=== PATIENT | male | born 1940 | race Caucasian/White ===

== ENCOUNTER 2018-10-10 13:00 | Emergency (ER) | payer MEDICARE, OTHER ==
[2018-10-10] MEDS ORDERED: HYDROmorphone 2 MG Tab PO SCH (13:45)
--- NOTE | 2018-10-10 15:17 | CT ---
INDICATION: New left facial droop. History of 3 CVAs. Fall left frontal contusion. On Coumadin. CT HEAD WITHOUT CONTRAST: Spiral 3.75 mm axial sections were obtained through the brain with sagittal and coronal reconstructions 10/10/18--no comparisons. Total exam DLP = 714.30 mGy-cm. There is what appears to be a retention cyst in the left frontal air cell and also in an ethmoidal air cell on the left posteriorly with an air-fluid level in the left maxillary antrum raising question of acute sinusitis in that sinus. Paranasal sinuses were otherwise unremarkable. Mastoid air cells were well aerated on the right and with relatively few air cells on the left those being normally aerated in appearance. Marked soft tissue swelling is noted overlying the left frontal bone with a scalp hematoma present in that area. No cranial fracture site was identified. However, there was an impaction fracture of the outer table of the skull at the level of the left frontal bone best seen on axial image #41. This may be the reason for the appearance of a retention cyst in that area, which actually may represent a small hematoma. No shift of midline structures was identified--no hemorrhage or hematoma was seen. The orbits appear to be intact. Calcifications are noted in the vertebral and especially the internal carotid arteries. Ventricles and sulci are slightly prominent compatible with a mild degree of cerebral atrophy partly on the basis of the patients age. There is some minimal patchy decreased density in the white matter compatible with a mild degree of microvascular disease, although other cause of leukoencephalopathy, cannot be excluded. IMPRESSION: 1. Acute fracture noted at the left frontal air cell involving the outer table of the skull. No other cranial fracture site identified--no acute intracranial abnormality seen. 2. Scalp hematoma left frontal area overlying the fracture site mentioned in # 1. 3. Mild generalized atrophy. 4. Cerebrovascular disease. 5. Possible sinusitis, possibly acute in the left maxillary antrum. Report was called to Dr. Acosta at 1450 hours. [facility]
--- NOTE | 2018-10-10 15:28 | CT ---
INDICATION: New left facial droop. History of 3 CVAs. Fall left frontal contusion. On Coumadin. CERVICAL SPINE CT WITHOUT CONTRAST: Spiral 2.5 mm axial sections were obtained through the cervical spine with sagittal and coronal reconstructions 10/10/18-- no comparisons. Total exam DLP = 453.55 mGy-cm. Prevertebral space appeared normal. Bone density appeared to be somewhat diminished raising question of osteomalacia or osteoporosis--correlate clinically. Moderately severe degenerative changes are noted with sclerosis, hypertrophic change, narrowing of the joint space and subchondral cystic changes at the atlantoodontoid joint. Degenerative changes and disc disease are noted at C4-5, C5-6 and C6-7 with vacuum joint phenomenon at C4 through 7 levels. Reversal of normal cervical lordosis is centered at the C5 level and is moderate. The prevertebral space appeared to be normal. Vertebral elements were otherwise fairly well aligned. There is some narrowing of neural foramina at the above mentioned levels and also at C3-4. Hypertrophic changes at the uncinate joints are noted throughout the cervical spine relatively mild at the C2-3, C3-4 level with more prominent degenerative hypertrophic change at the right sided C3-4 uncinate joints and more severe at their remaining levels caudally. Hypertrophic changes were also noted at the lateral masses with masses of C2-3 on the left. The lateral masses at C2-3 are not fused on the right. A dextroconcave scoliosis of mild to moderate degree is noted additionally. Prevertebral space appeared normal. A definite acute fracture or dislocation was not identified with the odontoid and the atlas appearing intact. IMPRESSION: 1. No acute fracture or dislocation. 2. Degenerative changes and disc disease as noted above. 3. Mild to moderate scoliosis. 4. Possible demineralization. 5. Fusion of left sided lateral masses at C2-3. 6. Reversal of normal cervical lordosis centered on C5. Report was called to Dr. Acosta at 1450 hours. [facility]
--- NOTE | 2018-10-10 15:33 | CR ---
INDICATION: New left facial droop. History of 3 CVAs. Fall left frontal contusion. On Coumadin. CHEST ONE VIEW: Single frontal view of the chest was obtained 10/10/18--no comparisons. The aorta is tortuous. There may be some minimal calcification in the arch of the aorta. The heart is normal in size and shape. Overlying EKG leads are noted. Cathleen structures appear to be grossly intact. IMPRESSION: No acute process. Report was called to Dr. Acosta at 1450 hours. [facility]
--- NOTE | 2018-10-10 15:35 | CR ---
INDICATION: New left facial droop. History of 3 CVAs. Fall left frontal contusion. On Coumadin. RIGHT HUMERUS: Four images of the right humerus were obtained and revealed no evidence of an acute fracture or dislocation or other acute bone or joint abnormality. Report was called to Dr. Acosta at 1450 hours. [facility]
--- NOTE | 2018-10-10 15:37 | CR ---
INDICATION: New left facial droop. History of 3 CVAs. Fall left frontal contusion. On Coumadin. RIGHT SHOULDER: Three view of the right shoulder revealed minimal degenerative change at the glenohumeral joint with joint space fairly well preserved. Minimal degenerative changes are also noted at the AC joint. An acute fracture, dislocation or other significant bone or joint abnormality, was not identified. Report was called to Dr. Acosta at [address] [facility]
[2018-10-10] MEDS ORDERED: Diphtheria/Tetanus Toxoids,Adult (Td) 0.5 ML SDV IM ONE (16:15)
[2018-10-10 16:47] VITALS: BP 136/72
--- NOTE | 2018-10-11 07:20 | EDM.PDOC ---
ED HPI GENERAL MEDICAL PROBLEM - General Chief Complaint: Head Injury Stated Complaint: FALL Time Seen by Provider: 10/10/18 13:55 Source of Information: Reports: Patient History Limitations: Reports: No Limitations - History of Present Illness INITIAL COMMENTS - FREE TEXT/NARRATIVE: His pleasant 78-year-old man was putting his snowblower away when he tripped and fell on a rubber foam mattress traumatized his right shoulder and left arm. He has an abrasion to the dorsum is nose is where his glasses scraped his face. Last tetanus was 10 years ago and he has had a tender right shoulder discomfort right humeral discomfort and mild trace of left facial droop. He is taking warfarin 5 mg and 7 mg alternating days, recently metoprolol 100 mg. Has previous noted chronic low back pain bilateral SVETLANA hypertension myocardial infarction 2 lymphs with his is edentulous previous carpal tunnel surgery for back surgery and has a large left inguinal hernia Left Forehead Pain Score (Numeric/FACES): 5 - Related Data Allergies Allergy/AdvReac Type Severity Reaction Status Date / Time rofecoxib [From Vioxx] Allergy Headache Verified 03/04/15 20:25 Home Meds: Home Meds Aspirin 325 mg PO DAILY 02/21/15 [History] Celecoxib [CeleBREX] 200 mg PO DAILY PRN 02/21/15 [History] Ciprofloxacin HCl [Cipro] 500 mg PO BID 02/21/15 [History] Enalapril Maleate [Vasotec] 10 mg PO DAILY 02/21/15 [History] Lovastatin [Mevacor] 40 mg PO ASDIRECTED 02/21/15 [History] Metoprolol Tartrate [Lopressor] 100 mg PO DAILY 02/21/15 [History] Tamsulosin [Tamsulosin 24 Hr] 0.4 mg PO DAILY 02/21/15 [History] Warfarin [Coumadin] 5 mg PO ASDIRECTED 02/21/15 [History] Warfarin [Coumadin] 7.5 mg PO ASDIRECTED 02/21/15 [History] Past Medical History Cardiovascular History: Reports: [place], Stents Other Genitourinary History: BPH/OBSTRUCTION Other Musculoskeletal History: BROKEN LEG Neurological History: Reports: Other (See Below) Other Neuro History: 3 strokes without deficits - Past Surgical History Other Cardiovascular Surgeries/Procedures: BACK SURGERY Other Musculoskeletal Surgeries/Procedures:: HIP SURGERY/BACK SURGERY Social & Family History - Family History Family Medical History: Noncontributory - Tobacco Use Smoking Status *Q: Never Smoker - Caffeine Use Caffeine Use: Reports: None - Recreational Drug Use Recreational Drug Use: No ED ROS GENERAL - Review of Systems Review Of Systems: ROS reveals no pertinent complaints other than HPI. ED EXAM, HEAD INJURY - Physical Exam Exam: See Below Text/Narrative:: This pleasant man has moderate distress and is alert and has moderate decreased hearing or have to talk loudly but he can understand the questions and answers appropriately. Has notable trace of a left nasolabial droop. This is new to his . he attended by his and his son. Exam Limited By: No Limitations General Appearance: Alert, WD/WN, Moderate Distress Head: Other (Facial nasal abrasion with left frontal swelling contusion. Left frontal swelling central middle third frontal area.) Eyes: Bilateral Eye: Normal Inspection Ears: Normal External Exam, Normal Canal, Hearing Grossly Normal, Normal TMs, Other (No rosenbaum sign) Nose: Normal Inspection, Normal Mucousa, Active Bleeding (Right and left mucosa granular in character with left less than right fresh nasal bleed that was easily cauterized with silver nitrate sticks after repetitive applications and no further bleeding.) Throat/Mouth: Normal Inspection, Normal Lips, Normal Gums, Normal Oropharynx, Normal Voice, No Airway Compromise, Other (Edentulous) Neck: Non-Tender, Other (Range of motion of the neck is decreased but was not tested until C-spine was cleared. His very significant degenerative disc disease C-spine.) Respiratory: No Respiratory Distress, Lungs Clear, Normal Breath Sounds, No Accessory Muscle Use, Chest Non-Tender Cardiovascular: Normal Peripheral Pulses, Regular Rate, Rhythm, No Edema, No Gallop, No JVD, No Murmur, No Rub, JVD GI/Abdominal Exam: Normal Bowel Sounds, Soft, Non-Tender, No Organomegaly, No Distention, No Abnormal Bruit (Male) Exam: Normal Inspection, Other (Large left inguinal hernia) Rectal (Males) Exam: Deferred Back Exam: Normal Inspection, Vertebral Tenderness, Other (Mild cervical vertebral and paraspinal muscles discomfort on palpation ) DTR: 1+: Patella (R), Patella (L), Achilles (R), Achilles (L) Skin: Normal Color, Warm/Dry - [place] Coma Score Best Eye Response (Katy): (4) Open Spontaneously Best Verbal Response (Katy): (5) Oriented Best Motor Response ([place]): (6) Obeys Commands Course - Vital Signs Last Recorded V/S: Last Vital Signs Temp 36.7 C 10/10/18 13:00 Pulse 72 10/10/18 13:00 Resp 18 10/10/18 16:30 BP 136/72 10/10/18 16:30 Pulse Ox 97 10/10/18 16:30 - Orders/Labs/Meds Orders: Active Orders 24 hr Category Date Time Status Vaccines to be Administered [RC] PER UNIT ROUTINE Care 10/10/18 16:15 Active EKG 12 Lead [EK] Routine Ther 10/10/18 13:40 Ordered Labs: Laboratory Tests 10/10/18 10/10/18 10/10/18 Range/Units 14:33 14:33 14:33 WBC 12.6 H (4.5-12.0) X10-3/uL RBC 4.38 (4.30-5.75) x10(6)uL Hgb 14.2 (11.5-15.5) g/dL Hct 42.0 (30.0-51.3) % MCV 96.0 (80-96) fL MCH 32.5 (27.7-33.6) pg MCHC 33.9 (32.2-35.4) g/dL RDW 12.7 (11.5-15.5) % Plt Count 192 (125-369) X10(3)uL MPV 9.4 (7.4-10.4) fL Neut % (Auto) 79.4 (46-82) % Lymph % (Auto) 12.9 L (13-37) % Gilchrist % (Auto) 4.3 (4-12) % Eos % (Auto) 2 (1.0-5.0) % Baso % (Auto) 2 (0-2) % Neut # (Auto) 10.1 H (1.6-8.3) # Lymph # (Auto) 1.6 (0.6-5.0) # Gilchrist # (Auto) 0.5 (0.0-1.3) # Eos # (Auto) 0.2 (0.0-0.8) # Baso # (Auto) 0.2 (0.0-0.2) # PT 20.8 H (8.7-11.1) INR 2.16 H (0.89-1.13) Sodium 139 (135-145) mmol/L Potassium 3.7 (3.5-5.3) mmol/L Chloride 105 (100-110) mmol/L Carbon Dioxide 23 (21-32) mmol/L BUN 15 (7-18) mg/dL Creatinine 1.1 (0.70-1.30) mg/dL Est Cr Clr Drug Dosing TNP Estimated GFR (MDRD) > 60 (>60) BUN/Creatinine Ratio 13.6 (9-20) Glucose 101 (80-116) mg/dL Calcium 9.4 (8.6-10.2) mg/dL Total Bilirubin 0.9 (0.1-1.3) mg/dL AST 30 H (5-25) IU/L ALT 25 (12-36) U/L Alkaline Phosphatase 79 (56-112) IU/L Troponin I (<0.017-0.056) ng/mL Total Protein 6.8 (6.0-8.0) g/dL Albumin 3.3 (3.2-4.6) g/dL Globulin 3.5 g/dL Albumin/Globulin Ratio 0.9 10/10/18 Range/Units 14:33 WBC (4.5-12.0) X10-3/uL RBC (4.30-5.75) x10(6)uL Hgb (11.5-15.5) g/dL Hct (30.0-51.3) % MCV (80-96) fL MCH (27.7-33.6) pg MCHC (32.2-35.4) g/dL RDW (11.5-15.5) % Plt Count (125-369) X10(3)uL MPV (7.4-10.4) fL Neut % (Auto) (46-82) % Lymph % (Auto) (13-37) % Gilchrist % (Auto) (4-12) % Eos % (Auto) (1.0-5.0) % Baso % (Auto) (0-2) % Neut # (Auto) (1.6-8.3) # Lymph # (Auto) (0.6-5.0) # Gilchrist # (Auto) (0.0-1.3) # Eos # (Auto) (0.0-0.8) # Baso # (Auto) (0.0-0.2) # PT (8.7-11.1) INR (0.89-1.13) Sodium (135-145) mmol/L Potassium (3.5-5.3) mmol/L Chloride (100-110) mmol/L Carbon Dioxide (21-32) mmol/L BUN (7-18) mg/dL Creatinine (0.70-1.30) mg/dL Est Cr Clr Drug Dosing Estimated GFR (MDRD) (>60) BUN/Creatinine Ratio (9-20) Glucose (80-116) mg/dL Calcium (8.6-10.2) mg/dL Total Bilirubin (0.1-1.3) mg/dL AST (5-25) IU/L ALT (12-36) U/L Alkaline Phosphatase (56-112) IU/L Troponin I 0.035 (<0.017-0.056) ng/mL Total Protein (6.0-8.0) g/dL Albumin (3.2-4.6) g/dL Globulin g/dL Albumin/Globulin Ratio Meds: Medications Discontinued Medications Generic Name Dose Route Start Last Admin Trade Name Freq PRN Reason Stop Dose Admin Hydromorphone HCl 2 mg 10/10/18 13:45 10/10/18 14:51 Dilaudid PO 2 mg Q6H BURT Administration Tetanus/Diphtheria Toxoids 0.5 ml 10/10/18 16:15 10/10/18 16:20 Tenivac IM 10/10/18 16:16 0.5 ml .ONCE ONE Administration - Radiology Interpretation CT Results Date: 10/10/18 (Significant children degenerative joint disease cervical spine,Left outer cortex frontal fracture, no penetration in her cortex of the frontal sinuses, concussion, chest x-ray no cardiomegaly, right shoulder x-ray no fracture or dislocation, right humerus is normal without fracture. No CVA on CT of the head. Moderate atlantoaxial joint abnormalities old odontoid joint changes.) Departure - Departure Time of Disposition: 14:50 (CT left motor cortex frontal sinus fracture site invagination. No disruption of the cortex of the table of the skull/intertable of the frontal sinus. Significant degenerative joint disease cervical spine without fracture. Old changes odontoid and the atlantoaxial joint no evidence for CVA on brain examination) Disposition: Home, Self-Care 01 Condition: Good Clinical Impression: Anticoagulation goal of INR 2.0 to 2.5, Mild epistaxis Skull fracture with concussion Qualifiers: Encounter type: initial encounter Fracture type: closed Qualified Code(s): S02.91XA - Unspecified fracture of skull, initial encounter for closed fracture ; S06.0X9A - Concussion with loss of consciousness of unspecified duration, initial encounter Concussion Qualifiers: Encounter type: initial encounter Loss of consciousness presence/duration: without LOC Qualified Code(s): S06.0X0A - Concussion without loss of consciousness, initial encounter Hypertension Qualifiers: Hypertension type: essential hypertension Qualified Code(s): I10 - Essential ( primary) hypertension Chronic low back pain Qualifiers: Back pain laterality: bilateral Sciatica presence: without sciatica Qualified Code(s): M54.5 - Low back pain; G89.29 - Other chronic pain CVA (cerebrovascular accident) Qualifiers: CVA mechanism: embolism Precerebral and cerebral artery: middle cerebral artery Laterality of affected vessel: right Qualified Code(s): I63.411 - Cerebral infarction due to embolism of right middle cerebral artery Facial nerve injury Qualifiers: Encounter type: initial encounter Laterality: left Qualified Code(s): S04.52XA - Injury of facial nerve, left side, initial encounter Nasal trauma Qualifiers: Encounter type: initial encounter Qualified Code(s): S09.92XA - Unspecified injury of nose, initial encounter - Discharge Information *PRESCRIPTION DRUG MONITORING PROGRAM REVIEWED*: Not Applicable *COPY OF PRESCRIPTION DRUG MONITORING REPORT IN PATIENT BYRON: Not Applicable Instructions: Fall Prevention in the Home, [id number], Head Injury, Adult Referrals: Sid Diamond MD [Primary Care Provider] - Forms: ED Department Discharge Additional Instructions: FOR PAIN USE TYLENOL 100 MG EVERY 4-6 HOURS FOLLOW UP WITH YOUR MD IN THE NEXT 5-7 DAYS EARLIER IF WORSE. USE BACITRACITIN OR TRIPLE ANTIBIOTIC OINTMENT TWICE A DAY TO THE ABRASION TO YOUR NOSE AND FOREHEAD - My Orders Last 24 Hours: My Active Orders 10/10/18 13:40 EKG 12 Lead [EK] Routine 10/10/18 16:15 Vaccines to be Administered [RC] PER UNIT ROUTINE - Assessment/Plan Last 24 Hours: My Active Orders 10/10/18 13:40 EKG 12 Lead [EK] Routine 10/10/18 16:15 Vaccines to be Administered [RC] PER UNIT ROUTINE
== END 2018-10-10 16:47 | disposition home or self-care (01) ==
LOC: FB.ED 13:00
DX: I63.411 Cerebral infarction due to embolism of right middle cerebral artery (principal); S02.91XA Unspecified fracture of skull, initial encounter for closed fracture; S06.0X0A Concussion without loss of consciousness, initial encounter; S04.52XA Injury of facial nerve, left side, initial encounter; S09.92XA Unspecified injury of nose, initial encounter; R04.0 Epistaxis; M54.5 Low back pain; G89.29 Other chronic pain; I25.2 Old myocardial infarction; Z88.8 Allergy status to other drugs, medicaments and biological substances; Z79.82 Long term (current) use of aspirin
CPT/HCPCS: 36415; 70450; 71045; 72125; 73030-RT; 73060-RT; 80053; 84484; 85025; 85610; 90714; 93005; 96372; 99285; A9270-GY

== ENCOUNTER 2020-05-09 09:28 | Inpatient (IN) | payer MEDICARE, OTHER ==
--- NOTE | 2020-05-13 18:05 | PCM.HP.2 ---
H&P History of Present Illness - General Date of Service: 05/13/20 Admit Problem/Dx: Admission Diagnosis/Problem Admission Diagnosis/Problem Obstructive uropathy Source of Information: Patient, Old Records History Limitations: Reports: No Limitations - History of Present Illness Initial Comments - Free Text/Narative: This is an 80-year-old male patient on May 05 was seen in the urology clinic had hematuria and urinary retention. They placed a Lincoln catheter sent to the hospital with acute kidney injury from obstruction. He was kept in the hospital had had a renal stone but nonobstructing. They tried to take the the catheter and were not able to eat as he obstructed again. And because of the time he was in there he became very deconditioned. He says he feels good now although he is a little bit weak. He states is getting better. He denies chest pain, shortness breath, dysuria, pyuria, hematuria, fevers, chills, back pain. - Related Data Allergies/Adverse Reactions: Allergies Allergy/AdvReac Type Severity Reaction Status Date / Time rofecoxib [From Vioxx] Allergy Headache Verified 05/13/20 16:35 Home Medications: Home Meds Aspirin 325 mg PO DAILY 02/21/15 [History] Celecoxib [CeleBREX] 200 mg PO DAILY PRN 02/21/15 [History] Ciprofloxacin HCl [Cipro] 500 mg PO BID 02/21/15 [History] Enalapril Maleate [Vasotec] 10 mg PO DAILY 02/21/15 [History] Lovastatin [Mevacor] 40 mg PO ASDIRECTED 02/21/15 [History] Metoprolol Tartrate [Lopressor] 50 mg PO BID 02/21/15 [History] Tamsulosin [Tamsulosin 24 Hr] 0.4 mg PO BEDTIME 02/21/15 [History] Warfarin [Coumadin] 5 mg PO ASDIRECTED 02/21/15 [History] Warfarin [Coumadin] 7.5 mg PO ASDIRECTED 02/21/15 [History] Lactobacillus Rhamnosus GG [Culturelle] 2 cap PO DAILY 05/13/20 [History] Magnesium Oxide 500 mg PO DAILY 05/13/20 [History] NaPh,Mb-Db/K Ph,MB-DB [Phos-NaK Powder] 1 pkt PO DAILY 05/13/20 [History] Vancomycin HCl [Vancocin HCl] 125 mg PO QID 05/13/20 [History] Past Medical History Cardiovascular History: Reports: [place], Stents Other Genitourinary History: BPH/OBSTRUCTION Other Musculoskeletal History: BROKEN LEG Neurological History: Reports: Other (See Below) Other Neuro History: 3 strokes without deficits - Past Surgical History Other Cardiovascular Surgeries/Procedures: BACK SURGERY Other Musculoskeletal Surgeries/Procedures:: HIP SURGERY/BACK SURGERY Social & Family History - Family History Family Medical History: Noncontributory - Tobacco Use Smoking Status *Q: Former Smoker Used Tobacco, but Quit: Yes Month/Year Tobacco Last Used: 1969 Second Hand Smoke Exposure: No - Caffeine Use Caffeine Use: Reports: Soda - Recreational Drug Use Recreational Drug Use: No H&P Review of Systems - Review of Systems: Review Of Systems: See Below General: Reports: Weakness HEENT: Reports: No Symptoms Pulmonary: Reports: No Symptoms Cardiovascular: Reports: No Symptoms Gastrointestinal: Reports: No Symptoms Genitourinary: Reports: No Symptoms Musculoskeletal: Reports: No Symptoms Skin: Reports: No Symptoms Psychiatric: Reports: No Symptoms Neurological: Reports: No Symptoms Hematologic/Lymphatic: Reports: No Symptoms Immunologic: Reports: No Symptoms Exam - Exam Exam: See Below - Vital Signs Vital Signs: Last Vital Signs Temp 97.5 F 05/13/20 16:20 Pulse 88 05/13/20 16:20 Resp 16 05/13/20 16:20 BP 114/68 05/13/20 16:20 Pulse Ox 99 05/13/20 16:20 Weight: 171 lb 14.4 oz - Exam General: Alert, Oriented, Cooperative HEENT: Hearing Intact, Posterior Pharynx Clear, TMs Clear Neck: Supple, Trachea Midline Lungs: Clear to Auscultation, Normal Respiratory Effort. No: Crackles, Rales, Rhonchi Cardiovascular: Regular Rate, Regular Rhythm. No: Systolic Murmur GI/Abdominal Exam: Normal Bowel Sounds, Non-Tender, No Organomegaly, No Distention, No Abnormal Bruit (Male) Exam: Other (Lincoln catheter) Rectal (Males) Exam: Normal Exam Back Exam: Normal Inspection, Full Range of Motion Extremities: Normal Inspection, Normal Range of Motion, No Pedal Edema Skin: Warm, Dry, Intact Neuro Extensive - Mental Status: Alert, Oriented x3, Normal Mood/Affect, Normal Cognition, Memory Intact Psychiatric: Alert, Normal Affect, Normal Mood Sepsis Event Note - Evaluation Sepsis Screening Result: No Definite Risk - Focused Exam Vital Signs: Vital Signs Temp Pulse Resp BP Pulse Ox Pulse Ox 05/13/20 16:20 97.5 F 88 16 114/68 99 99 - Problem List (1) Obstructive uropathy SNOMED Code(s): 0645059 ICD Code: N13.9 - OBSTRUCTIVE AND REFLUX UROPATHY, UNSPECIFIED Status: Acute Current Visit: Yes (2) Acute kidney injury SNOMED Code(s): 06958035, [id number] ICD Code: N17.9 - ACUTE KIDNEY FAILURE, UNSPECIFIED Status: Acute Current Visit: Yes (3) Hyponatremia SNOMED Code(s): 61404081 ICD Code: E87.1 - HYPO-OSMOLALITY AND HYPONATREMIA Status: Acute Current Visit: Yes (4) BPH (benign prostatic hyperplasia) SNOMED Code(s): 319729365 ICD Code: N40.0 - BENIGN PROSTATIC HYPERPLASIA WITHOUT LOWER URINRY TRACT SYMP Status: Acute Current Visit: Yes (5) Atonic bladder SNOMED Code(s): 939915967 ICD Code: N31.2 - FLACCID NEUROPATHIC BLADDER, NOT ELSEWHERE CLASSIFIED Status: Acute Current Visit: Yes (6) Lincoln catheter in place SNOMED Code(s): 626057693 ICD Code: Z97.8 - PRESENCE OF OTHER SPECIFIED DEVICES Status: Acute Current Visit: Yes (7) Anticoagulation goal of INR 2.0 to 2.5 SNOMED Code(s): 78426463 ICD Code: Z51.81 - ENCOUNTER FOR THERAPEUTIC DRUG LEVEL MONITORING; Z79.01 - NEWSPAPER PHOTOJOURNALIST (CURRENT) USE OF ANTICOAGULANTS Status: Acute Current Visit: No Problem List Initiated/Reviewed/Updated: Yes Orders Last 24hrs: Active Orders 24 hr Category Date Time Status Patient Status [ADT] Routine ADT 05/13/20 17:34 Active Height and Weight [RC] WEEKLY Care 05/13/20 17:34 Active Insert Urinary Catheter [OM.PC] Q24H Care 05/13/20 17:45 Ordered Oxygen Therapy [RC] PRN Care 05/13/20 17:34 Active Up With Assistance [RC] ASDIRECTED Care 05/13/20 17:31 Active Urinary Catheter Assessment [RC] QSHIFT Care 05/13/20 17:36 Active VTE/DVT Education [RC] Per Unit Routine Care 05/13/20 17:34 Active Vital Signs [RC] DAILY Care 05/13/20 17:34 Active OT Evaluation and Treatment [CONS] Routine Cons 05/13/20 17:31 Active PT Evaluation and Treatment [CONS] Routine Cons 05/13/20 17:31 Active Regular Diet [DIET] Diet 05/13/20 Dinner Active BASIC METABOLIC PANEL,BMP [CHEM] AM Lab 05/16/20 06:00 Ordered INR,PT,PROTHROMBIN TIME [COAG] Routine Lab 05/15/20 06:00 Ordered Resuscitation Status Routine Resus Stat 05/13/20 17:31 Ordered Assessment/Plan Comment:: 1. Admit to swing bed. 2. Continue Lincoln catheter in place 3. PT/OT 4. Regular diet 5. Continue current medications and pharmacy to manage INR and Coumadin 6. Up with assist - Mortality Measure Prognosis:: Good
[2020-05-13] MEDS ORDERED: Melatonin 3 MG Tab PO PRN (19:55)
[2020-05-13] MEDS ORDERED: Vancomycin 125 MG Cap PO SCH (20:00)
[2020-05-13] MEDS: Tamsulosin 0.4 MG Cap.ER PO SCH (20:31)
[2020-05-13] MEDS: Vancomycin 125 MG Cap PO SCH (20:31)
[2020-05-13] MEDS: Metoprolol Tartrate 50 MG Tab PO SCH (20:31)
[2020-05-13] MEDS: Potassium Phosphate,Mb-Db/Sodium Phosphate,Mb-Db Packet PO SCH (20:32)
[2020-05-14] MEDS: Vancomycin 125 MG Cap PO SCH ×5 (00:27→20:06)
[2020-05-14] MEDS ORDERED: Warfarin Sliding Scale PO SCH (07:30)
[2020-05-14] MEDS: Metoprolol Tartrate 50 MG Tab PO SCH ×2 (09:58→20:06)
[2020-05-14] MEDS: Magnesium Oxide 400 MG Tab PO SCH (10:50)
[2020-05-14] MEDS: Lactobacillus Rhamnosus GG (Probiotic) Cap PO SCH (10:50)
[2020-05-14] MEDS ORDERED: Warfarin 5 MG Tab PO ONE (16:00)
[2020-05-14] MEDS: Tamsulosin 0.4 MG Cap.ER PO SCH (20:06)
[2020-05-14] MEDS: Potassium Phosphate,Mb-Db/Sodium Phosphate,Mb-Db Packet PO SCH (20:06)
[2020-05-15] MEDS: Magnesium Oxide 400 MG Tab PO SCH (08:37)
[2020-05-15] MEDS: Lactobacillus Rhamnosus GG (Probiotic) Cap PO SCH (08:37)
[2020-05-15] MEDS: Vancomycin 125 MG Cap PO SCH ×4 (08:38→20:44)
[2020-05-15] MEDS: Metoprolol Tartrate 50 MG Tab PO SCH ×2 (08:40→20:44)
[2020-05-15] MEDS ORDERED: Warfarin 5 MG, Warfarin 2.5 MG PO ONE ×2 (16:00)
[2020-05-15] MEDS: Potassium Phosphate,Mb-Db/Sodium Phosphate,Mb-Db Packet PO SCH (20:44)
[2020-05-15] MEDS: Tamsulosin 0.4 MG Cap.ER PO SCH (20:44)
[2020-05-16] MEDS: Metoprolol Tartrate 50 MG Tab PO SCH (08:48)
[2020-05-16] MEDS: Lactobacillus Rhamnosus GG (Probiotic) Cap PO SCH (08:48)
[2020-05-16 08:49] VITALS: BP 114/64
[2020-05-16] MEDS: Magnesium Oxide 400 MG Tab PO SCH (08:49)
[2020-05-16] MEDS: Vancomycin 125 MG Cap PO SCH (08:49)
[2020-05-16 12:02] VITALS: PULSE 84
--- OUTSIDE RECORDS SUMMARY | 2020-05-21 07:52 | XMSREPORT ---
:[address] [facility] s Address [facility] [place] [address] Care Team Providers Name Role Phone Mariah Diamond MD Primary Care Provider Mariah Diamond MD Attributed Provider Reason for Referral (Routine) Status Reason Specialty Diagnoses / Procedures Referred By Tabitha vargas Referred To Contact [facility] [address] [place] [address] Phone: [phone] Comprehensive Primary [facility] Plus (Routine) Status Reason Specialty Diagnoses / Referred By Referred To Procedures Contact Contact New Request Urology Diagnoses Acute urinary retention Isabel Keane, [facility] [address] [place] [address] [place] [address] Phone: Scheduling Instructions This is an electronic referral. Reason for Visit Reason Comments Urinary Retention Pt arrives by EMS from urolo gy clinic due to urinary retention. Rosa placed draining 2500 m L. Pt states he has been unable to urinate "for weeks". Pt c/o blood in urine. Rosa bag urine apears bloody with sedmentation, Auth/Cert Status Reason Specialty Diagnoses / Procedures Referred By Tabitha vargas Referred To Contact Encounter Details Date Type Department Care Team Description 05/05/2020 - Hospital Encounter [facility] Department [address] [place] [address] Acute urinary 05/13/2020 CENTER 8CD MED Anil Fishman MD [address] [place] [address] [phone] retention SURG [facility] Giuliano Dillon MD [address] [place] [address] [phone] [address] [facility] Lawson Wilson MD [address] [place] [address] [phone] [place] [address] Sarmad Obando MD [address] [place] [address] [phone] Tejal Lee MD [address] [place] [address] [phone] Allergies Active Allergy Reactions Severity Noted Date Comments Vioxx Headache 07/27/2012 documented as of this encounter (statuses as of 05/13/2020) Medications Medication Sig Dispensed Refills Start Date End Date Status fluticasone (FLONASE) [place] 2 sprays 1 Bottle 12 01/25/2019 Active 50 mcg/spray nasal into each nostril sprayIndications: every night at Chronic allergic bedtime rhinitis Additional information Patient taking differently: 2 spray Each nostril Bedtime prn, Informant: Spouse, Reported on 05/05/2020 8:31 PM lovastatin (MEVACOR) 40 mg TAKE 1 TABLET EVERY 90 tablet 3 Active tabletIndications: OTHER DAY Hypercholesteremia Additional information Patient taking differently: 40 mg Oral Every other day, (No instructions reported), Informant: Spouse, Reported on 05/05/2020 8:31 PM warfarin (COUMADIN) 5 mg TAKE 180 tablet 3 01/31/2020 Active tabletIndications: DIRECTED Osteoarthritis, (7.5-10MG DAILY generalized DOSE RANGE) tamsulosin (FLOMAX) 0.4 Take 1 capsule 30 capsule 0 05/13/202006/12 Active mg capsuleIndications: (0.4 mg) Acute urinary retention mouth every night at bedtime vancomycin (VANCOCIN) Take 1 capsule 48 capsule 0 05/13/2020 Active 125 mg capsule C. (125 mg) by difficile mouth 4 times a onlyIndications: day Clostridium difficile colitis potassium & sodium Take 1 packet 7 packet 0 05/13/202005/20 Active phosphates (PHOS-NAK) by mouth 1 time / 020 280-160-250 MG per day for 7 PACKIndications: Acute days kidney injury (HCC) magnesium oxide 500 mg Take 1 tablet 7 tablet 0 05/13/2020 Active TABS tabletIndications: (500 mg) by 0 Acute kidney injury mouth 1 time (HCC) per day for 7 days metoprolol tartrate Take 0.5 60 tablet 0 05/13/2020 Active (LOPRESSOR) 100 mg tablets (50 mg) tabletIndications: by mouth 2 Essential hypertension times a day lactobacillus Take 2 capsules 60 capsule 0 05/14/202006/13 Active (CULTURELLE) by mouth 1 time capsuleIndications: per day Clostridium difficile colitis acetaminophen (TYLENOL) Take 2 tablets 0 05/13/2020 Active 325 mg (650 mg) by tabletIndications: Acute mouth Every 4 urinary retention hours as needed for mild pain, moderate pain or severe pain aspirin 325 mg tablet Take 1 tablet 90 tablet 0 03/27/2015 Discontinued by mouth 1 time (Sto p Taking at per day. Resume Disc harge) in one week. celecoxib (CELEBREX) 200 TAKE ONE 60 capsule 1 01/25/2019 Discontinued mg capsuleIndications: CAPSULE EVERY 20 (Stop Taking at [facility] current use of DAY NEEDED Discharge) anticoagulant therapy FOR PAIN metoprolol tartrate TAKE ONE TABLET 90 tablet 3 01/31/2020 Discontinued (LOPRESSOR) 100 mg EVERY DAY ( Reorder) tabletIndications: Essential hypertension enalapril (VASOTEC) 10 TAKE ONE TABLET 90 tablet 3 01/31/202005/09 Discontinued mg tabletIndications: EVERY DAY (Stop Taking at Essential hypertension Discharge) furosemide (LASIX) 20 mg Take 1 tablet 90 tablet 3 04/28/202005/09 Discontinued tabletIndications: (20 mg) by (Stop Taking at Edema, unspecified type mouth 1 time Discharge) per day acetaminophen-codeine #3 Take 1-2 60 tablet 1 04/30/202004/20 5 Discontinued (TYLENOL #3) 300-30 mg tablets (Stop Taking at tabletIndications: mouth 4 times a Discharge) Hydronephrosis with day as needed ureteral stricture, not for severe pain elsewhere classified senna-docusate sodium Take 1 tablet 0 04/20 Discontinued (SENNA S) 8.6-50 MG by mouth (Stop Taking at tablet other day Discharge) acetaminophen (TYLENOL) Take 2 tablets 0 05/09/202005/13 Discontinued 325 mg (650 mg) tabletIndications: Acute mouth Every 4 urinary retention hours as needed for mild pain magnesium oxide 500 mg Take 1 tablet 8 tablet 0 05/09/2020 Discontinued TABS tabletIndications: (500 mg) 0 Acute kidney injury mouth 2 times a (HCC) day for 4 days potassium & sodium Take 1 packet 9 packet 0 05/09/202005/13 Discontinued phosphates (PHOS-NAK) by mouth 280-160-250 MG times a day for PACKIndications: Acute 3 days kidney injury (HCC) documented as of this encounter (statuses as of 05/13/2020) Active Problems Problem Noted Date Renal failure syndrome 05/05/2020 Acute urinary retention 05/05/2020 Pseudophakia - Both 02/14/2020 Glaucoma suspect of both eyes 08/29/2019 Hyperopia of both eyes 08/29/2019 Regular astigmatism of both eyes 08/29/2019 Presbyopia 08/29/2019 Coronary artery disease without angina pectoris 2014 Enlarged prostate with urinary obstruction 03/04/2015 BPH (benign prostatic hyperplasia) 02/21/2015 Guaiac positive stools 02/21/2015 Overview: The patient does not want a colonoscopy. 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 006 Essential hypertension 06/28/2003 Cerebral artery occlusion with cerebral infarction documented as of this encounter (statuses as of 05/13/2020) Resolved Problems Problem Noted Date Resolved Date Age-related nuclear cataract of both eyes 08/29/2019 02/14/2020 Urinary retention 03/04/2015 09/04/2015 Carpal tunnel syndrome 05/21/2009 02/12/2015 Acute myocardial infarction 08/21/2015 documented as of this encounter (statuses as of 05/13/2020) Immunizations Name Administration Dates Next Due TD(adult)adsorbed 10/10/2018 documented as of this encounter Social History Tobacco Use Types Packs/Day Years Used Date Former Smoker Cigarettes 1 20 09/19/1956 - 0 09/19/1979 Smokeless Tobacco: Never Used Alcohol Use Drinks/Week oz/Week Comments No Social Isolation Answer Date Recorded In a typical week, how many times do you More than three rachel es a week 01/31/2020 talk on the phone with family, friends, or neighbors? How often do you get together with friends More than three t imes a week 01/31/2020 or relatives? How often do you attend yazidi or More than 4 times per year 01/31/2020 quaker services? Do you belong to any clubs or Not asked organizations such as yazidi groups, unions, fraternal or athletic groups, or school groups? How often do you attend meetings of the More than 4 times pe r year 01/31/2020 clubs or organizations you belong to? Are you now , , , 01/31/2020 , never or living with a partner? Financial Resource Strain Answer Date Recorded How hard is it for you to pay for the very basics like Not h katey at all 01/31/2020 food, housing, medical care, and heating? Intimate Partner Violence Answer Date Recorded Within the last year, have you been afraid of your partner o r No 01/31/2020 ex-partner? Within the last year, have you been humiliated or emotionall y No 01/31/2020 abused in other ways by your partner or ex-partner? Within the last year, have you been kicked, hit, slapped, or No 01/31/2020 otherwise physically hurt by your partner or ex-partner? Within the last year, have you been raped or forced to have any No 01/31/2020 kind of sexual activity by your partner or ex-partner? Food Insecurity Answer Date Recorded Within the past 12 months, you worried that your food would Never true 01/31/2020 run out before you got money to buy more. Within the past 12 months, the food you bought just didn't N ever true 01/31/2020 last and you didn't have money to get more. Transportation Needs Answer Date Recorded In the past 12 months, has lack of transportation kept you f rom No 01/31/2020 medical appointments or from getting medications? In the past 12 months, has lack of transportation kept you f rom No 01/31/2020 meetings, work, or getting things needed for daily living? Sexually Active Control Partners Comments Yes Female Sex Assigned at Date Recorded Not on file Job Start Date Occupation Industry Not on file Not on file Not on file Travel History Travel Start Travel End No recent travel history available. documented as of this encounter Last Filed Vital Signs Vital Sign Reading Time Taken Comments Blood Pressure 96/62 05/13/2020 10:53 AM CDT Pulse 82 05/13/2020 10:53 AM CDT Temperature 36.9 C (98.4 F) 05/13/2020 10:53 AM CDT Respiratory Rate 18 05/13/2020 10:53 AM CDT Oxygen Saturation 99% 05/13/2020 10:53 AM CDT Inhaled Oxygen Concentration - - Weight 84 kg (185 lb 3 oz) 05/05/2020 9:08 PM CDT Height 157.5 cm (5' 2") 05/05/2020 9:08 PM CDT Body Mass Index 33.87 05/05/2020 9:08 PM CDT documented in this encounter Functional Status Functional Status Response Date of Assessment Is the person deaf or does he/she have serious difficulty No 05/09/2020 hearing? Is this person blind or does he/she have difficulty No 05/09/2020 seeing even when wearing glasses? Do you have difficulty with walking, balance, climbing No 05/06/2020 stairs, or had a fall in the last 3 months? Does the patient have difficulty dressing or bathing? Yes 05/09/2020 Because of a physical, mental, or emotional condition; Yes 05/09/2020 does this person have difficulty doing errands alone such as visiting a doctor's office or shopping? Cognitive Status Response Date of Assessment Because of a physical, mental, or emotional condition; No 05/09/2020 does this person have serious difficulty concentrating, remembering, or making decisions? documented as of this encounter Discharge Summaries Not on filedocumented in this encounter Discharge Instructions Sondra Arvizu RN - 05/09/2020 Warfarin dose of 2.5mg to be given 05/13/20 in the hospital prior to discharge Check INR tomorrow on 05/14/20 documented in this encounter Medications at Time of Discharge Medication Sig Dispensed Refills Start Date End Date tamsulosin (FLOMAX) 0.4 mg Take 1 capsule 30 capsule 0 05/1306/12/2020 capsuleIndications: Acute (0.4 mg) by mouth urinary retention every night at bedtime potassium & sodium Take 1 packet by 7 packet 0 05/13/2020 05/20/2020 phosphates (PHOS-NAK) mouth 1 time per 280-160-250 MG day for 7 days PACKIndications: Acute kidney injury (HCC) magnesium oxide 500 mg TABS Take 1 tablet 7 tablet 0 05/1305/20/2020 tabletIndications: Acute (500 mg) by mouth kidney injury (HCC) 1 time per day for 7 days metoprolol tartrate Take 0.5 tablets 60 tablet 0 05/13/2020 (LOPRESSOR) 100 mg (50 mg) by mouth tabletIndications: 2 times a day Essential hypertension lactobacillus (CULTURELLE) Take 2 capsules 60 capsule 0 04/2006/13/2020 capsuleIndications: by mouth 1 time Clostridium difficile per day colitis acetaminophen (TYLENOL) 325 Take 2 tablets 0 04/20 mg tabletIndications: Acute (650 mg) by mouth urinary retention Every 4 hours as needed for mild pain, moderate pain or severe pain lovastatin (MEVACOR) 40 mg TAKE 1 TABLET 90 tablet 3 2019 tabletIndications: EVERY OTHER DAY Hypercholesteremia warfarin (COUMADIN) 5 mg TAKE DIRECTED 180 tablet 3 01/30 tabletIndications: (7.5-10MG DAILY Osteoarthritis, generalized DOSE RANGE) fluticasone (FLONASE) 50 [place] 2 sprays 1 Bottle 12 019 mcg/spray nasal into each nostril sprayIndications: Chronic every night at allergic rhinitis bedtime vancomycin (VANCOCIN) 125 Take 1 capsule 48 capsule 0 2019 mg capsule C. difficile (125 mg) by mouth onlyIndications: 4 times a day Clostridium difficile colitis documented as of this encounter Progress Notes Tejal Lee MD - 05/12/2020 4:19 PM CDT Hospital Progress Note Jose Rafael Wasserman is a 80yr old male admitted on 05/05/2020. Assessment / Plan Jose Rafael is a 80-year-old male with multiple medical comorbidities who was admitted on 05/05 for concerns of lower abdominal pain, difficulty micturition hematuria. He was seen in Dr. Knox's clinic, wasfound to have significant urinary retention for which a cystoscopy was done and a indwelling Rsoa was left in. Labs showed anemia hyponatremia acute kidney injury. Urology was consulted and urine retention was secondary to underlying BPH, atonic bladder and possible UTI. He was started on antibiotics and Flomax was added. His gross hematuria was secondary to anticoagulation with Coumadin and increased INR. CTA did not show any concern for malignancy. Renal functions improved with Rosa catheter placement and resolution of urine retention. Multiple electrolytes like potassium and magnesium and phosphorus were replaced. Patient developed C. difficile colitis and was started on vancomycin oral for a course for 14 days total. Physical and Occupational Therapy evaluated the patient and during this hospitalization and advised no intensity setting upon medical stability and discharge Rosa catheter removed for trial on 05/12 will do straight caths and bladder scans today. If PVRs consistently above 300 patient will need Rosa catheter placed or straight caths 5 times a day scheduled. Will discuss with He had 8 bowel movements yesterday we will give 1 more day for the diarrhea to resolve or become better He was throwing few PVCs which was likely secondary to dehydration and electrolyte imbalance will give some fluids and will replace potassium and magnesium Plan of care discussed with at bedside HPI / History / ROS HPI Few PAC overnight 8 BM last 24 hrs Ambulated in hallway with therapy No fever No abd pain Review of Systems Constitutional: Positive for fatigue. Respiratory: Positive for shortness of breath. Cardiovascular: Negative for chest pain. Gastrointestinal: Positive for abdominal pain and diarrhea. Musculoskeletal: Positive for arthralgias and myalgias. Neurological: Positive for weakness. Physical / Results Current Vital Signs Temp: 97.7 F (36.5 C) BP: 129/69 Weight: 84 kg (185 lb 3 oz) SpO2: 98 % Resp: 16 Pulse: 106 Current BMI (>50 = increased risk): (!) 33.86 O2 Device: Room Air Pain Ratin Physical Exam Constitutional: No distress. Cardiovascular: Regular rhythm. Pulmonary/Chest: Effort normal. Abdominal: Soft. There is no tenderness. Musculoskeletal: He exhibits no edema. Neurological: He is alert. Sarmad Obando MD - 05/11/2020 6:09 PM CDT Internal Medicine Progress Note Patient Name: Jose Rafael Wasserman Admit Date: 05/05/2020 CSN: [id number] Summary: Jose Rafael Wasserman is a 80yr male that was admitted with renal failure due to urinary retention. He underwent rosa placement with improvement. He was followed by urology. He did have gross hematuria managed with CBI since resolved. He was started on flomax and is able to urinate on his own.He did develop significant, profuse diarrhea and was diagnosed with clostridium difficile colitis and started on vancomycin. Day: 6 Interval Hx/ROS: No overnight events. VSS. Still having a lot of stools, will need to check with SNF regarding requirements for admission about this. Otherwise, monitor electrolytes/renal function. Impression/Plan: 1. Acute urinary retention with renal failure status post Rosa. Acute kidney injury has now resolved. Flomax. 2. Acute kidney injury, resolved. 3. Urinary retention. Management per urology. Flomax 4. Hematuria, now resolved. 5. Mild hypomagnesemia, replaced. 6. Hypophosphatemia. Replace. 7. Dyslipidemia, on Mevacor. 8. Hypertension. Lopressor to 25 b.i.d. Home vasotec held. C difficile colitis -vancomycin 125mg four times daily x 14 days DVT Prophylaxis: Warfarin Code status: DNR Current Vital Signs Temp: 98.5 F (36.9 C) BP: 121/63 Pulse: 97 O2 Device: Room Air Resp: 16 Pain Ratin (out of 10) Weight: 84 kg (185 lb 3 oz) SpO2: 95 % 24 hour Intake/Output 05/10 0700 - 05/11 0659 In: 750 [Oral:750] Out: 1750 [Urine:1750] Physical Exam: General: Awake, alert and not in distress RS: CTA, no crackles, no wheezes CVS: Normal Rate, RR, Normal S1S2 GI: Normal BS, soft, nondistended, non tender MSK: No pedal edema Lines and Drains Patient Lines/Drains/Airways Status Active Lines Name: Placement date: Placement time: Site: Days: Peripheral IV 05/09/20 Radial Distal;Left 05/09/20 1239 Radial 2 Indwelling Urinary Catheter 05/05/20 05/05/20 6 CBI 05/06/20 05/06/20 22 FR 5 Diagnostics and Labs All Reports, Vitals, Nursing Notes, pertinent Imaging and Labs Reviewed. Allergies Allergen Reactions Vioxx Headache Sarmad Obando M.D. Department of Internal Medicine Hospitalist Group Sarmad Obando MD - 05/10/2020 9:40 PM CDT Internal Medicine Progress Note Patient Name: Jose Rafael Wasserman Admit Date: 05/05/2020 CSN: [id number] Summary: Jose Rafael Wasserman is a 80yr male that was admitted with renal failure due to urinary retention. He underwent rosa placement with improvement. He was followed by urology. He did have gross hematuria managed with CBI since resolved. He was started on flomax and is able to urinate on his own.He did develop significant, profuse diarrhea and was diagnosed with clostridium difficile colitis and started on vancomycin. Day: 5 Interval Hx/ROS: C diff came back positive, started on oral vancomycin. Discussed with and patient at the bedside. Urinating on his own after starting flomax. Renal function stable. No signs of bleeding at this time. Impression/Plan: 1. Acute urinary retention with renal failure status post Rosa. Acute kidney injury has now resolved. Flomax. 2. Acute kidney injury, resolved. 3. Urinary retention. Management per urology. Flomax 4. Hematuria, now resolved. 5. Mild hypomagnesemia, replaced. 6. Hypophosphatemia. Replace. 7. Dyslipidemia, on Mevacor. 8. Hypertension. Lopressor to 25 b.i.d. Home vasotec held. C difficile colitis -vancomycin 125mg four times daily x 14 days DVT Prophylaxis: Warfarin Code status: DNR Current Vital Signs Temp: 99 F (37.2 C) BP: 137/83 Pulse: 95 O2 Device: Room Air Resp: 16 Pain Ratin (out of 10) Weight: 84 kg (185 lb 3 oz) SpO2: 97 % 24 hour Intake/Output 05/09 0700 - 05/10 0659 In: 1207 [Oral:1060] Out: 1300 [Urine:1300] Physical Exam: General: Awake, alert and not in distress RS: CTA, no crackles, no wheezes CVS: Normal Rate, RR, Normal S1S2 GI: Normal BS, soft, nondistended, non tender MSK: No pedal edema Lines and Drains Patient Lines/Drains/Airways Status Active Lines Name: Placement date: Placement time: Site: Days: Peripheral IV 05/09/20 Radial Distal;Left 05/09/20 1239 Radial 1 Indwelling Urinary Catheter 05/05/20 05/05/20 5 CBI 05/06/20 05/06/20 22 FR 4 Diagnostics and Labs All Reports, Vitals, Nursing Notes, pertinent Imaging and Labs Reviewed. Allergies Allergen Reactions Vioxx Headache Sarmad Obando M.D. Department of Internal Medicine Hospitalist Group Lawson Blair MD - 05/09/2020 7:27 PM CDT Current Vital Signs Temp: 98.6 F (37 C) BP: 133/70 Pulse: 90 O2 Device: Room Air Resp: 20 Pain Ratin (out of 10) Weight: 84 kg (185 lb 3 oz) SpO2: 99 % Patient Lines/Drains/Airways Status Active Lines Name: Placement date: Placement time: Site: Days: Peripheral IV 05/09/20 Radial Distal;Left 05/09/20 1239 Radial less than 1 CBI 05/06/20 05/06/20 22 FR 3 Total time spent in care of this patient 35 minutes with greater than 50 percent of the time spent in counseling and coordination of care. Spoke to /urology . Urology Recommended resuming ABt till uti repeat ruled out given increased wbc . Family also wants ABT . Risks of Abt including c diff and other risks discussed with and son in presence of nurse Jen. Will give 1 dose till catheter related uti ruled out by repeat ua . See progress note too Isabel Boone CNP - 05/09/2020 9:45 AM CDT Urology Daily Progress Note Jose Rafael Wasserman is a 80yr old male admitted on 05/05/2020 Urology is following for: urinary retention, gross hematuria S: No acute events overnight. Denies having any fevers, chills, rigors or sweats. No CP or SOB. No pains or issues overnight. Making good urine output. CBI remains off. Urine draining clear anamaria. Eating and drinking fair without nausea, vomiting, or upset stomach. Discussed urology management and f/u. Questions answered. Patient verbalizes understanding of all that is discussed and expresses no other urological questions or concerns at this time. O: Vital signs and nurses notes reviewed. Vital Signs: Temp: 98.5 F (36.9 C) | BP: 118/67 | Pulse: 70 | Resp: 18 | Pain Ratin (out of 10) | Weight: 84 kg (185 lb 3 oz) | O2 Device: Room Air | SpO2: 98 % Maximum Temperatures (last 24 hours) Temperature Maximum Max Temp 99.1 F (37.3 C) Intake and Output: 05/08 0700 - 05/09 0659 In: 720 [Oral:700] Out: 1600 [Urine:1600] Bladder Scan 05/06/2020 Bladder Scan Volume (mL) 680 Some recent data might be hidden VSS. Afebrile, no tachycardia. General: quiet, thin frail male in NAD. Neuro: quiet, but oriented. Limited exam. Lungs: No cough or wheezing. Abdomen: soft, nondistended. Non tender. : no CVA tenderness. Bladder is non-distended, non-tender and without palpable mass. Rosa catheter draining clear anamaria Extremities: no clubbing, cyanosis, or peripheral edema. Labs: Lab Results Component Value Date WBC 11.3 (H) 05/09/2020 NUCRBC 0 05/09/2020 RBC 3.40 (L) 05/09/2020 HEMOGLOBIN 10.8 (L) 05/09/2020 HEMATOCRIT 32.2 (L) 05/09/2020 MCV 94.7 05/09/2020 MCH 31.8 05/09/2020 MCHC 33.5 05/09/2020 PLTCOUNT 251 05/09/2020 NEUTROPCT 73.9 05/09/2020 LYMPHSPCT 12.4 05/09/2020 MONOSPCT 8.8 05/09/2020 EOSPCT 2.7 05/09/2020 BASOPHILPCT 0.4 05/09/2020 Lab Results Component Value Date GLUCOSE 93 05/09/2020 BUN 15 05/09/2020 CREATSERUM 0.78 (L) 05/09/2020 BCRATIO 19.2 05/09/2020 NA 142 05/09/2020 POTASSIUM 4.1 05/09/2020 CL 111 (H) 05/09/2020 CO2 25 05/09/2020 CA 8.4 (L) 05/09/2020 PROTEINTOTAL 5.3 (L) 05/08/2020 ALBUMIN 2.4 (L) 05/09/2020 ALKPHOS 103 05/08/2020 AST 46 (H) 05/08/2020 ALT 26 05/08/2020 BILITOTAL 0.5 05/08/2020 Lab Results Component Value Date PSA 2.62 08/08/2015 PSA 7.97 (H) 08/02/2014 PSA 6.25 04/18/2012 Lab Results Component Value Date COLORUR Red (A) 05/05/2020 CLARITYUR Cloudy (A) 05/05/2020 GLUCOSEUR Negative 05/05/2020 BILIUR Negative 05/05/2020 SPECGRAV <=1.005 05/05/2020 BLDUR Large (3+) (A) 05/05/2020 PHURINE 5.0 05/05/2020 PROTEINUA 100 mg/dL (A) 05/05/2020 UROBILINOGEN < 2 mg/dL 05/05/2020 NITRITE Negative 05/05/2020 LEUKESTERUR Small (1+) (A) 05/05/2020 WBCUR 11-20 /hpf (A) 05/05/2020 RBCUR >30 /hpf (A) 05/05/2020 SQUAMEPI Few (11-20) /lpf 05/05/2020 BACTERIAUA Occ (0-10) /hpf (A) 05/05/2020 Lab Results Component Value Date CULTGROWTH No Growth - Will continue to monitor for 5 days. 05/06/2020 Radiology: Relevant diagnostic, laboratory and radiological studies have been reviewed in the Electronic Medical Record. A/P: 1. Urinary retention 2/2 to underlying BPH, atonic bladder. WES to follow up on hydronephrosis. Recommend flomax 0.4 mg po daily if BP can tolerate, ensure bowel regularity, avoid narcotics, increase activity, avoid urinary retention medications (anticholinergics, antihistamines, antimuscarinics, decongestants, narcotics etc).Maintain rosa for a week to allow tamsulosin to reach maximum therapeutic effect. Follow up with Urology [facility] in 1 week for TOV and possible CIC instruction. 2. Gross hematuria. Resolved. Okay to restart coumadin. F/u with LYND[facility] in 1 week for TOV. There are no additional needs identified at this time. Urology will sign off. Please reconsult prn. MIKE Ramirez, JO[facility] #[id number] Lawson Drummond MD - 05/09/2020 1:00 AM [facility] PATIENT NAME: JOSE RAFAEL WASSERMAN. DATE OF SERVICE: 05/09/2020 JEZ: [id number] Jose Rafael Wasserman is seen in Room 853 in the presence of nurse. Nurse Li was at the bedside when Iinterviewed the patient, and son. Son and are at the bedside. was a little upset that the patient is going today. She wanted the patient held when Coumadin is restarted. She understands the risk of stroke when Coumadin is held, but she feels like she is not willing to take the risk of that. I did tell her that there is always a risk when there is bleeding that we have to hold the Coumadin and there is a risk for stroke. Also risk of stroke and coronary artery disease when aspirin held also discussed. The patient's also feels that the white count is going up and there might be an early infection. Discussed with urology. They also thought that restarting antibiotics might be a good idea given the white count going up, after starting antibiotics for at least 2 to 3-day course to see and repeating a UA. The patient himself denies any new headache, blurred vision, ringing in ears, chest pain, abdominal pain, nausea, vomiting, constipation. Rosa is doing good, occasional clots, but most of the urine is now clear, not needing continuous bladder irrigation. Rest of the review of systems negative. Patient later had diarrhea and c diff was sent which could also explain the wbc count increasing . PHYSICAL EXAMINATION: VITAL SIGNS: Reviewed. GENERAL: Not in acute distress. SKIN: No new rashes. HEENT: Atraumatic, normocephalic. HEART: S1 and S2. LUNGS: Bilateral diminished air entry. ABDOMEN: Soft. Bowel sounds present. NEUROLOGIC: No new changes. ASSESSMENT AND PLAN: 1. Acute urinary retention with renal failure status post Rosa. Acute kidney injury has now resolved. 2. Acute kidney injury, resolved. 3. Urinary retention. Management per urology. 4. Hematuria, now resolved. Coumadin can be resumed, per urology will be resumed. Risk of stroke and embolic event discussed with the . I had multiple discussions that we had to hold the Coumadin when the patient was bleeding and that required the risks of embolic events and strokes, but thewife does understand it but seems to feel like he should not be exposed to the risk, but I told her that when there is bleeding there is no other choice but to hold the medications. I did tell her that the aspirin is held and she agrees, but wants it to be restarted within the next week or so as permitted clinically. 5. Mild hypomagnesemia, replaced. 6. Hypophosphatemia. Replace. 7. Dyslipidemia, on Mevacor. 8. Hypertension. Increase Lopressor to 25 b.i.d. We will slowly go up to 37.5 b.i.d. at discharge. Would recommend changing to 50 b.i.d. instead. Hold CHICA inhibitor given recent recovery from acute kidney injury. 9. DVT prophylaxis, on therapeutic anticoagulation. SCDs. 10. Increasing wbc count --concern for early infection vs c diff --urology recommended starting short course of ABT due to catheter ...will resend a ua ..gave 1 dose of rocephin till ua is back . Latersent c diff . Risks of antibiotics including C. difficile and other risks discussed with and son in the presence of nurse Cindy . They understand. Urology team spoken to. Total time spent in care of this patient 35 minutes with greater than 50 percent of the time spent in counseling and coordination of care as described above alongside reviewing chart, discussing with nursing, phone calls, reviewing labs, and imaging. Lawson Wilson MD Receipt: [id number] Trans ID: [id number] COMMANDING OFFICER GARAGE COMMANDING OFFICER GARAGE ETTLIsabel adhikari, SENIOR RESEARCH PROJECT MANAGER - 05/08/2020 9:45 AM CDT Urology Daily Progress Note Jose Rafael Wasserman is a 80yr old male admitted on 05/05/2020 Urology is following for: gross hematuria S: No acute events overnight. Denies having any fevers, chills, rigors or sweats. No CP or SOB. [place] spritely today. No pains or issues overnight. Making good urine output. Urine clear light yellow. CBI running at slow rate.Manually irrigated catheter with no clot return. Stopped CBI. Discussed with nursing to monitor for clot burden and continue manual irrigation as needed. May need to restart CBI if bleeding with clot burden returns. Eating and drinking well without nausea, vomiting, or upset stomach. Discussed urology management and f/u. Questions answered. Patient verbalizes understanding of all that is discussed and expresses no other urological questions or concerns at this time. O: Vital signs and nurses notes reviewed. Vital Signs: Temp: 97.8 F (36.6 C) | BP: 146/73 | Pulse: 75 | Resp: 20 | Pain Ratin (out of 10) | Weight: 84 kg (185 lb 3 oz) | O2 Device: Room Air | SpO2: 97 % Maximum Temperatures (last 24 hours) Temperature Maximum Max Temp 98.2 F (36.8 C) Intake and Output: 05/07 0700 - 05/08 0659 In: 110 [Oral:100] Out: 400 [Urine:400] Bladder Scan 05/06/2020 Bladder Scan Volume (mL) 680 Some recent data might be hidden VSS. Afebrile, no tachycardia. General: Flat affect, frail, thin male in NAD. Neuro: oriented. Limited exam. Lungs: No cough or wheezing. Abdomen: soft, nondistended. Non tender. : no CVA tenderness. Bladder is non-distended, non-tender and without palpable mass. Catheter draining clear anamaria urine. CBI turned off. Left inguinal hernia. Extremities: no clubbing, cyanosis, or peripheral edema. Labs: Lab Results Component Value Date WBC 9.6 05/08/2020 NUCRBC 0 05/08/2020 RBC 3.36 (L) 05/08/2020 HEMOGLOBIN 10.8 (L) 05/08/2020 HEMATOCRIT 32.4 (L) 05/08/2020 MCV 96.4 05/08/2020 MCH 32.1 05/08/2020 MCHC 33.3 05/08/2020 PLTCOUNT 303 05/08/2020 NEUTROPCT 71.6 05/08/2020 LYMPHSPCT 13.1 05/08/2020 MONOSPCT 10.6 05/08/2020 EOSPCT 2.1 05/08/2020 BASOPHILPCT 0.4 05/08/2020 Lab Results Component Value Date GLUCOSE 110 (H) 05/08/2020 BUN 22 05/08/2020 CREATSERUM 0.81 05/08/2020 BCRATIO 27.2 (H) 05/08/2020 NA 141 05/08/2020 POTASSIUM 4.1 05/08/2020 CL 111 (H) 05/08/2020 CO2 21 05/08/2020 CA 8.7 05/08/2020 PROTEINTOTAL 5.3 (L) 05/08/2020 ALBUMIN 2.4 (L) 05/08/2020 ALKPHOS 103 05/08/2020 AST 46 (H) 05/08/2020 ALT 26 05/08/2020 BILITOTAL 0.5 05/08/2020 Lab Results Component Value Date PSA 2.62 08/08/2015 PSA 7.97 (H) 08/02/2014 PSA 6.25 04/18/2012 Lab Results Component Value Date COLORUR Red (A) 05/05/2020 CLARITYUR Cloudy (A) 05/05/2020 GLUCOSEUR Negative 05/05/2020 BILIUR Negative 05/05/2020 SPECGRAV <=1.005 05/05/2020 BLDUR Large (3+) (A) 05/05/2020 PHURINE 5.0 05/05/2020 PROTEINUA 100 mg/dL (A) 05/05/2020 UROBILINOGEN < 2 mg/dL 05/05/2020 NITRITE Negative 05/05/2020 LEUKESTERUR Small (1+) (A) 05/05/2020 WBCUR 11-20 /hpf (A) 05/05/2020 RBCUR >30 /hpf (A) 05/05/2020 SQUAMEPI Few (11-20) /lpf 05/05/2020 BACTERIAUA Occ (0-10) /hpf (A) 05/05/2020 Lab Results Component Value Date CULTGROWTH No Growth - Will continue to monitor for 5 days. 05/06/2020 Radiology: Relevant diagnostic, laboratory and radiological studies have been reviewed in the Electronic Medical Record. A/P: 1. Gross hematuria. Urine is clear anamaria on CBI at slow rate. Manual irrigation resulted in no clots. Stop CBI. Continue manual irrigation as needed. Restart CBI on return of gross hematuria with clot burden. MIKE Rmairez, DRAW FRAME TENDER [facility] #[id number] Lawson Drummond MD - 05/08/2020 1:00 AM [facility] PATIENT NAME: JOSE RAFAEL WASSERMAN DATE OF SERVICE: 05/08/2020 JEZ: [id number] Jose Rafael Wasserman is seen in room 853. Denies any new headache, blurred vision, ringing in the ears, chest pain, abdominal pain, nausea, vomiting, diarrhea, or constipation. spoken to at bedside. Rest of the review of systems is negative. PHYSICAL EXAMINATION: VITAL SIGNS: Reviewed. GENERAL: Not in acute distress. SKIN: No new rashes. HEENT: Atraumatic, normocephalic. HEART: S1 and S2. LUNGS: Bilateral diminished air entry. ABDOMEN: Soft. Bowel sounds present. NEUROLOGIC: No new changes. Rosa noted. I spoke to the urology team. They are agreeing with resuming Coumadin if no bleeding in the urine.The Rosa bag looked clear. ASSESSMENT AND PLAN: 1. Supratherapeutic INR. Monitor. Not giving Coumadin now, but if his Rosa is clear, we will resume Coumadin. 2. Dyslipidemia, on Lipitor. 3. Hypertension, on metoprolol. 4. Constipation prevention, on Senokot and bisacodyl. 5. Acute kidney injury, resolved. 6. Urinary retention, on Rosa. Will go to the [facility] with Rosa with trial. Lawson Wilson MD Receipt: [id number] Trans ID: [id number] COMMANDING OFFICER GARAGE COMMANDING OFFICER GARAGE orsung, Isabel Workman, SENIOR RESEARCH PROJECT MANAGER - 05/07/2020 11:33 AM CDT Urology Daily Progress Note Jose Rafael Wasserman is a 80yr old male admitted on 05/05/2020 Urology is following for: gross hematuria S: No acute events overnight. Denies having any fevers, chills, rigors or sweats. No CP or SOB. No pains or issues overnight. Making good urine output. Rosa catheter in place with CBI running at slowrate. Effluent is a clear, light red without clot. Manual irrigation per self resulted in rare clot.Plan to wean off CBI over the day. Eating and drinking okay without nausea, vomiting, or upset stomach. Discussed urology management and f/u. Questions answered. Patient verbalizes understanding of all that is discussed and expresses no other urological questions or concerns at this time. O: Vital signs and nurses notes reviewed. Vital Signs: Temp: 97.7 F (36.5 C) | BP: 152/69 | Pulse: 75 | Resp: 16 | Pain Ratin (out of 10) | Weight: 84 kg (185 lb 3 oz) | O2 Device: Room Air | SpO2: 98 % Maximum Temperatures (last 24 hours) Temperature Maximum Max Temp 98.6 F (37 C) Intake and Output: 05/06 0700 - 05/07 0659 In: 5408 Out: 3640 [Urine:3640] Bladder Scan 05/06/2020 Bladder Scan Volume (mL) 680 Some recent data might be hidden VSS. Afebrile, no tachycardia. General: Pleasant WDWN male in NAD. Neuro: Sleepy.oriented. Limited exam. Lungs:No cough or wheezing. Abdomen: soft, nondistended. Non tender. : no CVA tenderness. Bladder is non-distended, non-tender and without palpable mass. Left inguinalhernia. Rosa catheter in place draining clear light red. CBI running at slow rate. Extremities: no clubbing, cyanosis, or peripheral edema. Labs: Lab Results Component Value Date WBC 14.2 (H) 05/06/2020 NUCRBC 0 05/06/2020 RBC 2.79 (L) 05/06/2020 HEMOGLOBIN 11.1 (L) 05/07/2020 HEMATOCRIT 25.6 (L) 05/06/2020 MCV 91.8 05/06/2020 MCH 31.9 05/06/2020 MCHC 34.8 05/06/2020 PLTCOUNT 376 05/06/2020 NEUTROPCT 83.6 05/06/2020 LYMPHSPCT 5.4 05/06/2020 MONOSPCT 9.3 05/06/2020 EOSPCT 0.6 05/06/2020 BASOPHILPCT 0.1 05/06/2020 Lab Results Component Value Date GLUCOSE 102 (H) 05/07/2020 BUN 35 (H) 05/07/2020 CREATSERUM 0.97 05/07/2020 BCRATIO 36.1 (H) 05/07/2020 NA 143 05/07/2020 POTASSIUM 4.2 05/07/2020 CL 112 (H) 05/07/2020 CO2 20 05/07/2020 CA 8.6 05/07/2020 PROTEINTOTAL 5.3 (L) 05/06/2020 ALBUMIN 2.4 (L) 05/06/2020 ALKPHOS 132 05/06/2020 AST 19 05/06/2020 ALT 12 05/06/2020 BILITOTAL 0.4 05/06/2020 Lab Results Component Value Date PSA 2.62 08/08/2015 PSA 7.97 (H) 08/02/2014 PSA 6.25 04/18/2012 Lab Results Component Value Date COLORUR Red (A) 05/05/2020 CLARITYUR Cloudy (A) 05/05/2020 GLUCOSEUR Negative 05/05/2020 BILIUR Negative 05/05/2020 SPECGRAV <=1.005 05/05/2020 BLDUR Large (3+) (A) 05/05/2020 PHURINE 5.0 05/05/2020 PROTEINUA 100 mg/dL (A) 05/05/2020 UROBILINOGEN < 2 mg/dL 05/05/2020 NITRITE Negative 05/05/2020 LEUKESTERUR Small (1+) (A) 05/05/2020 WBCUR 11-20 /hpf (A) 05/05/2020 RBCUR >30 /hpf (A) 05/05/2020 SQUAMEPI Few (11-20) /lpf 05/05/2020 BACTERIAUA Occ (0-10) /hpf (A) 05/05/2020 Lab Results Component Value Date CULTGROWTH No Growth - Will continue to monitor for 5 days. 05/06/2020 Radiology: Relevant diagnostic, laboratory and radiological studies have been reviewed in the Electronic Medical Record. A/P: 1. Gross hematuria. Patient developed increased gross hematuria with clots yesterday. Catheter easily exchanged to 22 Fr 3-way catheter and started on CBI. Urine this morning is clear light red withoutclots. Manual irrigation per self resulted in rare clot return. CBI restarted at slow rate. Please titrate CBI to off keeping urine clear of clot. Urology following. MIKE Ramirez, DRAW FRAME TENDER [facility] #[id number] Lawson Drummond MD - 05/07/2020 1:00 AM [facility] PATIENT NAME: JOSE RAFAEL WASSERMAN DATE OF SERVICE: 05/07/2020 JEZ: [id number] Mr. Wsaserman is seen in room at 853. Nurse spoken to. He is a poor historian who presented with acute kidney injury and urinary retention. He is doing better. He denies any new headache, blurred vision, ringing in the ears, chest pain, abdominal pain, nausea, vomiting, diarrhea or constipation which is new. Rest of the review of systems is negative. PHYSICAL EXAMINATION: VITAL SIGNS: Reviewed. GENERAL: No acute distress. SKIN: No new rashes. HEENT: Atraumatic, normocephalic. HEART: S1, S2. LUNGS: Bilateral diminished air entry. ABDOMEN: Soft. Bowel sounds present. NEUROLOGIC: No new changes. ASSESSMENT AND PLAN: 1. Acute severe kidney injury secondary to obstructive uropathy. Now creatinine is back to baseline. He has a Rosa. 2. Gross hematuria in the setting of anticoagulation. Anticoagulation held off. We will discuss with urology when to resume anticoagulation. 3. Mild blood loss anemia. No need for transfusion at this point of time. 4. Mild hyponatremia, resolved. 5. Hypertension. Lasix and enalapril held because of renal failure. We will resume beta edmundo. 6. Dyslipidemia. Resume lovastatin at a low dose. 7. Discussed with ID and urology. No need for antibiotic given UTI is negative. 8. Risk of embolic event and stroke discussed with the patient. We will continue to reassess when it is appropriate to start anticoagulation as determined by urology. He still had some blood in the urine and is on TBI. Lawson Wilson MD Receipt: [id number] Trans ID: [id number] COMMANDING OFFICER GARAGE COMMANDING OFFICER GARAGE Giuliano Armstrong MD - 05/06/2020 1:00 AM [facility] PATIENT NAME: JOSE RAFAEL WASSERMAN DATE OF SERVICE: 05/06/2020 JEZ: [id number] Overnight, the patient has had hypotension requiring multiple fluid boluses. The patient has a dropin hemoglobin, but hematuria is getting better. No high fevers. Denied any chest pain, shortness of breath, abdominal pain, bowel changes or urinary changes. PHYSICAL EXAMINATION: VITAL SIGNS: Reviewed. GENERAL: The patient is alert, in no respiratory distress. ABDOMEN: Soft, nontender. GENITOURINARY: Rosa catheter in place draining blood-tinged urine. LABS: Reviewed. ASSESSMENT AND PLAN: 1. Acute severe kidney injury secondary to obstructive uropathy with right- sided severe hydronephrosis and mild left-sided hydronephrosis, status post Rosa catheter. Patient is doing well. Urology is following. Creatinine is improving significantly and fast. The patient has been making significant amounts of urine. Patient is on IV fluids to match the urine output at this point. Monitor for fluid overload. 2. Gross hematuria with clots leading to urinary retention in the setting of underlying BPH with a history of transurethral resection of prostate. Urology follows. Hold off on anticoagulation at this point, the patient takes it for a history of atrial fibrillation and has a history of a stroke. The patient's VASc risk is high, need to resume anticoagulation once the hematuria has resolved. 3. Acute mild blood loss anemia secondary to gross hematuria. Monitor hemoglobin and transfuse as needed. 4. Acute moderate to severe hyponatremia, multifactorial from obstructive uropathy/SIADH to volume depletion, responded well. The patient's sodium has been normalized. Continue to support with IV fluids as discussed above. 5. History of coronary artery disease, stable at this point. 6. Hypertension, off of the Lasix and enalapril. Continue the beta blockers as permitted. The patient does seem to be getting hypotensive. 7. DVT prophylaxis, on SCDs at this point. 8. Deconditioning. PT and OT will be consulted. 9. Acute encephalopathy secondary to severe uremia, resolved. 10. The patient is full code at this point. We will discuss with the family again. Yesterday I tried to reach out to and could not talk to her. 11. Stress-induced leukocytosis in the setting of a possible complicated UTI. Continue with IV antibiotics and follow up on the urine cultures. 12. Elevated anion gap acidosis secondary to uremia and volume depletion, resolved. More than 35 minutes was spent with review of the patient with greater than 50% in counseling and coordination of care. The patient will be transferred out of intermediate care to med/surg with telemetry. Giuliano Dillon MD Receipt: [id number] Trans ID: [id number] COMMANDING OFFICER GARAGE CST Akil Barrett, [facility] - 05/05/2020 8:31 PM CDT 05/05/2020 20:31 Patient was seen by pharmacy for medication reconciliation. Home medications have been reconciled and updated on the home medications list to match the patient's home usage. Medications Deleted: Medications Added: Other information: Prior to Admission Medications Prescriptions Last Dose Informant Patient Reported? Taking? acetaminophen-codeine #3 (TYLENOL #3) 300-30 mg tablet Past Month at Unknown time Spouse No Yes Sig: Take 1-2 tablets by mouth 4 times a day as needed for severe pain aspirin 325 mg tablet 05/04/2020 at am Spouse Yes Yes Sig: Take 1 tablet by mouth 1 time per day. Resume in one week. celecoxib (CELEBREX) 200 mg capsule Past Week at am Spouse No Yes Sig: TAKE ONE CAPSULE EVERY DAY NEEDED FOR PAIN Patient taking differently: Take 200 mg by mouth 1 time a day as needed (pain) TAKE ONE CAPSULE EVERY DAY NEEDED FOR PAIN enalapril (VASOTEC) 10 mg tablet 05/04/2020 at am Spouse No Yes Sig: TAKE ONE TABLET EVERY DAY Patient taking differently: Take 10 mg by mouth 1 time per day fluticasone (FLONASE) 50 mcg/spray nasal spray Greater than 1 Month at Unknown time Spouse No Yes Sig: [place] 2 sprays into each nostril every night at bedtime Patient taking differently: [place] 2 sprays into each nostril at bedtime as needed furosemide (LASIX) 20 mg tablet 05/04/2020 at am Spouse No Yes Sig: Take 1 tablet (20 mg) by mouth 1 time per day lovastatin (MEVACOR) 40 mg tablet 05/04/2020 at am Spouse No Yes Sig: TAKE 1 TABLET EVERY OTHER DAY Patient taking differently: Take 40 mg by mouth Every other day metoprolol tartrate (LOPRESSOR) 100 mg tablet 05/04/2020 at am Spouse No Yes Sig: TAKE ONE TABLET EVERY DAY Patient taking differently: Take 100 mg by mouth 1 time per day warfarin (COUMADIN) 5 mg tablet 05/04/2020 at am Spouse No Yes Sig: TAKE DIRECTED (7.5-10MG DAILY DOSE RANGE) Facility-Administered Medications: None Akil Galo RPh documented in this encounter Plan of Treatment Date Type Specialty Care Team Description 05/15/2020 Office Visit Urology Isabel Keane , SENIOR RESEARCH PROJECT MANAGER [address] [place] [address] [phone] Name Type Priority Associated Diagnoses Date/Ti me ECHO ADULT COMPLETE CVS Routine 05/12/20 20 3:48 PM CDT Name Type Priority Associated Diagnoses Order S chedule PROTIME/INR Lab Routine Early AM draw f or labs until discontin ued starting 2019, 4 completed COMPLETE BLOOD COUNT Lab Routine Early A M draw for labs WITHOUT DIFFERENTIAL until d iscontinued starting 2019, 3 completed RENAL FUNCTION PANEL Lab Routine Early A M draw for labs until discontin ued starting 2019, 3 completed ECHO ADULT COMPLETE CVS Routine Once for 1 Occurrences starting 2019 until 05/12/2020 Name Type Priority Associated Diagnoses Order S chedule CLINIC REFERRAL Referral Routine Acute urinary Ordered: UROLOGY ONE CHART retention HOSPITAL DISCHARGE Referral Routine Once for 1 Occurrences WARFARIN ANTICOAG starting 0 05/13/2020 ORDER until 0 documented as of this encounter Implants Implanted Type Area Clinical Specialist Vascular Device Shelf Model / Identifier Expiration Serial / Lot Date Iol Pre-Load Tecnis 21.5d N [id number] Ea1 - [id number] Ophthalmo logy Left: MAGDALENA 10/22/2022 [id number] / Implanted: 02/06/2020 by Cesar Seals MD at [facility] (Quantity not on file) EYE 22 [id number] 2022-10-22 Iol Pre-Load Tecnis 21.0d N [id number] Ea1 - [id number] Ophthalmo logy Right: MAGDALENA 09/28/2022 [id number] / Implanted: 02/13/2020 by Cesar Seals MD at [facility] (Quantity not on file) EYE 26 [id number] 2022-092022-09-28 documented as of this encounter Procedures Procedure Name Priority Date/Time Associated Comments Diagnosis PROTIME/INR Routine 05/13/2020 7:47 Results for this AM CDT procedure are i n the results section. COMPLETE BLOOD COUNT Routine 05/13/2020 7:47 Res ults for this WITHOUT DIFFERENTIAL AM CDT procedu re are in the results section. MAGNESIUM Routine 05/13/2020 7:47 Results for this AM CDT procedure are i n the results section. RENAL FUNCTION PANEL Routine 05/13/2020 7:47 Res ults for this AM CDT procedure are i n the results section. EKG KEVIN 05/12/2020 7:47 Results for this AM CDT procedure are i n the results section. PROTIME/INR Routine 05/12/2020 5:30 Results for this AM CDT procedure are i n the results section. COMPLETE BLOOD COUNT Routine 05/12/2020 5:30 Res ults for this WITHOUT DIFFERENTIAL AM CDT procedu re are in the results section. MAGNESIUM Routine 05/12/2020 5:30 Results for this AM CDT procedure are i n the results section. RENAL FUNCTION PANEL Routine 05/12/2020 5:30 Res ults for this AM CDT procedure are i n the results section. PROTIME/INR Routine 05/11/2020 7:46 Results for this AM CDT procedure are i n the results section. COMPLETE BLOOD COUNT Routine 05/11/2020 7:46 Res ults for this WITHOUT DIFFERENTIAL AM CDT procedu re are in the results section. RENAL FUNCTION PANEL Routine 05/11/2020 7:46 Res ults for this AM CDT procedure are i n the results section. LAB ONLY-COMPLETE Routine 05/10/2020 6:15 Result s for this BLOOD COUNT WITH AM CDT procedure a re in DIFFERENTIAL the results section. PROTIME/INR Routine 05/10/2020 6:15 Results for this AM CDT procedure are i n the results section. LAB ONLY-COMPLETE Routine 05/10/2020 6:15 Result s for this BLOOD COUNT WITH AM CDT procedure a re in DIFFERENTIAL the results section. MAGNESIUM Routine 05/10/2020 6:14 Results for this AM CDT procedure are i n the results section. RENAL FUNCTION PANEL Routine 05/10/2020 6:14 Res ults for this AM CDT procedure are i n the results section. CLOSTRIDIUM DIFFICILE Routine 05/10/2020 2:05 Re sults for this BY NAAT (PCR/LAMP) AM CDT procedure are in the results section. LAB ONLY-URINE Routine 05/09/2020 11:49 Results f or this MICROSCOPIC REFLEX PM CDT procedure are in the results section. URINE DIP, REFLEX TO Routine 05/09/2020 11:49 Res ults for this MICROSCOPIC, REFLEX PM CDT procedur e are in TO CULTURE the results section. CULTURE BACTERIAL, Routine 05/09/2020 11:49 Resul ts for this URINE PM CDT procedure are i n the results section. US RENAL EMPERATRIZ Routine 05/09/2020 5:55 Results for this PM CDT procedure are i n the results section. LAB ONLY-COMPLETE Routine 05/09/2020 7:55 Result s for this BLOOD COUNT WITH AM CDT procedure a re in DIFFERENTIAL the results section. PROTIME/INR KEVIN 05/09/2020 7:55 Results for this AM CDT procedure are i n the results section. MAGNESIUM Routine 05/09/2020 7:55 Results for this AM CDT procedure are i n the results section. RENAL FUNCTION PANEL Routine 05/09/2020 7:55 Res ults for this AM CDT procedure are i n the results section. LAB ONLY-COMPLETE Routine 05/09/2020 7:55 Result s for this BLOOD COUNT WITH AM CDT procedure a re in DIFFERENTIAL the results section. SARS-COV-2 RNA, STAT 05/08/2020 6:46 Results for this QUALITATIVE REAL-TIME PM CDT proced ure are in RT-PCR the results section. LAB ONLY-COMPLETE Routine 05/08/2020 6:58 Result s for this BLOOD COUNT WITH AM CDT procedure a re in DIFFERENTIAL the results section. PROTIME/INR Routine 05/08/2020 6:58 Results for this AM CDT procedure are i n the results section. PHOSPHORUS Routine 05/08/2020 6:58 Results for this AM CDT procedure are i n the results section. MAGNESIUM Routine 05/08/2020 6:58 Results for this AM CDT procedure are i n the results section. COMPREHENSIVE Routine 05/08/2020 6:58 Results fo r this METABOLIC PANEL AM CDT procedure ar e in the results section. LAB ONLY-COMPLETE Routine 05/08/2020 6:58 Result s for this BLOOD COUNT WITH AM CDT procedure a re in DIFFERENTIAL the results section. HEMOGLOBIN Timed Routine 05/07/2020 4:35 Results fo r this PM CDT procedure are i n the results section. BASIC METABOLIC PANEL Timed Routine 05/07/2020 1:54 R esults for this PM CDT procedure are i n the results section. HEMOGLOBIN Timed Routine 05/07/2020 9:01 Results fo r this AM CDT procedure are i n the results section. BASIC METABOLIC PANEL Timed Routine 05/07/2020 9:01 R esults for this AM CDT procedure are i n the results section. COLLECT AND HOLD Routine 05/07/2020 5:59 Results for this LAVENDER (EDTA) TOP AM CDT procedur e are in TUBE the results section. BASIC METABOLIC PANEL Timed Routine 05/07/2020 5:59 R esults for this AM CDT procedure are i n the results section. HEMOGLOBIN Timed Routine 05/07/2020 12:40 Results fo r this AM CDT procedure are i n the results section. BASIC METABOLIC PANEL Timed Routine 05/07/2020 12:40 R esults for this AM CDT procedure are i n the results section. BASIC METABOLIC PANEL Timed Routine 05/06/2020 10:29 R esults for this PM CDT procedure are i n the results section. BASIC METABOLIC PANEL Timed Routine 05/06/2020 6:22 R esults for this PM CDT procedure are i n the results section. HEMOGLOBIN Timed Routine 05/06/2020 4:42 Results fo r this PM CDT procedure are i n the results section. BASIC METABOLIC PANEL Timed Routine 05/06/2020 2:01 R esults for this PM CDT procedure are i n the results section. HEMOGLOBIN Timed Routine 05/06/2020 9:25 Results fo r this AM CDT procedure are i n the results section. C-REACTIVE PROTEIN Routine 05/06/2020 9:25 Resul ts for this (INFLAMMATION) AM CDT procedure are in the results section. LACTIC ACID Routine 05/06/2020 9:25 Results for this AM CDT procedure are i n the results section. BASIC METABOLIC PANEL Timed Routine 05/06/2020 9:25 R esults for this AM CDT procedure are i n the results section. CULTURE, BLOOD KEVIN 05/06/2020 9:24 Results f or this AM CDT procedure are i n the results section. CULTURE, BLOOD KEVIN 05/06/2020 9:20 Results f or this AM CDT procedure are i n the results section. LAB ONLY-COMPLETE Routine 05/06/2020 6:44 Result s for this BLOOD COUNT WITH AM CDT procedure a re in DIFFERENTIAL the results section. HEPATIC FUNCTION Routine 05/06/2020 6:44 Results for this PANEL AM CDT procedure are i n the results section. BASIC METABOLIC PANEL Timed Routine 05/06/2020 6:44 R esults for this AM CDT procedure are i n the results section. LAB ONLY-COMPLETE Routine 05/06/2020 6:44 Result s for this BLOOD COUNT WITH AM CDT procedure a re in DIFFERENTIAL the results section. LAB ONLY-COMPLETE STAT 05/06/2020 1:55 Result s for this BLOOD COUNT WITH AM CDT procedure a re in DIFFERENTIAL the results section. BASIC METABOLIC PANEL Timed Routine 05/06/2020 1:55 R esults for this AM CDT procedure are i n the results section. LAB ONLY-COMPLETE STAT 05/06/2020 1:55 Result s for this BLOOD COUNT WITH AM CDT procedure a re in DIFFERENTIAL the results section. LAB ONLY-URINE STAT 05/05/2020 11:30 Results f or this MICROSCOPIC REFLEX PM CDT procedure are in the results section. URINE DIP, REFLEX TO STAT 05/05/2020 11:30 Res ults for this MICROSCOPIC, REFLEX PM CDT procedur e are in TO CULTURE the results section. CULTURE BACTERIAL, STAT 05/05/2020 11:30 Resul ts for this URINE PM CDT procedure are i n the results section. BASIC METABOLIC PANEL Timed Routine 05/05/2020 11:27 R esults for this PM CDT procedure are i n the results section. TSH REFLEX STAT 05/05/2020 6:35 Results for this PM CDT procedure are i n the results section. OSMOLALITY STAT 05/05/2020 6:35 Results for this PM CDT procedure are i n the results section. SODIUM STAT 05/05/2020 6:35 Results for this PM CDT procedure are i n the results section. CREATININE STAT 05/05/2020 6:35 Results for this PM CDT procedure are i n the results section. BASIC METABOLIC PANEL Timed Routine 05/05/2020 6:35 R esults for this PM CDT procedure are i n the results section. LAB ONLY-URINE STAT 05/05/2020 6:07 Results f or this MICROSCOPIC REFLEX PM CDT procedure are in the results section. URINE DIP, REFLEX TO STAT 05/05/2020 6:07 Res ults for this MICROSCOPIC, REFLEX PM CDT procedur e are in TO CULTURE the results section. LAB ONLY - SODIUM, STAT 05/05/2020 6:07 Resul ts for this FRACTIONAL EXCRETION PM CDT procedu re are in the results section. SODIUM STAT 05/05/2020 6:07 Results for this PM CDT procedure are i n the results section. CULTURE BACTERIAL, STAT 05/05/2020 6:07 Resul ts for this URINE PM CDT procedure are i n the results section. OSMOLALITY, URINE STAT 05/05/2020 6:07 Result s for this PM CDT procedure are i n the results section. SODIUM, URINE STAT 05/05/2020 6:07 Results fo r this PM CDT procedure are i n the results section. CT KIDNEY STONE STAT 05/05/2020 4:32 Results for this PROTOCOL PM CDT procedure are i n the results section. CT HEAD WITHOUT STAT 05/05/2020 4:32 Results for this CONTRAST PM CDT procedure are i n the results section. LAB ONLY-COMPLETE STAT 05/05/2020 3:02 Result s for this BLOOD COUNT WITH PM CDT procedure a re in DIFFERENTIAL the results section. TYPE AND SCREEN STAT 05/05/2020 3:02 Results for this PM CDT procedure are i n the results section. PROTIME/INR STAT 05/05/2020 3:02 Results for this PM CDT procedure are i n the results section. LACTIC ACID STAT 05/05/2020 3:02 Results for this PM CDT procedure are i n the results section. COMPREHENSIVE STAT 05/05/2020 3:02 Results fo r this METABOLIC PANEL PM CDT procedure ar e in the results section. LAB ONLY-COMPLETE STAT 05/05/2020 3:02 Result s for this BLOOD COUNT WITH PM CDT procedure a re in DIFFERENTIAL the results section. BRAIN NATRIURETIC STAT 05/05/2020 3:02 Result s for this PEPTIDE PM CDT procedure are i n the results section. documented in this encounter Results MAGNESIUM (05/13/2020 7:47 AM CDT) Pathologist [facility] Magnesium 1.9 1.8 - 2.4 mg/dL [address] Specimen Blood Performing Organization Address City/State/Zipcode Phone Number [address] [place] [address] RENAL FUNCTION PANEL (05/13/2020 7:47 AM CDT) Pathologist [facility] Glucose 89 70 - 100 mg/dL [address] BUN 8 6 - 22 mg/dL [address] Creatinine 0.70 (L) 0.80 - 1.[address] mg/dL BUN/Creatinine Ratio 11.4 10.0 - 25.[address] Sodium 137 135 - 145 meq/L [address] Potassium 4.2 3.5 - 5.3 meq/L [address] Chloride 109 99 - 110 meq/L [address] CO2 24 20 - 29 meq/L [address] Anion Gap with K 8 6 - 20 meq/L [address] Calcium 8.3 (L) 8.5 - 10.[address] mg/dL Phosphorus 1.8 (L) 2.5 - 4.5 mg/dL [address] Albumin 2.6 (L) 3.5 - 5.0 g/dL [address] Corrected Calcium 9.4 8.5 - 10.[address] mg/dL Age [address] eGFR Non- >90 >=[address] [place] mL/min/1.73m2 eGFR >90 >=[address] mL/min/1.73m2 Specimen Blood Performing Organization Address [facility] Phone Number [address] [place] [address] COMPLETE BLOOD COUNT WITHOUT DIFFERENTIAL (05/13/2020 7:47 AM CDT) Pathologist Sig nature WBC 9.5 4.0 - 11.0 K/uL [address] RBC 3.25 (L) 4.40 - 5.80 M/uL [address] Hemoglobin 10.4 (L) 13.5 - 17.5 g/dL [address] Hematocrit 31.6 (L) 40.0 - 50.0 % [address] MCV 97.2 80.0 - 98.[address] MCH 32.0 25.5 - 34.[address] MCHC 32.9 31.5 - 36.5 g/dL [address] RDW-CV 13.4 11.5 - 15.5 % [address] RDW-SD 47.8 35.5 - 50.[address] Platelet Count 287 140 - 400 K/uL [address] MPV 9.3 8.5 - 12.[address] Specimen Blood Performing Organization Address [facility] Phone Number [address] [place] [address], [place] [address] PROTIME/INR (05/13/2020 7:47 AM CDT) Pathologist Sig nature Protime 25.5 (H) 12.0 - 14.[address] INR 2.4 2.0 - 3.[address] Specimen Blood Narrative Performed At Normal INR reference range (patients not on oral antic oagulants) [address] 0.9-1.1. INR Standard Intensity = (2.0 - 3.0) INR Higher Intensity = (2.5 - 3.5) Performing Organization Address [facility] Phone Number [address] [place] [address] EKG (05/12/2020 7:47 AM CDT) Pathologist Sig nature EKG WAVEFORM TRACESCOTTLORRI STARKEY Sinus rhythm with Premature atrial complexes Septal infarct , age undetermined Lateral infarct (cited on or before 12-MAY-2020) Abnormal ECG When compared with ECG of 24-MAR-2015 09:58, Premature atrial complexes are now Present The axis Shifted left Ventricular Rate: 79 BPM Atrial Rate: 79 BPM P-R Interval: 156 ms QRS Duration: 94 ms Q-T Interval: 344 ms QTc Calculation(Bazett): 394 ms Calculated P [place]: 47 degrees Calculated R [place]: -27 degrees Calculated T [place]: 79 degrees Specimen Narrative Performed At This result has an attachment that is no t available. Performing Organization Address [facility] Phone Number GIOVANNY STARKEY MAGNESIUM (05/12/2020 5:30 AM CDT) Pathologist Sig nature Magnesium 1.7 (L) 1.8 - 2.4 mg/dL [address] Specimen Blood Performing Organization Address [facility] Phone Number [address] [place] [address] RENAL FUNCTION PANEL (05/12/2020 5:30 AM CDT) Pathologist Sig nature Glucose 94 70 - 100 mg/dL [place] [id number] CLINIC BUN 8 6 - 22 mg/dL [address] Creatinine 0.68 (L) 0.80 - 1.[address] mg/dL BUN/Creatinine Ratio 11.8 10.0 - 25.[address] Sodium 137 135 - 145 meq/L [address] Potassium 3.4 (L) 3.5 - 5.3 meq/L [address] Chloride 109 99 - 110 meq/L [address] CO2 19 (L) 20 - 29 meq/L [address] Anion Gap with K 12 6 - 20 meq/L [address] Calcium 7.6 (L) 8.5 - 10.[address] mg/dL Phosphorus 2.4 (L) 2.5 - 4.5 mg/dL [address] Albumin 2.1 (L) 3.5 - 5.0 g/dL [address] Corrected Calcium 9.1 8.5 - 10.[address] mg/dL Age [address] eGFR Non- >90 >=[address] [place] mL/min/1.73m2 eGFR >90 >=[address] mL/min/1.73m2 Specimen Blood Performing Organization Address [facility] Phone Number [address] [place] [address], [place] [address] COMPLETE BLOOD COUNT WITHOUT DIFFERENTIAL (05/12/2020 5:30 AM CDT) Pathologist Sig nature WBC 13.6 (H) 4.0 - 11.0 K/uL [address] RBC 3.07 (L) 4.40 - 5.80 M/uL [address] Hemoglobin 9.9 (L) 13.5 - 17.5 g/dL [address] Hematocrit 29.5 (L) 40.0 - 50.0 % [address] MCV 96.1 80.0 - 98.[address] MCH 32.2 25.5 - 34.[address] MCHC 33.6 31.5 - 36.5 g/dL [address] RDW-CV 13.3 11.5 - 15.5 % [address] RDW-SD 46.3 35.5 - 50.[address] Platelet Count 214 140 - 400 K/uL [address] MPV 8.9 8.5 - 12.[address] Specimen Blood Performing Organization Address [facility]/Zipcode Phone Number [address] [address] PROTIME/INR (05/12/2020 5:30 AM CDT) Pathologist Sig nature Protime 27.2 (H) 12.0 - 14.[address] INR 2.6 2.0 - 3.[address] Specimen Blood Narrative Performed At Normal INR reference range (patients not on oral antic oagulants) [address] 0.9-1.1. INR Standard Intensity = (2.0 - 3.0) INR Higher Intensity = (2.5 - 3.5) Performing Organization Address [facility] Phone Number [address] [place] [address] RENAL FUNCTION PANEL (05/11/2020 7:46 AM CDT) Pathologist [facility] nature Glucose 91 70 - 100 mg/dL [address] BUN 8 6 - 22 mg/dL [address] Creatinine 0.70 (L) 0.80 - 1.[address] mg/dL BUN/Creatinine Ratio 11.4 10.0 - 25.[address] Sodium 139 135 - 145 meq/L [address] Potassium 3.5 3.5 - 5.3 meq/L [address] Chloride 110 99 - 110 meq/L [address] CO2 22 20 - 29 meq/L [address] Anion Gap with K 11 6 - 20 meq/L [address] Calcium 7.7 (L) 8.5 - 10.5 [place] [id number] CLIN[facility] mg/dL Phosphorus 2.3 (L) 2.5 - 4.5 mg/dL [address] Albumin 2.1 (L) 3.5 - 5.0 g/dL [address] Corrected Calcium 9.2 8.5 - 10.[address] mg/dL Age [address] eGFR Non- >90 >=[address] [place] mL/min/1.73m2 eGFR >90 >=[address] mL/min/1.73m2 Specimen Blood Performing Organization Address [facility] Phone Number [address] [place] [address] COMPLETE BLOOD COUNT WITHOUT DIFFERENTIAL (05/11/2020 7:46 AM CDT) Pathologist [facility] WBC 16.8 (H) 4.0 - 11.0 K/uL [address] RBC 3.03 (L) 4.40 - 5.80 M/uL [address] Hemoglobin 9.8 (L) 13.5 - 17.5 g/dL [address] Hematocrit 28.9 (L) 40.0 - 50.0 % [address] MCV 95.4 80.0 - 98.[address] MCH 32.3 25.5 - 34.[address] MCHC 33.9 31.5 - 36.5 g/dL [address] RDW-CV 13.3 11.5 - 15.5 % [address] RDW-SD 46.0 35.5 - 50.[address] Platelet Count 199 140 - 400 K/uL [address] MPV 8.6 8.5 - 12.[address] Specimen Blood Performing Organization Address [facility] Phone Number [address] [address] PROTIME/INR (05/11/2020 7:46 AM CDT) Pathologist [facility] Protime 26.7 (H) 12.0 - 14.[address] INR 2.6 2.0 - 3.[address] Specimen Blood Narrative Performed At Normal INR reference range (patients not on oral antic oagulants) [address] 0.9-1.1. INR Standard Intensity = (2.0 - 3.0) INR Higher Intensity = (2.5 - 3.5) Performing Organization Address [facility] Phone Number [address] [place] [address] LAB ONLY-COMPLETE BLOOD COUNT WITH DIFFERENTIAL (05/10/2020 6:15 AM CDT) Pathologist Sig nature WBC 17.7 (H) 4.0 - 11.0 K/uL [address] RBC 3.04 (L) 4.40 - 5.[address] M/uL Hemoglobin 10.0 (L) 13.5 - 17.[address] g/dL Hematocrit 28.5 (L) 40.0 - 50.0 % [address] MCV 93.8 80.0 - 98.[address] MCH 32.9 25.5 - 34.[address] MCHC 35.1 31.5 - 36.[address] g/dL RDW-CV 13.3 11.5 - 15.5 % [address] RDW-SD 46.3 35.5 - 50.[address] Platelet Count 223 140 - 400 K/uL [address] MPV 8.6 8.5 - 12.[address] Seg Neut Absolute 14.7 (H) 1.8 - 8.0 K/uL [address] Lymphocytes Absolute 1.5 0.8 - 4.1 K/uL [place] [id number] [facility] Monocytes Absolute 1.1 (H) 0.0 - 1.0 K/uL [address] Eosinophils Absolute 0.3 0.0 - 0.7 K/uL [place] [address] CLINI C Basophil Absolute 0.1 0.0 - 0.2 K/uL [address] Immature Granulocyte 0.14 (H) 0.00 - 0.[address] Absolute K/uL Neutrophils Abs. 14,700 /uL [address] (Segs and Bands) Neutrophils Percent 82.9 % [address] Lymphocytes Percent 8.2 % [address] Monocytes Percent 6.2 % [address] Immature Granulocyte 0.8 % [address] Percent Eosinophils Percent 1.6 % [address] Basophil Percent 0.3 % [address] Nucleated RBC 0 /[address] Specimen Blood Performing Organization Address City/State/Zipcode Phone Number [address] [place] [address] PROTIME/INR (05/10/2020 6:15 AM CDT) Pathologist Sig nature Protime 25.3 (H) 12.0 - 14.[address] INR 2.4 2.0 - 3.[address] Specimen Blood Narrative Performed At Normal INR reference range (patients not on oral antic oagulants) [address] 0.9-1.1. INR Standard Intensity = (2.0 - 3.0) INR Higher Intensity = (2.5 - 3.5) Performing Organization Address [facility] Phone Number [place] [address] [place] [address] MAGNESIUM (05/10/2020 6:14 AM CDT) Pathologist Sig [facility] Magnesium 1.8 1.8 - 2.4 mg/dL [address] Specimen Blood Performing Organization Address [facility] Phone Number [address] [place] [address] RENAL FUNCTION PANEL (05/10/2020 6:14 AM CDT) Pathologist Sig [facility] Glucose 89 70 - 100 mg/dL [address] BUN 10 6 - 22 mg/dL [address] Creatinine 0.73 (L) 0.80 - 1.[address] mg/dL BUN/Creatinine Ratio 13.7 10.0 - 25.[address] Sodium 142 135 - 145 meq/L [address] Potassium 3.6 3.5 - 5.3 meq/L [address] Chloride 112 (H) 99 - 110 meq/L [address] CO2 25 20 - 29 meq/L [address] Anion Gap with K 9 6 - 20 meq/L [address] Calcium 7.8 (L) 8.5 - 10.5 [place] [address] CLIN[facility] mg/dL Phosphorus 2.4 (L) 2.5 - 4.5 mg/dL [address] Albumin 2.2 (L) 3.5 - 5.0 g/dL [address] Corrected Calcium 9.2 8.5 - 10.[address] mg/dL Age [address] eGFR Non- >90 >=[address] [place] mL/min/1.73m2 eGFR >90 >=[address] mL/min/1.73m2 Specimen Blood Performing Organization Address [facility]/Zipcode Phone Number [address] [place] [address] CLOSTRIDIUM DIFFICILE BY NAAT (PCR/LAMP) (05/10/2020 2:05 AM CDT) C difficile Toxin B Detected (A) Not Detected [facility] Specimen Feces Narrative Performed At This test was performed by polymerase chain reaction ( PCR) [facility] on the [employer] [place] instrument. Performing Organization Address [facility] Phone Number [facility] [address] [place] [phone] CULTURE BACTERIAL, URINE (05/09/2020 11:49 PM CDT)Only the most recent of3 resultswithin the time period is included. Pathologist Sig nature Culture Result No growth [facility] Specimen Urine Performing Organization Address [facility] Phone Number [facility] [address] [facility] [place] [address] [phone] LAB ONLY-URINE MICROSCOPIC REFLEX (05/09/2020 11:49 PM CDT) WBC Urine 21-50 /hpf (A) Negative, 0-5 [place] [address] /hpf CLINIC RBC Urine >30 /hpf (A) Negative, 0-2 [place] [address] /hpf CLINIC Squamous Moderate (21-50) Negative, Occ [place] [address] Epithelial Cells /lpf (A) (0-10) /lpf, Few CLINIC (11-20) /lpf Bacteria Negative Negative [address] Hyaline Cast 3-5 /lpf (A) 0-2 /lpf [address] Specimen Urine Narrative Performed At Urine Culture Reflexed [address] The presence of moderate or many squamous epithelial c ells is suggestive of possible contamination during collection . Performing Organization Address [facility] Phone Number [address] [place] [address] URINE DIP, REFLEX TO MICROSCOPIC, REFLEX TO CULTURE (05/09/2020 11:49 PM CDT) Color Urine Straw [place], Dark [place] [address] Yellow, Straw, CLINIC Yellow, Colorless Clarity Urine Clear Clear [address] Glucose Urine 50 mg/dL (A) Negative [address] Bilirubin Urine Negative Negative [address] Ketones Urine Negative Negative, 5 [place] [address] mg/dL, 10 mg/dL CLINIC Specific [place] 1.014 1.002 - 1.[address] Blood Urine Moderate (2+) Negative [place] [address] (A) [facility] Urine 7.0 5.0, 5.5, 6.0, [place] [address] 6.5, 7.0, 7.5, CLINIC 8.0 Protein Urine 30 mg/dL (A) Negative [address] Urobilinogen < 2 mg/dL < 2 mg/dL [address] Nitrite Negative Negative [address] Leukocyte Esterase Small (1+) (A) Negative [place] [address] Urine CLINIC Specimen Urine Narrative Performed At Microscopic Exam Reflexed [address] Performing Organization Address City/State/Zipcode Phone Number [address] [place] [address] US RENAL EMPERATRIZ (05/09/2020 5:55 PM CDT) Specimen Narrative Performed At [id number] Patient Name: JOSE RAFAEL WASSERMAN Date of : 1940 Procedure: US RENAL EMPERATRIZ Date of Service: 05/09/2020 EXAM: US RENAL EMPERATRIZ INDICATION:Hydronephrosis. TECHNIQUE: Multiple still ultrasonographic images of t he kidneys and urinary bladder are acquired and provide d for review. COMPARISON: CT abdomen dated 05/05/2020. FINDINGS: Right kidney: Measures 11.3 x 5.1 x 6.5 cm. Corticom edullary differentiation is well-maintained. Severe hydronephro sis without perinephric fluid collection or appreciable lesion. Re presentative resistive indices in the upper and lower poles measure 0.60 and 0.64 respectively. Left kidney: Measures 11.7 x 4.9 x 6.2 cm. Corticome dullary differentiation is well-maintained. Mild hydronephrosi s without perinephric fluid collection. An anechoic, nonvascular cyst measuring 4.9 x 4.4 x 5.9 cm is present within the superior pole . Team Facilitator resistive indices in the upper and lower poles measure 0.66 and 0.63 respectively. Urinary bladder: Decompressed with Rosa catheter in place. IMPRESSION: Severe right and mild left hydronephrosis, relatively unchanged compared with CT abdomen dated 05/05/2020. Simple cyst in the superior pole of the left kidney. Finalized by: Uday Macias MD on 04/20 5:45 AM CDT Patient/Procedure Information: [facility] MRN/JEZ: [id number] Order Number: [id number] Accession Number: [id number] Ordering Provider: ISABEL KEANE Authorizing Provider: ISABEL KEANE Procedure Note Interface, Jessicaantres - 05/10/2020 5:47 AM CDT Patient Name: JOSE RAFAEL WASSERMAN Date of : 1940 Procedure: US RENAL EMPERATRIZ Date of Service: 05/09/2020 EXAM: US RENAL EMPERATRIZ INDICATION:Hydronephrosis. TECHNIQUE: Multiple still ultrasonograph ic images of the kidneys and urinary bladder are acquired and provided for review. COMPARISON: CT abdomen dated 05/05/2020. FINDINGS: Right kidney: Measures 11.3 x 5.1 x 6.5 cm. Corticomedullary differentiation is well-maintained. Severe hydronephrosis without perinephric fluid collection or appreciable lesion. Team Facilitator resistive indices in the upper and lower poles measure 0.60 and 0.64 respectively. Left kidney: Measures 11.7 x 4.9 x 6.2 c m. Corticomedullary differentiation is well-maintained. Mild hydronephrosis without perinephric fluid collection. An anechoic, nonvascular cyst measuring 4.9 x 4.4 x 5.9 cm is present within the sup erior pole. Team Facilitator resistive indices in the upper and lower poles measure 0.66 and 0.63 respectively. Urinary bladder: Decompressed with Rosa catheter in place. IMPRESSION: Severe right and mild left hydronephrosi s, relatively unchanged compared with CT abdomen dated 05/05/2020. Simple cyst in the superior pole of the left kidney. Finalized by: Uday Macias MD on 04/20 5:45 AM CDT Patient/Procedure Information: [facility] MRN/JEZ: [id number] Order Number: [id number] Accession Number: [id number] Ordering Provider: ISABEL KEANE Authorizing Provider: ISABEL KEANE Performing Organization Address City/State/Zipcode Phone Number [id number] LAB ONLY-COMPLETE BLOOD COUNT WITH DIFFERENTIAL (05/09/2020 7:55 AM CDT) [facility] nature WBC 11.3 (H) 4.0 - 11.0 K/uL [address] RBC 3.40 (L) 4.40 - 5.[address] M/uL Hemoglobin 10.8 (L) 13.5 - 17.[address] g/dL Hematocrit 32.2 (L) 40.0 - 50.0 % [address] MCV 94.7 80.0 - 98.[address] MCH 31.8 25.5 - 34.[address] MCHC 33.5 31.5 - 36.[address] g/dL RDW-CV 13.5 11.5 - 15.5 % [address] RDW-SD 47.1 35.5 - 50.[address] Platelet Count 251 140 - 400 K/uL [address] MPV 8.3 (L) 8.5 - 12.[address] Seg Neut Absolute 8.3 (H) 1.8 - 8.0 K/uL [address] Lymphocytes Absolute 1.4 0.8 - 4.1 K/uL [place] [id number] [facility] Monocytes Absolute 1.0 0.0 - 1.0 K/uL [address] Eosinophils Absolute 0.3 0.0 - 0.7 K/uL [place] [address] [facility] Basophil Absolute 0.1 0.0 - 0.2 K/uL [address] Immature Granulocyte 0.20 (H) 0.00 - 0.06 [place] [address] [facility] Absolute K/uL Neutrophils Abs. 8,300 /uL [address] (Segs and Bands) Neutrophils Percent 73.9 % [address] Lymphocytes Percent 12.4 % [address] Monocytes Percent 8.8 % [address] Immature Granulocyte 1.8 % [address] Percent Eosinophils Percent 2.7 % [address] Basophil Percent 0.4 % [address] Nucleated RBC 0 /[address] Specimen Blood Performing Organization Address [facility] Phone Number [address] [address] PROTIME/INR (05/09/2020 7:55 AM CDT) Pathologist Sig nature Protime 24.6 (H) 12.0 - 14.[address] INR 2.3 2.0 - 3.[address] Specimen Blood Narrative Performed At Normal INR reference range (patients not on oral antic oagulants) [address] 0.9-1.1. INR Standard Intensity = (2.0 - 3.0) INR Higher Intensity = (2.5 - 3.5) Performing Organization Address [facility] Phone Number [address] [address] MAGNESIUM (05/09/2020 7:55 AM CDT) Pathologist Sig nature Magnesium 1.7 (L) 1.8 - 2.4 mg/dL [address] Specimen Blood Performing Organization Address [facility] Phone Number [address] [address] RENAL FUNCTION PANEL (05/09/2020 7:55 AM CDT) Pathologist Sig nature Glucose 93 70 - 100 mg/dL [address] BUN 15 6 - 22 mg/dL [address] Creatinine 0.78 (L) 0.80 - 1.[address] mg/dL BUN/Creatinine Ratio 19.2 10.0 - 25.[address] Sodium 142 135 - 145 meq/L [address] Potassium 4.1 3.5 - 5.3 meq/L [address] Chloride 111 (H) 99 - 110 meq/L [address] CO2 25 20 - 29 meq/L [address] Anion Gap with K 10 6 - 20 meq/L [address] Calcium 8.4 (L) 8.5 - 10.[address] mg/dL Phosphorus 1.9 (L) 2.5 - 4.5 mg/dL [address] Albumin 2.4 (L) 3.5 - 5.0 g/dL [address] Corrected Calcium 9.7 8.5 - 10.[address] mg/dL Age [address] eGFR Non- >90 >=[address] [place] mL/min/1.73m2 eGFR >90 >=[address] mL/min/1.73m2 Specimen Blood Performing Organization Address [facility] Phone Number [address] [place] [address] SARS-COV-2 RNA, QUALITATIVE REAL-TIME RT-PCR (05/08/2020 6:46 PM CDT) SARS CoV RNA, RT Not Detected Not Detected [facility] Specimen Respiratory Narrative Performed At This test was performed by polymerase chain reaction ( PCR) [facility] on the waygum instrument. This assay is for in vitro diagnostic use under FDA Emergency Use Authorization only. Optimal performance of this test requires appropriate specimen collection, storage, and transport to the [facility]. Detection of SARS-CoV-2 RNA may be affected by sample collection methods, patient factors (eg, presence of symptoms), and/or stage of infection. False-negative results may arise from degradation of v iral RNA during shipping/storage. Results should be interpreted by a trained professiona l in conjunction with the patient s history and clinical signs and symptoms, and epidemiological risk factors. Negative (Not Detected) results do not preclude infect ion with the SARS-CoV-2 virus and should not be the sole b asis of patient treatment/management or public health decis ion. Follow up testing should be performed according to the current CDC recommendations. Performing Organization Address [facility] Phone Number [facility] [address] [place], [place] [address] [phone] LAB ONLY-COMPLETE BLOOD COUNT WITH DIFFERENTIAL (05/08/2020 6:58 AM CDT) Pathologist [facility] nature WBC 9.6 4.0 - 11.0 K/uL [address] RBC 3.36 (L) 4.40 - 5.[address] M/uL Hemoglobin 10.8 (L) 13.5 - 17.[address] g/dL Hematocrit 32.4 (L) 40.0 - 50.0 % [address] MCV 96.4 80.0 - 98.[address] MCH 32.1 25.5 - 34.[address] MCHC 33.3 31.5 - 36.[address] g/dL RDW-CV 13.9 11.5 - 15.5 % [address] RDW-SD 49.5 35.5 - 50.[address] Platelet Count 303 140 - 400 K/uL [address] MPV 8.6 8.5 - 12.[address] Seg Neut Absolute 6.9 1.8 - 8.0 K/uL [address] Lymphocytes Absolute 1.3 0.8 - 4.1 K/uL [place] [id number] [facility] Monocytes Absolute 1.0 0.0 - 1.0 K/uL [address] Eosinophils Absolute 0.2 0.0 - 0.7 K/uL [address] Basophil Absolute 0.0 0.0 - 0.2 K/uL [address] Immature Granulocyte 0.21 (H) 0.00 - 0.[address] Absolute K/uL Neutrophils Abs. 6,900 /uL [address] (Segs and Bands) Neutrophils Percent 71.6 % [address] Lymphocytes Percent 13.1 % [address] Monocytes Percent 10.6 % [address] Immature Granulocyte 2.2 % [address] Percent Eosinophils Percent 2.1 % [address] Basophil Percent 0.4 % [address] Nucleated RBC 0 /[address] Specimen Blood Performing Organization Address City/State/Zipcode Phone Number [address] [place] [address] PROTIME/INR (05/08/2020 6:58 AM CDT) Pathologist Sig nature Protime 27.7 (H) 12.0 - 14.[address] INR 2.7 2.0 - 3.[address] Specimen Blood Narrative Performed At Normal INR reference range (patients not on oral antic oagulants) [address] 0.9-1.1. INR Standard Intensity = (2.0 - 3.0) INR Higher Intensity = (2.5 - 3.5) Performing Organization Address [facility] [place] [facility] Phone Number [address] [place] [address] MAGNESIUM (05/08/2020 6:58 AM CDT) Pathologist Sig [facility] Magnesium 1.8 1.8 - 2.4 mg/dL [address] Specimen Blood Performing Organization Address [facility] [place] [facility] Phone Number [address] [place] [address] COMPREHENSIVE METABOLIC PANEL (05/08/2020 6:58 AM CDT) Pathologist Sig [facility] Glucose 110 (H) 70 - 100 mg/dL [address] BUN 22 6 - 22 mg/dL [address] Creatinine 0.81 0.80 - 1.[address] mg/dL BUN/Creatinine Ratio 27.2 (H) 10.0 - 25.[address] Sodium 141 135 - 145 meq/L [address] Potassium 4.1 3.5 - 5.3 meq/L [address] Chloride 111 (H) 99 - 110 meq/L [address] CO2 21 20 - 29 meq/L [address] Anion Gap with K 13 6 - 20 meq/L [address] Calcium 8.7 8.5 - 10.[address] mg/dL Protein Total 5.3 (L) 6.0 - 8.2 g/dL [address] Albumin 2.4 (L) 3.5 - 5.0 g/dL [address] Alkaline Phosphatase 103 30 - 150 U/L [address] AST - SGOT 46 (H) 0 - 35 U/L [address] ALT - SGPT 26 0 - 55 U/L [address] Bilirubin Total 0.5 0.2 - 1.2 mg/dL [address] Corrected Calcium 10.0 8.5 - 10.[address] mg/dL Age [address] eGFR Non- >90 >=[address] [place] mL/min/1.73m2 eGFR >90 >=[address] mL/min/1.73m2 Specimen Blood Performing Organization Address [facility] [place] [facility] Phone Number [address] [address] PHOSPHORUS (05/08/2020 6:58 AM CDT) Pathologist Sig nature Phosphorus 1.6 (L) 2.5 - 4.5 mg/dL [address] Specimen Blood Performing Organization Address [facility] [place] [facility] Phone Number [address] [address] HEMOGLOBIN (05/07/2020 4:35 PM CDT) Pathologist Sig nature Hemoglobin 11.5 (L) 13.5 - 17.5 g/dL [address] Specimen Blood Performing Organization Address [facility] [place] [facility] Phone Number [address] [address] BASIC METABOLIC PANEL (05/07/2020 1:54 PM CDT) Pathologist Sig nature Glucose 149 (H) 70 - 100 mg/dL [address] BUN 33 (H) 6 - 22 mg/dL [address] Creatinine 1.02 0.80 - 1.[address] mg/dL BUN/Creatinine Ratio 32.4 (H) 10.0 - 25.[address] Sodium 142 135 - 145 meq/L [address] Potassium 4.2 3.5 - 5.3 meq/L [address] Chloride 110 99 - 110 meq/L [address] CO2 23 20 - 29 meq/L [address] Anion Gap with K 13 6 - 20 meq/L [address] Calcium 8.7 8.5 - 10.5 [place] [address] [facility] mg/dL Age [address] eGFR Non- 70 >=[address] [place] mL/min/1.73m2 eGFR 85 >=[address] mL/min/1.73m2 Specimen Blood Performing Organization Address [facility] [place] Phone Number [address] [place] [address] BASIC METABOLIC PANEL (05/07/2020 9:01 AM CDT) Pathologist [facility] Glucose 102 (H) 70 - 100 mg/dL [place] [address] [facility] BUN 35 (H) 6 - 22 mg/dL [address] Creatinine 0.97 0.80 - 1.[address] mg/dL BUN/Creatinine Ratio 36.1 (H) 10.0 - 25.[address] Sodium 143 135 - 145 meq/L [address] Potassium 4.2 3.5 - 5.3 meq/L [address] Chloride 112 (H) 99 - 110 meq/L [address] CO2 20 20 - 29 meq/L [address] Anion Gap with K 15 6 - 20 meq/L [address] Calcium 8.6 8.5 - 10.[address] mg/dL Age [address] eGFR Non- 74 >=[address] [place] mL/min/1.73m2 eGFR 90 >=[address] mL/min/1.73m2 Specimen Blood Performing Organization Address [facility] [place] Phone Number [place] [address] [facility] [address] [place] [address] [place] [address] HEMOGLOBIN (05/07/2020 9:01 AM CDT) Pathologist Sig [facility] Hemoglobin 11.1 (L) 13.5 - 17.5 g/dL [address] Specimen Blood Performing Organization Address [facility] [place] Phone Number [place] [address] [facility] [address] [place] [address] COLLECT AND HOLD LAVENDER (EDTA) TOP TUBE (05/07/2020 5:59 AM CDT) Collect and Hold Comment: RECEIVED [place] [id number] Specimen Status CLINIC Specimen Blood Performing Organization Address [facility] Phone Number [address] [place] [address] BASIC METABOLIC PANEL (05/07/2020 5:59 AM CDT) Pathologist Sig [facility] Glucose 104 (H) 70 - 100 mg/dL [place] [address] [facility] BUN 39 (H) 6 - 22 mg/dL [address] Creatinine 1.07 0.80 - 1.[address] mg/dL BUN/Creatinine Ratio 36.4 (H) 10.0 - 25.[address] Sodium 144 135 - 145 meq/L [address] Potassium 4.3 3.5 - 5.3 meq/L [place] [address] [facility] Chloride 113 (H) 99 - 110 meq/L [place] [address] [facility] CO2 22 20 - 29 meq/L [address] Anion Gap with K 13 6 - 20 meq/L [address] Calcium 8.5 8.5 - 10.5 [place] [address] [facility] mg/dL Age [address] eGFR Non- 66 >=[address] [place] mL/min/1.73m2 eGFR 80 >=[address] mL/min/1.73m2 Specimen Blood Performing Organization Address [facility] Phone Number [address] [place] [address] BASIC METABOLIC PANEL (05/07/2020 12:40 AM CDT) Pathologist Sig nature Glucose 101 (H) 70 - 100 mg/dL [place] [address] [facility] BUN 45 (H) 6 - 22 mg/dL [place] [address] [facility] Creatinine 1.25 0.80 - 1.[address] mg/dL BUN/Creatinine Ratio 36.0 (H) 10.0 - 25.0 [place] [address] [facility] Sodium 142 135 - 145 meq/L [place] [address] [facility] Potassium 4.2 3.5 - 5.3 meq/L [place] [address] [facility] Chloride 111 (H) 99 - 110 meq/L [address] CO2 20 20 - 29 meq/L [address] Anion Gap with K 15 6 - 20 meq/L [address] Calcium 8.4 (L) 8.5 - 10.[address] mg/dL Age [address] eGFR Non- 55 (L) >=[address] [place] mL/min/1.73m2 eGFR 67 >=[address] mL/min/1.73m2 Specimen Blood Performing Organization Address [facility] [place] Phone Number [address] [place] [address] HEMOGLOBIN (05/07/2020 12:40 AM CDT) Pathologist Sig [facility] Hemoglobin 11.0 (L) 13.5 - 17.5 g/dL [address] Specimen Blood Performing Organization Address [facility] [place] Phone Number [address] [place] [address] BASIC METABOLIC PANEL (05/06/2020 10:29 PM CDT) Pathologist [facility] Glucose 99 70 - 100 mg/dL [address] BUN 50 (H) 6 - 22 mg/dL [address] Creatinine 1.44 (H) 0.80 - 1.[address] mg/dL BUN/Creatinine Ratio 34.7 (H) 10.0 - 25.[address] Sodium 142 135 - 145 meq/L [address] Potassium 4.5 3.5 - 5.3 meq/L [address] Chloride 112 (H) 99 - 110 meq/L [address] CO2 19 (L) 20 - 29 meq/L [address] Anion Gap with K 16 6 - 20 meq/L [address] Calcium 8.4 (L) 8.5 - 10.[address] mg/dL Age [address] eGFR Non- 47 (L) >=[address] [place] mL/min/1.73m2 eGFR 57 (L) >=[address] mL/min/1.73m2 Specimen Blood Performing Organization Address [facility] [place] Phone Number [address] [place] [address] BASIC METABOLIC PANEL (05/06/2020 6:22 PM CDT) Pathologist Sig [facility] Glucose 103 (H) 70 - 100 mg/dL [address] BUN 57 (H) 6 - 22 mg/dL [address] Creatinine 1.79 (H) 0.80 - 1.[address] mg/dL BUN/Creatinine Ratio 31.8 (H) 10.0 - 25.[address] Sodium 140 135 - 145 meq/L [address] Potassium 4.2 3.5 - 5.3 meq/L [address] Chloride 108 99 - 110 meq/L [address] CO2 24 20 - 29 meq/L [address] Anion Gap with K 12 6 - 20 meq/L [address] Calcium 8.5 8.5 - 10.[address] mg/dL Age [address] eGFR Non- 37 (L) >=[address] [place] mL/min/1.73m2 eGFR 44 (L) >=[address] mL/min/1.73m2 Specimen Blood Performing Organization Address [facility] Phone Number [address] [place] [address] HEMOGLOBIN (05/06/2020 4:42 PM CDT) Pathologist Sig [facility] Hemoglobin 11.9 (L) 13.5 - 17.5 g/dL [address] Specimen Blood Performing Organization Address [facility] [place] Phone Number [address] [place] [address] BASIC METABOLIC PANEL (05/06/2020 2:01 PM CDT) Pathologist Sig [facility] Glucose 140 (H) 70 - 100 mg/dL [address] BUN 68 (H) 6 - 22 mg/dL [place] [address] [facility] Creatinine 2.28 (H) 0.80 - 1.[address] mg/dL BUN/Creatinine Ratio 29.8 (H) 10.0 - 25.[address] Sodium 138 135 - 145 meq/L [address] Potassium 4.2 3.5 - 5.3 meq/L [address] Chloride 107 99 - 110 meq/L [address] CO2 23 20 - 29 meq/L [address] Anion Gap with K 12 6 - 20 meq/L [address] Calcium 8.2 (L) 8.5 - 10.[address] mg/dL Age [address] eGFR Non- 28 (L) >=[address] [place] mL/min/1.73m2 eGFR 34 (L) >=[address] mL/min/1.73m2 Specimen Blood Performing Organization Address [facility] [place] Phone Number [address] [address] HEMOGLOBIN (05/06/2020 9:25 AM CDT) Pathologist Sig nature Hemoglobin 12.0 (L) 13.5 - 17.5 g/dL [address] Specimen Blood Performing Organization Address [facility] [place] Phone Number [address] [place] [address] [place] [address] C-REACTIVE PROTEIN (INFLAMMATION) (05/06/2020 9:25 AM CDT) Pathologist Sig nature CRP 184.8 (H) 0.0 - 8.0 mg/L [address] Specimen Blood Performing Organization Address [facility] [place] Phone Number [address] [place] [address] LACTIC ACID (05/06/2020 9:25 AM CDT) Pathologist Sig nature Lactic Acid 0.8 0.5 - 2.2 mmol/L [address] Specimen Blood Performing Organization Address [facility] Phone Number [address] [place] [address] BASIC METABOLIC PANEL (05/06/2020 9:25 AM CDT) Pathologist Sig nature Glucose 86 70 - 100 mg/dL [place] [address] [facility] BUN 81 (H) 6 - 22 mg/dL [address] Creatinine 2.94 (H) 0.80 - 1.[address] mg/dL BUN/Creatinine Ratio 27.6 (H) 10.0 - 25.[address] Sodium 136 135 - 145 meq/L [address] Potassium 4.4 3.5 - 5.3 meq/L [address] Chloride 105 99 - 110 meq/L [address] CO2 20 20 - 29 meq/L [address] Anion Gap with K 15 6 - 20 meq/L [address] Calcium 8.2 (L) 8.5 - 10.[address] mg/dL Age [address] eGFR Non- 21 (L) >=[address] [place] mL/min/1.73m2 eGFR 25 (L) >=[address] mL/min/1.73m2 Specimen Blood Performing Organization Address [facility] Phone Number [address] [place] [address] CULTURE, BLOOD (05/06/2020 9:24 AM CDT)Only the most recent of2 resultswithin the time period is included. [facility] Culture Result No growth at 5 [facility] Specimen Blood Narrative Performed At [facility] Peripheral draw Performing Organization Address [facility] Phone Number [facility] [address] [place], [place] [phone] LAB ONLY-COMPLETE BLOOD COUNT WITH DIFFERENTIAL (05/06/2020 6:44 AM CDT) Pathologist [facility] [employer] WBC 14.2 (H) 4.0 - 11.0 K/uL [address] RBC 2.79 (L) 4.40 - 5.[address] M/uL Hemoglobin 8.9 (L) 13.5 - 17.[address] g/dL Hematocrit 25.6 (L) 40.0 - 50.0 % [address] MCV 91.8 80.0 - 98.[address] MCH 31.9 25.5 - 34.[address] MCHC 34.8 31.5 - 36.[address] g/dL RDW-CV 13.2 11.5 - 15.5 % [address] RDW-SD 44.7 35.5 - 50.[address] Platelet Count 376 140 - 400 K/uL [address] MPV 9.5 8.5 - 12.[address] Seg Neut Absolute 11.8 (H) 1.8 - 8.0 K/uL [address] Lymphocytes Absolute 0.8 0.8 - 4.1 K/uL [place] [address] [facility] Monocytes Absolute 1.3 (H) 0.0 - 1.0 K/uL [address] Eosinophils Absolute 0.1 0.0 - 0.7 K/uL [place] [address] [facility] Basophil Absolute 0.0 0.0 - 0.2 K/uL [address] Immature Granulocyte 0.14 (H) 0.00 - 0.06 [place] [address] [facility] Absolute K/uL Neutrophils Abs. 11,800 /uL [address] (Segs and Bands) Neutrophils Percent 83.6 % [address] Lymphocytes Percent 5.4 % [address] Monocytes Percent 9.3 % [address] Immature Granulocyte 1.0 % [address] Percent Eosinophils Percent 0.6 % [address] Basophil Percent 0.1 % [address] Nucleated RBC 0 /[address] Specimen Blood Performing Organization Address City/State/Zipcode Phone Number [address] [place] [address] BASIC METABOLIC PANEL (05/06/2020 6:44 AM CDT) [facility] Glucose 75 70 - 100 mg/dL [address] BUN 97 (H) 6 - 22 mg/dL [address] Creatinine 4.06 (H) 0.80 - 1.[address] mg/dL BUN/Creatinine Ratio 23.9 10.0 - 25.[address] Sodium 134 (L) 135 - 145 meq/L [address] Potassium 4.2 3.5 - 5.3 meq/L [address] Chloride 101 99 - 110 meq/L [address] CO2 19 (L) 20 - 29 meq/L [address] Anion Gap with K 18 6 - 20 meq/L [address] Calcium 8.3 (L) 8.5 - 10.[address] mg/dL Age [address] eGFR Non- 14 (L) >=[address] [place] mL/min/1.73m2 eGFR 17 (L) >=[address] mL/min/1.73m2 Specimen Blood Performing Organization Address [facility] [place] [facility] Phone Number [address] [address] HEPATIC FUNCTION PANEL (05/06/2020 6:44 AM CDT) Pathologist Sig nature Alkaline Phosphatase 132 30 - 150 U/L [address] AST - SGOT 19 0 - 35 U/L [address] ALT - SGPT 12 0 - 55 U/L [address] Bilirubin Total 0.4 0.2 - 1.2 mg/dL [address] Bilirubin Indirect 0.1 0.0 - 0.8 mg/dL [address] Bilirubin Direct 0.3 0.0 - 0.4 mg/dL [address] Albumin 2.4 (L) 3.5 - 5.0 g/dL [address] Protein Total 5.3 (L) 6.0 - 8.2 g/dL [address] Specimen Blood Performing Organization Address [facility] [place] Phone Number [address] [place] [address] LAB ONLY-COMPLETE BLOOD COUNT WITH DIFFERENTIAL (05/06/2020 1:55 AM CDT) Pathologist Sig nature WBC 13.6 (H) 4.0 - 11.0 K/uL [address] RBC 3.64 (L) 4.40 - 5.[address] M/uL Hemoglobin 11.9 (L) 13.5 - 17.[address] g/dL Hematocrit 32.7 (L) 40.0 - 50.0 % [address] MCV 89.8 80.0 - 98.[address] MCH 32.7 25.5 - 34.[address] MCHC 36.4 31.5 - 36.[address] g/dL RDW-CV 12.9 11.5 - 15.5 % [address] RDW-SD 42.8 35.5 - 50.[address] Platelet Count 336 140 - 400 K/uL [address] MPV 9.1 8.5 - 12.[address] Seg Neut Absolute 11.5 (H) 1.8 - 8.0 K/uL [address] Lymphocytes Absolute 0.9 0.8 - 4.1 K/uL [place] [id number] [facility] Monocytes Absolute 1.0 0.0 - 1.0 K/uL [address] [address]RE[address] Eosinophils Absolute 0.1 0.0 - 0.7 K/uL [place] [address] [facility]I C Basophil Absolute 0.0 0.0 - 0.2 K/uL [address] Immature Granulocyte 0.13 (H) 0.00 - 0.[address] Absolute K/uL Neutrophils Abs. 11,500 /uL [address] (Segs and Bands) Neutrophils Percent 84.4 % [address] Lymphocytes Percent 6.5 % [address] Monocytes Percent 7.3 % [address] Immature Granulocyte 1.0 % [address] Percent Eosinophils Percent 0.7 % [address] Basophil Percent 0.1 % [address] Nucleated RBC 0 /[address] Specimen Blood Performing Organization Address City/State/Zipcode Phone Number [address] [place] [address] BASIC METABOLIC PANEL (05/06/2020 1:55 AM CDT) Pathologist Sig nature Glucose 82 70 - 100 mg/dL [address] BUN 112 (H) 6 - 22 mg/dL [address] Creatinine 5.61 (H) 0.80 - 1.30 [facility] mg/dL BUN/Creatinine Ratio 20.0 10.0 - 25.[address] Sodium 129 (L) 135 - 145 meq/L [place] [address] [facility] Potassium 4.2 3.5 - 5.3 meq/L [place] [address] [facility] Chloride 93 (L) 99 - 110 meq/L [place] [address] [facility] CO2 18 (L) 20 - 29 meq/L [address] Anion Gap with K 22 (H) 6 - 20 meq/L [place] [address] [facility] Calcium 9.0 8.5 - 10.5 [place] [address] [facility] mg/dL Age [address] eGFR Non- 10 (L) >=[address] [place] mL/min/1.73m2 eGFR 12 (L) >=[address] mL/min/1.73m2 Specimen Blood Performing Organization Address [facility] [place] Phone Number [address] [place] [address], [place] [address] LAB ONLY-URINE MICROSCOPIC REFLEX (05/05/2020 11:30 PM CDT) WBC Urine 11-20 /hpf (A) Negative, 0-5 [place] [address] /hpf CLINIC RBC Urine >30 /hpf (A) Negative, 0-2 [place] [address] /hpf CLINIC Squamous Epithelial Few (11-20) Negative, Occ [place] [address] Cells /lpf (0-10) /lpf, Few CLINIC (11-20) /lpf Bacteria Occ (0-10) Negative [place] [address] /hpf (A) CLINIC Hyaline Cast 3-5 /lpf (A) 0-2 /lpf [address] Specimen Urine Narrative Performed At Urine Culture Reflexed [address] Performing Organization Address [facility] [place] Phone Number [address] [place] [address] URINE DIP, REFLEX TO MICROSCOPIC, REFLEX TO CULTURE (05/05/2020 11:30 PM CDT) Color Urine Red (A) [place], Dark [place] [address] Yellow, Straw, CLINIC Yellow, Colorless Clarity Urine Cloudy (A) Clear [place] [address] [facility] Glucose Urine Negative Negative [address] Bilirubin Urine Negative Negative [address] Ketones Urine 5 mg/dL Negative, 5 [place] [address] mg/dL, 10 mg/dL CLINIC Specific [place] <=1.005 1.002 - 1.[address] Blood Urine Large (3+) (A) Negative [address] PH Urine 5.0 5.0, 5.5, 6.0, [place] [address] 6.5, 7.0, 7.5, CLINIC 8.0 Protein Urine 100 mg/dL (A) Negative [address] Urobilinogen < 2 mg/dL < 2 mg/dL [address] Nitrite Negative Negative [address] Leukocyte Esterase Small (1+) (A) Negative [place] [address] Urine CLINIC Specimen Urine Narrative Performed At Microscopic Exam Reflexed [place] [address] [facility] Performing Organization Address [facility] [place] Phone Number [address] [place] [address], [place] [address] BASIC METABOLIC PANEL (05/05/2020 11:27 PM CDT) Pathologist Sig nature Glucose 75 70 - 100 mg/dL [address] BUN 99 (H) 6 - 22 mg/dL [address] Creatinine 4.97 (H) 0.80 - 1.[address] mg/dL BUN/Creatinine Ratio 19.9 10.0 - 25.[address] Sodium 132 (L) 135 - 145 meq/L [address] Potassium 3.5 3.5 - 5.3 meq/L [address] Chloride 98 (L) 99 - 110 meq/L [address] CO2 15 (L) 20 - 29 meq/L [address] Anion Gap with K 23 (H) 6 - 20 meq/L [address] Calcium 7.5 (L) 8.5 - 10.[address] mg/dL Age 80 [address] eGFR Non- 11 (L) >=[address] [place] mL/min/1.73m2 eGFR 14 (L) >=[address] mL/min/1.73m2 Specimen Blood Performing Organization Address [facility] Phone Number [place] [address] [place] [address] CREATININE (05/05/2020 6:35 PM CDT) Pathologist Sig nature Creatinine 6.62 (H) 0.80 - 1.[address] mg/dL Age [address] eGFR Non- 8 (L) >=[address] [place] mL/min/1.73m2 eGFR 10 (L) >=[address] mL/min/1.73m2 Specimen Blood Performing Organization Address [facility] Phone Number [address] [address] SODIUM (05/05/2020 6:35 PM CDT) Pathologist Sig nature Sodium 124 (L) 135 - 145 meq/L [address] Specimen Blood Performing Organization Address [facility] Phone Number [address] [address] TSH REFLEX (05/05/2020 6:35 PM CDT) Pathologist Sig nature TSH 1.10 0.40 - 5.00 uIU/mL [address] Specimen Blood Performing Organization [facility] Number [place] [address] [place] [address] OSMOLALITY (05/05/2020 6:35 PM CDT) Pathologist Sig nature Osmolality 297 280 - 305 mOsm/kg [address] Specimen Blood Performing Organization [facility] Phone Number [place] [address] [address] [place] [address] BASIC METABOLIC PANEL (05/05/2020 6:35 PM CDT) Pathologist Sig nature Glucose 95 70 - 100 mg/dL [address] BUN 120 (H) 6 - 22 mg/dL [address] Creatinine 6.62 (H) 0.80 - 1.[address] mg/dL BUN/Creatinine Ratio 18.1 10.0 - 25.0 [place] [address] [facility] Sodium 124 (L) 135 - 145 meq/L [place] [address] [facility] Potassium 4.6 3.5 - 5.3 meq/L [address] Chloride 89 (L) 99 - 110 meq/L [place] [address] [facility] CO2 17 (L) 20 - 29 meq/L [address] Anion Gap with K 23 (H) 6 - 20 meq/L [address] Calcium 8.9 8.5 - 10.5 [place] [address] [facility] mg/dL Age [address] eGFR Non- 8 (L) >=[address] [place] mL/min/1.73m2 eGFR 10 (L) >=[address] mL/min/1.73m2 Specimen Blood Performing Organization Address [facility] [place] Phone Number [address] [place] [address], [place] [address] LAB ONLY-URINE MICROSCOPIC REFLEX (05/05/2020 6:07 PM CDT) WBC Urine 21-50 /hpf (A) Negative, 0-5 [place] [address] /hpf CLINIC RBC Urine >30 /hpf (A) Negative, 0-2 [place] [address] /hpf CLINIC Squamous Occ (0-10) /lpf Negative, Occ [place] [address] Epithelial Cells (0-10) /lpf, Few CLINIC (11-20) /lpf Bacteria Occ (0-10) /hpf Negative [place] [address] (A) CLINIC Hyaline Cast 6-10 /lpf (A) 0-2 /lpf [address] WBC Clumps Present (A) Not Present [address] Specimen Urine Narrative Performed At Urine Culture Reflexed [place] [address] [facility] Performing Organization Address [facility] [place] Phone Number [address] [place] [address], [place] [address] URINE DIP, REFLEX TO MICROSCOPIC, REFLEX TO CULTURE (05/05/2020 6:07 PM CDT) Color Urine Red (A) [place], Dark [place] [address] Yellow, Straw, CLINIC Yellow, Colorless Clarity Urine Clear Clear [address] Glucose Urine Negative Negative [address] Bilirubin Urine Negative Negative [address] Ketones Urine 15 mg/dL (A) Negative, 5 [place] [address] mg/dL, 10 mg/dL CLINIC Specific [place] <=1.005 1.002 - 1.[address] Blood Urine Large (3+) (A) Negative [address] PH Urine 5.0 5.0, 5.5, 6.0, [place] [address] 6.5, 7.0, 7.5, CLINIC 8.0 Protein Urine >= 300 mg/dL Negative [place] [address] (A) CLINIC Urobilinogen < 2 mg/dL < 2 mg/dL [place] [address] [facility] Nitrite Positive (A) Negative [place] [address] [facility] Leukocyte Esterase Large (3+) (A) Negative [place] [address] Urine CLINIC Specimen Urine Narrative Performed At Urine Culture Reflexed [address] Microscopic Exam Reflexed Performing Organization Address [facility] Phone Number [address] [place] [address] LAB ONLY - SODIUM, FRACTIONAL EXCRETION (05/05/2020 6:07 PM CDT) Creatinine Urine 31.2 20.0 - 250.0 mg/dL [address] Sodium Urine 34 meq/L [address] Fractional Excretion 6.9 No Reference Range [place] [address] of Sodium Established % CLINIC Specimen Urine Narrative Performed At Fractional excretion of sodium < 1% is suggestive of a prerenal [address] cause. Fractional excretion of sodium > 1% is suggestive of a cute tubular necrosis. Performing Organization Address [facility] Phone Number [address] [place] [address] OSMOLALITY, URINE (05/05/2020 6:07 PM CDT) Pathologist Sig nature Osmolality Urine 199 (L) 390-1,000 mOsm/kg [place] [address] [facility] Specimen Urine Performing Organization Address [facility] Phone Number [address] [place] [address] SODIUM, URINE (05/05/2020 6:07 PM CDT) Pathologist Sig nature Sodium Urine 33 meq/L [place] [address] [facility] Specimen Urine Performing Organization Address [facility] Phone [place] [address] [place] [address] CT KIDNEY STONE PROTOCOL (05/05/2020 4:32 PM CDT) Specimen Narrative Performed At [facility] Patient Name: JOSE RAFAEL WASSERMAN Date of : 1940 Procedure: CT KIDNEY STONE PROTOCOL Date of Service: 05/05/2020 EXAM: CT KIDNEY STONE PROTOCOL INDICATION:outlet obstruction, hydroneph rosis COMPARISON(S): Renal ultrasound dated 07/2020 TECHNIQUE: Non contrast axial ct imaging was performed through the abdomen and pelvis with sagittal and cor onal reformats. FINDINGS: There is moderately severe right-sided hydronephrosis/ hydroureter. No definite stone is seen within the renal collecting sys tem or along the course of the right ureter. Rosa catheter appears to decompress the bladder. There is mild left-sided hydronephrosis. Ther e is a 2 mm stone seen within the upper pole calyx on the left. There is a 6.2 cm exophytic cyst of the left midpole kidney. Numerous ga llstones. There is mild gaseous distention of the colon. No evidence for small bowel obstruction. Within the confines of a nonintravenous c ontrast exam, visualized liver, pancreas, spleen, and adrenal glands are within normal limits. 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 There is significant streak artifact from the prosthet ic components which precludes optimal evaluation of the lower pelvis . There is a large left inguinal hernia which contains portions of the si gmoid colon. There are diverticular changes of the colon without evidence for diverticulitis. There are degenerative c hanges of the lumbar spine.. IMPRESSION: 1. Moderately severe right-sided hydronephrosis/hydr oureter. No CT findings to account for hydronephrosis. 2. Left-sided nephrolithiasis. 3. Mild left-sided hydronephrosis. No CT findings to suggest left-sided ureteral stone. 4. Large left inguinal hernia which contains sigmoid colon. No evidence for obstruction. Finalized by: Toby Lewis MD on 2019 4:56 PM CDT Patient/Procedure Information: [facility] MRN/JEZ: [id number] Order Number: [id number] Accession Number: [id number] Ordering Provider: ANIL FISHMAN Authorizing Provider: ANIL FISHMAN Procedure Note Interface, Radiantres - 05/05/2020 4:58 PM CDT Patient Name: JOSE RAFAEL WASSERMAN Date of : 1940 Procedure: CT KIDNEY STONE PROTOCOL Date of Service: 05/05/2020 EXAM: CT KIDNEY STONE PROTOCOL INDICATION:outlet obstruction, hydroneph rosis COMPARISON(S): Renal ultrasound dated 07/2020 TECHNIQUE: Non contrast axial ct imaging was performed through the abdomen and pelvis with sagittal and coronal reformats. FINDINGS: There is moderately severe right-sided h ydronephrosis/hydroureter. No definite stone is seen within the renal collecting system or along the course of the right ureter. Rosa catheter appears to decompress the bladder. There is mild left-sided hydron ephrosis. There is a 2 mm stone seen within the upper pole calyx on the left. There is a 6.2 cm exophytic cyst of the left midpole kidney. Numerous gallstones. There is mild gaseous distention of the colon. No evid ence for small bowel obstruction. Within the confines of a nonintravenous contrast exam, visualized liver, pancreas, spleen, and adrenal glands are within normal limits. There are postsurgical changes of bilateral hip ar throplasties. There is significant streak artifact from the prosthetic components which precludes optimal evaluation of the lower pelvis. There is a large left inguinal hernia which contains portions of the sigmoid c olon. There are diverticular changes of the colon without evidence for diverticulitis. There are degenerative changes of the lumbar spine.. IMPRESSION: 1. Moderately severe right-sided hydron ephrosis/hydroureter. No CT findings to account for hydronephrosis. 2. Left-sided nephrolithiasis. 3. Mild left-sided hydronephrosis. No C T findings to suggest left-sided ureteral stone. 4. Large left inguinal hernia which con tains sigmoid colon. No evidence for obstruction. Finalized by: Toby Lewis MD on 2019 4:56 PM CDT Patient/Procedure Information: [facility] MRN/JEZ: [id number] Order Number: [id number] Accession Number: [id number] Ordering Provider: ANIL FISHMAN Authorizing Provider: ANIL FISHMAN Performing Organization Address City/State/Zipcode Phone Number [id number] CT HEAD WITHOUT CONTRAST (05/05/2020 4:32 PM CDT) Specimen Narrative Performed At [facility] Patient Name: JOSE RAFAEL WASSERMAN Date of : 1940 Procedure: CT HEAD WITHOUT CONTRAST Date of Service: 05/05/2020 EXAM: CT HEAD WITHOUT CONTRAST INDICATION: TIA, initial exam TECHNIQUE: CT of the brain performed wit hout IV contrast. COMPARISON(S): None Available FINDINGS: There is no acute intra or extra axial fluid collectio n. The ventricles are symmetric in size, shape, and position. There are areas of hypoattenuation within the cerebral white matter, most consistent with chronic small vessel disease. Small focal area of ence phalomalacia seen within the posterior left parasagittal frontal lobe an d parietal lobe regions, likely financial representative of either remote infarc t or traumatic injury. No mass effect or midline shift is present. Th e zeng-white matter differentiation is maintained. The visualized p ortions of the orbits, paranasal sinuses, and mastoids are normal. No fractures are identified. IMPRESSION: 1. No acute intracranial process. 2. 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 Given lack of comparisons, MRI evaluation could be performed to better evaluate for acui ty. Finalized by: Toby Lewis MD on 2019 4:41 PM CDT Patient/Procedure Information: [facility] MRN/JEZ: [id number] Order Number: [id number] Accession Number: [id number] Ordering Provider: ANIL FISHMAN Authorizing Provider: ANIL FISHMAN Procedure Note Interface, Radiantres - 05/05/2020 4:43 PM CDT Patient Name: JOSE RAFAEL WASSERMAN Date of : 1940 Procedure: CT HEAD WITHOUT CONTRAST Date of Service: 05/05/2020 EXAM: CT HEAD WITHOUT CONTRAST INDICATION: TIA, initial exam TECHNIQUE: CT of the brain performed wit hout IV contrast. COMPARISON(S): None Available FINDINGS: There is no acute intra or extra axial f luid collection. The ventricles are symmetric in size, shape, and position. There are areas of hypoattenuation within the cerebral white matter, most consistent with chronic small vessel disease. Small foca l area of encephalomalacia seen within the posterior left parasagittal frontal lobe and parietal lobe regions, likely financial representative of either remote infarct or traumatic injury. No mass effect or midline shift is present. The zeng-white matter differentiation is maintained. The visualized portions of the orbits, paranasal sinuses, and mastoids are normal. No fractures are identified. IMPRESSION: 1. No acute intracranial process. 2. 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 Given lack of comparisons, MRI evaluation could be performed to better evaluate for acuity. Finalized by: Toby Lewis MD on 2019 4:41 PM CDT Patient/Procedure Information: [facility] MRN/JEZ: [id number] Order Number: [id number] Accession Number: [id number] Ordering Provider: ANIL FISHMAN Authorizing Provider: ANIL FISHMAN Performing Organization Address [facility] Phone Number [id number] TYPE AND SCREEN (05/05/2020 3:02 PM CDT) [facility] ABO Type A [address] BLOOD BANK Rh Type Positive [address] BLOOD BANK Antibody Screen Negative [address] Comment: BLOOD BANK 05/05/2020 Allogenic Red Cells Available Expiration Date 05/08/2020 23:[address] BLOOD BANK Specimen Blood Performing Organization Address [facility] Phone Number [address] BLOOD BANK [address] [place] [address], [place] [address] LAB ONLY-COMPLETE BLOOD COUNT WITH DIFFERENTIAL (05/05/2020 3:02 PM CDT) Pathologist Sig nature WBC 17.3 (H) 4.0 - 11.0 K/uL [address] RBC 3.92 (L) 4.40 - 5.[address] M/uL Hemoglobin 12.6 (L) 13.5 - 17.[address] g/dL Hematocrit 35.0 (L) 40.0 - 50.0 % [address] MCV 89.3 80.0 - 98.[address] MCH 32.1 25.5 - 34.[address] MCHC 36.0 31.5 - 36.[address] g/dL RDW-CV 12.8 11.5 - 15.5 % [address] RDW-SD 42.4 35.5 - 50.[address] Platelet Count 305 140 - 400 K/uL [address] MPV 9.1 8.5 - 12.[address] Seg Neut Absolute 16.2 (H) 1.8 - 8.0 K/uL [address] Lymphocytes Absolute 0.4 (L) 0.8 - 4.1 K/uL [place] [address] [facility] Monocytes Absolute 0.5 0.0 - 1.0 K/uL [address] Eosinophils Absolute 0.0 0.0 - 0.7 K/uL [place] [address] [facility] C Basophil Absolute 0.0 0.0 - 0.2 K/uL [address] Immature Granulocyte 0.14 (H) 0.00 - 0.06 [place] [address] [facility] Absolute K/uL Neutrophils Abs. 16,200 /uL [address] (Segs and Bands) Neutrophils Percent 93.7 % [address] Lymphocytes Percent 2.2 % [address] Monocytes Percent 3.1 % [address] Immature Granulocyte 0.8 % [address] Percent Eosinophils Percent 0.0 % [address] Basophil Percent 0.2 % [address] Nucleated RBC 0 /[address] Specimen Blood Performing Organization Address [facility] [place] Phone Number [address] [place] [address] BRAIN NATRIURETIC PEPTIDE (05/05/2020 3:02 PM CDT) Pathologist Sig nature BNP 88 0 - 100 pg/mL [address] Specimen Blood Performing Organization Address [facility] [place] Phone Number [address] [place] [address], [place] [address] LACTIC ACID (05/05/2020 3:02 PM CDT) Pathologist Sig nature Lactic Acid 1.0 0.5 - 2.2 mmol/L [place] [address] [facility] Specimen Blood Performing Organization Address [facility] [place] Phone Number [place] [address] [facility] [address] [place] [address], [place] [address] PROTIME/INR (05/05/2020 3:02 PM CDT) Pathologist Sig nature Protime 37.8 (H) 12.0 - 14.[address] INR 4.0 (H) 2.0 - 3.[address] Specimen Blood Narrative Performed At Normal INR reference range (patients not on oral antic oagulants) [address] 0.9-1.1. INR Standard Intensity = (2.0 - 3.0) INR Higher Intensity = (2.5 - 3.5) Performing Organization Address City[facility] Phone Number [address] [place] [address], [place] [address] COMPREHENSIVE METABOLIC PANEL (05/05/2020 3:02 PM CDT) Pathologist [facility] Glucose 98 70 - 100 mg/dL [address] BUN 122 (H) 6 - 22 mg/dL [address] Creatinine 7.55 (H) 0.80 - 1.[address] mg/dL BUN/Creatinine Ratio 16.2 10.0 - 25.[address] Sodium 120 (L) 135 - 145 meq/L [address] Potassium 4.8 3.5 - 5.3 meq/L [address] Chloride 85 (L) 99 - 110 meq/L [address] CO2 16 (L) 20 - 29 meq/L [address] Anion Gap with K 24 (H) 6 - 20 meq/L [address] Calcium 8.7 8.5 - 10.5 [place] [address] CLINIC mg/dL Protein Total 5.9 (L) 6.0 - 8.2 g/dL [address] Albumin 2.7 (L) 3.5 - 5.0 g/dL [address] Alkaline Phosphatase 147 30 - 150 U/L [address] AST - SGOT 19 0 - 35 U/L [address] ALT - SGPT 13 0 - 55 U/L [address] Bilirubin Total 0.6 0.2 - 1.2 mg/dL [address] Corrected Calcium 9.7 8.5 - 10.[address] mg/dL Age [address] eGFR Non- 7 (L) >=[address] [place] mL/min/1.73m2 eGFR 8 (L) >=[address] mL/min/1.73m2 Specimen Blood Performing Organization Address City/State/Zipcode Phone Number [address] [address] documented in this encounter Visit Diagnoses Diagnosis Bladder outlet obstruction - Primary Urinary obstruction, unspecified Acute kidney injury (HCC) Acute kidney failure, unspecified Hyponatremia Hyposmolality and/or hyponatremia Benign prostatic hyperplasia with urinar y obstruction Gross hematuria Acute urinary retention Other specified retention of urine Edema, unspecified type Essential hypertension Unspecified essential hypertension Clostridium difficile colitis Intestinal infection due to clostridium difficile documented in this encounter Discharge Diagnoses Not on filedocumented in this encounter Administered Medications Medication Order MAR Action Action Date Dose Rate Site .Anticoagulation (WARFARIN) therapy nurs ing reminder Anti-coag reminder, First dose on Tue05/09/20 at 1025, Until Discontinued bisacodyl (DULCOLAX) suppository 10 mg 10 mg, Rectal, One time a day prn, Starting Tue 0 at 1752, Until Discontinued, constipation, Use SECOND for constipatio n. If patient cannot take oral medications, use first for constipation., docusate sodium (THEREVAC-SB MINI;ENEMEE Z MINI) 283 MG enema 1 enema 1 enema, Rectal, One time a day prn, Starting 05/05 at 1752, Until Discontinued, constipation, Use THIRD for constipation - if no BM 8 hours after ducolax suppository. If patient cannot take oral medic ations, use second for constipation., lactobacillus (CULTURELLE) capsule 2 Given 05/13/2020 8:48 AM C DT 2 capsules capsule 2 capsule, Oral, Daily, First dose on Tue05/12/20 at 2100, Until Discontinued, LIVE MICROORGANISM: Do not open capsules or packets and do not crush tablets or wafers in the vicinity of patients with central lines. Health care workers should follow standard good practices: Wash hands and wear gloves when administering this product. Always wash hands well and change gloves after handling as to avoid any accidental transfer into the central line of any patient. , Given 05/12/2020 8:35 PM CDT 2 capsules lovastatin (MEVACOR) tablet 40 mg Given 05/11/2020 8:20 PM CDT 40 mg 40 mg, Oral, Every other day, First dose on Tue05/07/20 at 2100, Until Discontinued Given 05/09/2020 8:10 PM CDT 40 mg Given 05/07/2020 8:00 PM CDT 40 mg metoprolol tartrate (LOPRESSOR) tablet 5 0 mg Given 05/13/2020 8:42 AM CDT 50 mg 50 mg, Oral, Two times a day, First dose on Tue05/12/20 at 1700, Until Discontinued, Hold if SBP <100, Hold if HR <50, Given 05/12/2020 8:32 PM CDT 50 mg Given 05/12/2020 4:45 PM CDT 50 mg polyethylene glycol (MIRALAX) packet 1 p acket 1 packet, Oral, One time a day prn, Starting Tue at 1000, Until Discontinued, constipation, Dissolve in [address], juice, soda, coffee, tea., potassium & sodium phosphates (PHOS-NaK) Given 05/12/2020 8 :35 PM CDT 1 packet 280-160-250 MG packet 1 packet 1 packet, Oral, Bedtime, First dose on Tue05/12/20 at 2100, Until Discontinued, Contents of packet should be dissolved in 75 ml water. Stir well and take promptly., senna-docusate sodium (SENOKOT-S;PERICOL CHICA) tablet 2 tablet 2 tablet, Oral, Two times a day prn, Starting 05/05 at 1752, Until Discontinued, constipation, Use FIRST fo r constipation unless patient cannot take oral medications., sodium chloride 0.9% flush (adult) 10 mL Given 05/13/2020 8:43 AM CDT 10 mL 10 mL, IV, Two times a day and prn, First dose on Tue05/05/20 at 2100, Until Discontinued, 10 mL, Flush IV line as scheduled and as often as necessary before and after meds., Given 05/12/2020 8:37 PM CDT 10 mL Given 05/12/2020 9:26 AM CDT 10 mL tamsulosin (FLOMAX) capsule 0.4 mg Given 05/12/2020 8:34 PM CDT 0.4 mg 0.4 mg, Oral, Bedtime, First dose on Tue05/09/20 at 2100, Until Discontinued, Swallow cap whole. Do not crush, chew or open., Given 05/11/2020 8:20 PM CDT 0.4 mg Given 05/10/2020 9:20 PM CDT 0.4 mg vancomycin oral solution (50 mg/mL) C. Given 05/13/2020 1:22 PM CDT 125 mg difficile only 125 mg 125 mg, Oral, Four times a day, 56 doses, First dose on Tue05/10/20 at 1100, Last dose on Tue05/23/20 at 2100, 2.5 mL, Adults: Nurse, please dilute dose in 30 mL water prior to administration., Given 05/13/2020 8:42 AM CDT 125 mg Given 05/12/2020 8:35 PM CDT 125 mg Medication Order MAR Action Action Date Dose Rate Site cefTRIAXone (ROCEPHIN) 1000 Given 05/06/2020 9:00 PM CDT 1,000 mg mg/10 mL IV syringe in sterile water 1,000 mg, IV, Every twenty four hours, First dose on Tue05/05/20 at 1940, Until Discontinued, 10 mL, Administer over 5 minutes. Flush IV line with normal saline prior and post administration. Do not administer with calcium containing solutions (example: Lactated Ringer's, TPN with calcium, etc) as these are not compatible with ceftriaxone. Administer over 5 minutes., Given 05/05/2020 10:47 PM CDT 1,000 mg cefTRIAXone (ROCEPHIN) 1000 mg/10 mL IV Given 05/09/2020 12:04 P M CDT 1,000 mg syringe in sterile water 1,000 mg, IV, Every twenty four hours, 3 doses, First dose on Tue05/09/20 at 1200, Last dose on Tue05/11/20 at 1200, 10 mL, Flush IV line with normal saline prior and post administration. Do not administer with calcium containing solutions (example: Lactated Ringer's, TPN with calcium, etc) as these are not compatible with ceftriaxone. Administer over 5 minutes., magnesium oxide tablet 500 mg Given 05/09/2020 10:00 AM CDT 500 mg 500 mg, Oral, Two times a day, 20 doses, First dose on Tue05/09/20 at 0900, Last dose on Tue05/18/20 at 2100 magnesium oxide tablet 500 mg Given 05/13/2020 8:42 AM CDT 500 mg 500 mg, Oral, Two times a day, 3 doses, First dose on Tue05/12/20 at 1700, Last dose on Tue05/13/20 at 0900 Given 05/12/2020 8:34 PM CDT 500 mg Given 05/12/2020 4:45 PM CDT 500 mg magnesium sulfate 2 g/50 mL premixed IV Given 05/09/2020 1:26 P M CDT 2 g solution 2 g, IV, One time, 1 dose, Tue05/09/20 at 1400, 50 mL metoprolol tartrate (LOPRESSOR) half-tablet Given 04/20 9:37 PM CDT 12.5 mg 12.5 mg 12.5 mg, Oral, Two times a day, First dose on Tue05/07/20 at 2100, Until Discontinued, Hold if sbp <100 Hold if HR <50 \\, Given 05/08/2020 9:22 AM CDT 12.5 mg Given 05/07/2020 8:00 PM CDT 12.5 mg metoprolol tartrate (LOPRESSOR) tablet 2 5 mg Given 05/09/2020 8:31 AM CDT 25 mg 25 mg, Oral, Two times a day, First dose on Tue05/09/20 at 0900, Until Discontinued, Hold if sbp <100 Hold if HR <50 \\, metoprolol tartrate (LOPRESSOR) tablet 2 5 mg Given 05/12/2020 7:00 AM CDT 25 mg 25 mg, Oral, Two times a day, First dose on Tue05/09/20 at 2100, Until Discontinued, Hold if sbp <100 Hold if HR <50 \\, Given 05/11/2020 8:20 PM CDT 25 mg Given 05/11/2020 8:38 AM CDT 25 mg potassium & sodium phosphates (PHOS-NaK) Given 05/11/2020 8 :20 PM CDT 1 packet 280-160-250 MG packet 1 packet 1 packet, Oral, Three times a day, 9 doses, First dose on Tue05/09/20 at 0845, Last dose on Tue05/11/20 at 2100, Contents of packet should be dissolved in 75 ml water. Stir well and take promptly., Given 05/11/2020 1:30 PM CDT 1 packet Given 05/11/2020 9:46 AM CDT 1 packet potassium chloride (KLOR-CON M20) CR tablet Given 04/20 9:26 AM CDT 40 mEq 40 mEq 40 mEq, Oral, One time, 1 dose, Tue05/12/20 at 0910, Tablet may be broken in half, but should not be crushed or chewed. Tablet may be dissolved in 4 oz of water., potassium chloride (KLOR-CON M20) CR tablet Given 04/20 4:45 PM CDT 40 mEq 40 mEq 40 mEq, Oral, One time, 1 dose, Tue05/12/20 at 1650, Tablet may be broken in half, but should not be crushed or chewed. Tablet may be dissolved in 4 oz of water., senna-docusate sodium Given 05/09/2020 8:32 AM CDT 1 tablet (SENOKOT-S;PERICOLACE) tablet 1 tablet 1 tablet, Oral, Two times a day, First dose on Tue05/08/20 at 1000, Until Discontinued sodium chloride 0.9% (bolus) IV solution 500 Given 1:40 AM CDT 500 mL mL 500 mL, IV, Bolus, 1 dose, Tue05/06/20 at 0140, 500 mL sodium chloride 0.9% (bolus) IV solution 500 Given 3:23 AM CDT 500 mL mL 500 mL, IV, Bolus, 1 dose, Tue05/06/20 at 0310, 500 mL sodium chloride 0.9% (bolus) IV solution 500 Given 6:17 AM CDT 500 mL mL 500 mL, IV, Bolus, 1 dose, Tue05/06/20 at 0615, 500 mL sodium chloride 0.9% (bolus) IV solution 500 Given 5:14 AM CDT 500 mL mL 500 mL, IV, Bolus, 1 dose, e 05/06/20 at 0515, 500 mL sodium chloride 0.9% (bolus) IV solution 500 Given 4:45 PM CDT 500 mL mL 500 mL, IV, Bolus, 1 dose, 05/12/20 at 1650, 500 mL sodium chloride 0.9% IV solution Rate Change 05/06/2020 1:14 PM CDT 150 mL/hr IV, at 150 mL/hr, Continuous, Starting Tue05/05/20 at 1755, Until Tue05/06/20 at 1754, 1,000 mL Rate Change 05/06/2020 6:15 AM CDT 250 mL/hr Rate Change 05/06/2020 4:06 AM CDT 200 mL/hr warfarin (COUMADIN) tablet 2.5 mg Given 05/11/2020 4:11 PM CDT 2.5 mg 2.5 mg, Oral, Warfarin one time dose, 1 dose, Tue05/11/20 at 1600, If patient is receiving tube feeding, hold tube feeding 1 hour before and 1 hour after warfarin administration., warfarin (COUMADIN) tablet 2.5 mg Given 05/12/2020 4:45 PM CDT 2.5 mg 2.5 mg, Oral, Warfarin one time dose, 1 dose, 05/12/20 at 1600, If patient is receiving tube feeding, hold tube feeding 1 hour before and 1 hour after warfarin administration., warfarin (COUMADIN) tablet 2.5 mg Given 05/13/2020 1:24 PM CDT 2.5 mg 2.5 mg, Oral, Warfarin one time dose, 1 dose, Tu05/13/20 at 1330, If patient is receiving tube feeding, hold tube feeding 1 hour before and 1 hour after warfarin administration., warfarin (COUMADIN) tablet 5 mg Given 05/09/2020 4:07 PM CDT 5 mg 5 mg, Oral, Warfarin one time dose, 1 dose, 05/09/20 at 1600, If patient is receiving tube feeding, hold tube feeding 1 hour before and 1 hour after warfarin administration., warfarin (COUMADIN) tablet 5 mg Given 05/10/2020 4:11 PM CDT 5 mg 5 mg, Oral, Warfarin one time dose, 1 dose, 05/10/20 at 1600, If patient is receiving tube feeding, hold tube feeding 1 hour before and 1 hour after warfarin administration., documented in this encounter Additional Health Concerns Infection Onset Date Last Indicated Resolved Time C. Diff 05/10/2020 05/10/2020 05/13/2020 2:05 PM CDT documented as of this encounter
--- NOTE | 2020-05-22 08:19 | DISCH ---
DISCHARGE DATE: 05/16/2020 PRIMARY FINAL DIAGNOSES: 1. Obstructive uropathy with acute kidney injury. 2. Hyponatremia. 3. Benign prostatic hypertrophy. 4. Chronic catheterization. 5. Atrial fibrillation. OPERATIONS: None. COMPLICATIONS: None. SUMMARY: Mr. Rojas is an 80-year-old man who had a Lincoln catheter placed on May 05 in the urology clinic. He had a renal stone and prior to acute hospital discharge, his catheter was removed but had to be replaced. He was admitted to [facility] hospital bed for recuperation. Medications included: 1. Celebrex. 2. Cipro. 3. Enalapril. 4. Lovastatin. 5. Metoprolol. 6. Tamsulosin. 7. Warfarin. 8. Mag-Ox. 9. Vancomycin. The patient steadily got stronger. He was eating, up walking, and mental status intact. By 05/16, he was ready for discharge. He was sent home with a catheter in place, to have follow up in 2 to 4 weeks for potential removal. MEDICATIONS AT DISCHARGE: 1. Warfarin 7.5 mg Mondays, , 5 mg 5 days a week. 2. Tamsulosin 0.4 mg daily. 3. Metoprolol 50 mg b.i.d. 4. Vancomycin 125 mg q.i.d., to complete therapy for C. diff. 5. MiraLAX daily. 6. Lactobacillus daily. 7. Lovastatin 40 mg every 48 hours. 8. Flonase p.r.n. 9. Tylenol p.r.n. He is to have follow up in his regular clinic within 2 weeks and call should there be questions or problems prior to that. /[id number] TAMMY/LESLIE
== END 2020-05-16 10:30 | disposition home health service (06) | DRG 948 ==
LOC: FB.MS 05-13 16:20
PROVIDERS: ADMIT Family Medicine; ATTEND Family Medicine
DX: R53.1 Weakness (principal); N17.9 Acute kidney failure, unspecified; E87.1 Hypo-osmolality and hyponatremia; N13.8 Other obstructive and reflux uropathy; N40.1 Benign prostatic hyperplasia with lower urinary tract symptoms; N31.2 Flaccid neuropathic bladder, not elsewhere classified; B96.89 Other specified bacterial agents as the cause of diseases classified elsewhere; N20.0 Calculus of kidney; Z97.8 Presence of other specified devices; Z51.81 Encounter for therapeutic drug level monitoring; Z79.01 Long term (current) use of anticoagulants; Z87.891 Personal history of nicotine dependence; Z79.899 Other long term (current) drug therapy; Z88.8 Allergy status to other drugs, medicaments and biological substances; Z79.82 Long term (current) use of aspirin; Z95.5 Presence of coronary angioplasty implant and graft; I25.2 Old myocardial infarction; Z86.73 Personal history of transient ischemic attack (TIA), and cerebral infarction without residual deficits
CPT/HCPCS: 36415; 80048; 83735; 84100; 85610; 94760; 97110-GO; 97161-GP; 97165-GO; 97530-GP; 99305; 99315; A9270-GY

== ENCOUNTER 2020-08-05 15:16 | Observation (INO) | payer MEDICARE, OTHER ==
[2020-08-05] MEDS ORDERED: Sodium Chloride 0.9% 10 ML Syringe FLUSH PRN (15:35)
[2020-08-05] MEDS ORDERED: Phytonadione 5 MG in Sodium Chloride 0.9% 50 ML IV ONE (15:39)
[2020-08-05] MEDS ORDERED: Sodium Chloride 0.9% 1,000 ML IV SCH (15:45)
[2020-08-05] MEDS ORDERED: Furosemide 20 MG/2 ML VIAL IVPUSH ONE (16:36)
[2020-08-05] MEDS ORDERED: Diatrizoate Meglumine/Diatrizoate Sodium 37% 30 ML Bottle PO ONE (16:48)
[2020-08-05] MEDS ORDERED: Iopamidol 755 Mg/ML 100 ML Bottle IV ONE (16:48)
[2020-08-05] MEDS ORDERED: Ondansetron 4 MG/2 ML SDV IV PRN (18:19)
[2020-08-05] MEDS ORDERED: Fluticasone Propionate Nasal Spray 16 GM Bottle NASBOTH PRN (18:24)
[2020-08-05] MEDS ORDERED: Oxybutynin 5 MG Tab PO PRN (18:24)
[2020-08-05] MEDS ORDERED: Atropine/Diphenoxylate 0.025-2.5 MG Tab PO PRN (18:24)
[2020-08-05] MEDS ORDERED: Acetaminophen/Codeine 300-30 MG Tab PO PRN (18:24)
[2020-08-05] MEDS ORDERED: Acetaminophen 325 MG Tab PO PRN (18:24)
[2020-08-05] MEDS ORDERED: Pantoprazole 40 MG Vial IVPUSH ONE (18:30)
--- NOTE | 2020-08-05 18:56 | EDM.PDOC ---
ED HPI GENERAL MEDICAL PROBLEM - General Chief Complaint: General Stated Complaint: Rectal BLEEDING Time Seen by Provider: 08/05/20 15:20 Source of Information: Reports: Patient, Family History Limitations: Reports: No Limitations - History of Present Illness INITIAL COMMENTS - FREE TEXT/NARRATIVE: Patient presented to the ED because of maroon colored stools for 2 weeks with as sociated abdominal cramps. There is no nausea, vomiting, diarrhea or constipation. There is no dysuria, urgency, or frequency. no fever,chills, cough/cold symptoms.He is taking warfarin daily due to a previous stroke. - Related Data Allergies Allergy/AdvReac Type Severity Reaction Status Date / Time rofecoxib [From Vioxx] Allergy Headache Verified 08/05/20 15:36 Home Meds: Home Meds Acetaminophen 650 mg PO Q4H PRN 05/14/20 [History] Fluticasone Propionate [Flonase] 2 spray NASBOTH BEDTIME PRN 05/14/20 [History] Acetaminophen/Codeine [Tylenol with Codeine No.3 300MG/30MG] 1 tab PO Q6H PRN 08/05/20 [History] Diphenoxylate HCl/Atropine [Lomotil] 2 tab PO QID PRN 08/05/20 [History] Furosemide 40 mg PO DAILY 08/05/20 [History] Lovastatin [Mevacor] 40 mg PO Q48H 08/05/20 [History] Metoprolol Tartrate 50 mg PO BID 08/05/20 [History] Oxybutynin 5 mg PO TID PRN 08/05/20 [History] Warfarin [Coumadin] 2.5 mg PO MOWEFR 08/05/20 [History] Warfarin [Coumadin] 5 mg PO SUTUTHSA 08/05/20 [History] Past Medical History HEENT History: Reports: Cataract, Other (See Below) Other HEENT History: recurrent ear infection. PERFORATION OF TYMPANIC MEMBRANE. PRESBYOPIA. PSEUDOPHAKIA-BOTH. REGULAR ASTIGMATIS OF BOTH EYES. GLAUCOMA SUSPECT OF BOTH EYES. HYPEROPIA OF BOTH EYES Cardiovascular History: Reports: High Cholesterol, Hypertension, MS, Stents, Other (See Below) Other Cardiovascular History: SENIOR CARE USE OF ANTICOAGULANT THERAPY. CORONARY ARTERY OCCLUSION WITH CEREBRAL INFARCTION Gastrointestinal History: Reports: Other (See Below) Other Gastrointestinal History: C diff infection Genitourinary History: Reports: Prostate Disorder Other Genitourinary History: BPH/OBSTRUCTION. RENAL FAILURE SYNDROME. ACUTE URINARY RETENTION. 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 - Infectious Disease History Infectious Disease History: Reports: Chicken Pox, Measles, Shingles - Past Surgical History HEENT Surgical History: Reports: Cataract Surgery Other Cardiovascular Surgeries/Procedures: BACK SURGERY Male Surgical History: Reports: TURP-Transurethral Resection of Prostate, Other (See Below) Other Male Surgeries/Procedures: Cystotomy Musculoskeletal Surgical History: Reports: Hip Replacement Other Musculoskeletal Surgeries/Procedures:: HIP SURGERY/BACK SURGERY Social & Family History - Family History Family Medical History: No Pertinent Family History Cardiac: Reports: MS Endocrine/Metabolic: Reports: Diabetes, type II - Tobacco Use Tobacco Use Status *Q: Former Tobacco User Used Tobacco, but Quit: Yes Month/Year Tobacco Last Used: 1959 - Caffeine Use Caffeine Use: Reports: Soda ED ROS GENERAL - Review of Systems Review Of Systems: See Below Constitutional: Reports: No Symptoms HEENT: Reports: No Symptoms Respiratory: Reports: No Symptoms Cardiovascular: Reports: No Symptoms Endocrine: Reports: No Symptoms GI/Abdominal: Reports: Other (maroon colored stools) : Reports: No Symptoms Musculoskeletal: Reports: No Symptoms Skin: Reports: No Symptoms Neurological: Reports: No Symptoms ED EXAM, GENERAL - Physical Exam Exam: See Below Exam Limited By: No Limitations General Appearance: Alert, No Apparent Distress Eye Exam: Bilateral Eye: PERRL Ears: Normal External Exam, Normal Canal Cardiovascular: Normal Peripheral Pulses, Regular Rate, Rhythm, No Edema, No Gallop, No JVD, No Murmur GI/Abdominal: Normal Bowel Sounds, Soft, Non-Tender, No Distention, No Abnormal Bruit, Hernia (Male) Exam: No Hernia, Normal Inspection, Normal Prostate Rectal (Males) Exam: Normal Rectal Tone Back Exam: Normal Inspection Extremities: Normal Inspection, Normal Range of Motion, Non-Tender Course - Vital Signs Text/Narrative:: Labs/Abd-pelvis Ct result was discussed with patient and his There's a drop in his Hb from 10 on 07/25/20 to 7.4 NS Start on IV PPI Transfuse 2 U PRBC Last Recorded V/S: Last Vital Signs Temp 36.4 C 08/05/20 15:16 Pulse 85 08/05/20 15:16 Resp 22 H 08/05/20 15:16 BP 106/71 08/05/20 15:16 Pulse Ox 100 08/05/20 15:16 - Orders/Labs/Meds Orders: Active Orders 24 hr Category Date Time Status Patient Status [ADT] Routine ADT 08/05/20 18:20 Active EKG Documentation Completion [RC] ASDIRECTED Care 08/05/20 16:09 Active Height and Weight [RC] DAILY Care 08/05/20 18:19 Active Intake and Output [RC] QSHIFT Care 08/05/20 18:22 Active Oxygen Therapy [RC] PRN Care 08/05/20 18:20 Active Up With Assistance [RC] ASDIRECTED Care 08/05/20 18:19 Active VTE/DVT Education [RC] Per Unit Routine Care 08/05/20 18:20 Active Vital Signs [RC] Q4H Care 08/05/20 18:20 Active Heart Healthy Diet [DIET] Diet 08/05/20 Dinner Ordered Abdomen Pelvis w Cont [CT] Stat Exams 08/05/20 15:37 Taken BASIC METABOLIC PANEL,BMP [CHEM] AM Lab 08/07/20 05:11 Ordered CBC WITH AUTO DIFF [HEME] AM Lab 08/07/20 05:11 Ordered OCCULT BLOOD SCREEN [OP] Stat Lab 08/05/20 17:20 Ordered PACKED CELLS [RED BLOOD CELLS LP] [BBK] Stat Lab 08/05/20 15:50 Results PATIENT RETYPE [BBK] Stat Lab 08/05/20 15:50 Results TYPE AND SCREEN [BBK] Stat Lab 08/05/20 15:50 Results Acetaminophen [TylenoL] Med 08/05/20 18:24 Active 650 mg PO Q4H PRN Acetaminophen/Codeine [Tylenol with Codeine No.3 300MG/ Med 08/05/20 18:24 Active 30MG] 1 tab PO Q6H PRN Atropine/Diphenoxylate [Lomotil 0.025-2.5 MG] Med 08/05/20 18:24 Active 2 tab PO QID PRN Docusate Sodium/Sennosides [Senna Plus] Med 08/05/20 18:19 Active 1 tab PO BID PRN Fluticasone Propionate [Flonase] Med 08/05/20 18:24 Active 0 gm NASBOTH BEDTIME PRN Furosemide [Lasix] Med 08/06/20 09:00 Active 40 mg PO DAILY Lovastatin [Mevacor] Med 08/05/20 18:30 Active 40 mg PO Q48H Metoprolol Tartrate [Lopressor] Med 08/05/20 21:00 Active 50 mg PO BID Ondansetron [Zofran] Med 08/05/20 18:19 Active 4 mg IV Q4H PRN Oxybutynin Med 08/05/20 18:24 Active 5 mg PO TID PRN Pantoprazole [ProTONIX IV] Med 08/06/20 09:00 Active 40 mg IVPUSH DAILY Sodium Chloride 0.9% [Normal Saline] 1,000 ml Med 08/05/20 15:45 Active IV ASDIRECTED Sodium Chloride 0.9% [Normal Saline] 250 ml Med 08/05/20 16:45 Active IV ASDIRECTED Sodium Chloride 0.9% [Saline Flush] Med 08/05/20 15:35 Active 10 ml FLUSH ASDIRECTED PRN Saline Lock Insert [OM.PC] Routine Oth 08/05/20 15:35 Ordered Transfuse Red Blood Cells [COMM] Stat Oth 08/05/20 16:33 Ordered Resuscitation Status Routine Resus Stat 08/05/20 18:19 Ordered EKG 12 Lead [EK] Routine Ther 08/05/20 16:08 Ordered Medication Orders Acetaminophen (Tylenol) 650 mg PO Q4H PRN PRN Reason: Pain Acetaminophen/Codeine Phosphate (Tylenol With Codeine No.3 300mg/30mg) 1 tab PO Q6H PRN PRN Reason: Pain Diphenoxylate HCl/Atropine (Lomotil 0.025-2.5 Mg) 2 tab PO QID PRN PRN Reason: Diarrhea Fluticasone Propionate (Flonase) 0 gm NASBOTH BEDTIME PRN PRN Reason: Other Furosemide (Lasix) 40 mg PO DAILY BURT Sodium Chloride (Normal Saline) 1,000 mls @ 999 mls/hr IV ASDIRECTED BURT Last Admin: 08/05/20 16:04 Dose: 999 mls/hr Documented by: RAFAEL Sodium Chloride (Normal Saline) 250 mls @ 100 mls/hr IV ASDIRECTED BURT Lovastatin (Mevacor) 40 mg PO Q48H BURT Metoprolol Tartrate (Lopressor) 50 mg PO BID BURT Ondansetron HCl (Zofran) 4 mg IV Q4H PRN PRN Reason: Nausea/Vomiting Oxybutynin Chloride (Oxybutynin) 5 mg PO TID PRN PRN Reason: Other Pantoprazole Sodium (Protonix Iv) 40 mg IVPUSH DAILY BURT Senna/Docusate Sodium (Senna Plus) 1 tab PO BID PRN PRN Reason: Constipation Sodium Chloride (Saline Flush) 10 ml FLUSH ASDIRECTED PRN PRN Reason: Keep Vein Open Last Admin: 08/05/20 16:25 Dose: 10 ml Documented by: RAFAEL Labs: Laboratory Tests 08/05/20 08/05/20 08/05/20 Range/Units 15:50 15:50 15:50 WBC 9.2 (3.2-10.1) x10-3/uL RBC 2.47 L (3.90-5.90) x10(6)uL Hgb 7.4 L (12.9-17.7) g/dL Hct 22.4 L (38.3-50.1) % MCV 90.6 (80.8-98.7) fL MCH 29.8 (27.0-33.3) pg MCHC 32.9 (28.7-35.3) g/dL RDW 16.5 H (12.4-15.0) % Plt Count 393 (117-477) x10(3)uL MPV 7.6 (6.7-11.0) fL Neut % (Auto) 54.2 (40.3-71.8) % Lymph % (Auto) 30.2 (15.8-45.3) % Hardy % (Auto) 11.3 (5.5-15.2) % Eos % (Auto) 2.8 (0.1-6.8) % Baso % (Auto) 1.5 (0.3-3.8) % Neut # (Auto) 5.0 (1.7-6.9) x10-3/uL Lymph # (Auto) 2.8 (0.5-4.5) x10-3/uL Hardy # (Auto) 1.0 (0.0-1.2) x10-3/uL Eos # (Auto) 0.3 (0.0-0.6) x10-3/uL Baso # (Auto) 0.1 (0.0-0.3) x10-3/uL PT 11.3 H (9.0-11.1) sec INR 1.05 (1.00-1.24) APTT 29.8 (24.4-33.2) SECONDS Sodium 140 (135-145) mmol/L Potassium 3.1 L D (3.5-5.3) mmol/L Chloride 103 D (100-110) mmol/L Carbon Dioxide 29 (21-32) mmol/L BUN 16 (7-18) mg/dL Creatinine 1.2 (0.70-1.30) mg/dL Est Cr Clr Drug Dosing 37.91 mL/min Estimated GFR (MDRD) 58 L (>60) BUN/Creatinine Ratio 13.3 (9-20) Glucose 88 (80-116) mg/dL Calcium 8.8 (8.6-10.2) mg/dL Total Bilirubin 0.5 (0.1-1.3) mg/dL AST 19 D (5-25) IU/L ALT 15 D (12-36) U/L Alkaline Phosphatase 57 (56-112) IU/L Troponin I (4.0-60.3) pg/mL Total Protein 5.9 L (6.0-8.0) g/dL Albumin 2.1 L (3.2-4.6) g/dL Globulin 3.8 g/dL Albumin/Globulin Ratio 0.6 SARS-CoV-2 RNA (NURY) (NEGATIVE) Blood Type Gel Antibody Screen Crossmatch 08/05/20 08/05/20 08/05/20 Range/Units 15:50 15:50 16:56 WBC (3.2-10.1) x10-3/uL RBC (3.90-5.90) x10(6)uL Hgb (12.9-17.7) g/dL Hct (38.3-50.1) % MCV (80.8-98.7) fL MCH (27.0-33.3) pg MCHC (28.7-35.3) g/dL RDW (12.4-15.0) % Plt Count (117-477) x10(3)uL MPV (6.7-11.0) fL Neut % (Auto) (40.3-71.8) % Lymph % (Auto) (15.8-45.3) % Hardy % (Auto) (5.5-15.2) % Eos % (Auto) (0.1-6.8) % Baso % (Auto) (0.3-3.8) % Neut # (Auto) (1.7-6.9) x10-3/uL Lymph # (Auto) (0.5-4.5) x10-3/uL Hardy # (Auto) (0.0-1.2) x10-3/uL Eos # (Auto) (0.0-0.6) x10-3/uL Baso # (Auto) (0.0-0.3) x10-3/uL PT (9.0-11.1) sec INR (1.00-1.24) APTT (24.4-33.2) SECONDS Sodium (135-145) mmol/L Potassium (3.5-5.3) mmol/L Chloride (100-110) mmol/L Carbon Dioxide (21-32) mmol/L BUN (7-18) mg/dL Creatinine (0.70-1.30) mg/dL Est Cr Clr Drug Dosing mL/min Estimated GFR (MDRD) (>60) BUN/Creatinine Ratio (9-20) Glucose (80-116) mg/dL Calcium (8.6-10.2) mg/dL Total Bilirubin (0.1-1.3) mg/dL AST (5-25) IU/L ALT (12-36) U/L Alkaline Phosphatase (56-112) IU/L Troponin I 26.5 (4.0-60.3) pg/mL Total Protein (6.0-8.0) g/dL Albumin (3.2-4.6) g/dL Globulin g/dL Albumin/Globulin Ratio SARS-CoV-2 RNA (NURY) Negative (NEGATIVE) Blood Type A POSITIVE Gel Antibody Screen Negative Crossmatch See Detail Meds: Medications Generic Name Dose Route Start Last Admin Trade Name Freq PRN Reason Stop Dose Admin Acetaminophen 650 mg 08/05/20 18:24 Tylenol PO Q4H PRN Pain Acetaminophen/Codeine Phosphate 1 tab 08/05/20 18:24 Tylenol With Codeine No.3 300mg/30mg PO Q6H PRN Pain Diphenoxylate HCl/Atropine 2 tab 08/05/20 18:24 Lomotil 0.025-2.5 Mg PO QID PRN Diarrhea Fluticasone Propionate 0 gm 08/05/20 18:24 Flonase NASBOTH BEDTIME PRN Other Furosemide 40 mg 08/06/20 09:00 Lasix PO DAILY BURT Sodium Chloride 1,000 mls @ 999 mls/hr 08/05/20 15:45 08/05/20 16:04 Normal Saline IV 999 mls/hr ASDIRECTED BURT Administration Sodium Chloride 250 mls @ 100 mls/hr 08/05/20 16:45 Normal Saline IV ASDIRECTED BURT Lovastatin 40 mg 08/05/20 18:30 Mevacor PO Q48H BURT Metoprolol Tartrate 50 mg 08/05/20 21:00 Lopressor PO BID BURT Ondansetron HCl 4 mg 08/05/20 18:19 Zofran IV Q4H PRN Nausea/Vomiting Oxybutynin Chloride 5 mg 08/05/20 18:24 Oxybutynin PO TID PRN Other Pantoprazole Sodium 40 mg 08/06/20 09:00 Protonix Iv IVPUSH DAILY BURT Senna/Docusate Sodium 1 tab 08/05/20 18:19 Senna Plus PO BID PRN Constipation Sodium Chloride 10 ml 08/05/20 15:35 08/05/20 16:25 Saline Flush FLUSH 10 ml ASDIRECTED PRN Administration Keep Vein Open Discontinued Medications Generic Name Dose Route Start Last Admin Trade Name Damari PRN Reason Stop Dose Admin Diatrizoate Meglum/Diatrizoate Sod 30 ml 08/05/20 16:48 Gastrografin 37% PO 08/05/20 16:49 . DIRECTED ONE Furosemide 20 mg 08/05/20 16:36 Lasix IVPUSH 08/05/20 16:37 ONETIME ONE Phytonadione 5 mg/ Sodium 50.5 mls @ 100 mls/hr 08/05/20 15:39 Chloride IV 08/05/20 16:09 NOW ONE Iopamidol 100 ml 08/05/20 16:48 08/05/20 18:20 Isovue-370 (76%) IV 08/05/20 16:49 100 ml . DIRECTED ONE Administration Pantoprazole Sodium 80 mg 08/05/20 18:30 Protonix Iv IVPUSH 08/05/20 18:31 .BOLUS ONE Departure - Departure Time of Disposition: 19:00 Disposition: Refer to Observation Condition: Good Clinical Impression: Anemia, GI bleed - Discharge Information Referrals: Sid Diamond MD [Primary Care Provider] - Sepsis Event Note (ED) - Evaluation Sepsis Screening Result: No Definite Risk - Focused Exam Vital Signs: Vital Signs Temp Pulse Resp BP Pulse Ox 08/05/20 15:16 36.4 C 85 22 H 106/71 100 - My Orders Last 24 Hours: My Active Orders 08/05/20 15:35 Sodium Chloride 0.9% [Saline Flush] 10 ml FLUSH ASDIRECTED PRN Saline Lock Insert [OM.PC] Routine 08/05/20 15:37 Abdomen Pelvis w Cont [CT] Stat 08/05/20 15:45 Sodium Chloride 0.9% [Normal Saline] 1,000 ml IV ASDIRECTED 08/05/20 15:50 PACKED CELLS [RED BLOOD CELLS LP] [BBK] Stat PATIENT RETYPE [BBK] Stat TYPE AND SCREEN [BBK] Stat 08/05/20 16:08 EKG 12 Lead [EK] Routine 08/05/20 16:09 EKG Documentation Completion [RC] ASDIRECTED 08/05/20 Dinner Heart Healthy Diet [DIET] 08/05/20 16:33 Transfuse Red Blood Cells [COMM] Stat 08/05/20 16:45 Sodium Chloride 0.9% [Normal Saline] 250 ml IV ASDIRECTED 08/05/20 17:20 OCCULT BLOOD SCREEN [OP] Stat 08/05/20 18:19 Height and Weight [RC] DAILY Up With Assistance [RC] ASDIRECTED Docusate Sodium/Sennosides [Senna Plus] 1 tab PO BID PRN Ondansetron [Zofran] 4 mg IV Q4H PRN Resuscitation Status Routine 08/05/20 18:20 Patient Status [ADT] Routine Oxygen Therapy [RC] PRN VTE/DVT Education [RC] Per Unit Routine Vital Signs [RC] Q4H 08/05/20 18:22 Intake and Output [RC] QSHIFT 08/05/20 18:24 Acetaminophen [TylenoL] 650 mg PO Q4H PRN Acetaminophen/Codeine [Tylenol with Codeine No.3 300MG/30MG] 1 tab PO Q6H PRN Atropine/Diphenoxylate [Lomotil 0.025-2.5 MG] 2 tab PO QID PRN Fluticasone Propionate [Flonase] 0 gm NASBOTH BEDTIME PRN Oxybutynin 5 mg PO TID PRN 08/05/20 18:30 Lovastatin [Mevacor] 40 mg PO Q48H 08/05/20 21:00 Metoprolol Tartrate [Lopressor] 50 mg PO BID 08/06/20 09:00 Furosemide [Lasix] 40 mg PO DAILY Pantoprazole [ProTONIX IV] 40 mg IVPUSH DAILY 08/07/20 05:11 BASIC METABOLIC PANEL,BMP [CHEM] AM CBC WITH AUTO DIFF [HEME] AM - Assessment/Plan Last 24 Hours: My Active Orders 08/05/20 15:35 Sodium Chloride 0.9% [Saline Flush] 10 ml FLUSH ASDIRECTED PRN Saline Lock Insert [OM.PC] Routine 08/05/20 15:37 Abdomen Pelvis w Cont [CT] Stat 08/05/20 15:45 Sodium Chloride 0.9% [Normal Saline] 1,000 ml IV ASDIRECTED 08/05/20 15:50 PACKED CELLS [RED BLOOD CELLS LP] [BBK] Stat PATIENT RETYPE [BBK] Stat TYPE AND SCREEN [BBK] Stat 08/05/20 16:08 EKG 12 Lead [EK] Routine 08/05/20 16:09 EKG Documentation Completion [RC] ASDIRECTED 08/05/20 Dinner Heart Healthy Diet [DIET] 08/05/20 16:33 Transfuse Red Blood Cells [COMM] Stat 08/05/20 16:45 Sodium Chloride 0.9% [Normal Saline] 250 ml IV ASDIRECTED 08/05/20 17:20 OCCULT BLOOD SCREEN [OP] Stat 08/05/20 18:19 Height and Weight [RC] DAILY Up With Assistance [RC] ASDIRECTED Docusate Sodium/Sennosides [Senna Plus] 1 tab PO BID PRN Ondansetron [Zofran] 4 mg IV Q4H PRN Resuscitation Status Routine 08/05/20 18:20 Patient Status [ADT] Routine Oxygen Therapy [RC] PRN VTE/DVT Education [RC] Per Unit Routine Vital Signs [RC] Q4H 08/05/20 18:22 Intake and Output [RC] QSHIFT 08/05/20 18:24 Acetaminophen [TylenoL] 650 mg PO Q4H PRN Acetaminophen/Codeine [Tylenol with Codeine No.3 300MG/30MG] 1 tab PO Q6H PRN Atropine/Diphenoxylate [Lomotil 0.025-2.5 MG] 2 tab PO QID PRN Fluticasone Propionate [Flonase] 0 gm NASBOTH BEDTIME PRN Oxybutynin 5 mg PO TID PRN 08/05/20 18:30 Lovastatin [Mevacor] 40 mg PO Q48H 08/05/20 21:00 Metoprolol Tartrate [Lopressor] 50 mg PO BID 08/06/20 09:00 Furosemide [Lasix] 40 mg PO DAILY Pantoprazole [ProTONIX IV] 40 mg IVPUSH DAILY 08/07/20 05:11 BASIC METABOLIC PANEL,BMP [CHEM] AM CBC WITH AUTO DIFF [HEME] AM
[2020-08-05] MEDS: Sodium Chloride 0.9% 250 ML IV SCH ×3 (20:23→23:27)
--- NOTE | 2020-08-05 20:34 | CT ---
INDICATION: Lower GI bleed - abdominal pain - question blood in the stool. CT ABDOMEN AND PELVIS WITH CONTRAST: Spiral 3.75 mm axial sections were obtained through the abdomen and pelvis with oral and IV contrast (100 mL Isovue-370 at 2 mL/second) with sagittal and coronal reconstructions 08/05/20 - no comparisons. Total exam DLP was 955.74 mGy-cm. The low lung lizarraga and pleural spaces visualized had an appearance suggesting some minimal linear atelectasis in the middle lobe laterally. No definite active infiltrate or effusion was identified. The heart appeared normal in size. Pericardial effusion is not present. Coronary artery calcification is suggested. Tiny low-density lesion in the left lobe of the liver most likely represents a simple cyst. Multiple faceted calcifications are noted in the area of the neck of the gallbladder, compatible with cholelithiasis. The gallbladder appears somewhat contracted. The possibility of cholecystitis, most likely acute, would be a consideration. The common bile duct did not appear to be enlarged. The adrenal glands appear normal. On the left, there is a moderately large cyst which measures a maximum of approximately 55 mm transversely. It is almost completely exophytic and is impinging on the renal cortex - splaying it on the left in the mid pole area of the left kidney posteriorly. No obstructive uropathy was seen at the left kidney. No definite solid renal masses are noted on the left with 1 additional low-density lesion in the upper pole of the left kidney in the cortex. On the right, there are several low-density lesions suggesting simple cysts in the cortex of the right kidney. Also on the right, there is marked pyelocaliectasis and ureterectasis with the ureter markedly dilated into the lower pelvis but nonvisualized to the urinary bladder due to extreme hard-beam artifact due to bilateral complete hip arthroplasties. Obstructive uropathy is strongly suggested at the distal-most right ureter and would be severe as suggested by the pyelocaliectasis and ureterectasis present on the right. There is renal cortical thinning and irregularity, especially on the right compatible with renal cortical scarring. No definite retroperitoneal mass was seen. Calcifications are noted in the abdominal aorta, splenic artery, celiac axis, superior mesenteric artery, right renal artery, iliac and femoral arteries. No aortic dilatation was identified - no aneurysm seen. What appears to be the appendix was visualized on axial images 64-82 and coronal images 61-71. No evidence of free air or definite bowel obstruction was identified. Gas and stool are noted throughout the colon, including in the rectum. There is suggestion of prostatic enlargement, not well visualized due to the hard-beam artifact in the lower pelvis. Suprapubic catheter is noted in place. A rather large left inguinal hernia is noted including multiple loops of large bowel - apparently sigmoid colon extending into the scrotum. The hernia does not appear to be definitely obstructive, as there is gas and stool in the rectum. IMPRESSION: 1. Massive left inguinal hernia including multiple loops of colon without definite obstruction. 2. Suprapubic catheter in place with probable prostatic enlargement. 3. Hydroureter and pyelocaliectasis on the right compatible with a distal ureteral obstruction near the ureterovesical junction. Exact etiology indeterminate due to hard-beam artifact limiting visualization in the lower pelvis. 4. ASD/ASHD. 5. Cholelithiasis - cannot exclude mild chronic cholecystitis. 6. Multicystic tiny changes right kidney with one small and one 5 cm cyst at the left kidney. 7. Renal cortical scarring and thinning. 8. Dextroconvex slightly rotatory scoliosis in the lumbar spine with hypertrophic degenerative changes and degenerative disk disease including multiple vacuum disk phenomena throughout the lumbosacral spine. 9. Bilateral total hip arthroplasties producing poor visualization of the lower pelvis area due to hard-beam artifact. 10. One tiny low-density lesion in the left lobe of the liver laterally at the abran hepatis most likely simple cyst, but too small to be definitive. Report was called to Dr. Raphael at 1843 hours. [facility] [place] [facility]
[2020-08-05] MEDS ORDERED: Pantoprazole 40 MG Vial ONE (22:01)
[2020-08-05] MEDS: Metoprolol Tartrate 100 MG Tab *PTOM PO SCH (22:09)
[2020-08-05] MEDS ORDERED: Furosemide 20 MG/2 ML VIAL ONE (23:07)
[2020-08-06] MEDS ORDERED: Pantoprazole 40 MG Vial IVPUSH SCH (09:00)
[2020-08-06] MEDS ORDERED: Furosemide 40 MG Tab PO SCH (09:00)
[2020-08-06] MEDS ORDERED: FUROSEMIDE 20 MG PO SCH (10:30)
[2020-08-06] MEDS: Metoprolol Tartrate 100 MG Tab *PTOM PO SCH (10:42)
[2020-08-06 11:46] VITALS: BP 130/79; PULSE 87
--- NOTE | 2020-08-06 18:01 | PCM.HP.2 ---
H&P History of Present Illness - General Date of Service: 08/06/20 Admit Problem/Dx: GI bleed, anemia, acute blood loss Source of Information: Patient, EMS Notes Reviewed, Provider - History of Present Illness Initial Comments - Free Text/Narative: Patient presented to the ED because of maroon colored stools for 2 weeks with as sociated abdominal cramps. There is no nausea, vomiting, diarrhea or constipation. There is no dysuria, urgency, or frequency. No fever, chills, cough or cold symptoms. 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 He was due to have colonoscopy with Dr Fitzgerald today but Dr Fitzgerald had cancelled it yesterday when his hemoglobin was 7.4, and he sent him over to ER for transfusion. He had not done bowel prep yesterday. - Related Data Allergies/Adverse Reactions: Allergies Allergy/AdvReac Type Severity Reaction Status Date / Time rofecoxib [From Vioxx] Allergy Headache Verified 08/05/20 15:36 Home Medications: Home Meds Acetaminophen 650 mg PO Q4H PRN 05/14/20 [History] Fluticasone Propionate [Flonase] 2 spray NASBOTH BEDTIME PRN 05/14/20 [History] Acetaminophen/Codeine [Tylenol with Codeine No.3 300MG/30MG] 1 tab PO Q6H PRN 08/05/20 [History] Diphenoxylate HCl/Atropine [Lomotil] 2 tab PO QID PRN 08/05/20 [History] Lovastatin [Mevacor] 40 mg PO Q48H 08/05/20 [History] Metoprolol Tartrate 50 mg PO BID 08/05/20 [History] Oxybutynin 5 mg PO TID PRN 08/05/20 [History] Aspirin [Lo-Dose Aspirin EC] 81 mg PO DAILY 30 Days #30 tablet. 08/06/20 [Rx] Furosemide 20 mg PO BID #0 08/06/20 [Rx] Past Medical History HEENT History: Reports: Cataract, Other (See Below) Other HEENT History: recurrent ear infection. PERFORATION OF TYMPANIC MEMBRANE. PRESBYOPIA. PSEUDOPHAKIA-BOTH. REGULAR ASTIGMATIS OF BOTH EYES. GLAUCOMA SUSPECT OF BOTH EYES. 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 CORONARY ARTERY OCCLUSION WITH CEREBRAL INFARCTION Respiratory History: Reports: Other (See Below) Other Respiratory History: Former smoker Gastrointestinal History: Reports: Other (See Below) Other Gastrointestinal History: C diff infection Genitourinary History: Reports: Prostate Disorder Other Genitourinary History: BPH/OBSTRUCTION. RENAL FAILURE SYNDROME. ACUTE URINARY RETENTION. 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 - Infectious Disease History Infectious Disease History: Reports: Chicken Pox, Measles, Shingles - Past Surgical History HEENT Surgical History: Reports: Cataract Surgery Other Cardiovascular Surgeries/Procedures: BACK SURGERY Male Surgical History: Reports: TURP-Transurethral Resection of Prostate, Other (See Below) Other Male Surgeries/Procedures: Cystotomy Musculoskeletal Surgical History: Reports: Hip Replacement Other Musculoskeletal Surgeries/Procedures:: HIP SURGERY/BACK SURGERY Social & Family History - Family History Family Medical History: No Pertinent Family History Cardiac: Reports: ND Endocrine/Metabolic: Reports: Diabetes, type II - Tobacco Use Tobacco Use Status *Q: Former Tobacco User Used Tobacco, but Quit: Yes Month/Year Tobacco Last Used: 34 years ago Second Hand Smoke Exposure: No - Caffeine Use Caffeine Use: Reports: Soda, Tea - Recreational Drug Use Recreational Drug Use: No H&P Review of Systems - Review of Systems: Review Of Systems: Comprehensive ROS is negative, except as noted in HPI. Exam - Exam Exam: See Below - Vital Signs Vital Signs: Last Vital Signs Temp 98.0 F 08/06/20 08:00 Pulse 87 08/06/20 10:42 Resp 16 08/06/20 08:00 BP 130/79 08/06/20 10:42 Pulse Ox 96 08/06/20 08:00 Weight: 160 lb 4.8 oz - Exam General: Alert, Oriented, Cooperative. No: Mild Distress HEENT: PERRLA, Conjunctiva Clear, EOMI, Hearing Intact, Mucosa Moist & [place] Neck: Supple, Trachea Midline Lungs: Clear to Auscultation, Normal Respiratory Effort Cardiovascular: Regular Rate, Regular Rhythm, Systolic Murmur GI/Abdominal Exam: Normal Bowel Sounds, Soft, Non-Tender, No Distention (Male) Exam: Deferred Rectal (Males) Exam: Deferred Extremities: No Pedal Edema Peripheral Pulses: 2+: Radial (L), Radial (R) Skin: Warm, Dry, Intact - Patient Data Lab Results Last 24 hrs: Laboratory Results - last 24 hr 08/05/20 08/05/20 08/06/20 Range/Units 15:50 16:56 08:45 Hgb 11.5 L D (12.9-17.7) g/dL Hct 34.6 L D (38.3-50.1) % SARS-CoV-2 RNA (NURY) Negative (NEGATIVE) Blood Type A POSITIVE Gel Antibody Screen Negative Crossmatch See Detail Result Diagrams: 08/06/20 08:45 08/05/20 15:50 Peter Results Last 24 hrs: Microbiology 08/05/20 18:44 Occult Blood - Final Stool / Feces Sepsis Event Note - Evaluation Sepsis Screening Result: No Definite Risk - Focused Exam Vital Signs: Vital Signs Temp Pulse Pulse Resp BP BP Pulse Ox 08/06/20 10:42 87 130/79 08/06/20 08:00 98.0 F 87 16 130/79 96 - Problem List (1) GI bleed SNOMED Code(s): 03351641 ICD Code: K92.2 - GASTROINTESTINAL HEMORRHAGE, UNSPECIFIED Status: Acute (2) Anemia due to acute blood loss SNOMED Code(s): 094103221 ICD Code: D62 - ACUTE POSTHEMORRHAGIC ANEMIA Status: Acute (3) BPH (benign prostatic hyperplasia) SNOMED Code(s): 369527017 ICD Code: N40.0 - BENIGN PROSTATIC HYPERPLASIA WITHOUT LOWER URINRY TRACT SYMP Status: Chronic (4) CVA (cerebrovascular accident) SNOMED Code(s): 438929130 ICD Code: I63.9 - CEREBRAL INFARCTION, UNSPECIFIED Status: Chronic Qualifiers: CVA mechanism: embolism Precerebral and cerebral artery: middle cerebral artery Laterality of affected vessel: right Qualified Code(s): I63.411 - Cerebral infarction due to embolism of right middle cerebral artery (5) Anticoagulation goal of INR 2.0 to 2.5 SNOMED Code(s): 85888535 ICD Code: Z51.81 - ENCOUNTER FOR THERAPEUTIC DRUG LEVEL MONITORING; 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 Admitted for observation for blood transfusion. 2. Received 2 units of PRBCs overnight, with Lasix in between units. Had 2500 ml out his catheter. Recheck his hemoglobin this morning, it was 11.5. 3. Consult Dr Fitzgerald. 4. Heart healthy diet. 5. DVT: TEDS, no anticoagulation due to GI bleed. 6. DNR/DNI. - Mortality Measure Prognosis:: Good
--- NOTE | 2020-08-06 18:05 | PCM.DCSUM1 ---
Discharge Summary - Hospital Course HPI Initial Comments: Patient presented to the ED because of maroon colored stools for 2 weeks with associated abdominal cramps. There is no nausea, vomiting, diarrhea or constipation. There is no dysuria, urgency, or frequency. No fever, chills, cough or cold symptoms. 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 He was due to have colonoscopy with Dr Fitzgerald today but Dr Fitzgerald had cancelled it yesterday when his hemoglobin was 7.4, and he sent him over to ER for transfusion. He had not done bowel prep yesterday. Diagnosis: Stroke: No - Discharge Data Discharge Date: 08/06/20 Discharge Disposition: Home, Self-Care 01 Condition: Stable - Referral to Home Health Primary Care Physician: Sid Diamond MD - Discharge Diagnosis/Problem(s) (1) GI bleed SNOMED Code(s): 14662422 ICD Code: K92.2 - GASTROINTESTINAL HEMORRHAGE, UNSPECIFIED Status: Acute (2) Anemia due to acute blood loss SNOMED Code(s): 893602059 ICD Code: D62 - ACUTE POSTHEMORRHAGIC ANEMIA Status: Acute (3) BPH (benign prostatic hyperplasia) SNOMED Code(s): 600200184 ICD Code: N40.0 - BENIGN PROSTATIC HYPERPLASIA WITHOUT LOWER URINRY TRACT SYMP Status: Chronic (4) CVA (cerebrovascular accident) SNOMED Code(s): 212764059 ICD Code: I63.9 - CEREBRAL INFARCTION, UNSPECIFIED Status: Chronic Qualifiers: CVA mechanism: embolism Precerebral and cerebral artery: middle cerebral artery Laterality of affected vessel: right Qualified Code(s): I63.411 - Cerebral infarction due to embolism of right middle cerebral artery (5) Anticoagulation goal of INR 2.0 to 2.5 SNOMED Code(s): 48786807 ICD Code: Z51.81 - ENCOUNTER FOR THERAPEUTIC DRUG LEVEL MONITORING; 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 Hgb yesterday 7.4, this morning was 11.5. Spoke with Dr Fitzgerald, vitals are stable, hgb 11.5. He advised hold coumadin, may go home with Aspirin 81 mg and have his call the clinic to set up colonoscopy for next week. Jose Rafael wanted to go home, so will be discharged into the care of his . - Patient Instructions Diet: Usual Diet as Tolerated Activity: As Tolerated Driving: Do Not Drive Showering/Bathing: May Shower Notify Provider of: Nausea and/or Vomiting Other/Special Instructions: Call clinic today to reschedule colonoscopy with Dr Fitzgerald for next week(per Dr Fitzgerald's instructions). - Discharge Plan *PRESCRIPTION DRUG MONITORING PROGRAM REVIEWED*: Not Applicable *COPY OF PRESCRIPTION DRUG MONITORING REPORT IN PATIENT BYRON: Not Applicable Prescriptions/Med Rec: Aspirin [Lo-Dose Aspirin EC] 81 mg PO DAILY 30 Days #30 tablet. Home Medications: Home Meds Acetaminophen 650 mg PO Q4H PRN 05/14/20 [History] Fluticasone Propionate [Flonase] 2 spray NASBOTH BEDTIME PRN 05/14/20 [History] Acetaminophen/Codeine [Tylenol with Codeine No.3 300MG/30MG] 1 tab PO Q6H PRN 08/05/20 [History] Diphenoxylate HCl/Atropine [Lomotil] 2 tab PO QID PRN 08/05/20 [History] Lovastatin [Mevacor] 40 mg PO Q48H 08/05/20 [History] Metoprolol Tartrate 50 mg PO BID 08/05/20 [History] Oxybutynin 5 mg PO TID PRN 08/05/20 [History] Aspirin [Lo-Dose Aspirin EC] 81 mg PO DAILY 30 Days #30 tablet. 08/06/20 [Rx] Furosemide 20 mg PO BID #0 08/06/20 [Rx] Oxygen Therapy Mode: Room Air Patient Handouts: Gastrointestinal Bleeding, [id number], Fall Prevention in Hospitals, Adult, Venous Thromboembolism Prevention Forms: ED Department Discharge Referrals: Sid Diamond MD [Primary Care Provider] - Lalo Fitzgerald MD [Physician] - - Discharge Summary/Plan Comment DC Time >30 min.: No - Patient Data Vitals - Most Recent: Last Vital Signs Temp 98.0 F 08/06/20 08:00 Pulse 87 08/06/20 10:42 Resp 16 08/06/20 08:00 BP 130/79 08/06/20 10:42 Pulse Ox 96 08/06/20 08:00 Weight - Most Recent: 160 lb 4.8 oz I&O - Last 24 hours: Intake & Output 08/06/20 08/06/20 08/06/20 06:59 14:59 22:59 Intake Total 824 Output Total 3700 350 Balance -2876 -350 Lab Results - Last 24 hrs: Laboratory Results - last 24 hr 08/05/20 08/06/20 Range/Units 15:50 08:45 Hgb 11.5 L D (12.9-17.7) g/dL Hct 34.6 L D (38.3-50.1) % Blood Type A POSITIVE Gel Antibody Screen Negative Crossmatch See Detail BRADY Results - Last 24 hrs: Microbiology 08/05/20 18:44 Occult Blood - Final Stool / Feces Med Orders - Current: Current Medications Discontinued Medications Acetaminophen (Tylenol) 650 mg PO Q4H PRN PRN Reason: Pain Acetaminophen/Codeine Phosphate (Tylenol With Codeine No.3 300mg/30mg) 1 tab PO Q6H PRN PRN Reason: Pain Diatrizoate Meglum/Diatrizoate Sod (Gastrografin 37%) 30 ml PO . DIRECTED ONE Stop: 08/05/20 16:49 Last Admin: 08/05/20 16:45 Dose: 30 ml Documented by: Diphenoxylate HCl/Atropine (Lomotil 0.025-2.5 Mg) 2 tab PO QID PRN PRN Reason: Diarrhea Fluticasone Propionate (Flonase) 0 gm NASBOTH BEDTIME PRN PRN Reason: Other Furosemide (Lasix) 20 mg IVPUSH ONETIME ONE Stop: 08/05/20 16:37 Last Admin: 08/05/20 23:25 Dose: 20 mg Documented by: Furosemide (Lasix) Confirm Administered Dose 20 mg .ROUTE .STK-MED ONE Stop: 08/05/20 23:08 Last Admin: 08/05/20 23:17 Dose: Not Given Documented by: Furosemide (Lasix) 20 mg PO BIDDIURETIC BURT Last Admin: 08/06/20 10:41 Dose: 20 mg Documented by: Sodium Chloride (Normal Saline) 1,000 mls @ 999 mls/hr IV ASDIRECTED BURT Last Admin: 08/05/20 16:04 Dose: 999 mls/hr Documented by: Phytonadione 5 mg/ Sodium (Chloride) 50.5 mls @ 100 mls/hr IV NOW ONE Stop: 08/05/20 16:09 Sodium Chloride (Normal Saline) 250 mls @ 100 mls/hr IV ASDIRECTED [facility] Last Admin: 08/05/20 23:27 Dose: 100 mls/hr Documented by: Iopamidol (Isovue-370 (76%)) 100 ml IV . DIRECTED ONE Stop: 08/05/20 16:49 Last Admin: 08/05/20 18:20 Dose: 100 ml Documented by: Lovastatin (Mevacor) 40 mg PO Q48H [facility] Last Admin: 08/05/20 22:08 Dose: Not Given Documented by: Lovastatin (Mevacor) 40 mg PO Q48H [facility] Last Admin: 08/06/20 10:42 Dose: 40 mg Documented by: Metoprolol Tartrate (Lopressor) 50 mg PO BID [facility] Last Admin: 08/06/20 10:42 Dose: 50 mg Documented by: Ondansetron HCl (Zofran) 4 mg IV Q4H PRN PRN Reason: Nausea/Vomiting Oxybutynin Chloride (Oxybutynin) 5 mg PO TID PRN PRN Reason: Other Pantoprazole Sodium (Protonix Iv) 80 mg IVPUSH .BOLUS ONE Stop: 08/05/20 18:31 Last Admin: 08/05/20 22:07 Dose: 80 mg Documented by: Pantoprazole Sodium (Protonix Iv) 40 mg IVPUSH DAILY [facility] Last Admin: 08/06/20 10:42 Dose: 40 mg Documented by: Pantoprazole Sodium (Protonix Iv) Confirm Administered Dose 80 mg .ROUTE .STK-MED ONE Stop: 08/05/20 22:02 Last Admin: 08/05/20 22:08 Dose: Not Given Documented by: Senna/Docusate Sodium (Senna Plus) 1 tab PO BID PRN PRN Reason: Constipation Sodium Chloride (Saline Flush) 10 ml FLUSH ASDIRECTED PRN PRN Reason: Keep Vein Open Last Admin: 08/05/20 16:25 Dose: 10 ml Documented by:
[2020-08-06] MEDS ORDERED: LOVASTATIN 40 MG PO SCH (21:00)
== END 2020-08-06 11:15 | disposition home or self-care (01) ==
LOC: FB.ED 15:16 → FB.MS 18:20
PROVIDERS: ADMIT Emergency Medicine; ATTEND Family Medicine
DX: K92.2 Gastrointestinal hemorrhage, unspecified (principal); D62 Acute posthemorrhagic anemia; N40.0 Benign prostatic hyperplasia without lower urinary tract symptoms; I63.411 Cerebral infarction due to embolism of right middle cerebral artery; E78.00 Pure hypercholesterolemia, unspecified; I25.2 Old myocardial infarction; I10 Essential (primary) hypertension; Z79.899 Other long term (current) drug therapy; Z88.8 Allergy status to other drugs, medicaments and biological substances; Z51.81 Encounter for therapeutic drug level monitoring; Z20.828 Contact with and (suspected) exposure to other viral communicable diseases
CPT/HCPCS: 36415; 36430; 74177; 80053; 82270; 84484; 85014; 85018; 85025; 85610; 85730; 86850; 86900; 86901; 86920; 86922; 93005; 96374; 96375; 96376; 99285; A9270; C9113; G0378; J1940; J7030; J7050; P9016; Q9963; Q9967; U0002

== ENCOUNTER 2020-08-13 09:18 | Day surgery (SDC) | payer MEDICARE, OTHER ==
[2020-08-13] MEDS ORDERED: Propofol 200 MG/20 ML SDV IV ONE (09:19)
[2020-08-13] MEDS ORDERED: Lidocaine 1% PF 2 ML SDV INJECT ONE (09:19)
[2020-08-13] MEDS ORDERED: Sodium Chloride 0.9% 10 ML Syringe FLUSH PRN (09:30)
[2020-08-13] MEDS: Lactated Ringers 1,000 ML IV SCH (10:15)
--- NOTE | 2020-08-13 11:41 | PCM.OPNOTE ---
- General Post-Op/Procedure Note Date of Surgery/Procedure: 08/13/20 Operative Procedure(s): incomplete c scope Findings: scrotal hernia incomplete prep Pre Op Diagnosis: hematochezia. wt loss Post-Op Diagnosis: incomplete scope Anesthesia Technique: MAC Primary Surgeon: Lalo Fitzgerald Anesthesia Provider: Usman Stanford Pathology: none Complications: None Condition: Good Free Text/Narrative:: see dictation
[2020-08-13 11:58] VITALS: BP 101/63; PULSE 85
--- NOTE | 2020-08-13 14:29 | PROC ---
DATE OF PROCEDURE: 08/13/2020 PROCEDURE PERFORMED: Attempted colonoscopy. PREOPERATIVE DIAGNOSES: Hematochezia and weight loss. POSTOPERATIVE DIAGNOSES: Large scrotal hernia as well as inadequate prep. INDICATIONS FOR PROCEDURE: This is an 80-year-old white male who was noted to have some blood per rectum as well as weight loss over the past couple of months. We have tried multiple times to get him in for a colonoscopy. He finally presents for a C-scope today. DESCRIPTION OF OPERATION: After an excellent IV sedation was administered, digital rectal exam was performed. No marked abnormality was noted. Flexible colonoscope was inserted. We immediately encountered liquid stool with large particulate matter which precluded us from aspirating it. We were able to advance the scope, but then had some difficulty advancing it as the scope kept flipping and rotating. Abdominal wall pressure was noted to be inadequate to allow us to advance the scope, and on further evaluation, the scope was looping down in the patient's scrotum. At this point, given the nature of the patient's preparation for his colonoscopy, which was completely inadequate for any examination, we elected to terminate the procedure. The scope was slowly withdrawn. From what we could visualize from the sigmoid and rectum, there were essentially no gross abnormalities that were noted in the area that was not covered in stool. We will plan on either a barium enema or CT scan after discussing the situation with the patient's spouse. /[id number] /MODL
== END 2020-08-13 12:40 | disposition home or self-care (01) ==
LOC: FB.SDS 09:18
PROVIDERS: ATTEND Surgery
DX: K92.1 Melena (principal); R63.4 Abnormal weight loss; K40.90 Unilateral inguinal hernia, without obstruction or gangrene, not specified as recurrent; I10 Essential (primary) hypertension; N40.1 Benign prostatic hyperplasia with lower urinary tract symptoms; N13.8 Other obstructive and reflux uropathy; Z53.8 Procedure and treatment not carried out for other reasons; Z79.899 Other long term (current) drug therapy; Z88.8 Allergy status to other drugs, medicaments and biological substances; Z98.890 Other specified postprocedural states
CPT/HCPCS: 00811-QZ; J2001; J2704; J7120

== ENCOUNTER 2020-08-18 15:55 | Emergency (ER) | payer MEDICARE, OTHER ==
--- NOTE | 2020-08-18 16:04 | EDM.PDOC ---
ED HPI GENERAL MEDICAL PROBLEM - General Stated Complaint: POSSIBLE STROKE Time Seen by Provider: 08/18/20 15:55 Source of Information: Reports: Patient, Family (Patient's ) History Limitations: Reports: No Limitations - History of Present Illness INITIAL COMMENTS - FREE TEXT/NARRATIVE: 80-year-old male who apparently had been in [place] getting his Lincoln catheter replaced and was being driven home by his at approximately 3:15 PM when she noted that he had slurred speech. It seemed to get worse as she was driving and she tried to turn around and go back [place] but he would not allow her to do this and told her to go home that he was okay. Apparently, en route to home, he had worsening of his slurred speech and she felt that she noticed some right facial drooping. He did not have any weakness in his arms he had no numbness in his arms or legs. He had no headache. At this point, she was closer to our facility and then to [place] and she came directly to the emergency department here. Upon arrival, the patient went immediately to CT scan. It was determined that he was vitally stable and I evaluated him immediately when he came back from CT scan. He was awake and alert. He was denying any headache. He was able to speak but there was some mild dysarthria. There was mild right facial droop. He had no pronator drift and no localizing sign. His NIH stroke scale score was 2-3. He denies any chest pain. He denies any shortness of breath. He states that he feels normal except maybe some mild weakness in both of his legs which he feels is symmetric and is really chronic. Patient did have a lower GI bleed with hematochezia and need for transfusion on all 2019 and he has been off of Coumadin since that time. Early had a colonoscopy on the (a previous attempt to do this on the was unsuccessful) and apparently the prep on the was inadequate and the colonoscopy was inconclusive. There are no other associated signs or symptoms. There are no other modifying factors. Onset: Today (15 p.m.) Duration: Getting Worse Location: Reports: Face (Right-sided face. 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: Other (see below) (Nothing.) - Related Data Allergies Allergy/AdvReac Type Severity Reaction Status Date / Time rofecoxib [From Vioxx] Allergy Headache Verified 08/13/20 10:04 Home Meds: Home Meds Acetaminophen 650 mg PO Q4H PRN 05/14/20 [History] Fluticasone Propionate [Flonase] 2 spray NASBOTH BEDTIME PRN 05/14/20 [History] Acetaminophen/Codeine [Tylenol with Codeine No.3 300MG/30MG] 1 tab PO Q6H PRN 08/05/20 [History] Diphenoxylate HCl/Atropine [Lomotil] 2 tab PO QID PRN 08/05/20 [History] Lovastatin [Mevacor] 40 mg PO Q48H 08/05/20 [History] Metoprolol Tartrate 50 mg PO BID 08/05/20 [History] Oxybutynin 5 mg PO TID PRN 08/05/20 [History] Furosemide 20 mg PO BID #0 08/06/20 [Rx] Furosemide [Lasix] 40 mg PO ASDIRECTED 08/12/20 [History] Vancomycin [Vancocin 125 MG Capsule] 125 mg PO QID 08/12/20 [History] Warfarin [Coumadin] 7.5 - 10 mg PO DAILY 08/12/20 [History] Past Medical History HEENT History: Reports: Cataract, Other (See Below) Other HEENT History: recurrent ear infection. PERFORATION OF TYMPANIC MEMBRANE. PRESBYOPIA. PSEUDOPHAKIA-BOTH. REGULAR ASTIGMATIS OF BOTH EYES. GLAUCOMA SUSPECT OF BOTH EYES. HYPEROPIA OF BOTH EYES Cardiovascular History: Reports: CAD, High Cholesterol, Hypertension, [place], Other (See Below) (Reportedly only angioplasties x 2 but no stents were placed) Genitourinary History: Reports: Prostate Disorder (Chronic indwelling Lincoln.) Other Genitourinary History: BPH/OBSTRUCTION. RENAL FAILURE SYNDROME. ACUTE URINARY RETENTION. 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.), TIA Hematologic History: Reports: None (Patient was on chronic anticoagulation with Coumadin until 07/31/2020 and this was stopped secondary to GI bleed.) - Infectious Disease History Infectious Disease History: Reports: Chicken Pox, Measles, Shingles - Past Surgical History HEENT Surgical History: Reports: Cataract Surgery Cardiovascular Surgical History: Reports: Percutaneous Transluminal Angioplasty Male Surgical History: Reports: TURP-Transurethral Resection of Prostate, Other (See Below) Other Male Surgeries/Procedures: Cystotomy Musculoskeletal Surgical History: Reports: Hip Replacement Other Musculoskeletal Surgeries/Procedures:: HIP SURGERY/BACK SURGERY Social & Family History - Family History Cardiac: Reports: [place] Endocrine/Metabolic: Reports: Diabetes, type II - Tobacco Use Tobacco Use Status *Q: Former Tobacco User (Former smoker) - Caffeine Use Caffeine Use: Reports: Soda, Tea - Alcohol Use Alcohol Use History: No - Living Situation & Occupation Living situation: Reports: , with Spouse Occupation: Retired ED ROS GENERAL - Review of Systems Review Of Systems: See Below Constitutional: Reports: No Symptoms HEENT: Reports: No Symptoms Respiratory: Reports: No Symptoms Cardiovascular: Reports: No Symptoms Endocrine: Reports: No Symptoms GI/Abdominal: Reports: No Symptoms : Reports: Other (Has chronic indwelling Lincoln that was just replaced today in [place].) Musculoskeletal: Reports: No Symptoms Skin: Reports: No Symptoms Neurological: Reports: Change in Speech (Slurred speech.), Other (Right facial drooping.). Denies: Headache Hematologic/Lymphatic: Reports: No Symptoms Immunologic: Reports: No Symptoms ED EXAM, NEURO - Physical Exam Exam: See Below Exam Limited By: No Limitations General Appearance: Alert, WD/WN, No Apparent Distress, Other (He is able to converse. There is slight dysarthria but no expressive aphasia.) Eye Exam: Bilateral Eye: EOMI, Normal Inspection (Visual field deficits noted.) Ears: Normal External Exam, Hearing Grossly Normal Nose: Normal Inspection, Normal Mucosa, No Blood Throat/Mouth: Normal Inspection, Normal Oropharynx, Normal Voice, No Airway Compromise Head Exam: Atraumatic, Normocephalic Neck: Normal Inspection, Supple, Non-Tender, Full Range of Motion Respiratory/Chest: No Respiratory Distress, Lungs Clear, Normal Breath Sounds, No Accessory Muscle Use, Chest Non-Tender Cardiovascular: Normal Peripheral Pulses, Regular Rate, Rhythm, No Gallop, No Murmur GI/Abdominal: Normal Bowel Sounds, Soft, Non-Tender, No Mass Neurological: Alert, Normal Mood/Affect, Normal Dorsiflexion, Normal Plantar Flexion, Oriented x 3, Other (Some slurred speech. No expressive aphasia. Pronator drift. No localized weakness in arms or legs.) Back Exam: Normal Inspection Extremities: Normal Range of Motion, Normal Capillary Refill, Pedal Edema Skin Exam: Warm, Dry, Intact, Normal Color, No Rash #1 Interpretation EKG Date: 08/18/20 Time: 16:18 Rhythm: NSR Rate (Beats/Min): 84 Blair: Normal P-Wave: Present QRS: Normal ST-T: Other (Nonspecific ST-T changes) QT: Normal Comparison: No Change (No change from EKG performed on 08/05/2020.) Course - Vital Signs Last Recorded V/S: Last Vital Signs Temp 35.8 C L 08/18/20 15:55 Pulse 73 08/18/20 15:55 Resp 16 08/18/20 15:55 BP 135/67 08/18/20 15:55 Pulse Ox 97 08/18/20 15:55 - Orders/Labs/Meds Orders: Active Orders 24 hr Category Date Time Status EKG Documentation Completion [RC] ASDIRECTED Care 08/18/20 16:18 Active Chest 1V Frontal [CR] Stat Exams 08/18/20 16:19 Taken Head wo Cont [CT] Stat Exams 08/18/20 16:07 Taken Sodium Chloride 0.9% [Normal Saline] 1,000 ml Med 08/18/20 16:30 Active IV ASDIRECTED Sodium Chloride 0.9% [Saline Flush] Med 08/18/20 16:17 Active 10 ml FLUSH ASDIRECTED PRN Peripheral IV Insertion Adult [OM.PC] Routine Oth 08/18/20 16:17 Ordered EKG 12 Lead [EK] Routine Ther 08/18/20 16:17 Ordered Medication Orders Sodium Chloride (Normal Saline) 1,000 mls @ 100 mls/hr IV ASDIRECTED BURT Sodium Chloride (Saline Flush) 10 ml FLUSH ASDIRECTED PRN PRN Reason: Keep Vein Open Labs: Laboratory Tests 08/18/20 08/18/20 08/18/20 Range/Units 16:34 16:34 16:34 WBC 9.0 (3.2-10.1) x10-3/uL RBC 3.81 L (3.90-5.90) x10(6)uL Hgb 11.1 L (12.9-17.7) g/dL Hct 34.3 L (38.3-50.1) % MCV 90.0 (80.8-98.7) fL MCH 29.1 (27.0-33.3) pg MCHC 32.3 (28.7-35.3) g/dL RDW 15.3 H (12.4-15.0) % Plt Count 319 (117-477) x10(3)uL MPV 7.4 (6.7-11.0) fL Neut % (Auto) 56.0 (40.3-71.8) % Lymph % (Auto) 29.0 (15.8-45.3) % Pine % (Auto) 9.4 (5.5-15.2) % Eos % (Auto) 4.2 (0.1-6.8) % Baso % (Auto) 1.4 (0.3-3.8) % Neut # (Auto) 5.1 (1.7-6.9) x10-3/uL Lymph # (Auto) 2.6 (0.5-4.5) x10-3/uL Pine # (Auto) 0.8 (0.0-1.2) x10-3/uL Eos # (Auto) 0.4 (0.0-0.6) x10-3/uL Baso # (Auto) 0.1 (0.0-0.3) x10-3/uL PT 10.8 (9.0-11.1) sec INR 1.00 (1.00-1.24) APTT 26.2 (24.4-33.2) SECONDS Sodium 142 (135-145) mmol/L Potassium 3.4 L (3.5-5.3) mmol/L Chloride 105 (100-110) mmol/L Carbon Dioxide 29 (21-32) mmol/L BUN 16 (7-18) mg/dL Creatinine 1.1 (0.70-1.30) mg/dL Est Cr Clr Drug Dosing TNP Estimated GFR (MDRD) > 60 (>60) BUN/Creatinine Ratio 14.5 (9-20) Glucose 114 (80-116) mg/dL Calcium 9.5 (8.6-10.2) mg/dL Magnesium 2.2 (1.8-2.5) mg/dL Total Bilirubin 0.4 (0.1-1.3) mg/dL AST 27 H D (5-25) IU/L ALT 20 D (12-36) U/L Alkaline Phosphatase 69 (56-112) IU/L Troponin I (4.0-60.3) pg/mL Total Protein 7.4 (6.0-8.0) g/dL Albumin 2.5 L (3.2-4.6) g/dL Globulin 4.9 g/dL Albumin/Globulin Ratio 0.5 08/18/20 Range/Units 16:34 WBC (3.2-10.1) x10-3/uL RBC (3.90-5.90) x10(6)uL Hgb (12.9-17.7) g/dL Hct (38.3-50.1) % MCV (80.8-98.7) fL MCH (27.0-33.3) pg MCHC (28.7-35.3) g/dL RDW (12.4-15.0) % Plt Count (117-477) x10(3)uL MPV (6.7-11.0) fL Neut % (Auto) (40.3-71.8) % Lymph % (Auto) (15.8-45.3) % Pine % (Auto) (5.5-15.2) % Eos % (Auto) (0.1-6.8) % Baso % (Auto) (0.3-3.8) % Neut # (Auto) (1.7-6.9) x10-3/uL Lymph # (Auto) (0.5-4.5) x10-3/uL Pine # (Auto) (0.0-1.2) x10-3/uL Eos # (Auto) (0.0-0.6) x10-3/uL Baso # (Auto) (0.0-0.3) x10-3/uL PT (9.0-11.1) sec INR (1.00-1.24) APTT (24.4-33.2) SECONDS Sodium (135-145) mmol/L Potassium (3.5-5.3) mmol/L Chloride (100-110) mmol/L Carbon Dioxide (21-32) mmol/L BUN (7-18) mg/dL Creatinine (0.70-1.30) mg/dL Est Cr Clr Drug Dosing Estimated GFR (MDRD) (>60) BUN/Creatinine Ratio (9-20) Glucose (80-116) mg/dL Calcium (8.6-10.2) mg/dL Magnesium (1.8-2.5) mg/dL Total Bilirubin (0.1-1.3) mg/dL AST (5-25) IU/L ALT (12-36) U/L Alkaline Phosphatase (56-112) IU/L Troponin I 614.3 H* (4.0-60.3) pg/mL Total Protein (6.0-8.0) g/dL Albumin (3.2-4.6) g/dL Globulin g/dL Albumin/Globulin Ratio Meds: Medications Generic Name Dose Route Start Last Admin Trade Name Freq PRN Reason Stop Dose Admin Sodium Chloride 1,000 mls @ 100 mls/hr 08/18/20 16:30 Normal Saline IV ASDIRECTED BURT Sodium Chloride 10 ml 08/18/20 16:17 Saline Flush FLUSH ASDIRECTED PRN Keep Vein Open - Radiology Interpretation Free Text/Narrative:: CT scan of head showed no acute findings per the radiologist. This was a stat read. Portable chest x-ray shows no acute pathology. - Re-Assessments/Exams Free Text/Narrative Re-Assessment/Exam: 08/18/20 16:40: Discussed the patient's case with Dr. Melendrez, stroke neurologist at [facility], and the patient's NIH stroke scale score was 2- 3. Since the patient had lower GI bleed with need for transfusion on 07/31/2020, he would not be a candidate for thrombolytic therapy. He does feel the patient would benefit from transfer to [facility] in [place] for care and specialty care through stroke neurology and possibly interventional radiology. Therefore, he does recommend transfer of the patient to [facility] in [place]. He did not recommend anything further at this time. The patient should be transferred directly to the emergency department at [facility]. Also, the patient's EKG was unc hanged from previous EKG 2 weeks ago and showed no current of injury or ischemia present. 08/18/20 16:55: I have discussed all this with the patient and with his . I have told her recommendations of the stroke neurologist at [facility] in [place] and that they recommended that he be transferred to [facility] in [place] for continued evaluation and treatment. Evaluation would need to be transferred via [facility] ambulance service the adamantly refuses to allow her to be transferred via ambulance and the is in agreement with her. I did discuss the risk of doing this at length with her and with her . OLGA LIDIA Garcia was present during this discussion with the patient's and the patient. She understands that the patient is at risk for deterioration and significant morbidity and mortality. She is still adamant about transporting him via private vehicle. She is doing this against my advice. 08/18/20 17:10: We are trying to help the get the patient into their private vehicle for transport. The blood test did come back at this time and there were all pretty much reassuringly normal except for troponin which was 614. I discussed this with the patient's and again reiterated that should be transferred via ambulance to [facility] in [place] but again she is this and transporting him via private vehicle. Departure - Departure Time of Disposition: 17:15 Disposition: DC/Tfer to Acute Hospital 02 Condition: Critical Clinical Impression: Acute CVA (cerebrovascular accident), Elevated troponin - Discharge Information Referrals: PCP,None [Ordering Only Provider] - Sepsis Event Note (ED) - Focused Exam Vital Signs: Vital Signs Temp Pulse Resp BP Pulse Ox 08/18/20 15:55 35.8 C L 73 16 135/67 97 - My Orders Last 24 Hours: My Active Orders 08/18/20 16:07 Head wo Cont [CT] Stat 08/18/20 16:17 Sodium Chloride 0.9% [Saline Flush] 10 ml FLUSH ASDIRECTED PRN Peripheral IV Insertion Adult [OM.PC] Routine EKG 12 Lead [EK] Routine 08/18/20 16:18 EKG Documentation Completion [RC] ASDIRECTED 08/18/20 16:19 Chest 1V Frontal [CR] Stat 08/18/20 16:30 Sodium Chloride 0.9% [Normal Saline] 1,000 ml IV ASDIRECTED - Assessment/Plan Last 24 Hours: My Active Orders 08/18/20 16:07 Head wo Cont [CT] Stat 08/18/20 16:17 Sodium Chloride 0.9% [Saline Flush] 10 ml FLUSH ASDIRECTED PRN Peripheral IV Insertion Adult [OM.PC] Routine EKG 12 Lead [EK] Routine 08/18/20 16:18 EKG Documentation Completion [RC] ASDIRECTED 08/18/20 16:19 Chest 1V Frontal [CR] Stat 08/18/20 16:30 Sodium Chloride 0.9% [Normal Saline] 1,000 ml IV ASDIRECTED
[2020-08-18] MEDS ORDERED: Sodium Chloride 0.9% 10 ML Syringe FLUSH PRN (16:17)
[2020-08-18] MEDS ORDERED: Sodium Chloride 0.9% 1,000 ML IV SCH (16:30)
[2020-08-18 16:53] VITALS: BP 135/67; PULSE 73
== END 2020-08-18 17:17 ==
LOC: FB.ED 15:55
DX: I63.9 Cerebral infarction, unspecified (principal); R47.81 Slurred speech; R29.810 Facial weakness; R79.89 Other specified abnormal findings of blood chemistry; I25.2 Old myocardial infarction; E78.00 Pure hypercholesterolemia, unspecified; I10 Essential (primary) hypertension; I25.10 Atherosclerotic heart disease of native coronary artery without angina pectoris; Z79.01 Long term (current) use of anticoagulants; Z79.899 Other long term (current) drug therapy; Z87.891 Personal history of nicotine dependence
CPT/HCPCS: 36415; 70450; 71045; 80053; 83735; 84484; 85025; 85610; 85730; 93005; 99285; J7030; 93010; 99284

== ENCOUNTER 2020-10-07 19:17 | Emergency (ER) | payer MEDICARE, OTHER ==
[2020-10-07] MEDS ORDERED: Diphtheria,Pertussis(Acell),Tetanus Vaccine 0.5 ML Syringe IM ONE (19:58)
--- NOTE | 2020-10-07 21:27 | EDM.PDOC ---
ED HPI GENERAL MEDICAL PROBLEM - General Chief Complaint: Head Injury Stated Complaint: FALL-HEAD INJURY Time Seen by Provider: 10/07/20 22:00 Source of Information: Reports: Patient History Limitations: Reports: No Limitations - History of Present Illness INITIAL COMMENTS - FREE TEXT/NARRATIVE: Annette presented to the ED with his because of a fall. He missed a step and hit his forehead on the stairs and sustained a cm laceration over the mid forehead. There is no LOC after the fall. denies any headache,N/V. - Related Data Allergies Allergy/AdvReac Type Severity Reaction Status Date / Time rofecoxib [From Vioxx] Allergy Headache Verified 10/07/20 19:43 Home Meds: Home Meds Acetaminophen 650 mg PO Q4H PRN 05/14/20 [History] Fluticasone Propionate [Flonase] 2 spray NASBOTH BEDTIME PRN 05/14/20 [History] Metoprolol Tartrate 50 mg PO BID 08/05/20 [History] Furosemide [Lasix] 40 mg PO DAILY 08/12/20 [History] Warfarin [Coumadin] 2.5 - 5 mg PO DAILY 08/12/20 [History] Aspirin [Adult Low Dose Aspirin EC] 81 mg PO DAILY 10/07/20 [History] Omeprazole 20 mg PO DAILY 10/07/20 [History] atorvaSTATin Calcium [Lipitor] 40 mg PO BEDTIME 10/07/20 [History] polyethylene glycoL 3350 [MiraLAX] 17 gm PO DAILY 10/07/20 [History] Past Medical History HEENT History: Reports: Cataract, Other (See Below) Other HEENT History: recurrent ear infection. PERFORATION OF TYMPANIC MEMBRANE. PRESBYOPIA. PSEUDOPHAKIA-BOTH. REGULAR ASTIGMATIS OF BOTH EYES. GLAUCOMA SUSPECT OF BOTH EYES. 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 CORONARY ARTERY OCCLUSION WITH CEREBRAL INFARCTION. angiogram Respiratory History: Reports: Other (See Below) Other Respiratory History: Former smoker Gastrointestinal History: Reports: Other (See Below) Other Gastrointestinal History: C diff infection Genitourinary History: Reports: Prostate Disorder (Chronic indwelling Lincoln.) Other Genitourinary History: BPH/OBSTRUCTION. RENAL FAILURE SYNDROME. ACUTE URINARY RETENTION. 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.), TIA Other Neuro History: 3 strokes without deficits Psychiatric History: Reports: None Hematologic History: Reports: None (Patient was on chronic anticoagulation with Coumadin until 07/31/2020 and this was stopped secondary to GI bleed.) Oncologic (Cancer) History: Reports: None - Infectious Disease History Infectious Disease History: Reports: Chicken Pox, Measles, Shingles - Past Surgical History Cardiovascular Surgical History: Reports: Percutaneous Transluminal Angioplasty Social & Family History - Family History Family Medical History: No Pertinent Family History Cardiac: Reports: [place] Endocrine/Metabolic: Reports: Diabetes, type II - Caffeine Use Caffeine Use: Reports: None - Living Situation & Occupation Living situation: Reports: , with Spouse Occupation: Retired ED ROS GENERAL - Review of Systems Review Of Systems: See Below Constitutional: Reports: No Symptoms HEENT: Reports: No Symptoms Respiratory: Reports: No Symptoms Cardiovascular: Reports: No Symptoms Endocrine: Reports: No Symptoms GI/Abdominal: Reports: No Symptoms : Reports: No Symptoms Musculoskeletal: Reports: No Symptoms Skin: Reports: Wound ED EXAM, HEAD INJURY - Physical Exam Exam: See Below Exam Limited By: No Limitations General Appearance: Alert, No Apparent Distress Head: Other (forehead laceration) Eyes: Bilateral Eye: PERRL Ears: Normal External Exam, Normal Canal, Hearing Grossly Normal Nose: Normal Inspection, Normal Mucousa, No Blood Throat/Mouth: Normal Inspection Neck: Non-Tender, Full Range of Motion, Normal Alignment, Normal Inspection Respiratory: No Respiratory Distress, Lungs Clear, Normal Breath Sounds Cardiovascular: Normal Peripheral Pulses, Regular Rate, Rhythm, No Edema, No Gallop GI/Abdominal Exam: Normal Bowel Sounds, Soft, Non-Tender, No Organomegaly Back Exam: Normal Inspection, Full Range of Motion ED LACERATION/WOUND & JOE PROC - Laceration/Wound Repair Middle Forehead Lac/wound length in cm: 4 Appearance: Superficial, Clean Skin Prep: Saline Closed with: Dermabond Course - Vital Signs Text/Narrative:: Head CT-neg Tdap Last Recorded V/S: Last Vital Signs Temp 36.7 C 10/07/20 19:25 Pulse 91 10/07/20 19:25 Resp 18 01/19/21 19:25 BP 131/72 10/07/20 19:25 Pulse Ox 95 10/07/20 19:25 - Orders/Labs/Meds Orders: Active Orders 24 hr Category Date Time Status Vaccines to be Administered [RC] PER UNIT ROUTINE Care 10/07/20 19:59 Active Head wo Cont [CT] Stat Exams 10/07/20 19:57 Taken Meds: Medications Discontinued Medications Generic Name Dose Route Start Last Admin Trade Name Damari PRN Reason Stop Dose Admin Diphtheria/Tetanus/Acell Pertussis 0.5 ml 10/07/20 19:58 10/07/20 21:50 Boostrix IM 10/07/20 19:59 0.5 ml .ONCE ONE Administration Departure - Departure Time of Disposition: 21:30 Disposition: Home, Self-Care 01 Condition: Good Clinical Impression: Closed head injury, Laceration of head - Discharge Information Instructions: Laceration Care, Adult, Head Injury, Adult, [id number] Referrals: Sid Diamond MD [Primary Care Provider] - Forms: ED Department Discharge Additional Instructions: Please read discharge instructions on head injury and laceration/wound care No need to apply an antibiotic ointment the glue is medicated Keep the wound dry for 3-5 days You can take tylenol 1000 mg every 8 hours as needed for pain Follow up as needed Sepsis Event Note (ED) - Focused Exam Vital Signs: Vital Signs Temp Pulse Resp BP Pulse Ox 10/07/20 19:25 36.7 C 91 18 131/72 95 - My Orders Last 24 Hours: My Active Orders 10/07/20 19:57 Head wo Cont [CT] Stat 10/07/20 19:59 Vaccines to be Administered [RC] PER UNIT ROUTINE - Assessment/Plan Last 24 Hours: My Active Orders 10/07/20 19:57 Head wo Cont [CT] Stat 10/07/20 19:59 Vaccines to be Administered [RC] PER UNIT ROUTINE
[2020-10-08 01:19] VITALS: BP 115/60; PULSE 95
== END 2020-10-07 22:10 | disposition home or self-care (01) ==
LOC: FB.ED 19:17
DX: S01.81XA Laceration without foreign body of other part of head, initial encounter (principal); S09.90XA Unspecified injury of head, initial encounter; I25.10 Atherosclerotic heart disease of native coronary artery without angina pectoris; E78.00 Pure hypercholesterolemia, unspecified; I10 Essential (primary) hypertension; I25.2 Old myocardial infarction; Z79.01 Long term (current) use of anticoagulants; Z87.891 Personal history of nicotine dependence; Z86.73 Personal history of transient ischemic attack (TIA), and cerebral infarction without residual deficits; Z88.8 Allergy status to other drugs, medicaments and biological substances; Z79.82 Long term (current) use of aspirin; Z79.899 Other long term (current) drug therapy; Z23 Encounter for immunization; W22.8XXA Striking against or struck by other objects, initial encounter
CPT/HCPCS: 12013; 70450; 90471; 90715; 99284-25

== ENCOUNTER 2020-11-09 21:31 | Emergency (ER) | payer MEDICARE, OTHER ==
--- NOTE | 2020-11-09 21:53 | EDM.PDOC ---
ED HPI GENERAL MEDICAL PROBLEM - General Chief Complaint: Abdominal Pain Stated Complaint: VOMITING, DEHYDRATION Time Seen by Provider: 11/09/20 21:50 Source of Information: Reports: EMS, Family History Limitations: Reports: Altered Mental Status - History of Present Illness INITIAL COMMENTS - FREE TEXT/NARRATIVE: Patient has had poor PO intake x 2-3 days and began to complain of low abdominal pain and N/V today. No diarrhea. Per , he has been progressively more lethargic over the last 2-3 days. Patient has a suprapubic catheter that is scheduled to be replaced on 11/12/20. Per , he has had no complaints of chest pain, SOB, cough or fever. She also confirms that his code status is DNR. Last BM 2-3 days ago. Duration: Day(s): (3) Severity: Moderate - Related Data Allergies Allergy/AdvReac Type Severity Reaction Status Date / Time rofecoxib [From Vioxx] Allergy Headache Verified 10/07/20 19:43 Home Meds: Home Meds Fluticasone Propionate [Flonase] 1 spray NASBOTH BEDTIME PRN 05/14/20 [History] Metoprolol Tartrate 100 mg PO BID 08/05/20 [History] Furosemide [Lasix] 40 mg PO DAILY 08/12/20 [History] Warfarin [Coumadin] 2.5 mg PO MOWEFR 08/12/20 [History] Aspirin [Adult Low Dose Aspirin EC] 81 mg PO DAILY 10/07/20 [History] Omeprazole 20 mg PO DAILY 10/07/20 [History] atorvaSTATin Calcium [Lipitor] 40 mg PO BEDTIME 10/07/20 [History] Ferrous Gluconate 324 mg PO TID 11/09/20 [History] Nitroglycerin [Nitrostat] 0.4 mg SL ASDIRECTED PRN 11/09/20 [History] Oxybutynin 5 mg PO TID PRN 11/09/20 [History] Tamsulosin [Tamsulosin 24 Hr] 0.8 mg PO BEDTIME 11/09/20 [History] Warfarin [Coumadin] 5 mg PO SUTUTHSA 11/09/20 [History] Past Medical History HEENT History: Reports: Cataract, Other (See Below) Other HEENT History: Recurrent ear infection. Performation of tympanic membrane. Presbyopia. Pseudophakia--both. Regular astigmatis OU. Glaucoma suspect OU. Hyperopia OU. Cardiovascular History: Reports: CAD, High Cholesterol, Hypertension, ND, Other (See Below) Other Cardiovascular History: Coronary artery occlusion with cerebral infarction. senior living use of anticoagulant therapy. Angiogram. Respiratory History: Reports: Other (See Below) Other Respiratory History: Former smoker. Gastrointestinal History: Reports: Other (See Below) (Inguinal hernia) Other Gastrointestinal History: C-diff infection. History of rectal bleed. Genitourinary History: Reports: Prostate Disorder Other Genitourinary History: BPH obstruction. Renal failure syndrome. Acute urinary retention. Atonic bladder. Lincoln catheter. Hematuria. Musculoskeletal History: Reports: Other (See Below) Other Musculoskeletal History: Broken leg. Falls. 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 Psychiatric History: Reports: None Hematologic History: Reports: None (Patient was on chronic anticoagulation with Coumadin until 07/31/2020 and this was stopped secondary to GI bleed.) Oncologic (Cancer) History: Reports: None - Infectious Disease History Infectious Disease History: Reports: Chicken Pox, Measles, Shingles - Past Surgical History Cardiovascular Surgical History: Reports: Percutaneous Transluminal Angioplasty Social & Family History - Family History Family Medical History: No Pertinent Family History Cardiac: Reports: ND Endocrine/Metabolic: Reports: Diabetes, type II - Caffeine Use Caffeine Use: Reports: None - Living Situation & Occupation Living situation: Reports: , with Spouse Occupation: Retired ED ROS GENERAL - Review of Systems Review Of Systems: Unable To Obtain Reason Not Obtained: Altered mental status ED EXAM, GENERAL - Physical Exam Exam: See Below Exam Limited By: No Limitations General Appearance: No Apparent Distress, Lethargic Eye Exam: Bilateral Eye: EOMI, PERRL Ears: Normal External Exam Nose: Normal Inspection Throat/Mouth: No Airway Compromise, Other (dry oropharynx) Head: Atraumatic, Normocephalic Neck: Supple Respiratory/Chest: No Respiratory Distress, Lungs Clear, Normal Breath Sounds Cardiovascular: Regular Rate, Rhythm, No Gallop, No Murmur GI/Abdominal: Normal Bowel Sounds, Soft, No Distention, Tender (low abdomen). No: Guarding (Male) Exam: Hernia (Large indirect inguinal, unable to reduce), Other (Suprapubic catheter in place, urine is cloudy) Back Exam: Full Range of Motion Extremities: Normal Range of Motion Neurological: Disoriented, Slow to Respond, Other (generalized weakness, non- focal, GCS=12 (E2, V4, M6)) Skin Exam: Warm, Dry, Intact, Normal Color, No Rash #1 Interpretation EKG Date: 11/09/20 Time: 21:38 Rhythm: NSR Rate (Beats/Min): 90 [place]: Normal P-Wave: Present QRS: Normal ST-T: Normal QT: Prolonged Comparison: No Change EKG Interpretation Comments: Dr. Pérez reviewed EKG and did not see ST elevation Course - Vital Signs Last Recorded V/S: Last Vital Signs Temp 36.4 C 11/09/20 21:31 Pulse 87 11/09/20 21:31 Resp 20 11/09/20 21:31 BP 102/59 L 11/09/20 21:31 Pulse Ox 95 11/09/20 21:31 - Orders/Labs/Meds Orders: Active Orders 24 hr Category Date Time Status EKG Documentation Completion [RC] ASDIRECTED Care 11/09/20 21:46 Active Lincoln Catheter Insertion [Insert Urinary Catheter] [OM. Care 11/09/20 22:30 Ordered PC] Q24H Urinary Catheter Assessment [RC] QSHIFT Care 11/09/20 22:23 Active Abdomen Pelvis wo Cont [CT] Stat Exams 11/09/20 22:51 Taken CULTURE BLOOD [BC] Urgent Lab 11/09/20 22:05 Received CULTURE BLOOD [BC] Urgent Lab 11/09/20 22:15 Received CULTURE URINE [RM] Stat Lab 11/09/20 22:30 Received LACTIC ACID [CHEM] Routine Lab 11/10/20 00:15 Ordered TROPONIN I [CHEM] Routine Lab 11/10/20 00:15 Ordered Phytonadione [AquaMephyton] 10 mg Med 11/10/20 00:21 Ordered Sodium Chloride 0.9% [Normal Saline] 50 ml IV NOW Piperacillin/Tazobactam [Zosyn] 2.25 gm Med 11/09/20 23:00 Active Sodium Chloride 0.9% [Normal Saline] 50 ml IV Q6H Sodium Chloride 0.9% [Saline Flush] Med 11/09/20 21:47 Active 10 ml FLUSH ASDIRECTED PRN Blood Culture x2 Reflex Set [OM.PC] Urgent Oth 11/09/20 21:45 Ordered NG [Nasogastric Orogastric Tube Insertion] [OM.PC] Stat Oth 11/09/20 23:47 Ordered Saline Lock Insert [OM.PC] Routine Oth 11/09/20 21:47 Ordered EKG 12 Lead [EK] Stat Ther 11/09/20 21:45 Ordered Medication Orders Piperacillin Sod/Tazobactam (Sod 2.25 gm/ Sodium Chloride) 50 mls @ 100 mls/hr IV Q6H BURT Last Admin: 11/09/20 23:33 Dose: 100 mls/hr Documented by: RAFAEL Phytonadione 10 mg/ Sodium (Chloride) 51 mls @ 100 mls/hr IV NOW ONE Stop: 11/10/20 00:51 Sodium Chloride (Saline Flush) 10 ml FLUSH ASDIRECTED PRN PRN Reason: Keep Vein Open Labs: Laboratory Tests 11/09/20 11/09/20 11/09/20 Range/Units 22:15 22:15 22:15 WBC 18.8 H (3.2-10.1) x10-3/uL RBC 3.99 (3.90-5.90) x10(6)uL Hgb 10.7 L (12.9-17.7) g/dL Hct 32.5 L (38.3-50.1) % MCV 81.5 (80.8-98.7) fL MCH 26.8 L (27.0-33.3) pg MCHC 32.8 (28.7-35.3) g/dL RDW 16.4 H (12.4-15.0) % Plt Count 478 H (117-477) x10(3)uL MPV 7.6 (6.7-11.0) fL Add Manual Diff Yes Neutrophils % (Manual) 88 H (46-82) % Band Neutrophils % 3 (0-6) % Lymphocytes % (Manual) 4 L (13-37) % Monocytes % (Manual) 5 (4-12) % PT 44.8 H* (9.0-11.1) sec INR 4.58 H* (1.00-1.24) APTT 38.5 H (24.4-33.2) SECONDS Sodium 138 (135-145) mmol/L Potassium 3.8 (3.5-5.3) mmol/L Chloride 100 D (100-110) mmol/L Carbon Dioxide 20 L (21-32) mmol/L BUN 74 H D (7-18) mg/dL Creatinine 2.7 H* (0.70-1.30) mg/dL Est Cr Clr Drug Dosing TNP Estimated GFR (MDRD) 23 L (>60) BUN/Creatinine Ratio 27.4 H (9-20) Glucose 163 H (80-116) mg/dL Lactic Acid (0.4-2.0) mmol/L Calcium 10.1 (8.6-10.2) mg/dL Total Bilirubin 0.5 (0.1-1.3) mg/dL AST 24 D (5-25) IU/L ALT 22 (12-36) U/L Alkaline Phosphatase 95 (56-112) IU/L Troponin I (4.0-60.3) pg/mL Total Protein 8.5 H (6.0-8.0) g/dL Albumin 2.9 L (3.2-4.6) g/dL Globulin 5.6 g/dL Albumin/Globulin Ratio 0.5 Lipase (73-393) U/L Urine Color (YELLOW) Urine Appearance (CLEAR) Urine pH (5.0-6.5) Ur Specific [place] (1.010-1.025) Urine Protein (NEGATIVE) mg/dL Urine Glucose (UA) (NORMAL) mg/dL Urine Ketones (NEGATIVE) mg/dL Urine Occult Blood (NEGATIVE) Urine Nitrite (NEGATIVE) Urine Bilirubin (NEGATIVE) Urine Urobilinogen (NEGATIVE) mg/dL Ur Leukocyte Esterase (NEGATIVE) Urine RBC (0-5) Urine WBC (0-5) Ur Squamous Epith Cells (NS,R,O) Urine Bacteria (NS) Urine Mucus (NS) SARS-CoV-2 RNA (NURY) (NEGATIVE) 11/09/20 11/09/20 11/09/20 Range/Units 22:15 22:15 22:25 WBC (3.2-10.1) x10-3/uL RBC (3.90-5.90) x10(6)uL Hgb (12.9-17.7) g/dL Hct (38.3-50.1) % MCV (80.8-98.7) fL MCH (27.0-33.3) pg MCHC (28.7-35.3) g/dL RDW (12.4-15.0) % Plt Count (117-477) x10(3)uL MPV (6.7-11.0) fL Add Manual Diff Neutrophils % (Manual) (46-82) % Band Neutrophils % (0-6) % Lymphocytes % (Manual) (13-37) % Monocytes % (Manual) (4-12) % PT (9.0-11.1) sec INR (1.00-1.24) APTT (24.4-33.2) SECONDS Sodium (135-145) mmol/L Potassium (3.5-5.3) mmol/L Chloride (100-110) mmol/L Carbon Dioxide (21-32) mmol/L BUN (7-18) mg/dL Creatinine (0.70-1.30) mg/dL Est Cr Clr Drug Dosing Estimated GFR (MDRD) (>60) BUN/Creatinine Ratio (9-20) Glucose (80-116) mg/dL Lactic Acid 4.2 H* (0.4-2.0) mmol/L Calcium (8.6-10.2) mg/dL Total Bilirubin (0.1-1.3) mg/dL AST (5-25) IU/L ALT (12-36) U/L Alkaline Phosphatase (56-112) IU/L Troponin I 71.7 H* (4.0-60.3) pg/mL Total Protein (6.0-8.0) g/dL Albumin (3.2-4.6) g/dL Globulin g/dL Albumin/Globulin Ratio Lipase 122 (73-393) U/L Urine Color (YELLOW) Urine Appearance (CLEAR) Urine pH (5.0-6.5) Ur Specific [place] (1.010-1.025) Urine Protein (NEGATIVE) mg/dL Urine Glucose (UA) (NORMAL) mg/dL Urine Ketones (NEGATIVE) mg/dL Urine Occult Blood (NEGATIVE) Urine Nitrite (NEGATIVE) Urine Bilirubin (NEGATIVE) Urine Urobilinogen (NEGATIVE) mg/dL Ur Leukocyte Esterase (NEGATIVE) Urine RBC (0-5) Urine WBC (0-5) Ur Squamous Epith Cells (NS,R,O) Urine Bacteria (NS) Urine Mucus (NS) SARS-CoV-2 RNA (NURY) (NEGATIVE) 11/09/20 11/09/20 Range/Units 22:30 22:45 WBC (3.2-10.1) x10-3/uL RBC (3.90-5.90) x10(6)uL Hgb (12.9-17.7) g/dL Hct (38.3-50.1) % MCV (80.8-98.7) fL MCH (27.0-33.3) pg MCHC (28.7-35.3) g/dL RDW (12.4-15.0) % Plt Count (117-477) x10(3)uL MPV (6.7-11.0) fL Add Manual Diff Neutrophils % (Manual) (46-82) % Band Neutrophils % (0-6) % Lymphocytes % (Manual) (13-37) % Monocytes % (Manual) (4-12) % PT (9.0-11.1) sec INR (1.00-1.24) APTT (24.4-33.2) SECONDS Sodium (135-145) mmol/L Potassium (3.5-5.3) mmol/L Chloride (100-110) mmol/L Carbon Dioxide (21-32) mmol/L BUN (7-18) mg/dL Creatinine (0.70-1.30) mg/dL Est Cr Clr Drug Dosing Estimated GFR (MDRD) (>60) BUN/Creatinine Ratio (9-20) Glucose (80-116) mg/dL Lactic Acid (0.4-2.0) mmol/L Calcium (8.6-10.2) mg/dL Total Bilirubin (0.1-1.3) mg/dL AST (5-25) IU/L ALT (12-36) U/L Alkaline Phosphatase (56-112) IU/L Troponin I (4.0-60.3) pg/mL Total Protein (6.0-8.0) g/dL Albumin (3.2-4.6) g/dL Globulin g/dL Albumin/Globulin Ratio Lipase (73-393) U/L Urine Color Yellow (YELLOW) Urine Appearance Cloudy (CLEAR) Urine pH 5.0 (5.0-6.5) Ur Specific [place] 1.005 L (1.010-1.025) Urine Protein Trace (NEGATIVE) mg/dL Urine Glucose (UA) Normal (NORMAL) mg/dL Urine Ketones 15 H (NEGATIVE) mg/dL Urine Occult Blood Large H (NEGATIVE) Urine Nitrite Negative (NEGATIVE) Urine Bilirubin Negative (NEGATIVE) Urine Urobilinogen Normal (NEGATIVE) mg/dL Ur Leukocyte Esterase Large H (NEGATIVE) Urine RBC >100 H (0-5) Urine WBC 10-20 H (0-5) Ur Squamous Epith Cells Few H (NS,R,O) Urine Bacteria Many H (NS) Urine Mucus Moderate H (NS) SARS-CoV-2 RNA (NURY) Negative (NEGATIVE) Meds: Medications Generic Name Dose Route Start Last Admin Trade Name Freq PRN Reason Stop Dose Admin Piperacillin Sod/Tazobactam 50 mls @ 100 mls/hr 11/09/20 23:00 11/09/20 23:33 Sod 2.25 gm/ Sodium Chloride IV 100 mls/hr Q6H BURT Administration Phytonadione 10 mg/ Sodium 51 mls @ 100 mls/hr 11/10/20 00:21 Chloride IV 11/10/20 00:51 NOW ONE Sodium Chloride 10 ml 11/09/20 21:47 Saline Flush FLUSH ASDIRECTED PRN Keep Vein Open Discontinued Medications Generic Name Dose Route Start Last Admin Trade Name Freq PRN Reason Stop Dose Admin Cefepime HCl 2 gm 11/09/20 23:27 11/09/20 23:41 Maxipime IVPUSH 11/09/20 23:28 2 gm ONETIME ONE Administration Sodium Chloride 1,000 mls @ 500 mls/hr 11/09/20 21:47 11/09/20 22:57 Normal Saline IV 11/09/20 23:46 999 mls/hr .BOLUS ONE Infusion Sodium Chloride 1,000 mls @ 999 mls/hr 11/09/20 22:57 11/09/20 23:54 Normal Saline IV 11/09/20 23:57 999 mls/hr .BOLUS ONE Administration Ondansetron HCl 4 mg 11/09/20 21:52 11/09/20 22:08 Zofran IVPUSH 11/09/20 21:53 4 mg ONETIME ONE Administration Pantoprazole Sodium 40 mg 11/09/20 21:52 11/09/20 22:10 Protonix Iv IVPUSH 11/09/20 21:53 40 mg ONETIME ONE Administration - Radiology Interpretation Free Text/Narrative:: CT Abd/Pelvis s/ contrast: IMPRESSION: 1. Gastric distention and proximal small bowel dilation consistent with a small- bowel obstruction secondary to incarcerated left indirect inguinal hernia. 2. Large left indirect inguinal hernia with small bowel and colon in the hernia sac. Associated small bowel obstruction. 3. Suprapubic catheter and [id number] right hydronephrosis although similar to the prior exam. 4. Centrilobular ground-glass nodularity within the right middle lobe. This is a bit nonspecific although most commonly seen in infections such as infectious bronchiolitis. Note that aspiration would be in the differential diagnosis. Dictated by Henry Stockton MD @ Nov 09 2020 11:54PM - Re-Assessments/Exams Free Text/Narrative Re-Assessment/Exam: 11/10/20 00:29 NG tube placed to LIS, 1500 ml foul smelling fluid collected. Dr. Bennett consulted, recommends [facility] transfer due to comorbidities. Dr. Abreu accepts patient for transfer to [facility], recommends Vitamin K 10mg IV. Also requests be informed that surgery will be high risk and that may result. understands risks and would like to proceed. Departure - Departure Time of Disposition: 00:38 Disposition: DC/Tfer to Acute Hospital 02 Condition: Critical Clinical Impression: Incarcerated inguinal hernia, Small bowel obstruction, IQRA (acute kidney injury), Warfarin-induced coagulopathy, Elevated troponin Sepsis Qualifiers: Sepsis type: sepsis due to unspecified organism Sepsis acute organ dysfunction status: with acute organ dysfunction Severe sepsis acute organ dysfunction type: acute renal failure Acute renal failure type: unspecified Severe sepsis shock status: without septic shock Qualified Code(s): A41.9 - Sepsis, unspecified organism; R65.20 - Severe sepsis without septic shock; N17.9 - Acute kidney failure, unspecified UTI (urinary tract infection) Qualifiers: Urinary tract infection type: catheter-associated UTI Indwelling urinary catheter type: cystostomy catheter Encounter type: initial encounter Qualified Code(s): T83.510A - Infection and inflammatory reaction due to cystostomy catheter, initial encounter; N39.0 - Urinary tract infection, site not specified - Discharge Information Referrals: Usman Hernandez MD [Primary Care Provider] - Forms: ED Department Discharge Sepsis Event Note (ED) - Focused Exam Vital Signs: Vital Signs Temp Pulse Resp BP Pulse Ox 11/09/20 21:31 36.4 C 87 20 102/59 L 95 - My Orders Last 24 Hours: My Active Orders 11/09/20 21:45 Blood Culture x2 Reflex Set [OM.PC] Urgent EKG 12 Lead [EK] Stat 11/09/20 21:46 EKG Documentation Completion [RC] ASDIRECTED 11/09/20 21:47 Sodium Chloride 0.9% [Saline Flush] 10 ml FLUSH ASDIRECTED PRN Saline Lock Insert [OM.PC] Routine 11/09/20 22:05 CULTURE BLOOD [BC] Urgent 11/09/20 22:15 CULTURE BLOOD [BC] Urgent 11/09/20 22:23 Urinary Catheter Assessment [RC] QSHIFT 11/09/20 22:30 Lincoln Catheter Insertion [Insert Urinary Catheter] [OM.PC] Q24H CULTURE URINE [RM] Stat 11/09/20 22:51 Abdomen Pelvis wo Cont [CT] Stat 11/09/20 23:00 Piperacillin/Tazobactam [Zosyn] 2.25 gm Sodium Chloride 0.9% [Normal Saline] 50 ml IV Q6H 11/09/20 23:47 NG [Nasogastric Orogastric Tube Insertion] [OM.PC] Stat 11/10/20 00:15 LACTIC ACID [CHEM] Routine TROPONIN I [CHEM] Routine 11/10/20 00:21 Phytonadione [AquaMephyton] 10 mg Sodium Chloride 0.9% [Normal Saline] 50 ml IV NOW - Assessment/Plan Last 24 Hours: My Active Orders 11/09/20 21:45 Blood Culture x2 Reflex Set [OM.PC] Urgent EKG 12 Lead [EK] Stat 11/09/20 21:46 EKG Documentation Completion [RC] ASDIRECTED 11/09/20 21:47 Sodium Chloride 0.9% [Saline Flush] 10 ml FLUSH ASDIRECTED PRN Saline Lock Insert [OM.PC] Routine 11/09/20 22:05 CULTURE BLOOD [BC] Urgent 11/09/20 22:15 CULTURE BLOOD [BC] Urgent 11/09/20 22:23 Urinary Catheter Assessment [RC] QSHIFT 11/09/20 22:30 [place] Catheter Insertion [Insert Urinary Catheter] [OM.PC] Q24H CULTURE URINE [RM] Stat 11/09/20 22:51 Abdomen Pelvis wo Cont [CT] Stat 11/09/20 23:00 Piperacillin/Tazobactam [Zosyn] 2.25 gm Sodium Chloride 0.9% [Normal Saline] 50 ml IV Q6H 11/09/20 23:47 NG [Nasogastric Orogastric Tube Insertion] [OM.PC] Stat 11/10/20 00:15 LACTIC ACID [CHEM] Routine TROPONIN I [CHEM] Routine 11/10/20 00:21 Phytonadione [AquaMephyton] 10 mg Sodium Chloride 0.9% [Normal Saline] 50 ml IV NOW
[2020-11-09] MEDS: Sodium Chloride 0.9% 1,000 ML IV ONE ×2 (22:00→23:54)
[2020-11-09] MEDS: Ondansetron 4 MG/2 ML SDV IVPUSH ONE (22:08)
[2020-11-09] MEDS: Pantoprazole 40 MG Vial IVPUSH ONE (22:10)
[2020-11-09] MEDS: Piperacillin/Tazobactam 2.25 GM in Sodium Chloride 0.9% 50 ML IV SCH (23:33)
[2020-11-09] MEDS: Cefepime 2 GM Vial IVPUSH ONE (23:41)
[2020-11-10] MEDS: Phytonadione 10 MG in Sodium Chloride 0.9% 50 ML IV ONE (00:28)
[2020-11-10] MEDS: Sodium Chloride 0.9% 10 ML Syringe FLUSH PRN (00:41)
[2020-11-10 03:25] VITALS: BP 125/103; PULSE 85
== END 2020-11-10 01:10 ==
LOC: FB.ED 21:31
DX: T83.510A Infection and inflammatory reaction due to cystostomy catheter, initial encounter (principal); N39.0 Urinary tract infection, site not specified; A41.9 Sepsis, unspecified organism; R65.20 Severe sepsis without septic shock; N17.9 Acute kidney failure, unspecified; K40.30 Unilateral inguinal hernia, with obstruction, without gangrene, not specified as recurrent; K56.609 Unspecified intestinal obstruction, unspecified as to partial versus complete obstruction; R79.89 Other specified abnormal findings of blood chemistry; D68.9 Coagulation defect, unspecified; I25.10 Atherosclerotic heart disease of native coronary artery without angina pectoris; E78.00 Pure hypercholesterolemia, unspecified; N40.1 Benign prostatic hyperplasia with lower urinary tract symptoms; N13.8 Other obstructive and reflux uropathy; R33.8 Other retention of urine; I10 Essential (primary) hypertension; I25.2 Old myocardial infarction; Z87.891 Personal history of nicotine dependence; Z79.01 Long term (current) use of anticoagulants; Z88.8 Allergy status to other drugs, medicaments and biological substances; Z79.82 Long term (current) use of aspirin; Z79.899 Other long term (current) drug therapy; Z20.822 Contact with and (suspected) exposure to COVID-19
CPT/HCPCS: 36415; 43752; 74176; 80053; 81001; 83605; 83690; 84484; 85025; 85610; 85730; 87040; 87077; 87086; 87088; 87186; 93005; 96365; 96367; 96375; 99285-25; C9113; J0692; J2405; J2543; J3430; J7030; U0002

== ENCOUNTER 2020-11-17 10:57 | Inpatient (IN) | payer MEDICARE, OTHER ==
[2020-11-17] MEDS ORDERED: Sodium Chloride 0.9% 10 ML Syringe FLUSH PRN ×2 (15:41)
[2020-11-17] MEDS ORDERED: Atropine/Diphenoxylate 0.025-2.5 MG Tab PO PRN (15:44)
[2020-11-17] MEDS: Acetaminophen 500 MG Tab PO SCH (16:03)
[2020-11-17] MEDS ORDERED: Polyethylene Glycol 3350 Powder 17 GM Packet PO PRN (17:34)
[2020-11-17] MEDS ORDERED: Nitroglycerin 0.4 MG Tab.SL SL PRN (17:34)
[2020-11-17] MEDS ORDERED: Fluticasone Propionate Nasal Spray 16 GM Bottle NASBOTH PRN (17:34)
[2020-11-17] MEDS ORDERED: Warfarin Sliding Scale PO SCH (17:45)
[2020-11-17] MEDS: Ferrous Sulfate 325 MG Tab PO SCH (19:21)
[2020-11-17] MEDS: atorvaSTATin 40 MG Tab PO SCH (20:23)
[2020-11-17] MEDS: Ciprofloxacin 500 MG Tab PO SCH (20:23)
[2020-11-17] MEDS: Metoprolol Tartrate 25 MG Tab PO SCH (21:19)
[2020-11-18] MEDS: Acetaminophen 500 MG Tab PO SCH ×3 (01:18→16:14)
[2020-11-18] MEDS: Pantoprazole 40 MG Tab.CR PO SCH (05:35)
[2020-11-18] MEDS: Aspirin 81 MG Tab.EC PO SCH (09:05)
[2020-11-18] MEDS: Ciprofloxacin 500 MG Tab PO SCH ×2 (09:05→20:52)
[2020-11-18] MEDS: Ferrous Sulfate 325 MG Tab PO SCH ×3 (09:07→18:35)
[2020-11-18] MEDS: Furosemide 40 MG Tab PO SCH (09:07)
--- OUTSIDE RECORDS SUMMARY | 2020-11-18 09:08 | XMSREPORT ---
:1940 Author Organization [facility] s Address [address] [place] [address] Care Team Providers Name Role Phone Mariah Diamond MD Primary Care Provider Aniket Hernandez MD Attributed Provider Reason for Referral (Routine) Status Reason Specialty Diagnoses / Procedures Referred By Tabitha vargas Referred To Contact [address] [address] Phone: Comprehensive [facility] (Routine) Status Reason Specialty Diagnoses / Referred By Referred To Procedures Contact Contact New Request General Surgery Diagnoses Non-recurrent unilateral inguinal hernia without obstruction or gangrene Lucian Overton, o [address] [place] [address] [place] [address] Phone: Fax: Scheduling Instructions This is an electronic referral. Reason for Visit Reason Comments Auth/Cert Status Reason Specialty Diagnoses / Procedures Referred By Tabitha vargas Referred To Contact Encounter Details Date Type Department Care Team Description [facility]2020 [facility] [address] [place] [address] [phone] Sepsis (HCC) 11/17/2020 CENTER 8[facility] MED SURG Lucian Overton MD [address] [place] [address] [phone] [facility] Tae Burk MD [address] [place] [address] [phone] [id number] [facility] Latoya Gonsalez MD [address] [place] [address] [phone] [place] [address] Allergies Active Allergy Reactions Severity Noted Date Comments Vioxx Headache 07/27/2012 documented as of this encounter (statuses as of 11/17/2020) Medications Medication Sig Dispensed Refills Start End Status Date Date warfarin (COUMADIN) TAKE DIRECTED 180 tablet 3 01/31/20 Active 5 mg (7.5-10MG DAILY 20 tabletIndications: DOSE RANGE) Osteoarthritis, generalized ASPIRIN 81 PO Take 81 mg by 0 08/06/20 Ac tive mouth 1 time per 20 day nitroglycerin Dissolve 1 30 tablet 0 08/20/20 Activ e (NITROSTAT) 0.4 mg tablet (0.4 mg) 20 021 sublingual under the tongue tabletIndications: Every 5 minutes Elevated troponin as needed for chest pain May repeat every 5 minutes for a total of 3 doses. atorvaSTATin Take 1 tablet 90 tablet 4 08/20/20 Act donovan (LIPITOR) 40 mg (40 mg) by mouth 20 021 tabletIndications: every night at Cerebrovascular bedtime accident (CVA), unspecified mechanism (HCC) omeprazole Take 1 capsule 90 capsule 0 08/20/20 Act donovan (PRILOSEC) 20 mg (20 mg) by mouth 20 capsuleIndications: 1 time a day in Gastrointestinal the morning hemorrhage, unspecified gastrointestinal hemorrhage type fluticasone Wilder 1 spray 9.9 mL 12 09/17/20 Acti ve (FLONASE) 50 into each 20 mcg/spray nasal nostril 2 times sprayIndications: a day Chronic allergic rhinitis ferrous gluconate Take 324 mg by 0 Active 324 (38 Fe) MG TABS mouth 3 times a day with meals furosemide (LASIX) Take 40 mg by 0 Active 40 mg tablet mouth 1 time per day diphenoxylate-atropi Take 2 tablets 0 Active ne (LOMOTIL) by mouth 4 times 2.5-0.025 mg tablet a day as needed for diarrhea polyethylene glycol Take 1 capful by 0 Active (MIRALAX) 17 mouth 1 time a GM/SCOOP powder day as needed for constipation Dissolve in 4 to 8 ounces of water, juice, soda, coffee, tea. ciprofloxacin Take 1 tablet 20 tablet 0 11/18/19 Ac tive (CIPRO) 500 mg (500 mg) by tabletIndications: mouth 2 times a Pseudomonas urinary day for 10 days tract infection metoprolol tartrate Take 1 tablet 180 tablet 4 11/18/1911/22 Active (LOPRESSOR) 25 mg (25 mg) by mouth tabletIndications: 2 times a day Essential hypertension acetaminophen Take 2 tablets 30 tablet 0 11/18/19 A ctive (TYLENOL) 500 mg (1,000 mg) by tabletIndications: mouth Every 8 Post-op pain hours furosemide (LASIX) Take 1 tablet 90 tablet 3 06/23/20 Discontinued 40 mg (40 mg) by mouth (Da ta entry tabletIndications: 2 times a day error) Edema, unspecified for 7 days, THEN type 1 tablet (40 mg) 1 time per day. metoprolol tartrate Take 50 mg by 0 08/05/20 Discontinued (LOPRESSOR) 100 mg mouth 2 times a (Stop Taking at tablet day Discharge) oxybutynin Take 5 mg by 0 Discon tinued (DITROPAN) 5 mg mouth 3 times a 021 (order entry administrator tablet day as needed error) for other (Specify) (for bladder spasm up to 30 doses) tamsulosin (FLOMAX) Take 0.8 mg by 0 11/11 Discontinued 0.4 mg capsule mouth every (Da ta entry night at bedtime err or) ferrous gluconate ONE PO TID WITH 90 tablet 3 10/18/1911/10 Discontinued 324 (38 Fe) MG EACH MEAL FOR ( order entry administrator TABSIndications: LOW BLOOD err or) Other iron HEMOGLOBIN deficiency anemia warfarin (COUMADIN) Take 1 tablet (5 90 tablet 0 11/18/1909/20 Discontinued 5 mg mg) by mouth 1 021 (Stop Taking at tabletIndications: time per day Discharge) [facility] current use of anticoagulant therapy warfarin (COUMADIN) Take 1 tablet (5 0 11/18/1909/20 Discontinued 5 mg mg) by mouth 1 021 (Stop Taking at tabletIndications: time per day Discharge) [facility] current use of anticoagulant therapy documented as of this encounter (statuses as of 11/17/2020) Active Problems Problem Noted Date Sepsis 11/10/2020 TIA (transient ischemic attack) 08/18/2020 Urinary retention due to benign prostatic hyperplasia 08/18/2020 Atonic bladder 07/02/2020 Other hydronephrosis 07/02/2020 Renal failure syndrome 05/05/2020 Acute urinary retention [...] Perforation of tympanic membrane 10/23/2007 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 006 Essential hypertension 06/28/2003 Cerebral artery occlusion with cerebral infarction documented as of this encounter (statuses as of 11/17/2020) Resolved Problems Problem Noted Date Resolved Date Age-related nuclear cataract of both eyes 08/29/2019 02/14/2020 Urinary retention 03/04/2015 09/04/2015 Carpal tunnel syndrome 05/21/2009 02/12/2015 Acute myocardial infarction 08/21/2015 documented as of this encounter (statuses as of 11/17/2020) Immunizations Name Administration Dates Next Due TD(adult)adsorbed 10/10/2018 TDAP 10/07/2020 documented as of this encounter Social History [...] or relatives? How often do you attend jain or More than 4 times per year 01/31/2020 advent services? Do you belong to any clubs or Not asked organizations such as jain groups, unions, fraternal or athletic groups, or school groups? How often do you attend meetings of the More than 4 times 01/31/2020 clubs or organizations you belong to? [...] Assigned at Date Recorded Not on file documented as of this encounter Last Filed Vital Signs Vital Sign Reading Time Taken Comments Blood Pressure 95/52 11/17/2020 12:00 PM [employer] Pulse 74 11/17/2020 12:27 PM [employer] Temperature 37 C (98.6 F) 11/17/2020 11:46 AM [employer]ER Respiratory Rate 18 11/17/2020 12:27 PM [employer] Oxygen Saturation 97% 11/17/2020 12:27 PM [employer] Inhaled Oxygen Concentration - - Weight 79.7 kg (175 lb 11.3 oz) 11/17/2020 5:58 AM [employer]IV[employer] Height 167.6 cm (5' 6") 11/10/2020 2:33 AM EN[employer]IV[employer]ER Body Mass Index 28.36 11/10/2020 2:33 AM ENER[employer]IV[employer] documented in this encounter Functional Status Functional Status Response Date of Assessment Is the person deaf or does he/she have serious difficulty No 05/09/2020 hearing? Is this person blind or does he/she have difficulty No 05/09/2020 seeing even when wearing glasses? Do you have difficulty with walking, balance, climbing Yes 08/19/2020 stairs, or had a fall in the [...] on filedocumented in this encounter Discharge Instructions InstructionsCatrina Sanon, PHARM D - 1Please take your lasix - water will daily to help lower your blood pressure. Take your Asprin 81mg daily and iron on a daily basis Warfarin Discharge Instructions: Warfarin dose HELD 11/17/20 in the hospital. Check INR tomorrow on 11/18/20 documented in this encounter Medications at Time of Discharge Medication Sig Dispensed Refills Start Date End Date metoprolol tartrate Take 1 tablet (25 180 tablet 4 1 11/22/2021 (LOPRESSOR) 25 mg mg) by mouth 2 times tabletIndications: a day Essential hypertension acetaminophen (TYLENOL) Take 2 tablets 30 tablet 0 11/18/19 21 500 mg (1,000 mg) by mouth tabletIndications: Every 8 hours Post-op pain diphenoxylate-atropine Take 2 tablets by 0 (LOMOTIL) 2.5-0.025 mg mouth 4 times a day tablet as needed for diarrhea polyethylene glycol Take 1 capful by 0 (MIRALAX) 17 GM/SCOOP mouth 1 time a day powder as needed for constipation Dissolve in 4 to 8 ounces of water, juice, soda, coffee, tea. furosemide (LASIX) 40 mg Take 40 mg by mouth 0 tablet 1 time per day fluticasone (FLONASE) 50 Wilder 1 spray into 9.9 mL 12 mcg/spray nasal each nostril 2 times sprayIndications: a day Chronic allergic rhinitis atorvaSTATin (LIPITOR) Take 1 tablet (40 90 tablet 4 201908/25/2021 40 mg tabletIndications: mg) by mouth every Cerebrovascular accident night at bedtime (CVA), unspecified mechanism (HCC) omeprazole (PRILOSEC) 20 Take 1 capsule (20 90 capsule 0 10/2019 mg capsuleIndications: mg) by mouth 1 time Gastrointestinal a day in the morning hemorrhage, unspecified gastrointestinal hemorrhage type ASPIRIN 81 PO Take 81 mg by mouth 0 08/06/2020 1 time per day warfarin (COUMADIN) 5 mg TAKE DIRECTED 180 tablet 3 01/30 tabletIndications: (7.5-10MG DAILY DOSE Osteoarthritis, RANGE) generalized ciprofloxacin (CIPRO) Take 1 tablet (500 20 tablet 0 202011/27/2020 500 mg mg) by mouth 2 times tabletIndications: a day for 10 days Pseudomonas urinary tract infection ferrous gluconate 324 Take 324 mg by mouth 0 (38 Fe) MG TABS 3 times a day with meals nitroglycerin Dissolve 1 tablet 30 tablet 0 08/20/202003/2021 (NITROSTAT) 0.4 mg (0.4 mg) under the sublingual tongue Every 5 tabletIndications: minutes as needed Elevated troponin for chest pain May repeat every 5 minutes for a total of 3 doses. documented as of this encounter Progress Notes Shay Laureano MD - 11/16/2020 8:13 AM CST Surgery Progress Note Patient: Ama Rojas Admit Date: 11/10/2020 Subjective: Hypotensive this morning Increase in troponins overnight Physical Exam: Temp: 98.1 F (36.7 C) BP: 93/60 Pulse: 89 O2 Device: Room Air O2 Flow Rate (L/min): 2 l/min Resp: 20 Pain Ratin (out of 10) Weight: 66.9 kg (147 lb 8 oz) SpO2: 93 % General: Awake, alert, in no acute distress. Cardiac: RRR Respiratory: Good effort, no distress, no accessory muscle use, no audible wheezes Abd: soft, Appropriately tender to palpation near incision, non-distended, no rebound/guarding Incision: C/D/I Extremities: Moves all extremities, no edema appreciated Intake/Output Summary (Last 24 hours) at 11/16/2020 0813 Last data filed at 11/16/2020 0600 Gross per 24 hour Intake 2159 ml Output 2000 ml Net 159 ml Labs: Lab Results Component Value Date WBC 16.5 (H) 11/16/2020 HEMOGLOBIN 8.3 (L) 11/16/2020 PLTCOUNT 232 11/16/2020 Lab Results Component Value Date CO2 21 11/15/2020 GLUCOSE 107 (H) 11/15/2020 BUN 12 11/15/2020 CREATSERUM 0.97 11/15/2020 CA 8.0 (L) 11/15/2020 PHOSPHORUS 2.0 (L) 11/14/2020 ALBUMIN 2.2 (L) 11/15/2020 NA 137 11/15/2020 POTASSIUM 3.3 (L) 11/15/2020 CL 108 11/15/2020 Lab Results Component Value Date ALKPHOS 104 11/15/2020 BILIDIRECT 0.3 11/15/2020 BILIINDIRECT 0.4 11/15/2020 BILITOTAL 0.7 11/15/2020 AST 28 11/15/2020 ALT 14 11/15/2020 Lab Results Component Value Date MAGNESIUM 1.7 (L) 11/14/2020 Imaging: No new images Assessment: Ama Rojas is a 80yr male who presented to [facility] on 11/10/2020 with supratherapeutic INR presenting with sepsis and left incarcerated inguinal hernia. S/P hernia repair, bowel resection, loop colostomy on 11/10. 11/16 leukocytosis persist but is resolving Abdominal CT negative for surgical cause. Hydronephrosis on CT also noted on older imaging, will address with Urology for recommendations. Will also address suprapubic catheter positioning with IR Vitals signs stable. Troponin trending down. PT and OT Recommend low intensity upon medical stability and discharge from acute care Plan: - PT/OT - Pain: Scheduled oral and IV PRN - Diet: reg - IVF: sliv - DVT: SCDs/warfarin Consults Cardiology: Recommends outpatient PET scan Medicine Infectious disease - Disposition: continue inpatient cares Anticipate discharge in next 24 hours. Shay Laureano MD General Surgery Resident Pager #[phone] [employer] Associated attestation - Latoya Gonsalez MD - 11/16/2020 10:55 AM CSTI have seen and discussed the patient on rounds with the resident. The plan, as outlined in the note, was developed in collaboration with the resident following review of the history, physical exam, radiographs and events since admission. I have examined the patient and agree with the residents assessment and plan. ' Say Childers MD - 11/16/2020 8:00 AM CST [facility] Daily Progress Note Chief Complaint: Patient admitted to the hospital on 11/10/2020 with complaints of abdominal pain. Was found to have incarcerated hernia and underwent resection with loop colostomy on November 10. Internal medicine was consulted on November 13 for an episode of dyspnea. Assessment/Plan: 1. Dyspnea: Suspected acute on chronic diastolic congestive heart failure. Holding Lasix at the moment. Currently stable on room air 2. ? Non-ST elevation CT, possibly type II : Currently stable on room air. Troponins and BNP werenoted to be elevated. Cardiology were consulted. Echo showed ejection fraction 60% and IVC could not be assessed. Cardiology recommended outpatient ischemic workup with PET scan when stable. 2. 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 Bowel obstruction status post incarcerated inguinal hernia repair and bowel resection with loop colostomy: Management per surgery team 4. Leukocytosis: Patient noted having a sudden jump in his WBC count. Patient is currently being treated for pseudomonal urinary tract infection. Infectious disease on board. Blood pressure is noted to be borderline. Vancomycin added due to concern for sepsis. Blood cultures negative so far. CTabdomen and pelvis was obtained which showed right hydroureteronephrosis with possible right pyelonephritis. Recommend urology consult 5. Pseudomonal urinary tract infection: Currently on IV Zosyn. Concern for rt pyelonephritis. 6. Benign essential hypertension: 7. Acute on chronic anemia: Continue to monitor hemoglobin 8. Rt hydronephrosis: Recommend urology consult. Disposition: Awaiting improvement in his status DVT prophylaxis: On warfarin Tobacco abuse: Social History Tobacco Use Smoking Status Former Smoker Packs/day: 1.00 Years: 20.00 Pack years: 20.00 Types: Cigarettes Start date: 09/19/1956 Quit date: 09/19/1979 Years since quittin.1 Smokeless Tobacco Never Used Patient chart, labs, medications reviewed. Subjective: No acute events reported overnight. Denies any dyspnea at the moment. ROS: Patient denies any headache, dizziness, nausea, vomiting, chest pain, dyspnea. Objective: Vital signs in last 24 hours: Vitals: 11/15/20 2036 11/15/20 2050 11/15/20 2358 11/16/20 0721 BP: 114/52 95/87 93/60 Pulse: 102 93 89 Resp: 20 20 20 Temp: 97.8 F (36.6 C) 98.1 F (36.7 C) SpO2: 95% 96% 93% Weight: Height: Weight change: Vitals Min/Max Last 24 Hours Vital Signs Min/Max (last 24 hours) Flowsheet Row Name Min Max Temp 97.6 F (36.4 C) 98.1 F (36.7 C) BP: Systolic 83 125 BP: Diastolic 50 87 Pulse 73 106 Resp 16 20 SpO2 93 % 98 % MAP (mm Hg) 69 mm Hg 69 mm Hg Intake and Output Last 24 Hours 11/15 0700 - 11/16 0659 In: 2159 Out: 1999 Physical Exam: General Appearance: Alert, not in distress Mental Status: Oriented 3 Chest: Clear bilaterally, no wheezing or crackles Heart: Regular rate and rhythm, normal S1-S2 Abdomen: Soft, good bowel sounds, ostomy present Neurological: normal speech, no gross sensory or motor deficits noted Extremities: No pedal edema, no tenderness MD Say Webb MD Note was transcribed using Dragon voice to text recognition. Inadvertent word substitution and spelling errors may occur. Please page M.D. for any clarification. need, Spring Bender MD - 11/15/2020 1:29 PM CST Cardiology Progress Note Ama Rojas is a 80yr old male admitted on 11/10/2020. Assessment / Plan 1. Acute on chronic diastolic HF, clinically improved 2. Acute hypoxic respiratory failure in post operative setting, now resolved 3. Elevated troponin, most likely NSTEMI type II in the setting of above 4. CVA with known PFO with no documented history of atrial fibrillation on chronic anticoagulation 5. ? History of CAD with self reported angiogram over 20 years ago 6. HTN 7. HLD 8. History of GIB 80 year old male admitted for abdominal pain found to have SBO/incarcerated bowel now s/p loop colostomy 11/10/20. Cardiology consulted for persistent troponin elevation in the setting of dyspnea. Troponin has peaked and is flat, patient continues to deny chest pain. Telemetry reviewed, SVT may be secondary to possible infection/inflammation related to leukocytosis. Given ECHO relatively unchanged and symptoms primarily dyspnea which have now resolved, would recommend outpatient ischemic workup with PET stress to be ordered on discharge. Patient and request that, if able, this be schedule during one of their other appointments in [place] as they do not live in town. Patient seen and discussed with Dr. Palmer. Cardiology will sign off at this time. HPI / History / ROS HPI Overnight patient had short run of SVT, reports no symptoms with this. Continues to deny any chest pain. No fevers or chills. He reports he feels that his dyspnea has resolved and he is at/near baseline from respiratory standpoint. Review of Systems Constitutional: Positive for fatigue. Negative for chills and fever. Respiratory: Negative for cough and shortness of breath. Cardiovascular: Negative for chest pain, palpitations and leg swelling. Gastrointestinal: Positive for abdominal pain. Genitourinary: Negative for difficulty urinating. Skin: Negative for rash. Neurological: Negative for headaches. Psychiatric/Behavioral: Negative for confusion. Physical / Results Current Vital Signs Temp: 97.8 F (36.6 C) BP: 107/56 Weight: 66.9 kg (147 lb 8 oz) SpO2: 98 % Resp: 18 Pulse: 87 Current BMI (>50 = increased risk): 24.67 O2 Device: Room Air O2 Flow Rate (L/min): 2 l/min Pain Ratin Physical Exam Constitutional: General: He is not in acute distress. Comments: Frail HENT: Head: Normocephalic and atraumatic. Eyes: Extraocular Movements: Extraocular movements intact. Pupils: Pupils are equal, round, and reactive to light. Cardiovascular: Rate and Rhythm: Normal rate and regular rhythm. Pulses: Normal pulses. Heart sounds: Normal heart sounds. Pulmonary: Effort: Pulmonary effort is normal. Breath sounds: Normal breath sounds. Abdominal: General: Abdomen is flat. Tenderness: There is abdominal tenderness. Musculoskeletal: Normal range of motion. General: No swelling. Skin: General: Skin is warm and dry. Coloration: Skin is pale. Neurological: General: No focal deficit present. Mental Status: He is alert. Psychiatric: Mood and Affect: Mood normal. Behavior: Behavior normal. Karen Goss MD PGY-3 Internal Medicine [facility] [employer] Pager: [phone] [employer] Associated attestation - Jessica Palmer MD - 11/15/2020 6:10 PM [employer]ER[employer]IVATIVES [employer]ADER I discussed the patient with the resident and personally interviewed and examined the patient. I verified in the medical record all resident documentation/findings, including history, physical exam, and medical decision making, and I agree with the resident's documentation.Bubba Ann, PHARM D - 11/15/2020 9:37 AM CST Vancomycin Initial Consult Note Mr. Rojas was admitted on 11/10/2020 and today has been initiated on Vancomycin per pharmacy protocol for sepsis. Labs: No results found for: KIRILL WBC Date/Time Value Ref Range Status 11/15/2020 07:57 AM 22.5 (H) 4.0 - 11.0 K/uL Final 07/28/2020 01:32 PM 15.6 (H) 4.0 - 11.0 K/uL Final 03/18/2015 09:21 AM 5.9 4.0 - 11.0 K/uL Final Lab Results Component Value Date CREATSERUM 0.97 11/15/2020 Max Temperature: Temp (24hrs), Av.3 F (36.8 C), Min:97.9 F (36.6 C), Max:98.9 F (37.2 C) Estimated CrCl: Estimated Creatinine Clearance: 53.9 mL/min (based on SCr of 0.97 mg/dL). ml/min Intake/Output: Intake/Output Summary (Last 24 hours) at 11/15/2020 0938 Last data filed at 11/15/2020 0600 Gross per 24 hour Intake 1342 ml Output 1750 ml Net -408 ml Other Active Antimicrobial Agents: Plan: We have initiated intravenous Vancomycin therapy at a dose of 1gm every 12 hours. The goal trough range will be 10-20mcg/ml. Pharmacy will monitor and if indicated, adjust dose and/or frequency per the Pharmacy and Therapeutics Committee approved pharmacokinetic service policy. Thank you very much for the consult. We will continue to follow along with you. Bubba Ann, PHARM D [employer] Shay Laureano MD - 11/15/2020 8:03 AM CST Surgery Progress Note Patient: Ama Rojas Admit Date: 11/10/2020 Subjective: Hypotensive this morning Increase in troponins overnight Physical Exam: Temp: 98.1 F (36.7 C) BP: 74/44 Pulse: 78 O2 Device: Room Air O2 Flow Rate (L/min): 2 l/min Resp: 17 Pain Ratin (out of 10) Weight: 66.9 kg (147 lb 8 oz) SpO2: 94 % General: Awake, alert, in no acute distress. Cardiac: RRR Respiratory: Good effort, no distress, no accessory muscle use, no audible wheezes Abd: soft, Appropriately tender to palpation near incision, non-distended, no rebound/guarding Incision: C/D/I Extremities: Moves all extremities, no edema appreciated Intake/Output Summary (Last 24 hours) at 11/15/2020 0803 Last data filed at 11/15/2020 0600 Gross per 24 hour Intake 1342 ml Output 1750 ml Net -408 ml Labs: Lab Results Component Value Date WBC 27.3 (H) 11/14/2020 HEMOGLOBIN 9.4 (L) 11/14/2020 PLTCOUNT 234 11/14/2020 Lab Results Component Value Date CO2 21 11/15/2020 GLUCOSE 107 (H) 11/15/2020 BUN 12 11/15/2020 CREATSERUM 0.97 11/15/2020 CA 8.0 (L) 11/15/2020 PHOSPHORUS 2.0 (L) 11/14/2020 ALBUMIN 2.1 (L) 11/15/2020 NA 137 11/15/2020 POTASSIUM 3.3 (L) 11/15/2020 CL 108 11/15/2020 Lab Results Component Value Date ALKPHOS 79 11/15/2020 BILIDIRECT 0.3 05/06/2020 BILIINDIRECT 0.1 05/06/2020 BILITOTAL 0.5 11/15/2020 AST 20 11/15/2020 ALT 12 11/15/2020 Lab Results Component Value Date MAGNESIUM 1.7 (L) 11/14/2020 Imaging: No new images Assessment: Ama Rojas is a 80yr male who presented to [facility] on 11/10/2020 with supratherapeutic INR presenting with sepsis and left incarcerated inguinal hernia. S/P hernia repair, bowel resection, loop colostomy on 11/10. 11/15 On rounds patient is awake and oriented to person and time and place. Pain is well controlled, Ostomy is viable, positive for output. Tolerating general diet. Paged after round that patient is hypotensive 74/44. Will hold morning lasix and bolus 1500ml of LR, and perform Q15 min vital checks. Tropinins continured to trend up overnight as well will perform EKG and talk to cardiology again this morning. Plan: - Hold am lasix - Bolus 500mL LR - Repeat EKG - Continue to Trend troponins - Pain: Scheduled oral and IV PRN - Diet: reg - IVF: sliv - DVT: SCDs/warfarin - Disposition: continue inpatient cares Shay Laureano MD General Surgery Resident Pager #[phone] [employer] Associated attestation - Latoya Gonsalez MD - 11/15/2020 11:00 AM CSTI have seen and discussed the patient on rounds with the resident. The plan, as outlined in the note, was developed in collaboration with the resident following review of the history, physical exam, radiographs and events since admission. I have examined the patient and agree with the residents assessment and plan. Had an episode of hypotension last night. Troponin slightly bumped up. Now vitals are stable. Continues with leukocytosis. Will obtain CT to rule out surgical cause.Say Childers MD - 11/15/2020 7:01 AM CST [facility] Daily Progress Note Chief Complaint: Patient admitted to the hospital on 11/10/2020 with complaints of abdominal pain. Was found to have incarcerated hernia and underwent resection with loop colostomy on November 10. Internal medicine was consulted on November 13 for an episode of dyspnea. Assessment/Plan: 1. Dyspnea: Suspected acute on chronic diastolic congestive heart failure. Holding home Lasix at the moment. Currently stable on room air 2. ? Non-ST elevation CT, possibly type II : Currently stable on room air. However troponin appears to be slightly elevated and so his BNP. Cardiology were consulted. Echo showed ejection [id number]% and IBC could not be assessed. Troponin slightly increased today. We will discuss with cardiology about ischemic workup 2. 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 Bowel obstruction status post incarcerated inguinal hernia repair and bowel resection with loop colostomy: Management per surgery team 4. Leukocytosis: Patient noted having a sudden jump in his WBC count. Patient is currently being treated for pseudomonal urinary tract infection. Infectious disease on board. Blood cultures obtained. BP borderline. Will add vancomycin due to concern for sepsis 5. Pseudomonal urinary tract infection: Currently on IV Zosyn. Concern for rt pyelonephritis. 6. Benign essential hypertension: 7. Acute on chronic anemia: Continue to monitor hemoglobin 8. Rt hydronephrosis: Recommend urology consult. Disposition: Awaiting improvement in his status DVT prophylaxis: On warfarin Tobacco abuse: Social History Tobacco Use Smoking Status Former Smoker Packs/day: 1.00 Years: 20.00 Pack years: 20.00 Types: Cigarettes Start date: 09/19/1956 Quit date: 09/19/1979 Years since quittin.1 Smokeless Tobacco Never Used Patient chart, labs, medications reviewed. Subjective: No acute events reported overnight. Denies any dyspnea at the moment. ROS: Patient denies any headache, dizziness, nausea, vomiting, chest pain, dyspnea. Objective: Vital signs in last 24 hours: Vitals: 11/14/20 2117 11/14/20 2121 11/15/20 0001 11/15/20 0126 BP: 116/47 116/47 87/49 90/52 Pulse: 65 76 101 94 Resp: 24 16 Temp: 98.3 F (36.8 C) 98.9 F (37.2 C) 98.9 F (37.2 C) SpO2: 94% 94% 96% Weight: Height: Weight change: Vitals Min/Max Last 24 Hours Vital Signs Min/Max (last 24 hours) Flowsheet Row Name Min Max Temp 97.9 F (36.6 C) 98.9 F (37.2 C) BP: Systolic 87 123 BP: Diastolic 47 105 Pulse 53 101 Resp 16 24 SpO2 91 % 98 % MAP (mm Hg) 66 mm Hg 111 mm Hg Intake and Output Last 24 Hours 11/14 0700 - 11/15 0659 In: 1342 Out: 1750 Physical Exam: General Appearance: Alert, not in distress Mental Status: Oriented 3 Chest: Clear bilaterally, no wheezing or crackles Heart: Regular rate and rhythm, normal S1-S2 Abdomen: Soft, good bowel sounds, ostomy present Neurological: normal speech, no gross sensory or motor deficits noted Extremities: No pedal edema, no tenderness MD Say Webb MD Note was transcribed using Klinqon voice to text recognition. Inadvertent word substitution and spelling errors may occur. Please page M.D. for any clarification. Yenni Archer MD - 11/14/2020 1:07 PM CST [facility] INFECTIOUS DISEASE PROGRESS NOTE Impression Leukocytosis Pseudomonas suprapubic catheter associated bacteriuria in a patient with bladder atonia/urinary retention Raoultella in sputum- likely not significant. Usually opportunistic pathogen for immunosuppressed patients, doubt pneumonia likely CHF. S/p incarcerated hernia repair Plan Will keep zosyn for now- clinically he is feeling better. Consider CT abd/pelvis to evaluate the leukocytosis Interval History Ama Rojas is seen in f/u for the ID service follow up for pseudomonas uti. ID called back for bump in WBC. He feels better today compared to yesterday. He does have abdominal pains LLQ where ostomy is. Rest of ROS as above otherwise (-) Antibiotics Antibiotics: Antibiotics (From admission, onward) Start Stop Route Frequency Ordered 11/13/20 1200 piperacillin-tazobactam (ZOSYN) IV premix in D-2% 4,500 mg -- IV Every eight hours 11/13/20 1107 11/12/20 0400 cefTRIAXone (ROCEPHIN) 2000 mg/20 mL IV syringe in sterile water (Initial therapy (Preferred): cefTRIAXone (ROCEPHIN) and metroNIDAZOLE (FLAGYL) IV) Status: Discontinued 11/13 1107 IV Every twenty four hours 11/11/20 0912 11/11/20 1200 metroNIDAZOLE (FLAGYL) IV piggyback in sodium chloride 0.79% (premix) 500 mg (Initial therapy (Preferred): cefTRIAXone (ROCEPHIN) and metroNIDAZOLE (FLAGYL) IV) Status: Discontinued 11/13 0528 IV Every eight hours 11/11/20 0912 11/10/20 0400 cefTRIAXone (ROCEPHIN) 2000 mg/20 mL IV syringe in sterile water (Initial therapy (Preferred): cefTRIAXone (ROCEPHIN) and metroNIDAZOLE (FLAGYL) IV) Status: Discontinued 11/11 0912 IV Every twenty four hours 11/10/20 0305 11/10/20 0400 metroNIDAZOLE (FLAGYL) IV piggyback in sodium chloride 0.79% (premix) 500 mg (Initial therapy (Preferred): cefTRIAXone (ROCEPHIN) and metroNIDAZOLE (FLAGYL) IV) Status: Discontinued 11/11 0912 IV Every eight hours 11/10/20 0305 Physical Exam Current Vital Signs Temp: 97.9 F (36.6 C) BP: 120/68 Pulse: 101 O2 Device: Room Air O2 Flow Rate (L/min): 2 l/min Resp: 20 Pain Ratin (out of 10) Weight: 66.9 kg (147 lb 8 oz) SpO2: 95 % Maximum Temperatures (last 24 hours) Temperature Maximum Max Temp 98.6 F (37 C) GENERAL: Alert and oriented SKIN: No new rashes or lesions HEENT: OP clear, no exudates, no mucositis. Conjunctiva and sclera are normal CHEST: Clear to auscultation CV: RRR without murmur or gallop ABD: Soft and + ostomy MS: No synovitis in any joints. No peripheral edema. NEURO: Moves all extremeties well. PSYCH: Insight and judgement normal Labs and Imaging reviewed Lab Results Component Value Date WBC 27.3 (H) 11/14/2020 NUCRBC 0 11/14/2020 RBC 3.47 (L) 11/14/2020 HEMOGLOBIN 9.4 (L) 11/14/2020 HEMATOCRIT 29.2 (L) 11/14/2020 MCV 84.1 11/14/2020 MCH 27.1 11/14/2020 MCHC 32.2 11/14/2020 PLTCOUNT 234 11/14/2020 NEUTROPCT 88.5 11/14/2020 LYMPHSPCT 4.6 11/14/2020 MONOSPCT 4.0 11/14/2020 EOSPCT 0.3 11/14/2020 BASOPHILPCT 0.4 11/14/2020 Lab Results Component Value Date ALBUMIN 2.4 (L) 11/14/2020 BILITOTAL 0.6 11/14/2020 CA 8.3 (L) 11/14/2020 CL 108 11/14/2020 CREATSERUM 0.83 11/14/2020 GLUCOSE 119 (H) 11/14/2020 ALKPHOS 67 11/14/2020 POTASSIUM 3.6 11/14/2020 NA 136 11/14/2020 AST 18 11/14/2020 BUN 10 11/14/2020 PROTEINTOTAL 6.1 11/14/2020 CO2 23 11/14/2020 ALT 13 11/14/2020 No results found for: ESR Lab Results Component Value Date CRP 184.8 (H) 05/06/2020 Results for orders placed or performed during the hospital encounter of 11/10/20 (from the past 336 hour(s)) 1. EKG Result Value Ref Range EKG WAVEFORM Sinus rhythm with Premature supraventricular complexes and with occasional Premature ventricular complexes Anterolateral infarct (cited on or before 12-MAY-2020) T wave abnormality, consider inferior ischemia Prolonged QT interval or tu fusion, consider myocardial disease, electrolyte imbalance, or drug effects Abnormal ECG When compared with ECG of 18-AUG-2020 22:05, Significant changes have occurred Ventricular Rate: 81 BPM Atrial Rate: 81 BPM P-R Interval: 132 ms QRS Duration: 90 ms Q-T Interval: 614 ms QTc Calculation(Bazett): 713 ms Calculated P [place]: 31 degrees Calculated R [place]: -9 degrees Calculated T [place]: 84 degrees 2. XRAY CHEST PORTABLE - Narrative Patient Name: AMA ROJAS Date of : 1940 Procedure: XRAY CHEST PORTABLE Date of Service: 11/10/2020 EXAM: XRAY CHEST PORTABLE INDICATION: Male, 80 years year old patient, Hypoxia COMPARISON(S): 08/18/2020 TECHNIQUE: AP portable view FINDINGS: Support devices: Distal tip of enteric tube terminates within the stomach. Lungs: The lungs are expanded. The lungs are clear. Pleura: There is no visible pneumothorax on either side. Both costophrenic angles are sharp. There is stable elevation of the right diaphragm. Heart, Mediastinum and Vessels: Normal heart size. Normal mediastinum. There is no pulmonary edema. There is atherosclerotic tortuosity of the thoracic aorta. Bones: There are degenerative changes of visualized thoracic spine. There is degenerative osteoarthritis of the bilateral shoulders. IMPRESSION: Enteric tube terminates within the stomach. Lungs are clear. Finalized by: Ab Arndt MD on 11/10/2020 5:35 AM [employer]ATIV[employer]ER Patient/Procedure Information: [facility] MRN/JEZ: [id number] Order Number: [id number] Accession Number: [id number] Ordering Provider: CATHY CARTER Authorizing Provider: CATHY CARTER 3. XRAY CHEST PORTABLE - Narrative Patient Name: AMA ROJAS Date of : 1940 Procedure: XRAY CHEST PORTABLE Date of Service: 11/11/2020 EXAM: XRAY CHEST PORTABLE INDICATION: Male, 80 years year old patient, Intubated COMPARISON(S): 11/10/2020 TECHNIQUE: AP portable view FINDINGS: Support devices: Distal tip of enteric tube terminates within the stomach. Distal tip of endotracheal tube terminates 32 mm above the neeraj. Lungs: Lung volume is slightly low. The lungs are clear. Pleura: There is no visible pneumothorax on either side. Both costophrenic angles are sharp. There is stable elevation of the right diaphragm. Heart, Mediastinum and Vessels: Normal heart size. Normal mediastinum. There is no pulmonary edema. There is atherosclerotic tortuosity of the thoracic aorta. Upper abdomen: There is minimal intraperitoneal free air. IMPRESSION: Low lung volume. Minimal intraperitoneal free air is secondary to recent abdominal surgery. Finalized by: Ab Arndt MD on 11/11/2020 7:25 AM EN[employer] D[employer]IVATIVES TRADER Patient/Procedure Information: [facility] MRN/JEZ: [id number] Order Number: [id number] Accession Number: [id number] Ordering Provider: ALISSA BALL Authorizing Provider: TAE Keller. XRAY CHEST PORTABLE - Narrative Patient Name: AMA ROJAS Date of : 1940 Procedure: XRAY CHEST PORTABLE Date of Service: 11/11/2020 EXAM: XRAY CHEST PORTABLE INDICATION: NG placement COMPARISON(S): 11/11/2020 at 0506 hours FINDINGS: Lungs:Clear. Heart: Cardiomegaly. Pleura: No effusion or pneumothorax. Mediastinum/roger: Normal in size and contour. Vascular: Mild vascular congestion.. Osseous: Normal. Soft tissue: Unremarkable. Other: Nasogastric tube tip terminates within the stomach, side port resides within the distal esophagus. It may be advanced by at least 6 cm to optimize its position.. IMPRESSION: 1. Cardiac megaly and pulmonary vascular congestion without edema. 2. No focal infiltrate. 3. Nasogastric tube appears to have been pulled back some. It should be advanced to optimize its position. Finalized by: Dyllan aTylor MD on 11/11/2020 9:56 PM [employer]IV[employer]ER Patient/Procedure Information: [facility] MRN/JEZ: [id number] Order Number: [id number] Accession Number: [id number] Ordering Provider: TAE BURK Authorizing Provider: TAE BURK 5. XRAY CHEST PORTABLE - Narrative Patient Name: AMA ORJAS Date of : 1940 Procedure: XRAY CHEST PORTABLE Date of Service: 11/13/2020 EXAM: XRAY CHEST PORTABLE INDICATION: wheezing COMPARISON(S): 11/11/2020. FINDINGS/IMPRESSION: There has been interval removal of the enteric tube. There is bronchial cuffing and hilar and suprahilar prominent interstitial markings. This is nonspecific, but can be seen in viral infection, reactive airways, and pulmonary vascular congestion. No focal consolidation. No significant pleural effusion or pneumothorax. Stable cardiomegaly. No acute osseous or soft tissue abnormality. Finalized by: Dyllan Lewis MD on 11/13/2020 10:15 AM [employer] D[employer]IV[employer]IVES TRADER Patient/Procedure Information: [facility] MRN/JEZ: [id number] Order Number: [id number] Accession Number: [id number] Ordering Provider: SHAY LAUREANO Authorizing Provider: LATOYA GONSALEZ 6. EKG Result Value Ref Range EKG WAVEFORM Sinus rhythm with Premature atrial complexes Lateral infarct (cited on or before 12-MAY-2020) Abnormal ECG When compared with ECG of 10-NOV-2020 03:23, Premature ventricular complexes are no longer Present ST no longer depressed in Inferior leads T wave inversion no longer evident in Inferior leads Nonspecific T wave abnormality no longer evident in Anterior leads QT has shortened Ventricular Rate: 99 BPM Atrial Rate: 99 BPM P-R Interval: 148 ms QRS Duration: 90 ms Q-T Interval: 340 ms QTc Calculation(Bazett): 436 ms Calculated P [place]: 23 degrees Calculated R [place]: -19 degrees Calculated T [place]: 37 degrees Medical Decision Making I have reviewed all the new labs, x-rays, and provider notes from the last 24 hours. Say Ritchie MD - 11/14/2020 12:24 PM CST [facility] Hospitalist Daily Progress Note Chief Complaint: Patient admitted to the hospital on 11/10/2020 with complaints of abdominal pain. Was found to have incarcerated hernia and underwent resection with loop colostomy on November 10. Internal medicine was consulted on November 13 for an episode of dyspnea. Assessment/Plan: 1. Dyspnea: Reported from yesterday. Seems to have improved. Concern for acute on chronic diastolic congestive heart failure. Improved with Lasix. No history of coronary artery disease as per his report. Currently stable on room air. However troponin appears to be slightly elevated and so his BNP. We'll repeat echo. Given the persistently elevated troponin, we will consult cardiology for an opinion. 2. 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 Bowel obstruction status post incarcerated inguinal hernia repair and bowel resection with loop colostomy: Management per surgery team 4. Leukocytosis: Patient noted having a sudden jump in his WBC count. Patient is currently being treated for pseudomonal urinary tract infection. Infectious disease on board. Primary team obtainingblood cultures. 5. Pseudomonal urinary tract infection: Currently on IV Zosyn 6. Benign essential hypertension: 7. Acute on chronic anemia: Hemoglobin appears to be closer to baseline Disposition: DVT prophylaxis: On warfarin Tobacco abuse: Social History Tobacco Use Smoking Status Former Smoker Packs/day: 1.00 Years: 20.00 Pack years: 20.00 Types: Cigarettes Start date: 09/19/1956 Quit date: 09/19/1979 Years since quittin.1 Smokeless Tobacco Never Used Patient chart, x-rays, EKG, labs, medications reviewed. Subjective: No acute events reported overnight. Denies any dyspnea at the moment. ROS: Patient denies any chest pain, dyspnea, abdominal pain, nausea, vomiting, headache or dizziness. Objective: Vital signs in last 24 hours: Vitals: 11/14/20 0757 11/14/20 0909 11/14/20 0914 11/14/20 1047 BP: 115/63 115/63 120/68 Pulse: 85 99 94 101 Resp: Temp: 98.4 F (36.9 C) 97.9 F (36.6 C) SpO2: 92% 92% 95% Weight: Height: Weight change: Vitals Min/Max Last 24 Hours Vital Signs Min/Max (last 24 hours) Flowsheet Row Name Min Max Temp 97.9 F (36.6 C) 98.6 F (37 C) BP: Systolic 109 125 BP: Diastolic 52 68 Pulse 60 101 Resp 16 22 SpO2 91 % 98 % Intake and Output Last 24 Hours 11/13 0700 - 11/14 0659 In: 798 Out: 2725 Physical Exam: General Appearance: alert, well appearing, and in no distress Mental Status: oriented to person, place, and time Chest: Decreased but clear breath sounds bilaterally, no wheezing or crackles Heart: normal rate, regular rhythm, normal S1, S2, no murmur Abdomen: soft, bowel sounds heard, ostomy present Neurological: normal speech, no gross sensory or motor deficits noted Extremities: No pedal edema, no tenderness MD Say Webb MD Note was transcribed using Klinqon voice to text recognition. Inadvertent word substitution and spelling errors may occur. Please page M.D. for any clarification. Shay Hare MD - 11/14/2020 12:14 PM CST Surgery Progress Note Patient: Ama Rojas Admit Date: 11/10/2020 Subjective: Extubated yesterday, no acute events overnight. A&O x 3 Physical Exam: Temp: 97.9 F (36.6 C) BP: 120/68 Pulse: 101 O2 Device: Room Air O2 Flow Rate (L/min): 2 l/min Resp: 20 Pain Ratin (out of 10) Weight: 66.9 kg (147 lb 8 oz) SpO2: 95 % General: Awake, alert, in no acute distress. Cardiac: RRR Respiratory: Good effort, no distress, no accessory muscle use, no audible wheezes Abd: soft, Appropriately tender to palpation near incision, non-distended, no rebound/guarding Incision: C/D/I Extremities: Moves all extremities, no edema appreciated Intake/Output Summary (Last 24 hours) at 11/14/2020 1214 Last data filed at 11/14/2020 0400 Gross per 24 hour Intake 618 ml Output 2225 ml Net -1607 ml Labs: Lab Results Component Value Date WBC 27.3 (H) 11/14/2020 HEMOGLOBIN 9.4 (L) 11/14/2020 PLTCOUNT 234 11/14/2020 Lab Results Component Value Date CO2 23 11/14/2020 GLUCOSE 119 (H) 11/14/2020 BUN 10 11/14/2020 CREATSERUM 0.83 11/14/2020 CA 8.3 (L) 11/14/2020 PHOSPHORUS 2.0 (L) 11/14/2020 ALBUMIN 2.4 (L) 11/14/2020 NA 136 11/14/2020 POTASSIUM 3.6 11/14/2020 CL 108 11/14/2020 Lab Results Component Value Date ALKPHOS 67 11/14/2020 BILIDIRECT 0.3 05/06/2020 BILIINDIRECT 0.1 05/06/2020 BILITOTAL 0.6 11/14/2020 AST 18 11/14/2020 ALT 13 11/14/2020 Lab Results Component Value Date MAGNESIUM 1.7 (L) 11/14/2020 Imaging: No new images Assessment: Ama Rojas is a 80yr male who presented to [facility] on 11/10/2020 with supratherapeutic INR presenting with sepsis and left incarcerated inguinal hernia. S/P hernia repair, bowel resection, loop colostomy on 11/10. 11/14 Patient is awake and oriented to person and time and place. Pain is well controlled, Ostomy is viable, positive for output. Tolerating general diet. Had elevation in WBC count to 27 this morning and saw troponin elevation from 4 days prior. Plan: -CXR - Blood cultures x2 peripheral - EKG - Trend troponins - Pain: Scheduled oral and IV PRN - Diet: reg - IVF: sliv - DVT: SCDs/warfarin - Disposition: continue inpatient cares Shay Laureano MD General Surgery Resident Pager #[phone] [employer] Associated attestation - Latoya Gonsalez MD - 11/15/2020 10:58 AM CSTI have seen and discussed the patient on rounds with the resident. The plan, as outlined in the note, was developed in collaboration with the resident following review of the history, physical exam, radiographs and events since admission. I have examined the patient and agree with the residents assessment and plan. Doing well. Working on disposition.Shay Laureano MD - 11/13/2020 7:40 AM [employer]ER[employer] D[employer]IVATIVES TRADER Surgery Progress Note Patient: Ama Rojas Admit Date: 11/10/2020 Subjective: No acute events Tolerated CLD Pos for ostomy output A&O x 2 Physical Exam: Temp: 97.7 F (36.5 C) BP: 103/61 Pulse: 63 O2 Device: Room Air O2 Flow Rate (L/min): 2 l/min Resp: 16 Pain Ratin (out of 10) Weight: 71.4 kg (157 lb 6.5 oz) SpO2: 98 % General: Awake, alert, in no acute distress. Cardiac: RRR Respiratory: Good effort, no distress, no accessory muscle use, wheezing on auscultation Abd: soft, Appropriately tender to palpation near incision, non-distended, no rebound/guarding Incision: C/D/I Extremities: Moves all extremities, no edema appreciated Intake/Output Summary (Last 24 hours) at 11/13/2020 0740 Last data filed at 11/13/2020 0500 Gross per 24 hour Intake 2357.66 ml Output 900 ml Net 1457.66 ml Ostomy: small amount of liquid stool output this morning Labs: Lab Results Component Value Date WBC 8.2 11/13/2020 HEMOGLOBIN 8.6 (L) 11/13/2020 PLTCOUNT 197 11/13/2020 Lab Results Component Value Date CO2 23 11/12/2020 GLUCOSE 133 (H) 11/12/2020 BUN 23 (H) 11/12/2020 CREATSERUM 0.87 11/12/2020 CA 8.3 (L) 11/12/2020 PHOSPHORUS 2.8 06/06/2020 ALBUMIN 2.9 (L) 11/10/2020 NA 145 11/12/2020 POTASSIUM 3.8 11/12/2020 CL 118 (H) 11/12/2020 Lab Results Component Value Date ALKPHOS 76 11/10/2020 BILIDIRECT 0.3 05/06/2020 BILIINDIRECT 0.1 05/06/2020 BILITOTAL 0.6 11/10/2020 AST 22 11/10/2020 ALT 15 11/10/2020 Lab Results Component Value Date MAGNESIUM 2.9 (H) 11/10/2020 Imaging: No new images Assessment: Ama Rojas is a 80yr male who presented to [facility] on 11/10/2020 with supratherapeutic INR presenting with sepsis and left incarcerated inguinal hernia. S/P hernia repair, bowel resection, loop colostomy on 11/10. 11/13 Recovering well continue to be awake and oriented to person, place and confused on time. Pain is well controlled, Ostomy is viable with stool output. Wheezing on ascultation this morning only ableto IS 500. PT recommends low intensity. Will advance diet to FLD, check CXR and add duonebs this monring. Plan: - CXR - Duonebs TID - IS with RT - Pain: Scheduled oral and IV PRN - Diet: FLD - IVF: SLIV - Restarted home lasix - Warfarin pharmacy to dose - DVT: SCDs - Disposition: Profile for placement in SNF, anticipate discharge in the next 24-48 hours. Shay Laureano MD General Surgery Resident Pager #[phone] [employer] Associated attestation - Latoya Gonsalez MD - 11/15/2020 10:57 AM CSTI have seen and discussed the patient on rounds with the resident. The plan, as outlined in the note, was developed in collaboration with the resident following review of the history, physical exam, radiographs and events since admission. I have examined the patient and agree with the residents assessment and plan. Improving. Ostomy functioning. Encephalopathy resolved.Nerissa Ann, PHARM D - 11/12/2020 4:51 PM CST Warfarin Initial Consult Note Mr. Rojas is on warfarin for history of cerebral artery occlusion with cerebral infarction. Home regimen is 2.5 mg on Tuesday, Tuesday, Tuesday and 5 mg all other days for goal INR of 2-3. Labs: Lab Results Component Value Date INR 1.6 (L) 11/12/2020 PT 18.4 (H) 11/12/2020 Protime Date/Time Value Ref Range Status 11/12/2020 04:24 PM 18.4 (H) 12.0 - 14.5 secs Final 11/11/2020 07:00 AM 17.9 (H) 12.0 - 14.5 secs Final 11/10/2020 09:12 AM 20.3 (H) 12.0 - 14.5 secs Final INR Date/Time Value Ref Range Status 11/12/2020 04:24 PM 1.6 (L) 2.0 - 3.5 Final 11/11/2020 07:00 AM 1.5 (L) 2.0 - 3.5 Final 11/10/2020 09:12 AM 1.8 (L) 2.0 - 3.5 Final 06/12/2015 09:53 AM 1.8 Final 06/05/2015 10:03 AM 1.5 Final 05/08/2015 10:25 AM 1.8 Final Platelet Count Date/Time Value Ref Range Status 11/12/2020 04:38 AM 171 140 - 400 K/uL Final 03/18/2015 09:21 AM 202 140 - 400 K/uL Final Hemoglobin Date/Time Value Ref Range Status 11/12/2020 04:38 AM 7.2 (L) 13.5 - 17.5 g/dL Final 03/18/2015 09:21 AM 14.0 13.5 - 17.5 g/dL Final Plan: Warfarin: 2.5 mg today. Pharmacy will monitor and if indicated, adjust dose per the anticoagulation policy. Nerissa Ann, PHARM D [employer] Alissa Ball MD - 11/12/2020 7:25 AM CST SURGERY ICU PROGRESS NOTE 11/12/2020 HD #3 ICU #3 POD #2 Brief History: Ama Rojas is a 80yr malewith PMH significant for CVA, STEMI on Coumadin, long-termsuprapubic catheter [facility]. Per chart review he was having poor intakefor the last 2-3 days and developed lower abdominal pain accompanied by nausea and vomiting. He has been lethargic over the last couple days. His last bowelmoment was 2 or 3 daysago. At OSH, he was noted to have leukocytosis of 18, hemoglobin 10.7, INR 4.5, creatinine 2.7, lactic acid 4.2. CT scan was obtained and demonstrated a small bowel obstructionsecondary toincarcerated left inguinal hernia. Patient is DNR however patient's familydecided to proceed with surge ry for incarcerated left inguinal hernia. Intraoperatively there was 2 feet of sigmoid colon that was obstructed incarcerated in the left inguinal hernia. Due to decreased mental status at presentation, anesthesiadecided to keep thepatient intubated following surgery. He was subsequently transferred to surgical ICU for further management and care. He was extubated on 11/11. Last 24 Hours: - Extubated yesterday and doing well on 2L NC - NG to LIWS, minimal output - Has some gas in ostomy - Denies pain Physical Exam: Current Vital Signs Temp: 97.2 F (36.2 C) BP: 94/55 Pulse: 73 O2 Device: Room Air O2 Flow Rate (L/min): 2 l/min Resp: 20 Pain Ratin (out of 10) Weight: 71.4 kg (157 lb 6.5 oz) SpO2: 96 % General: No acute distress, resting comfortably, GCS14 (Confused to year and month) Cardiac: RRR, normal S1, S2, no murmurs, rubs or gallops Respiratory: NOn-labored respirations, on supplemental oxygen. Abd: soft, non- tender, non-distended,no rebound/guarding Ostomy is pink and viable, gas in bag and stool flecks Incision: clean, dry, and intact, no drainage Extremities: 2+ pulses, no edema Intake/Output Summary (Last 24 hours) at 11/12/2020 1020 Last data filed at 11/12/2020 0800 Gross per 24 hour Intake 3568.64 ml Output 1900 ml Net 1668.64 ml Labs: Lab Results Component Value Date WBC 5.9 11/12/2020 NUCRBC 0 11/10/2020 RBC 2.70 (L) 11/12/2020 HEMOGLOBIN 7.2 (L) 11/12/2020 HEMATOCRIT 23.4 (L) 11/12/2020 MCV 86.7 11/12/2020 MCH 26.7 11/12/2020 MCHC 30.8 (L) 11/12/2020 PLTCOUNT 171 11/12/2020 NEUTROPCT 82.6 11/10/2020 LYMPHSPCT 7.5 11/10/2020 MONOSPCT 9.4 11/10/2020 EOSPCT 0.0 11/10/2020 BASOPHILPCT 0.2 11/10/2020 Lab Results Component Value Date CO2 23 11/12/2020 GLUCOSE 133 (H) 11/12/2020 BUN 23 (H) 11/12/2020 CREATSERUM 0.87 11/12/2020 CA 8.3 (L) 11/12/2020 PHOSPHORUS 2.8 06/06/2020 ALBUMIN 2.9 (L) 11/10/2020 NA 145 11/12/2020 POTASSIUM 3.8 11/12/2020 CL 118 (H) 11/12/2020 Lab Results Component Value Date MAGNESIUM 2.9 (H) 11/10/2020 Lab Results Component Value Date PHART 7.48 (H) 11/11/2020 [id number] 32 (L) 11/11/2020 PO2ART 131 (H) 11/11/2020 BASEEXART 0 11/11/2020 Radiology: CXR: No new imaging ASSESSMENT/PLAN: Ama Rojas is a 80 year old male that is POD #2 s/p left open inguinal hernia with mesh, bowel resection, colostomy. Neuro: - GCS 14 - Denies pain - Scheduled Tylenol - PRN pain medications available Hemodynamics: - Hemodynamically stable - Not required any pressor support. Respiratory: - Extuabted 11/11 - On 2L NC GI/Nutrition: - Agree with TRACS removing NG tube and starting clears. Advancement of diet will be determined on return of further bowel function Renal: - Good UOP, 1.9L - Cr 0.87 - On 75 of mIVF. - He is lasix dependent on home, when he is taking in enough PO intake, his Fluids need to be stopped and he needs to be started back on home lasix. - Suprapubic catheter Infectious Disease: - Afebrile - WBC 5.9 from 6.7 - Day #3 on ceftriaxone and Flagyl. We'll keep this for 4 days total. Stop dates are on abx Heme: - Hgb Stable, 7.2 - No transfusions in last 25 hours Endocrine: - Blood glucose wnl - We'll continue to monitor Wound: - Colostomy. - Wound care was consulted for for colostomy cares Prophylaxis: DVT: Lovenox GI: Home Prilosec Dispo: Transfer to floor with TRACS as primary Alissa Ball MD General Surgery Resident, PGY-2 Pager #[phone] GY DERIVATIVES TRADER Associated attestation - Tae Burk MD - 11/12/2020 1:41 PM CSTCritical Care Surgery Attending: I have seen and discussed the patient with the resident. The plan, as outlined in the note, was developed in collaboration with the resident following review of the history, physical exam, radiographsand events since admission. I have examined the patient and agree with the residents assessment and plan. Doing well, will transfer to the floor. Tae Burk MD 11/12/2020 1:41 PM ENERGY DERIVATIVES TRADER Shay Laureano MD - 11/12/2020 6:55 AM CST Surgery Progress Note Patient: Ama Rojas Admit Date: 11/10/2020 Subjective: Extubated yesterday, no acute events overnight. A&O x 3 Physical Exam: Temp: 97 F (36.1 C) BP: 94/55 Pulse: 67 O2 Device: NC - no humidity O2 Flow Rate (L/min): 2 l/min Resp: 22 Pain Ratin (out of 10) Weight: 71.4 kg (157 lb 6.5 oz) SpO2: 100 % General: Awake, alert, in no acute distress. Cardiac: RRR Respiratory: Good effort, no distress, no accessory muscle use, no audible wheezes Abd: soft, Appropriately tender to palpation near incision, non-distended, no rebound/guarding Incision: C/D/I Extremities: Moves all extremities, no edema appreciated Intake/Output Summary (Last 24 hours) at 11/12/2020 0655 Last data filed at 11/12/2020 0600 Gross per 24 hour Intake 3538.64 ml Output 1900 ml Net 1638.64 ml Labs: Lab Results Component Value Date WBC 5.9 11/12/2020 HEMOGLOBIN 7.2 (L) 11/12/2020 PLTCOUNT 171 11/12/2020 Lab Results Component Value Date CO2 23 11/12/2020 GLUCOSE 133 (H) 11/12/2020 BUN 23 (H) 11/12/2020 CREATSERUM 0.87 11/12/2020 CA 8.3 (L) 11/12/2020 PHOSPHORUS 2.8 06/06/2020 ALBUMIN 2.9 (L) 11/10/2020 NA 145 11/12/2020 POTASSIUM 3.8 11/12/2020 CL 118 (H) 11/12/2020 Lab Results Component Value Date ALKPHOS 76 11/10/2020 BILIDIRECT 0.3 05/06/2020 BILIINDIRECT 0.1 05/06/2020 BILITOTAL 0.6 11/10/2020 AST 22 11/10/2020 ALT 15 11/10/2020 Lab Results Component Value Date MAGNESIUM 2.9 (H) 11/10/2020 Imaging: No new images Assessment: Ama Rojas is a 80yr male who presented to [facility] on 11/10/2020 with supratherapeutic INR presenting with sepsis and left incarcerated inguinal hernia. S/P hernia repair, bowel resection, loop colostomy on 11/10. 11/12 Patient is awake and oriented to person and time and place. Pain is well controlled, Ostomy is viable, negative for output with only bowel sweat. NG output only about 150 and bilious, awaiting return of bowel function/ostomy output. Will transfer out of ICU today and TRACS resume primary. Plan: - Pain: Scheduled oral and IV PRN - Diet: NPO - IVF: HW@100 - DVT: SCDs - Disposition: [facility] Shay Laureano MD General Surgery Resident Pager #[phone] GY DERIVATIVES TRADER Associated attestation - Latoya Gonsalez MD - 11/15/2020 10:58 AM CSTI have seen and discussed the patient on rounds with the resident. The plan, as outlined in the note, was developed in collaboration with the resident following review of the history, physical exam, radiographs and events since admission. I have examined the patient and agree with the residents assessment and plan. Michelle Whitfield, PHARM D - 11/11/2020 12:04 PM CST11/11/2020 12:05 PM ENERGY DERIVATIVES TRADER - Patient was seen by pharmacy. HOME MEDICATIONS have been reconciled and updated to match the patient's home usage. Michelle Whitfield, JamesD, BCPS, BCCCP hay Laureano MD - 11/11/2020 7:45 AM ENERGY DERIVATIVES TRADER General Surgery Progress Note S: Intubated, weaned from prop, continues on 25 fentanyl O: Vitals: 11/11/20 0700 BP: Pulse: 96 Resp: 13 Temp: SpO2: 97% General: Intubated on minor sedation, obeys commands Respiratory: Ventilated, BS equal bilateral Cardiac: RRR Abdomen: Soft, appropriately tender, non-distended, ostomy in place neg for output Extremities: Obeys commands to move fingers and toes, No lower extremity edema. Feet are both warm. Skin: Warm. Dry I/O Intake/Output Summary (Last 24 hours) at 11/11/2020 0745 Last data filed at 11/11/2020 0600 Gross per 24 hour Intake 3751.9 ml Output 2225 ml Net 1526.9 ml U/O: 100 BM/Ostomy: Neg output Labs: Lab Results Component Value Date WBC 6.7 11/11/2020 NUCRBC 0 11/10/2020 RBC 2.86 (L) 11/11/2020 HEMOGLOBIN 7.8 (L) 11/11/2020 HEMATOCRIT 24.5 (L) 11/11/2020 MCV 85.7 11/11/2020 MCH 27.3 11/11/2020 MCHC 31.8 11/11/2020 PLTCOUNT 245 11/11/2020 NEUTROPCT 82.6 11/10/2020 LYMPHSPCT 7.5 11/10/2020 MONOSPCT 9.4 11/10/2020 EOSPCT 0.0 11/10/2020 BASOPHILPCT 0.2 11/10/2020 Lab Results Component Value Date GLUCOSE 125 (H) 11/11/2020 BUN 41 (H) 11/11/2020 CREATSERUM 1.19 11/11/2020 BCRATIO 34.5 (H) 11/11/2020 NA 145 11/11/2020 POTASSIUM 3.5 11/11/2020 CL 114 (H) 11/11/2020 CO2 23 11/11/2020 CA 8.4 (L) 11/11/2020 PROTEINTOTAL 7.0 11/10/2020 ALBUMIN 2.9 (L) 11/10/2020 ALKPHOS 76 11/10/2020 AST 22 11/10/2020 ALT 15 11/10/2020 BILITOTAL 0.6 11/10/2020 EGFR 59 (L) 11/11/2020 Lab Results Component Value Date CO2 23 11/11/2020 GLUCOSE 125 (H) 11/11/2020 BUN 41 (H) 11/11/2020 CREATSERUM 1.19 11/11/2020 CA 8.4 (L) 11/11/2020 PHOSPHORUS 2.8 06/06/2020 ALBUMIN 2.9 (L) 11/10/2020 NA 145 11/11/2020 POTASSIUM 3.5 11/11/2020 CL 114 (H) 11/11/2020 A: 80 y/o male s/p incarcerated inguinal hernia repair with bowel resection and loop colostomy on 11/10. Unable to extubate post op. Currently in ICU cares, on minimal sedation, obeying commands, anticipate SICU team to SBT and attempt extubation today. P: Continue cares per SICU team - Continue to follow and will resume care when out of SICU Shay Laureano MD General Surgery Resident Pager #[phone] GY DERIVATIVES TRADER Associated attestation - Lucian Overton MD - 11/11/2020 2:16 PM ENERGY DERIVATIVES TRADER I saw the patient with the resident. I was present during the critical or lomeli portions of the service furnished by the resident. I verified in the medical record, all residents documentation/findings, including history, physical exam, and medical decision making and I agree with the resident's documentation. Overall improving. Much more awake. Likely will extubate. Ostomy viable. So far so good. Alissa Ball MD - 11/11/2020 7:10 AM CST SURGERY ICU PROGRESS NOTE 11/11/2020 HD #2 ICU #2 POD #1 Brief History: Ama Rojas is a 80yr male with PMH significant for CVA, STEMI on Coumadin, long-term suprapubic catheter presented to [facility] with incarcerated left inguinal hernia. Per chart review he was havingpoor intake for the last 2-3 days and developed lower abdominal pain accompanied by nausea and vomiting. He has been lethargic over the last couple days. His last bowel moment was 2 or 3 days ago. At OSH, he was noted to have leukocytosis of 18, hemoglobin 10.7, INR 4.5, creatinine 2.7, lactic acid4.2. CT scan was obtained and demonstrated a small bowel obstruction secondary to incarcerated leftinguinal hernia. Patient is DNR however patient's family decided to proceed with surgery for incarcerated left inguinal hernia. Intraoperatively there was 2 feet of sigmoid colon that was obstructed incarcerated in the left inguinal hernia. Due to decreased mental status at presentation, anesthesiadecided to keep the patient intubated following surgery. He was subsequently transferred to surgical ICU for further management and care. Last 24 Hours: - No acute events overnight - Has been on propofol since the night - Calm and alert. Will follow commands. - NG to LIWS - No gas or stool in ostomy Physical Exam: Current Vital Signs Temp: 99.2 F (37.3 C) BP: 94/55 Pulse: 117 O2 Device: NC - no humidity O2 Flow Rate (L/min): 4 l/min Resp: 16 (out of 10) Weight: 70.6 kg (155 lb 10.3 oz) SpO2: 98 % General: Pt intubated. Acute distress. Opens eyes spontaneously and follows commands in all extremities. Cardiac: RRR currently. Irregular or sinus tach at times. Respiratory: Mechanically ventilated for 500/8/12/40. Clear to auscultation bilaterally. Abd: soft, non-tender, non-distended. Ostomy is pink and viable with no gas or stool in bag. Incision is well approximated with no erythema or drainage Extremities: 2+ pulses, no edema Intake/Output Summary (Last 24 hours) at 11/11/2020 1253 Last data filed at 11/11/2020 0600 Gross per 24 hour Intake 3751.9 ml Output 2225 ml Net 1526.9 ml N UOP: 2 L Labs: Lab Results Component Value Date WBC 6.7 11/11/2020 NUCRBC 0 11/10/2020 RBC 2.86 (L) 11/11/2020 HEMOGLOBIN 7.8 (L) 11/11/2020 HEMATOCRIT 24.5 (L) 11/11/2020 MCV 85.7 11/11/2020 MCH 27.3 11/11/2020 MCHC 31.8 11/11/2020 PLTCOUNT 245 11/11/2020 NEUTROPCT 82.6 11/10/2020 LYMPHSPCT 7.5 11/10/2020 MONOSPCT 9.4 11/10/2020 EOSPCT 0.0 11/10/2020 BASOPHILPCT 0.2 11/10/2020 Lab Results Component Value Date CO2 23 11/11/2020 GLUCOSE 125 (H) 11/11/2020 BUN 41 (H) 11/11/2020 CREATSERUM 1.19 11/11/2020 CA 8.4 (L) 11/11/2020 PHOSPHORUS 2.8 06/06/2020 ALBUMIN 2.9 (L) 11/10/2020 NA 145 11/11/2020 POTASSIUM 3.5 11/11/2020 CL 114 (H) 11/11/2020 Lab Results Component Value Date MAGNESIUM 2.9 (H) 11/10/2020 Lab Results Component Value Date PHART 7.48 (H) 11/11/2020 [id number] 32 (L) 11/11/2020 PO2ART 131 (H) 11/11/2020 BASEEXART 0 11/11/2020 Radiology: CXR: IMPRESSION: Low lung volume. Minimal intraperitoneal free air is secondary to recent abdominal surgery. ASSESSMENT/PLAN: Ama Rojas is a 80 year old male that is POD #1 s/p left open inguinal hernia with mesh, bowel resection, colostomy. 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 - Fentanyl gtt - Will schedule Tylenol - PRN pain medications available Hemodynamics: - Was slightly hypotensive overnight. Was given 500ml bolus. Otherwise hemodynamically stable - Not required any pressor support. Respiratory: - Mechanically ventilated - TV 450, PEEP 8, Rate 12, FiO2 40% - ABG: PH 7.48, PO2 131, PCO2 32. - We'll attempt SBT and extubation today - Pulmonary hygiene GI/Nutrition: - Nothing by mouth - NG to LIWS - Await return of bowel function - We'll leave advancement of diet and NG status up to TRACS team. Renal: - Good UOP - Cr 1.19 - Suprapubic catheter - Maintenance fluids Infectious Disease: - Afebrile - WBC 6.7 from 5.9 - Day #2 on ceftriaxone and Flagyl. We'll keep this for 4 days total. Heme: Hgb Stable, 7.8 from 7.9 Endocrine: - Blood glucose wnl - We'll continue to monitor Wound: - Colostomy. Will consult wound for colostomy cares Prophylaxis: DVT: Lovenox GI: None Dispo: Palliative also consulted as patient is DNR. seems frustrated about colostomy and the need to take care of her further. When she was told he may be staying here for several days she said, "Thank god. You can keep him longer." May need to evaluate safety at home when discharge planning started. May need chcf if is unwilling or incapable of taking care of him. Could also look into other services that they could use Addendum: Patient was successively extubated this morning. We'll keep him on the ICU to ensure respiratory stability. Likely to the floor tomorrow Alissa aBll MD General Surgery Resident, PGY-2 Pager #[phone] GY DERIVATIVES TRADER Associated attestation - Tae Burk MD - 11/11/2020 3:15 PM CSTCritical Care Surgery Attending: I have seen and discussed the patient with the resident. The plan, as outlined in the note, was developed in collaboration with the resident following review of the history, physical exam, radiographsand events since admission. I have examined the patient and agree with the residents assessment and plan. Mr Rojas's encephalopathy and respiratory failure has improved. We extubated this AM. Patient has a weak cough, and we will be aggressive about pulmonary toilet. Anticipate transfer to floor tomorrow. Tae Burk MD 11/11/2020 3:13 PM ENERGY DERIVATIVES TRADER Shay Laureano MD - 11/10/2020 11:41 AM CST Surgery Progress Note Patient: Ama Rojas Admit Date: 11/10/2020 Subjective: No acute events overnight. Patient only moans for pain and will open eyes when prompted. Physical Exam: Temp: 97.9 F (36.6 C) BP: 91/54 Pulse: 90 O2 Device: Mask - Oxymask O2 Flow Rate (L/min): 5 l/min Resp: 17 (out of 10) Weight: 69.3 kg (152 lb 12.5 oz) SpO2: 100 % General: Awake, alert, in no acute distress. Cardiac: RRR Respiratory: Good effort, no distress, no accessory muscle use, no audible wheezes Abd: soft, non-tender, non-distended, no rebound/guarding Incision: n/a Extremities: Moves all extremities, no edema appreciated Intake/Output Summary (Last 24 hours) at 11/10/2020 1142 Last data filed at 11/10/2020 0700 Gross per 24 hour Intake 1054 ml Output Net 1054 ml Labs: Lab Results Component Value Date WBC 11.5 (H) 11/10/2020 HEMOGLOBIN 9.5 (L) 11/10/2020 PLTCOUNT 365 11/10/2020 Lab Results Component Value Date CO2 19 (L) 11/10/2020 GLUCOSE 126 (H) 11/10/2020 BUN 70 (H) 11/10/2020 CREATSERUM 2.16 (H) 11/10/2020 CA 9.1 11/10/2020 PHOSPHORUS 2.8 06/06/2020 ALBUMIN 2.9 (L) 11/10/2020 NA 143 11/10/2020 POTASSIUM 3.4 (L) 11/10/2020 CL 107 11/10/2020 Lab Results Component Value Date ALKPHOS 76 11/10/2020 BILIDIRECT 0.3 05/06/2020 BILIINDIRECT 0.1 05/06/2020 BILITOTAL 0.6 11/10/2020 AST 22 11/10/2020 ALT 15 11/10/2020 Lab Results Component Value Date MAGNESIUM 2.0 06/06/2020 Imaging: No new images Assessment: Ama Rojas is a 80yr male who presented to [facility] on 11/10/2020 with supratherapeutic INR presenting with sepsis and left incarcerated inguinal hernia. Patient is a high-risk surgical candidate and prognosis is guarded at this time. Spouse wishes to proceed with surgery despite the high risks. Plan: - OR for open inguinal hernia repair, with possible bowel resection, and possible ostomy - Pain: IV PRN - Diet: NPO - IVF: LR@125 - DVT: SCDs - ABX: pre-op Rochepin - Disposition: OR today continue inpatient cares Shay Laureano MD General Surgery Resident Pager #[phone] GY DERIVATIVES TRADER Associated attestation - Lucian Overton MD - 11/10/2020 5:05 PM ENERGY DERIVATIVES TRADER I saw the patient with the resident. I was present during the critical or lomeli portions of the service furnished by the resident. I verified in the medical record, all residents documentation/findings, including history, physical exam, and medical decision making and I agree with the resident's documentation. To OR today. documented in this encounter H&P Notes Jono Auguste MD - 11/13/2020 3:30 PM CST ADMISSION HISTORY AND PHYSICAL NOTE Patient ID: Ama Rojas is a 80yr male. 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 Hypercholesteremia Cerebral artery occlusion with cerebral infarction (HCC) Perforation of tympanic membrane Elevated prostate specific antigen (PSA) BPH (benign prostatic hyperplasia) Guaiac positive stools Enlarged prostate with urinary obstruction Coronary artery disease without angina pectoris Glaucoma suspect of both eyes Hyperopia of both eyes Regular astigmatism of both eyes Presbyopia Renal failure syndrome Acute urinary retention s/p suprapubic lincoln placement Atonic bladder Other hydronephrosis TIA (transient ischemic attack) Urinary retention due to benign prostatic hyperplasia Sepsis (HCC) Assessment and plan. Shortness of breath, rhonchi on exam and some evidence of fluid overload on chest x-ray. ?acute on chronic diastolic chf I reviewed previous echocardiogram just a few months ago and that showed preserved EF. It is possible that patient got a little fluid overloaded from fluids during hospitalization and holding his Lasix. At this point I would increase his Lasix somewhat while monitoring daily weights and I's and O's carefully. He was taking lasix 40 mg daily, will do bd for few days as tolerated. I would stop IV fluids as he is able to eat and drink little bit more now. Will check BNP tomorrow. I do suspect that this dyspnea is mostly from postop atelectasis and he would need to do incentive spirometry aggressively. Status post several strokes in the setting of PFO. He has had breakthroughs strokes when taking ofwarfarin for significant periods of time. We will continue with anticoagulation, per pharmacy, tryto keep him in the therapeutic range. Anemia. This is reasonably stable from last month where it was 9.3 in September. Probably result of some anemia of chronic disease and some blood loss and hemodilution all now. there is also underlying Fe deficiency component as evidenced by Fe panel 09/2020. He was started on po Fe tid. This causes constipation and absorption is low, luis with recent boewel sx. I recommend we stop po Fe and do Iv venofer dose instead. We will continue to monitor. No need for blood transfusion at this point. Deconditioning with PT, OT recommended chcf placement. His who has been taking care of him is not very excited about having him go to a chcf but is reasonable and willing to consider it. Their preferred places in [place] close to home but they do not allow visitors. So they are considering [facility]/ rehab. Status post incarcerated inguinal hernia repair and bowel resection with loop colostomy on November 10. Per primary service. He is on iv zosyn still. supra therapeutic INR on admit - resolved. dvt prevention - warfarin. Plan of care has been discussed with patient and his at the bedside. She is worried that the patient is "giving up" and he thinks that he will not survive. He is DNR. I informed her that we will try to do what we can to improve his condition and allow him to return home with his family. Shedeclined offer to speak with Script Writer. Thank you for the consultation. Internal medicine service will follow along. Home medications were reviewed. Chief Complaint / HPI HPI 80-year-old man was admitted to surgical service 3 days ago with incarcerated hernia. He was on warfarin for severe strokes and this had to be reversed. Patient underwent surgery with colostomy placement on November 10. He had bowel resection, left open inguinal hernia with mesh. Warfarin was resumed postoperatively. Patient appears to have done reasonably well. Today however, he deteriorated somewhat, becoming more tired, lethargic, short of breath. Lasix was resumed and chest x-ray has been ordered. Internal medicine consultation was entered at this point for medical comanagement etc. I spoke with the patient and his , reviewed available records. He stated that he is not doing well but could not specify. He is appearing very tired and does not volunteer much of the information. Most of the history was obtained from . She reports that patient hasbeen drinkingand eating somewhat. He has been trying to use incentive spirometry with her help. He denies anyother specific concerns. Medications Prior to Admission Medications Prescriptions Last Dose Informant Patient Reported? Taking? ASPIRIN 81 PO Past Week at Unknown time Pharmacy Yes Yes Sig: Take 81 mg by mouth 1 time per day atorvaSTATin (LIPITOR) 40 mg tablet 10/16 at 90 DS No Yes Sig: Take 1 tablet (40 mg) by mouth every night at bedtime diphenoxylate-atropine (LOMOTIL) 2.5-0.025 mg tablet pt fill list Yes Yes Sig: Take 2 tablets by mouth 4 times a day as needed for diarrhea ferrous gluconate 324 (38 Fe) MG TABS OTC Yes No Sig: Take 324 mg by mouth 3 times a day with meals fluticasone (FLONASE) 50 mcg/spray nasal spray 09/17 No Yes Sig: Wilder 1 spray into each nostril 2 times a day furosemide (LASIX) 40 mg tablet 10/16 at 90 DS Yes Yes Sig: Take 40 mg by mouth 1 time per day metoprolol tartrate (LOPRESSOR) 100 mg tablet Past Week at Unknown time Pharmacy Yes Yes Sig: Take 50 mg by mouth 2 times a day nitroglycerin (NITROSTAT) 0.4 mg sublingual tablet prn No No Sig: Dissolve 1 tablet (0.4 mg) under the tongue Every 5 minutes as needed for chest pain May repeatevery 5 minutes for a total of 3 doses. omeprazole (PRILOSEC) 20 mg capsule 10/16 at 90 DS No Yes Sig: Take 1 capsule (20 mg) by mouth 1 time a day in the morning polyethylene glycol (MIRALAX) 17 GM/SCOOP powder pt fill list Yes Yes Sig: Take 1 capful by mouth 1 time a day as needed for constipation Dissolve in 4 to 8 ounces of water, juice, soda, coffee, tea. warfarin (COUMADIN) 5 mg tablet 10/16 Pharmacy No Yes Sig: TAKE DIRECTED (7.5-10MG DAILY DOSE RANGE) Facility-Administered Medications: None Allergies Allergies Allergen Reactions Vioxx Headache Medical / Surgical / Family History Past Medical History: Diagnosis Date Age-related nuclear cataract of both eyes 08/29/2019 Allergy, unspecified not elsewhere classified BPH with obstruction/lower urinary tract symptoms CAD (coronary artery disease) Glaucoma suspect of both eyes Hearing loss Hyperlipidemia Hypertension Myocardial infarction (HCC) had after back surgery while in hospital Neuromuscular disorder ([facility]) Renal failure syndrome 05/05/2020 Stroke ([facility]) Urinary retention Vision abnormalities Past Surgical History: Procedure Laterality Date ANGIOGRAM BACK SURGERY lumbar area spurs removed CARPAL TUNNEL RELEASE right , left CATARACT W PHACO Left 02/06/2020 Procedure: LEFT CATARACT EXTRACTION W/ INTRAOCULAR LENS IMPLANT;; Surgeon: Lucian Seals MD CATARACT W PHACO Right 02/13/2020 Procedure: RIGHT CATARACT EXTRACTION W/ INTRAOCULAR LENS IMPLANT;; Surgeon: Lucian Seals MD COLONOSCOPY CYSTOTOMY N/A 03/27/2015 Procedure: SUPRAPUBIC CATHETER PLACEMENT WITH ULTRASOUND GUIDANCE;; Surgeon: Edgard Bonner MD IR SUPRAPUBIC CATHETER PLACEMENT 07/14/2020 IR SUPRAPUBIC CATHETER PLACEMENT 07/14/2020 Alexys Singh MD INTERV RAD B[facility]Y [facility] JOINT REPLACEMENT LAPAROTOMY N/A 11/10/2020 Procedure: LEFT OPEN INGUINAL HERNIA WITH MESH, BOWEL RESECTION, COLOSTOMY;; Surgeon: Lucian Overton MD TEETH EXTRACTION 2013 wisdom teeth TOTAL HIP right / left TURP LASER ASSISTED N/A 03/27/2015 Procedure: CYSTOSCOPY, PHOTOSELECTIVE VAPORIZATION OF PROSTATE;; Surgeon: Edgard Bonner MD Family History Problem Relation Age of Onset Heart Attack Father Diabetes Father pre diabetic Stroke Mother Diabetes Mother Arthritis Sister Stroke Sister Asthma Brother Diabetes Brother Colon Polyps Brother PDD Brother Negative Son Negative Sister Nephrolithiasis Sister Negative Son Negative Son Negative Daughter Heart Maternal Grandfather Heart Paternal Grandfather Bladder Cancer Neg Hx Kidney Cancer Neg Hx Kidney Disease Neg Hx Prostate Cancer Neg Hx Testicular Cancer Neg Hx Cataracts Neg Hx Glaucoma Neg Hx Macular Degeneration Neg Hx Amblyopia Neg Hx Retinal Detachment Neg Hx Social History Social History Tobacco Use Smoking status: Former Smoker Packs/day: 1.00 Years: 20.00 Pack years: 20.00 Types: Cigarettes Start date: 09/19/1956 Quit date: 09/19/1979 Years since quittin.1 Smokeless tobacco: Never Used Substance Use Topics Alcohol use: No Drug use: No ROS Review of Systems Respiratory: Positive for shortness of breath. Cardiovascular: Negative for chest pain. Gastrointestinal: Positive for abdominal pain. Genitourinary: Positive for difficulty urinating. Neurological: Positive for weakness. All other systems reviewed and are negative. Physical Exam BP 125/52 | Pulse 68 | Temp 98.6 F (37 C) | Resp 16 | Ht 1.676 m (5' 6") | Wt 71.4 kg (157 lb 6.5 oz) | SpO2 97% | BMI 25.41 kg/m Physical Exam Vitals signs and nursing note reviewed. Constitutional: Comments: Frail, elderly, sick, tired looking, HENT: Head: Normocephalic. Mouth/Throat: Mouth: Mucous membranes are moist. Cardiovascular: Rate and Rhythm: Normal rate. Heart sounds: No murmur. Comments: ectopy Pulmonary: Comments: Poor inspiratory effort Rales bilaterally Abdominal: Palpations: Abdomen is soft. Tenderness: There is no abdominal tenderness. Comments: Left sided colostomy Suprapubic cathter in place dressing on Skin: Coloration: Skin is pale. Neurological: General: No focal deficit present. Mental Status: He is alert. Comments: Weak voice Moves all 4 extremities with equal but diminished strength Labs Labs (Last day) 11/13/20 0724 - 11/13/20 0724 CBC 11/13/20 0724 CBC WBC 4.0-11.0 (K/uL) 8.2 RBC 4.40-5.80 (M/uL) 3.17 Hemoglobin 13.5-17.5 (g/dL) 8.6 Hematocrit 40.0-50.0 (%) 28.4 MCV 80.0-98.0 (fL) 89.6 MCH 25.5-34.0 (pg) 27.1 MCHC 31.5-36.5 (g/dL) 30.3 RDW-CV 11.5-15.5 (%) 16.2 RDW-SD 35.5-50.0 (fl) 53.4 Platelet Count 140-400 (K/uL) 197 MPV 8.5-12.0 (fL) 9.8 11/13/20 0724 - 11/13/20 0724 CHEMISTRY 11/13/20 0724 CHEMISTRY Glucose 70-100 (mg/dL) 95 Sodium 135-145 (meq/L) 141 Potassium 3.5-5.3 (meq/L) 4.0 Chloride 99-110 (meq/L) 117 CO2 20-29 (meq/L) 22 Anion Gap with K 6-20 (meq/L) 6 BUN 6-22 (mg/dL) 14 Creatinine 0.80-1.30 (mg/dL) 0.72 BUN/Creatinine Ratio 10.0-25.0 19.4 Calcium 8.5-10.5 (mg/dL) 8.3 eGFR >=60 (mL/min/1.73m2) >90 eGFR Non- >=60 (mL/min/1.73m2) >90 11/13/20 07 - 11/12/20 1624 GENERAL COAGULATION 11/13/20 0724 11/12/20 1624 GENERAL COAGULATION Protime 12.0-14.5 (secs) 22.1 18.4 INR 2.0-3.5 2.0 1.6 11/13/20 07 - 11/13/20 0724 OTHER 11/13/20 0724 OTHER Age (Years) 80 Procedures Procedures Medical Decision Making MDM Reviewed: vitals, nursing note and previous chart Reviewed previous: labs and x-ray Interpretation: x-ray and labs cxr reviewed. Louis Osborne MD - 11/10/2020 7:26 AM CST Admission HISTORY & PHYSICAL HPI / Chief Complaint Ama Rojas is a 80-year-old male with past medical history CVA and an STEMI on Coumadin, long-term use of suprapubic catheter, current DNR status who presents as a transfer to [facility] with an incarcerated left inguinal hernia. And was having poor oral intake for last 2-3 days began to complain of lower abdominal pain with nausea and vomiting. Has also been more lethargic over the last few days. Last bowel movement was 2 or3 days ago. Workup at outside facility demonstrated low white blood cell count of 18,000, hemoglobin of 10.7, INR of 4.5, creatinine of 2.7, albumin of 2.9, lactic acid of 4.2, and CT scan demonstrating small bowel obstruction secondary to incarcerated left inguinal hernia. Per family, they wish to proceed with surgery for incarcerated left inguinal hernia. History is taken from chart review. Patient is not alert and oriented and so further history is nearly impossible to obtain from patient. Past Medical History Ama has a past medical history of Age-related nuclear cataract of both eyes (08/29/2019), Allergy, unspecified not elsewhere classified, BPH with obstruction/lower urinary tract symptoms, CAD (coronary artery disease), Glaucoma suspect of both eyes, Hearing loss, Hyperlipidemia, Hypertension, Myocardial infarction ([facility]), Neuromuscular disorder ([facility]), Renal failure syndrome (05/05/2020), Stroke ([facility]), Urinary retention, and Vision abnormalities. He also has no past medical history of Amblyopia, Anemia, Anxiety, Arthritis, Asthma, Blood transfusion without reported diagnosis, Cancer ([facility]), CHF (guan[place] estive heart failure) ([facility]), Clotting disorder (HCC), COPD (chronic obstructive pulmonary disease) ([facility]), Depression, Diabetes mellitus (HCC), Diabetic retinopathy (HCC), Disorder of thyroid, Emphysemalung (HCC), GERD (gastroesophageal reflux disease), Heart murmur, HIV infection ([facility]), Macular degeneration, Meningitis, Obesity, unspecified, Osteoporosis, Retinal detachment, Seizures ([facility]), Sickle cell anemia ([facility]), Strabismus, Substance abuse ([facility]), Thyroid disease, Tuberculosis, or Uveitis. Past Surgical History Ama has a past surgical history that includes angiogram; total hip; Carpal Tunnel Release; Back Surgery; teeth extraction (2012); turp laser assisted (N/A, 03/27/2015); cystotomy (N/A, 03/27/2015); cataract w phaco (Left, 02/06/2020); cataract w phaco (Right, 02/13/2020); ir suprapubic catheter placement (07/14/2020); Joint Replacement; and colonoscopy. Prior to Admission Medications Medications Prior to Admission Medication Sig Dispense Refill Last Dose ferrous gluconate 324 (38 Fe) MG TABS ONE PO TID WITH EACH MEAL FOR LOW BLOOD HEMOGLOBIN 90 tablet 03 fluticasone (FLONASE) 50 mcg/spray nasal spray Wilder 1 spray into each nostril 2 times a day 9.9mL 12 nitroglycerin (NITROSTAT) 0.4 mg sublingual tablet Dissolve 1 tablet (0.4 mg) under the tongue Every 5 minutes as needed for chest pain May repeat every 5 minutes for a total of 3 doses. 30 tablet 0 atorvaSTATin (LIPITOR) 40 mg tablet Take 1 tablet (40 mg) by mouth every night at bedtime 90 tablet 4 omeprazole (PRILOSEC) 20 mg capsule Take 1 capsule (20 mg) by mouth 1 time a day in the morning 90 capsule 0 oxybutynin (DITROPAN) 5 mg tablet Take 5 mg by mouth 3 times a day as needed for other (Specify)(for bladder spasm up to 30 doses) tamsulosin (FLOMAX) 0.4 mg capsule Take 0.8 mg by mouth every night at bedtime ASPIRIN 81 PO Take 81 mg by mouth 1 time per day metoprolol tartrate (LOPRESSOR) 100 mg tablet Take 100 mg by mouth 2 times a day furosemide (LASIX) 40 mg tablet Take 1 tablet (40 mg) by mouth 2 times a day for 7 days, THEN 1 tablet (40 mg) 1 time per day. 90 tablet 3 warfarin (COUMADIN) 5 mg tablet TAKE DIRECTED (7.5-10MG DAILY DOSE RANGE) 180 tablet 3 Allergies Allergies have been reviewed. Ama is allergic to vioxx. Social History Ama reports that he quit smoking about 41 years ago. His smoking use included cigarettes. He started smoking about 64 years ago. He has a 20.00 pack-year smoking history. He has never used smokelesstobacco. He reports that he does not drink alcohol or use drugs. Family History Ama's family history includes Arthritis in his sister; Asthma in his brother; Colon Polyps in his brother; Diabetes in his brother, father, and mother; Heart in his maternal grandfather and paternal grandfather; Heart Attack in his father; Negative in his daughter, sister, son, son, and son; Nephrolithiasis in his sister; PDD in his brother; Stroke in his mother and sister. Review of Systems Not able to be obtained because patient is not alert and oriented. Most Recent Vital Signs Vitals: 11/10/20 0630 BP: 115/73 Pulse: 96 Resp: 19 Temp: SpO2: 100% Physical Exam Gen: Appears fatigued Head: Atraumatic and normocephalic Eyes: EOMI. No scleral icterus Neck: No masses or tenderness to palpation Chest: LCTAB CV: RRR. No murmur Abd: Soft, nondistended, nontender to palpation. Groin: Large hernia contained within scrotum. Overlying skin is erythematous. Mass is firm. Mass is tender to palpation. Diagnostics and Labs Lab Results Component Value Date WBC 11.5 (H) 11/10/2020 HEMOGLOBIN 9.5 (L) 11/10/2020 HEMATOCRIT 29.9 (L) 11/10/2020 PLTCOUNT 365 11/10/2020 Lab Results Component Value Date NA 143 11/10/2020 POTASSIUM 3.4 (L) 11/10/2020 CL 107 11/10/2020 CO2 19 (L) 11/10/2020 BUN 70 (H) 11/10/2020 GLUCOSE 126 (H) 11/10/2020 CREATSERUM 2.16 (H) 11/10/2020 Troponin 0.106, lactic acid [address] scan as mentioned in HPI Assessment 80-year-old male with multiple comorbidities supratherapeutic INR presenting with sepsis and left incarcerated inguinal hernia. Patient is a high-risk surgical candidate and prognosis is guarded at this time. Family wishes to proceed with surgery despite the high risks. Plan -NPO -Given 10 mg vitamin K at outside facility -Given 4 units FFP -Repeat INR this AM -IV antibiotics -mIVF -Will discuss surgery with family in morning. Louis Anglin MD UND General Surgery PGY-2 Pager #[phone] [employer] Associated attestation - Lucian Overton MD - 11/10/2020 10:46 AM ENERGY [employer]IVATIVES TRADER I saw the patient with the resident. I was present during the critical or lomeli portions of the service furnished by the resident. I verified in the medical record, all residents documentation/findings, including history, physical exam, and medical decision making and I agree with the resident's documentation. Situation reviewed. Met with his also, once she arrived. He has been encephalopathic for several days. May represent sepsis in the setting of this incarcerated left inguinal hernia. On exam there is a large rock hard mass in the left inguinal canal and scrotum consistent with the incarcerated hernia. Abd is flat and soft. Suprapubic cath in place. Coumadin has been reversed. INR now 1.8 Discussed situation at length with his . She would like surgery to be done, but wishes for him to remain DNR throughout the process. We discussed left inguinal hernia repair as well as possible bowel resection and possibly a colostomy. We discussed the high risk for complications, ICU stay, mechanical ventilation, bleeding. After the risks, benefits, goals and alternatives to left inguinal herniarepair and possible exploration of the abdomen with bowel resection and possible colostomy were reviewed and questions answered, she would like us to proceed with surgery. To OR later today. Site marked. documented in this encounter Consult Notes Spring Goss MD - 11/14/2020 3:00 PM CSTAssociated Order(s): CONSULT CARDIOLOGY Cardiology Consult Note CONSULT CARDIOLOGY Consult performed by: Spring Goss MD Consult ordered by: Say Childers MD Assessment / Plan 1. Acute on chronic diastolic HF, improved 2. Acute hypoxic respiratory failure in post operative setting, now resolved 3. Elevated troponin, most likely NSTEMI type II in the setting of above 4. CVA with known PFO with no documented history of atrial fibrillation on chronic anticoagulation 5. ? History of CAD with self reported angiogram over 20 years ago 6. HTN 7. HLD 8. History of GIB 80 year old male admitted for abdominal pain found to have SBO/incarcerated bowel now s/p loop colostomy 11/10/20. Cardiology consulted for persistent troponin elevation in the setting of dyspnea. Patient has diuresed well with PO Lasix, he is still net positive since admission but had 1.9L out last 24 hours and is now on room air. Creatinine remains normal, agree with continued diuresis. Troponin trend has been flat but persistent (0.106 downtrended x2 on 11/10 day of admission and now 0.110 to 0.106 to 0.120 today 11/14). Patient is not having any chest pain or palpitations. He reports his dyspnea has significantly improved. EKG does not show any ST-T changes concerns for acute ischemia. Would advise at this point to trend troponin to peak, we will await ECHO. If ECHO is relatively unchanged would likely plan to recommend PET stress inpatient if able vs outpatient. Patient was seen and discussed with Dr. Busch. Reason for Consult "Dyspnea in the post op period with elevated troponin" HPI / History / ROS HPI 80 year old male admitted for abdominal pain found to have SBO/incarcerated hernia taken to OR for loop colostomy 11/10. Post operatively had dyspnea and has had persistently elevated troponin. Past cardiac history includes HTN, HLD, known PFO. When asked about past angiogram/stress testing dose believe he had angiogram over 20 years ago when they were concerned about CT. She believes hehad one vessel that was occluded and another that they opened with balloon but put no stent. He was not on blood thinner after this from what she can recall. Since then he has also had multiple CVA andis on Warfarin (know documented atrial fibrillation but had stroke while off Warfarin during GIB). Previously smoker. Post operatively patient reports he felt short of breath. Denies any current or previous chest pain,no palpitations. His breathing is better now with diuretic. He has had issues with LE swelling in the outpatient setting and takes lasix at home but does not have any LE swelling presently. 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 Hypercholesteremia Cerebral artery occlusion with cerebral infarction (HCC) Perforation of tympanic membrane Elevated prostate specific antigen (PSA) BPH (benign prostatic hyperplasia) Guaiac positive stools Enlarged prostate with urinary obstruction Coronary artery disease without angina pectoris Glaucoma suspect of both eyes Hyperopia of both eyes Regular astigmatism of both eyes Presbyopia Pseudophakia - Both Renal failure syndrome Acute urinary retention Atonic bladder Other hydronephrosis TIA (transient ischemic attack) Urinary retention due to benign prostatic hyperplasia Sepsis (HCC) Current Facility-Administered Medications Medication Dose Route Frequency warfarin (COUMADIN) tablet 1.25 mg 1.25 mg Oral Warfarin 1 time dose polyethylene glycol (MIRALAX) packet 1 packet 1 packet Oral Daily albuterol-ipratropium (DUO-NEB) 2.5-0.5 mg/3 mL inhalation solution 3 mL 3 mL Nebulization 4 times a day piperacillin-tazobactam (ZOSYN) IV premix in D-2% 4,500 mg 4.5 g IV Every 8 hours furosemide (LASIX) tablet 40 mg 40 mg Oral 2 times a day diuretic nitroglycerin (NITROSTAT) sublingual tablet 0.4 mg 0.4 mg Sublingual Every 5 minutes prn metoprolol tartrate (LOPRESSOR) tablet 25 mg 25 mg Oral 2 times a day fentaNYL 100 mcg/2 mL preservative free injection solution 50 mcg 50 mcg IV Every 1 hour prn acetaminophen (TYLENOL) tablet 1,000 mg 1,000 mg Oral Every 8 hours atorvaSTATin (LIPITOR) tablet 40 mg 40 mg Oral at bedtime omeprazole (priLOSEC) capsule 20 mg 20 mg Oral Every morning .Anticoagulation (WARFARIN) therapy nursing reminder 1 each Does not apply Reminder ondansetron (ZOFRAN) injection solution 4 mg 4 mg IV Every 4 hours prn labetalol (NORMODYNE;TRANDATE) IV solution 20 mg 20 mg IV Every 3 hours prn hydrALAZINE (APRESOLINE) injection solution 20 mg 20 mg IV Every 3 hours prn Allergies Allergen Reactions Vioxx Headache Past Medical History: Diagnosis Date Age-related nuclear cataract of both eyes 08/29/2019 Allergy, unspecified not elsewhere classified BPH with obstruction/lower urinary tract symptoms CAD (coronary artery disease) Glaucoma suspect of both eyes Hearing loss Hyperlipidemia Hypertension Myocardial infarction (HCC) had after back surgery while in hospital Neuromuscular disorder ([facility]) Renal failure syndrome 05/05/2020 Stroke ([facility]) Urinary retention Vision abnormalities Past Surgical History: Procedure Laterality Date ANGIOGRAM BACK SURGERY lumbar area spurs removed CARPAL TUNNEL RELEASE right , left CATARACT W PHACO Left 02/06/2020 Procedure: LEFT CATARACT EXTRACTION W/ INTRAOCULAR LENS IMPLANT;; Surgeon: Lucian Seals MD CATARACT W PHACO Right 02/13/2020 Procedure: RIGHT CATARACT EXTRACTION W/ INTRAOCULAR LENS IMPLANT;; Surgeon: Lucian Seals MD COLONOSCOPY CYSTOTOMY N/A 03/27/2015 Procedure: SUPRAPUBIC CATHETER PLACEMENT WITH ULTRASOUND GUIDANCE;; Surgeon: Edgard Bonner MD IR SUPRAPUBIC CATHETER PLACEMENT 07/14/2020 IR SUPRAPUBIC CATHETER PLACEMENT 07/14/2020 Alexys Singh MD INTERV RAD [facility] JOINT REPLACEMENT LAPAROTOMY N/A 11/10/2020 Procedure: LEFT OPEN INGUINAL HERNIA WITH MESH, BOWEL RESECTION, COLOSTOMY;; Surgeon: Lucian Overton MD TEETH EXTRACTION 2013 wisdom teeth TOTAL HIP right / left TURP LASER ASSISTED N/A 03/27/2015 Procedure: CYSTOSCOPY, PHOTOSELECTIVE VAPORIZATION OF PROSTATE;; Surgeon: Edgard Bonner MD Family History Problem Relation Age of Onset Heart Attack Father Diabetes Father pre diabetic Stroke Mother Diabetes Mother Arthritis Sister Stroke Sister Asthma Brother Diabetes Brother Colon Polyps Brother PDD Brother Negative Son Negative Sister Nephrolithiasis Sister Negative Son Negative Son Negative Daughter Heart Maternal Grandfather Heart Paternal Grandfather Bladder Cancer Neg Hx Kidney Cancer Neg Hx Kidney Disease Neg Hx Prostate Cancer Neg Hx Testicular Cancer Neg Hx Cataracts Neg Hx Glaucoma Neg Hx Macular Degeneration Neg Hx Amblyopia Neg Hx Retinal Detachment Neg Hx Social History Socioeconomic History Marital status: Spouse name: Not on file Number of children: 4 Years of education: 8 Highest education level: Not on file Occupational History Occupation: Retired Social Needs Financial resource strain: Not hard at all Food insecurity Worry: Never true Inability: Never true Transportation needs Medical: No Non-medical: No Tobacco Use Smoking status: Former Smoker Packs/day: 1.00 Years: 20.00 Pack years: 20.00 Types: Cigarettes Start date: 09/19/1956 Quit date: 09/19/1979 Years since quittin.1 Smokeless tobacco: Never Used Substance and Sexual Activity Alcohol use: No Drug use: No Sexual activity: Yes Partners: Female Relationships Social connections Talks on phone: More than three times a week Gets together: More than three times a week Attends advent service: More than 4 times per year Active member of club or organization: Not on file Attends meetings of clubs or organizations: More than 4 times per year Relationship status: Intimate partner violence Fear of current or ex partner: No Emotionally abused: No Physically abused: No Forced sexual activity: No Review of Systems Review of Systems Constitutional: Positive for fatigue. Negative for chills and fever. HENT: Negative for trouble swallowing. Respiratory: Positive for shortness of breath. Improved Cardiovascular: Negative for chest pain and palpitations. Gastrointestinal: Positive for abdominal pain. Musculoskeletal: Positive for gait problem. Skin: Negative for rash. Neurological: Negative for syncope and headaches. Psychiatric/Behavioral: Negative for confusion. Physical / Results Current Vital Signs Temp: 97.9 F (36.6 C) BP: 120/68 Weight: 66.9 kg (147 lb 8 oz) SpO2: 95 % Resp: 20 Pulse: 101 Current BMI (>50 = increased risk): 24.67 O2 Device: Room Air O2 Flow Rate (L/min): 2 l/min Pain Ratin Physical Exam Constitutional: Appearance: He is normal weight. Comments: Frail appearing HENT: Head: Normocephalic and atraumatic. Eyes: Extraocular Movements: Extraocular movements intact. Pupils: Pupils are equal, round, and reactive to light. Cardiovascular: Rate and Rhythm: Normal rate and regular rhythm. Heart sounds: No murmur. Pulmonary: Comments: Diminished throughout Abdominal: General: Abdomen is flat. Palpations: Abdomen is soft. Tenderness: There is abdominal tenderness. Musculoskeletal: Normal range of motion. General: No swelling. Right lower leg: No edema. Left lower leg: No edema. Skin: General: Skin is warm and dry. Coloration: Skin is pale. Neurological: General: No focal deficit present. Mental Status: He is alert and oriented to person, place, and time. Psychiatric: Mood and Affect: Mood normal. Behavior: Behavior normal. Karen Goss MD PGY-3 Internal Medicine [facility] [employer] Pager: [phone] [employer] Associated attestation - Jorge Busch MD - 11/14/2020 5:01 PM [employer]ERGY D[employer]IVATIVES TRADER I discussed the patient with the resident and personally interviewed and examined the patient. I verified in the medical record all resident documentation/findings, including history, physical exam, and medical decision making, and I agree with the resident's documentation.Yenni Xiao MD - 11/13/2020 11:01 AM CSTAssociated Order(s): CONSULT INFECTIOUS DISEASE [facility] INFECTIOUS DISEASE CONSULTATION 11/13/2020 Impression Pseudomonas suprapubic catheter associated bacteriuria in a patient with bladder atonia/urinary retention Raoultella in sputum- likely not significant. Usually opportunistic pathogen for immunosuppressed patients, doubt pneumonia likely CHF. S/p incarcerated hernia repair Plan Switch ceftriaxone to zosyn while in hospital. I would treat the Pseudomonas since he has not had this before. The Raoultella is likely not significant but would still be covered by the antibiotics. Plan to switch to oral ciprofloxacin on discharge 500mg twice daily til 11/20 Follow INR while on cipro Call with questions HPI Ama Rojas is 80yr male seen today for infectious disease consultation. Referred by Dr. Gonsalez for antibiotics management. He has chronic inguinal hernia but reported lower abdominal pains over3 days with constipation. Imaging noted incarcerated hernia and bowel obstruction. He underwent repair with bowel resection on 11/10 with colostomy placement. 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 Admission urine culture with Pseudomonas which he has not had before. Postop, he required a brief ICu stay and remianed on vent. Cultures from respiratory culture grew Raoultella. CXR clear initially then developed interstitial markings. He is now extubated. ID is consulted for antibiotics management. Antibiotics Antibiotics: Antibiotics (From admission, onward) Start Stop Route Frequency Ordered 11/12/20 0400 cefTRIAXone (ROCEPHIN) 2000 mg/20 mL IV syringe in sterile water (Initial therapy (Preferred): cefTRIAXone (ROCEPHIN) and metroNIDAZOLE (FLAGYL) IV) 11/14 2359 IV Every twenty four hours 11/11/20 0912 11/11/20 1200 metroNIDAZOLE (FLAGYL) IV piggyback in sodium chloride 0.79% (premix) 500 mg (Initial therapy (Preferred): cefTRIAXone (ROCEPHIN) and metroNIDAZOLE (FLAGYL) IV) Status: Discontinued 11/13 0528 IV Every eight hours 11/11/20 0912 11/10/20 0400 cefTRIAXone (ROCEPHIN) 2000 mg/20 mL IV syringe in sterile water (Initial therapy (Preferred): cefTRIAXone (ROCEPHIN) and metroNIDAZOLE (FLAGYL) IV) Status: Discontinued 11/11 0912 IV Every twenty four hours 11/10/20 0305 11/10/20 0400 metroNIDAZOLE (FLAGYL) IV piggyback in sodium chloride 0.79% (premix) 500 mg (Initial therapy (Preferred): cefTRIAXone (ROCEPHIN) and metroNIDAZOLE (FLAGYL) IV) Status: Discontinued 11/11 0912 IV Every eight hours 11/10/20 0305 All other medications are reviewed in [facility]. PMH/FH/SH Past Medical History: Diagnosis Date Age-related nuclear cataract of both eyes 08/29/2019 Allergy, unspecified not elsewhere classified BPH with obstruction/lower urinary tract symptoms CAD (coronary artery disease) Glaucoma suspect of both eyes Hearing loss Hyperlipidemia Hypertension Myocardial infarction (HCC) had after back surgery while in hospital Neuromuscular disorder (HCC) Renal failure syndrome 05/05/2020 Stroke (HCC) Urinary retention Vision abnormalities Family History Problem Relation Age of Onset Heart Attack Father Diabetes Father pre diabetic Stroke Mother Diabetes Mother Arthritis Sister Stroke Sister Asthma Brother Diabetes Brother Colon Polyps Brother PDD Brother Negative Son Negative Sister Nephrolithiasis Sister Negative Son Negative Son Negative Daughter Heart Maternal Grandfather Heart Paternal Grandfather Bladder Cancer Neg Hx Kidney Cancer Neg Hx Kidney Disease Neg Hx Prostate Cancer Neg Hx Testicular Cancer Neg Hx Cataracts Neg Hx Glaucoma Neg Hx Macular Degeneration Neg Hx Amblyopia Neg Hx Retinal Detachment Neg Hx Social History Socioeconomic History Marital status: Spouse name: Not on file Number of children: 4 Years of education: 8 Highest education level: Not on file Occupational History Occupation: Retired Social Needs Financial resource strain: Not hard at all Food insecurity Worry: Never true Inability: Never true Transportation needs Medical: No Non-medical: No Tobacco Use Smoking status: Former Smoker Packs/day: 1.00 Years: 20.00 Pack years: 20.00 Types: Cigarettes Start date: 09/19/1956 Quit date: 09/19/1979 Years since quittin.1 Smokeless tobacco: Never Used Substance and Sexual Activity Alcohol use: No Drug use: No Sexual activity: Yes Partners: Female Lifestyle Physical activity Days per week: Not on file Minutes per session: Not on file Stress: Not on file Relationships Social connections Talks on phone: More than three times a week Gets together: More than three times a week Attends advent service: More than 4 times per year Active member of club or organization: Not on file Attends meetings of clubs or organizations: More than 4 times per year Relationship status: Intimate partner violence Fear of current or ex partner: No Emotionally abused: No Physically abused: No Forced sexual activity: No Other Topics Concern Transportation Not Asked Stress in your marriage Not Asked Stress with your relationship Not Asked Stress with your family Not Asked Parenting/Being a parent Not Asked Daycare concerns Not Asked Not enough social support Not Asked Housing problems Not Asked Financial stress Not Asked Safety/danger Not Asked Work/job stress Not Asked Legal stress Not Asked Time conflicts (feeling too busy) Not Asked Academic/school stress Not Asked Language difficulties Not Asked Spiritual concerns Not Asked Insurance problems Not Asked The cost of having to take medication Not Asked The costs of buying food/groceries Not Asked Illness of family member/friend/relative Not Asked of a family member/friend/relative Not Asked Violence in your relationship Not Asked Abuse/neglect Not Asked Community stress Not Asked Cultural barriers Not Asked Ability to do self cares Not Asked Social History Narrative Not on file ROS A complete systems review was discussed with the patient. All systems review is negative other thanwhat is noted above in HPI. Physical Exam Current Vital Signs Temp: 97.5 F (36.4 C) BP: 115/69 Pulse: 64 O2 Device: Room Air O2 Flow Rate (L/min): 2 l/min Resp: 14 Pain Ratin (out of 10) Weight: 71.4 kg (157 lb 6.5 oz) SpO2: 96 % Maximum Temperatures (last 24 hours) Temperature Maximum Max Temp 98 F (36.7 C) GENERAL: The patient is alert and oriented, well developed, well nourished, and in no acute distress. SKIN: No rashes, bruises, or lesions are noted. LYMPHATICS: There is no cervical lymphadenopathy. HEENT: OP clear, no exudates, no mucositis. Conjunctiva is pink and sclera are white. PERRL and EOMI. NECK: Trachea is midline. Neck is supple without thryomegaly CHEST: Coarse breath sounds. CV: RRR without murmur or gallop. Carotic pulses are brisk. There is no JVD. ABD: Soft and + colostomy MS: No synovitis in any joints. No peripheral edema. There is no clubbing or cyanosis NEURO: Moves all extremities well. Cranial nerves 3-12 are intact. PSYCH: Insight and judgment intact Labs and Imaging reviewed Labs (Last day) 11/13/20723 - 11/13/20723 CBC 11/13/20723 CBC WBC 4.0-11.0 (K/uL) 8.2 RBC 4.40-5.80 (M/uL) 3.17 Hemoglobin 13.5-17.5 (g/dL) 8.6 Hematocrit 40.0-50.0 (%) 28.4 MCV 80.0-98.0 (fL) 89.6 MCH 25.5-34.0 (pg) 27.1 MCHC 31.5-36.5 (g/dL) 30.3 RDW-CV 11.5-15.5 (%) 16.2 RDW-SD 35.5-50.0 (fl) 53.4 Platelet Count 140-400 (K/uL) 197 MPV 8.5-12.0 (fL) 9.8 11/13/20 0724 - 11/13/20 0724 CHEMISTRY 11/13/20 0724 CHEMISTRY Glucose 70-100 (mg/dL) 95 Sodium 135-145 (meq/L) 141 Potassium 3.5-5.3 (meq/L) 4.0 Chloride 99-110 (meq/L) 117 CO2 20-29 (meq/L) 22 Anion Gap with K 6-20 (meq/L) 6 BUN 6-22 (mg/dL) 14 Creatinine 0.80-1.30 (mg/dL) 0.72 BUN/Creatinine Ratio 10.0-25.0 19.4 Calcium 8.5-10.5 (mg/dL) 8.3 eGFR >=60 (mL/min/1.73m2) >90 eGFR Non- >=60 (mL/min/1.73m2) >90 11/13/20 0724 - 11/12/20 1624 GENERAL COAGULATION 11/13/20 0724 11/12/20 1624 GENERAL COAGULATION Protime 12.0-14.5 (secs) 22.1 18.4 INR 2.0-3.5 2.0 1.6 11/13/20 0724 - 11/13/20 0724 OTHER 11/13/20 0724 OTHER Age (Years) 80 No results found for: ESR Lab Results Component Value Date CRP 184.8 (H) 05/06/2020 Results for orders placed or performed during the hospital encounter of 11/10/20 (from the past 336 hour(s)) 1. EKG Result Value Ref Range EKG WAVEFORM Sinus rhythm with Premature supraventricular complexes and with occasional Premature ventricular complexes Anterolateral infarct (cited on or before 12-MAY-2020) T wave abnormality, consider inferior ischemia Prolonged QT interval or tu fusion, consider myocardial disease, electrolyte imbalance, or drug effects Abnormal ECG When compared with ECG of 18-AUG-2020 22:05, Significant changes have occurred Ventricular Rate: 81 BPM Atrial Rate: 81 BPM P-R Interval: 132 ms QRS Duration: 90 ms Q-T Interval: 614 ms QTc Calculation(Bazett): 713 ms Calculated P [place]: 31 degrees Calculated R [place]: -9 degrees Calculated T [place]: 84 degrees 2. XRAY CHEST PORTABLE - Narrative Patient Name: AMA ROJAS Date of : 1940 Procedure: XRAY CHEST PORTABLE Date of Service: 11/10/2020 EXAM: XRAY CHEST PORTABLE INDICATION: Male, 80 years year old patient, Hypoxia COMPARISON(S): 08/18/2020 TECHNIQUE: AP portable view FINDINGS: Support devices: Distal tip of enteric tube terminates within the stomach. Lungs: The lungs are expanded. The lungs are clear. Pleura: There is no visible pneumothorax on either side. Both costophrenic angles are sharp. There is stable elevation of the right diaphragm. Heart, Mediastinum and Vessels: Normal heart size. Normal mediastinum. There is no pulmonary edema. There is atherosclerotic tortuosity of the thoracic aorta. Bones: There are degenerative changes of visualized thoracic spine. There is degenerative osteoarthritis of the bilateral shoulders. IMPRESSION: Enteric tube terminates within the stomach. Lungs are clear. Finalized by: Ab Arndt MD on 11/10/2020 5:35 AM ENERGY DERIVATIVES TRADER Patient/Procedure Information: [facility] MRN/JEZ: [id number] Order Number: [id number] Accession Number: [id number] Ordering Provider: CATHY CARTER Authorizing Provider: CATHY CARTER 3. XRAY CHEST PORTABLE - Narrative Patient Name: AMA ROJAS Date of : 1940 Procedure: XRAY CHEST PORTABLE Date of Service: 11/11/2020 EXAM: XRAY CHEST PORTABLE INDICATION: Male, 80 years year old patient, Intubated COMPARISON(S): 11/10/2020 TECHNIQUE: AP portable view FINDINGS: Support devices: Distal tip of enteric tube terminates within the stomach. Distal tip of endotracheal tube terminates 32 mm above the neeraj. Lungs: Lung volume is slightly low. The lungs are clear. Pleura: There is no visible pneumothorax on either side. Both costophrenic angles are sharp. There is stable elevation of the right diaphragm. Heart, Mediastinum and Vessels: Normal heart size. Normal mediastinum. There is no pulmonary edema. There is atherosclerotic tortuosity of the thoracic aorta. Upper abdomen: There is minimal intraperitoneal free air. IMPRESSION: Low lung volume. Minimal intraperitoneal free air is secondary to recent abdominal surgery. Finalized by: Ab Arndt MD on 11/11/2020 7:25 AM ENERGY DERIVATIVES TRADER Patient/Procedure Information: [facility] MRN/JEZ: [id number] Order Number: [id number] Accession Number: [id number] Ordering Provider: ALISSA BALL Authorizing Provider: TAE BURK 4. XRAY CHEST PORTABLE - Narrative Patient Name: AMA ROJAS Date of : 1940 Procedure: XRAY CHEST PORTABLE Date of Service: 11/11/2020 EXAM: XRAY CHEST PORTABLE INDICATION: NG placement COMPARISON(S): 11/11/2020 at 0506 hours FINDINGS: Lungs:Clear. Heart: Cardiomegaly. Pleura: No effusion or pneumothorax. Mediastinum/roger: Normal in size and contour. Vascular: Mild vascular congestion.. Osseous: Normal. Soft tissue: Unremarkable. Other: Nasogastric tube tip terminates within the stomach, side port resides within the distal esophagus. It may be advanced by at least 6 cm to optimize its position.. IMPRESSION: 1. Cardiac megaly and pulmonary vascular congestion without edema. 2. No focal infiltrate. 3. Nasogastric tube appears to have been pulled back some. It should be advanced to optimize its position. Finalized by: Dyllan Taylor MD on 11/11/2020 9:56 PM ENERGY DERIVATIVES TRADER Patient/Procedure Information: [facility] MRN/JEZ: [id number] Order Number: [id number] Accession Number: [id number] Ordering Provider: TAE BURK Authorizing Provider: TAE BURK 5. XRAY CHEST PORTABLE - Narrative Patient Name: AMA ROJAS Date of : 1940 Procedure: XRAY CHEST PORTABLE Date of Service: 11/13/2020 EXAM: XRAY CHEST PORTABLE INDICATION: wheezing COMPARISON(S): 11/11/2020. FINDINGS/IMPRESSION: There has been interval removal of the enteric tube. There is bronchial cuffing and hilar and suprahilar prominent interstitial markings. This is nonspecific, but can be seen in viral infection, reactive airways, and pulmonary vascular congestion. No focal consolidation. No significant pleural effusion or pneumothorax. Stable cardiomegaly. No acute osseous or soft tissue abnormality. Finalized by: Dyllan Lewis MD on 11/13/2020 10:15 AM ENERGY DERIVATIVES TRADER Patient/Procedure Information: [facility] MRN/JEZ: [id number] Order Number: [id number] Accession Number: [id number] Ordering Provider: SHAY LAUREANO Authorizing Provider: LATOYA GONSALEZ Medical Decision Making Reviewed: previous chart, nursing note and vitals Reviewed previous: labs and x-ray Interpretation: labs and x-ray lissa Ball MD - 11/10/2020 4:05 PM CST Surgical ICU - Resident Consult Note Date: 11/10/2020 Name: Ama Rojas SUBJECTIVE: Chief Complaint: Intubated following left open inguinal hernia with mesh, bowel resection, colostomy History of Present Illness: Ama Rojas is a 80yr male with PMH significant for CVA, STEMI on Coumadin, long-term suprapubic catheter presented to [facility] with incarcerated left inguinal hernia. Per chart review he was havingpoor intake for the last 2-3 days and developed lower abdominal pain accompanied by nausea and vomiting. He has been lethargic over the last couple days. His last bowel moment was 2 or 3 days ago. At OSH, he was noted to have leukocytosis of 18, hemoglobin 10.7, INR 4.5, creatinine 2.7, lactic acid4.2. CT scan was obtained and demonstrated a small bowel obstruction secondary to incarcerated leftinguinal hernia. Patient is DNR however patient's family decided to proceed with surgery for incarcerated left inguinal hernia. Intraoperatively there was 2 feet of sigmoid colon that was obstructed incarcerated in the left inguinal hernia. Due to decreased mental status at presentation, anesthesiadecided to keep the patient intubated following surgery. He was subsequently transferred to surgical ICU for further management and care. Past Medical History: Past Medical History: Diagnosis Date Age-related nuclear cataract of both eyes 08/29/2019 Allergy, unspecified not elsewhere classified BPH with obstruction/lower urinary tract symptoms CAD (coronary artery disease) Glaucoma suspect of both eyes Hearing loss Hyperlipidemia Hypertension Myocardial infarction (HCC) had after back surgery while in hospital Neuromuscular disorder ([facility]) Renal failure syndrome 05/05/2020 Stroke ([facility]) Urinary retention Vision abnormalities Past Surgical History: Past Surgical History: Procedure Laterality Date ANGIOGRAM BACK SURGERY lumbar area spurs removed CARPAL TUNNEL RELEASE right , left CATARACT W PHACO Left 02/06/2020 Procedure: LEFT CATARACT EXTRACTION W/ INTRAOCULAR LENS IMPLANT;; Surgeon: Lucian Seals MD CATARACT W PHACO Right 02/13/2020 Procedure: RIGHT CATARACT EXTRACTION W/ INTRAOCULAR LENS IMPLANT;; Surgeon: Lucian Seals MD COLONOSCOPY CYSTOTOMY N/A 03/27/2015 Procedure: SUPRAPUBIC CATHETER PLACEMENT WITH ULTRASOUND GUIDANCE;; Surgeon: Edgard Bonner MD IR SUPRAPUBIC CATHETER PLACEMENT 07/14/2020 IR SUPRAPUBIC CATHETER PLACEMENT 07/14/2020 Alexys Singh MD INTERV RAD BDWY [facility] JOINT REPLACEMENT TEETH EXTRACTION 2013 wisdom teeth TOTAL HIP right / left TURP LASER ASSISTED N/A 03/27/2015 Procedure: CYSTOSCOPY, PHOTOSELECTIVE VAPORIZATION OF PROSTATE;; Surgeon: Edgard Bonner MD Current Medications: Current Facility-Administered Medications Medication Dose Route Frequency Provider Last Rate Last Admin acetaminophen (TYLENOL) tablet 650 mg 650 mg Oral Every 4 hours prn Cathy Carter MD fentaNYL 100 mcg/2 mL preservative free injection solution 25 mcg 25 mcg IV Every 5 minutes Cathy Welch MD fentaNYL 100 mcg/2 mL preservative free injection solution 50 mcg 50 mcg IV Every 5 minutes Cathy Welch MD fentaNYL 100 mcg/2 mL preservative free injection solution 100 mcg 100 mcg IV Every 15 minutes prn Cathy Carter MD ondansetron (ZOFRAN) injection solution 4 mg 4 mg IV Every 4 hours prn Cathy Carter MD haloperidol lactate (HALDOL) injection solution 2.5 mg 2.5 mg IV Every 6 hours prn Jose Angel Carter MD labetalol (NORMODYNE;TRANDATE) IV solution 20 mg 20 mg IV Every 3 hours prn Cathy Carter MD hydrALAZINE (APRESOLINE) injection solution 20 mg 20 mg IV Every 3 hours prn Cathy Carter MD lactated ringers IV solution IV Continuous Cathy Carter MD Stopped at 11/10/20 1236 cefTRIAXone (ROCEPHIN) 2000 mg/20 mL IV syringe in sterile water 2,000 mg IV Every 24 hours Cathy Carter MD 2,000 mg at 11/10/20 0355 And metroNIDAZOLE (FLAGYL) IV piggyback in sodium chloride 0.79% (premix) 500 mg 500 mg IV Every 8 hours Cathy Carter MD 500 mg at 11/10/20 1222 sodium chloride 0.9% IV solution flush bag IV Continuous Cathy Carter MD 500 mL at 11/10/20 0538 famotidine (PEPCID) IV solution 20 mg 20 mg IV at bedtime Cathy Carter MD 20 mg at 11/10/20 0355 propofol (DIPRIVAN) 1000 mg/100 mL IV emulsion fentanyl IV BOLUS taken from INFUSION *ADULT* 50 mcg IV Every 15 minutes prn Alissa Ball MD And fentaNYL 20mcg/ml (2000mcg/100 ml) 0.9% sodium chloride IV solution 0-200 mcg/hr IV Titrate Alissa Ball MD propofol (DIPRIVAN) 1000 mg/100 mL IV emulsion 0-50 mcg/kg/min IV Titrate Alissa Ball MD heparin (porcine) injection solution 5,000 Units 5,000 Units Subcutaneous Every 8 hours Alissa Ball MD Allergies: Vioxx Social History: Social History Socioeconomic History Marital status: Spouse name: Not on file Number of children: 4 Years of education: 8 Highest education level: Not on file Occupational History Occupation: Retired Social Needs Financial resource strain: Not hard at all Food insecurity Worry: Never true Inability: Never true Transportation needs Medical: No Non-medical: No Tobacco Use Smoking status: Former Smoker Packs/day: 1.00 Years: 20.00 Pack years: 20.00 Types: Cigarettes Start date: 09/19/1956 Quit date: 09/19/1979 Years since quittin.1 Smokeless tobacco: Never Used Substance and Sexual Activity Alcohol use: No Drug use: No Sexual activity: Yes Partners: Female Lifestyle Physical activity Days per week: Not on file Minutes per session: Not on file Stress: Not on file Relationships Social connections Talks on phone: More than three times a week Gets together: More than three times a week Attends advent service: More than 4 times per year Active member of club or organization: Not on file Attends meetings of clubs or organizations: More than 4 times per year Relationship status: Intimate partner violence Fear of current or ex partner: No Emotionally abused: No Physically abused: No Forced sexual activity: No Social History Narrative Family History: Family History Problem Relation Age of Onset Heart Attack Father Diabetes Father pre diabetic Stroke Mother Diabetes Mother Arthritis Sister Stroke Sister Asthma Brother Diabetes Brother Colon Polyps Brother PDD Brother Negative Son Negative Sister Nephrolithiasis Sister Negative Son Negative Son Negative Daughter Heart Maternal Grandfather Heart Paternal Grandfather Review of Systems: Unable to be obtained as patient is intubated. OBJECTIVE: Vitals: Current Vital Signs Temp: 97.6 F (36.4 C) BP: 91/54 Pulse: 97 O2 Device: Ventilator O2 Flow Rate (L/min): 5 l/min Resp: 22 (out of 10) Weight: 69.3 kg (152 lb 12.5 oz) SpO2: 100 % Exam: Gen: resting comfortably, intubated/sedated Head: normocephalic, OG in place ENT: poor dentition, several missing teeth Neck: supple, no JVD CV: RRR, normal S1 and S2 Lungs/Chest: Mechanically ventilated, crackles ausculated throughout ABD: Soft, non-distended, no grimace to palpation. Ostomy is pink and viable. No stool or gas in bag. Ext: warm and well perfused Neuro: Sedated Wounds: skin edges well approximated, no erythema, no purulence, no drainage Ins + Outs: Intake/Output Summary (Last 24 hours) at 11/10/2020 1617 Last data filed at 11/10/2020 1527 Gross per 24 hour Intake 2654 ml Output 725 ml Net 1929 ml Radiology: - Images reviewed from outside hospital ASSESSMENT: Ama Rojas is a 80 year old male who is POD 0 s/p left inguinal hernia repair with mesh, bowel resection, colostomy. Due to encephalopathy decided to keep patient intubated following surgery. Hospital Day: 1 ICU Day: 1 POD: 0 Neuro: - Intubated and sedated - Attempted to wean propofol upon arrival to the ICU to determine if it Made him today. He was not following commands are opening his eyes. We will leave him intubated and sedated tonight to allow all anesthesia from the procedure today to wear off. We'll attempt sedation vacation tomorrow. Pulm: - Mechanically ventilated 450/8/12/50% - We'll attempt SBT and extubation tomorrow CV: - The patient is hemodynamically stable. - No pressor support required GI: - Status post bowel resection and colostomy creation - Ostomy is pink and viable - NG in place. We'll place to intermittent wall suction overnight. - Await return of bowel function Renal: - IQRA, creatinine 2.16 - Potassium 3.4 - UOP 700 - History of suprapubic cath - Strict I's and O's Heme: - Hemoglobin stable at 9.5 - INR 1.8 - Normally on warfarin ID: - WBC 11.5 - Day #1: Ceftriaxone and Flagyl - Daily CBC Endo/MSK: - Routine glucose checks Wounds: - Ostomy -Left inguinal hernia incision Lines: Patient Lines/Drains/Airways Status Active Lines Name: Placement date: Placement time: Site: Days: Peripheral IV 08/18/20 Antecubital Right 08/18/20 Antecubital 84 Peripheral IV 11/10/20 Posterior;Right 11/10/20 0317 less than 1 Peripheral IV 11/10/20 Forearm Left 11/10/20 1255 Forearm less than 1 Suprapubic Catheter 08/18/20 1155 84 Colostomy Left Umbilicus 11/10/20 Left Umbilicus less than 1 Tracheal Tube 8.0 Cuffed 11/10/20 1246 Oral less than 1 Arterial Line (for Flotrac add group [id number]) 11/10/20 Radial 11/10/20 1251 Radial less than 1 Incision 11/10/20 Left;Anterior Groin Incision 11/10/20 Groin less than 1 Ppx: - SCD Dispo:Will keep an ICU today. We'll attempt to extubate tomorrow and transferred to floor if appropriate. Alissa Ball MD General Surgery Resident, PGY-2 Pager #[phone] GY DERIVATIVES TRADER Associated attestation - Tae Burk MD - 11/10/2020 5:22 PM CSTCritical Care Surgery Attending: I have seen and discussed the patient with the resident. The plan, as outlined in the note, was developed in collaboration with the resident following review of the history, physical exam, radiographsand events since admission. I have examined the patient and agree with the residents assessment and plan. Immediately postop, patient remains encephalopathic. We will re-examine tomorrow and anticipate possible extubation at that time. Critical Care time: 30 min Tae Burk MD 11/10/2020 5:21 PM ENERGY DERIVATIVES TRADER documented in this encounter Miscellaneous Notes Clinical Team - Huyen Webster RN - 11/17/2020 1:06 PM CSTPt discharged to [facility]. Left floor at 1303 via cart with rid service. All discharge education complete, refer to AVS for details. . Belongings reviewed and sent with. SBAR given to Tex DUGGAN, all questions answered. D/c paperwork faxed and copy sent with. are Planning - Huyen Webster RN - 11/17/2020 12:25 PM ENERGY DERIVATIVES TRADER Problem: RISK FOR IMPAIRED SKIN INTEGRITY Goal: TISSUE INTEGRITY: SKIN & MUCOUS MEMBRANES Description: DEFINITION: Structural intactness and normal physiological function of skin and mucousmembranes. 1=Severely compromised, 2=Substantially compromised, 3=Moderately compromised, 4=Mildly compromised, 5=Not compromised. Outcome: Outcome acceptable for discharge Problem: IMBALANCED NUTRITION: LESS THAN BODY REQUIREMENTS Goal: NUTRITIONAL STATUS: NUTRIENT INTAKE Description: DEFINITION: Nutrient intake to meet metabolic needs. 1=Not adequate, 2=Slightly adequate, 3=Moderately adequate, 4=Substantially adequate, 5=Totally adequate. Outcome: Outcome acceptable for discharge Pt discharged to [facility]. F/u with PT, OT, TRACS. hysical Therapy - Edgard Caldera, PT - 11/17/2020 11:29 AM CST Physical Therapy Acute Inpatient Treatment Note ASSESSMENT/RECOMMENDATIONS This patient displays functional deficits with bed mobility, transfers and ambulation and is not physically safe to return home at current level of function. I recommend this patient receive continued physical therapy services at a [facility] to regain independence in these deficit areas, once medically stable per MD. 6-Clicks Basic Mobility Score: 12 Activity Prescription with Nursing: With assist of one, walk in room and progressively increase to out in the bauer 3 times per day. At a minimum, up to chair for all meals or 3 times per day. Assist patient to complete exercises 10 times, 3 times per day. Sit to stands and in standing: leg lifts out to the side, marching, air boxing. Encourage patient to perform personal cares at sink when able. Encourage walking to bathroom rather than use commode or bedpan. Anticipated D/C Service needs: Low intensity setting SUBJECTIVE No pain this visit. OBJECTIVE Bed Mobility: Not tested, in chair on arrival and after PT session. Transfers: Sit to/from stand with moderate assistance of one in FWW Gait: Patient ambulated 25 feet with FWW and minimal assistance of one, PT trailed the IV pole. Stairs: Not tested Therapeutic Exercises: B LE AROM's x 15 reps seated with demo cues. Other: Patient seated in the chair on arrival and after PT session with LE's elevated, call button in reach and tray table in front of patient. Education: PT provided demonstration, verbal and tactile cues with LE ROM/ strengthening exercises,bed mobility, transfers and ambulation with FWW. Patient demonstrated understanding of the educationprovided during participation with activities this visit. PLAN Continue plan of care. Today's Treatment: Gait Trainin minutes Therapeutic Exercise: 13 minutes Therapeutic Activity: 12 minutes TOTAL TIMED CODES: 25 minutes TREATMENT TOTAL TIME: 25 minutes Edgard Caldera PT Alpha Pager [phone] ase Mgmt - Aundrea Knight LSW - 11/17/2020 10:43 AM CSTCASE MANAGEMENT PROGRESS NOTE PLAN: Both [place] Level 1 and [place] PAS submitted November 17, 2020 at 10:43:34 AM ENERGY DERIVATIVES TRADER. The confirmation number [id number]. Will fax to [facility] ([phone]). SIGNED: BERNIE Howard Scientific Manager Case Management [facility], [place] P) [phone] ase Mgmt - Stacy Tillman RN - 11/17/2020 10:34 AM CSTCASE MANAGEMENT / SOCIAL SERVICE FINAL TRANSITION PLAN TRANSITION DATE: 11/17 TRANSITION TIME: 1230 INTENDED PAYER SOURCE FOR AGENCY: Medicare TRANSITION DESTINATION: [place] swing bed DOES ACCEPTING FACILITY REQUIRE COVID TESTING BEFORE DISCHARGE: Needs one negative test within 24-48 hours TRANSITION TRANSPORTATION: [facility] (P: [phone]) TRANSPORTATION PAYMENT: Billed to Case Management Due to: no funds availabel TRANSITION CHOICES OFFERED: Swing Bed DOES THE PATIENT HAVE A PRIMARY CARE PHYSICIAN? Yes Shay Diamond MD PATIENT / SUBSTITUTE DECISION MAKER GOAL UPON TRANSITION: First Choice: Swing Bed PATIENT CHOICE EDUCATION: Choice form completed in Case Management note and copy given to patient/family MEDICARE 3 IP MIDNIGHT CRITERIA MET: Yes: , RESOURCE(S) PROVIDED: Transportation DOES PATIENT HAVE CLOTHING TO WEAR AT DISCHARGE? No ANTICIPATED MODE OF TRANSPORT TO AND FROM FOLLOW UP APPOINTMENTS: As arranged by accepting facility VERIFIED CORRECT PHARMACY IS ENTERED FOR DISCHARGE: No METHOD OF PRESCRIBING MEDICATIONS: Reconcile medications as Patient Transfer ("65 button") TRANSITION ROUNDING COMPLETED WITH THE FOLLOWING: Patient / family Beveler Attending Residents COMMENTS / PATIENT AND FAMILY RESPONSE TO PLAN: Met with patient at bedside. I spoke to Afsaneh,on the phone regarding bed offer at [facility] and [facility]. Afsaneh prefers patient go to [facility] now that they are allowing one visitor at bedside for driving convenience. Afsaneh states she will meet him at swing bed and bring clothes, I notified Afsaneh we would just send patient in gown, and pajama pants so that she did not need to drive this far. Afsaneh states she has no money to pay for ride, CM will cover transportation. SPECIAL TRANSITION DAY INSTRUCTIONS TO NURSE / MD: Interagency Orders please Please Fax Orders to [phone] Nurse to Nurse Report to [phone] Covid and Screen Faxe [phone] TRAFFIC OR SYSTEM DISPATCHER: Please fax paperwork to above number NURSING: Please call report at above number before or just as patient leaves MD: Please complete interagency order set, ensure orders for PT/OT, ST (if needed) are included. When doing medication orders, there cannot be any range orders, and indication is needed for all meds. CURRENT READMISSION RISK SCORE / HANDOFF: Predictive Risk Score Risk of Unplanned Readmission: 17.6 Handoff given: N/A SIGNED: Stacy Tillman RN [facility] full fashioned garment knitter Pager [phone] Routing #[phone] GY DERIVATIVES TRADER Respiratory Therapy - Joseph Mendez RRT - 11/17/2020 8:52 AM CSTPatient continues on RA, spo2 94%. BS coarse and diminished. Was able to cough up small amount. Patient receives Q4 Duonebs. Rt to follow. are Planning - Anitra Fong RN - 11/17/2020 12:20 AM ENERGY DERIVATIVES TRADER Problem: RISK FOR IMPAIRED SKIN INTEGRITY Goal: TISSUE INTEGRITY: SKIN & MUCOUS MEMBRANES Description: DEFINITION: Structural intactness and normal physiological function of skin and mucousmembranes. 1=Severely compromised, 2=Substantially compromised, 3=Moderately compromised, 4=Mildly compromised, 5=Not compromised. Outcome: NOC Rating 2 Flowsheets (Taken 11/17/2020 0016) Initial Score: 2 Target Score: 5 Plan of care reviewed with: Patient Patient specific goal for the day: pressure ulcer prevention Patient specific goal for the stay: pt will have no skin breakdown Achieve goal for stay: By discharge Patient Progress: Pt with limited mobility, educated on repositioning Q2 and tolerating it. Noted tohave non blanchable and blanchable redness to his coccyx.Sacral mepilex in place. Will continue to monitor. are Planning - Mateo Lovett RN - 11/16/2020 5:02 PM ENERGY DERIVATIVES TRADER Problem: RISK FOR IMPAIRED SKIN INTEGRITY Goal: TISSUE INTEGRITY: SKIN & MUCOUS MEMBRANES Description: DEFINITION: Structural intactness and normal physiological function of skin and mucousmembranes. 1=Severely compromised, 2=Substantially compromised, 3=Moderately compromised, 4=Mildly compromised, 5=Not compromised. Outcome: NOC Rating 3 Flowsheets (Taken 11/16/2020 170) Initial Score: 3 Target Score: 4 Plan of care reviewed with: Patient Patient specific goal for the day: Pt will turn and reposition q 2 hours throughout shift. Patient specific goal for the stay: Pt will return to baseline Achieve goal for stay: By discharge Patient Progress: Turns and repositioning q 2hrs maintained this shift, patient agreeable. Pressure injury prevention education reinforced. Heel lift boots remain in place. GY DERIVATIVES TRADER PostOp Progress Note - Enoch Spain MD - 11/16/2020 12:39 PM CSTImmediate Post-Operative / Post Procedure Progress Note Interventional Radiologist: Enoch Spain MD Pre-Operative Diagnosis: Concern for SP cath positioning, right hydro Post-Operative Diagnosis: Same as pre-operative diagnosis. Anesthesia Type: n/a Interventional Procedure: cystogram, SP cath change Procedural Findings: SP cath appropriately positioned, no vesicoureteral reflux seen Specimen: n/a Estimated Blood Loss: n/a Tubes/Drains/Needle: 18 Fr suprapubic catheter Complications: none Postoperative Condition: stable Enoch Spain MD espiratory Therapy - Renuka Buitrago RRT - 11/16/2020 12:04 PM CSTPt seen for scheduled DuoNeb QID. Pt was seen on RA, SpO2 90%, RR 20, BS diminished. Pt performed the aerobika well. RT to follow. are Planning - Nilam Zurita RN - 11/16/2020 3:00 AM ENERGY DERIVATIVES TRADER Problem: RISK FOR IMPAIRED SKIN INTEGRITY Goal: TISSUE INTEGRITY: SKIN & MUCOUS MEMBRANES Description: DEFINITION: Structural intactness and normal physiological function of skin and mucousmembranes. 1=Severely compromised, 2=Substantially compromised, 3=Moderately compromised, 4=Mildly compromised, 5=Not compromised. Outcome: NOC Rating 3 Flowsheets (Taken 11/16/2020 0300) Initial Score: 3 Target Score: 4 Plan of care reviewed with: Patient Patient specific goal for the day: Pt will turn and reposition q 2 hours throughout shift. Patient specific goal for the stay: Pt will return to baseline Achieve goal for stay: By discharge Patient Progress: Turns and repositioning q 2hrs maintained this shift, patient agreeable. Pressure injury prevention education reinforced. Heel lift boots remain in place. GY DERIVATIVES TRADER Clinical Team - Josiah Hickey RN - 11/15/2020 12:17 PM CSTTwo-nurse skin assessment completed with Natalya Swanson RN. -Blanchable redness to bilateral heels, bilateral elbows, bilateral ears, and coccyx. -Scattered scabs to bilateral buttocks. -Ostomy to L abdomen. -Suprapubic catheter in place. -Surgical incision to L groin. -Scattered bruising to bilateral upper extremities. No other areas of concern noted at this time. Prevlon boots remain in place, maintaining turns and repositioning q 2 hours, new mepilex placed to coccyx. are Planning - Josiah Hickey RN - 11/15/2020 11:51 AM ENERGY DERIVATIVES TRADER Problem: RISK FOR IMPAIRED SKIN INTEGRITY Goal: TISSUE INTEGRITY: SKIN & MUCOUS MEMBRANES Description: DEFINITION: Structural intactness and normal physiological function of skin and mucousmembranes. 1=Severely compromised, 2=Substantially compromised, 3=Moderately compromised, 4=Mildly compromised, 5=Not compromised. Outcome: NOC Rating 3 Flowsheets (Taken 11/15/2020 1150) Plan of care reviewed with: Patient Patient specific goal for the day: Pt will turn and reposition q 2 hours throughout shift. Patient specific goal for the stay: Pt will return to baseline Patient Progress: Turns and repositioning q 2hrs maintained this shift, patient agreeable. Pressure injury prevention education reinforced. Heel lift boots remain in place. are Planning - Anastacia Kennedy RN - 11/15/2020 1:05 AM ENERGY DERIVATIVES TRADER Problem: RISK FOR IMPAIRED SKIN INTEGRITY Goal: TISSUE INTEGRITY: SKIN & MUCOUS MEMBRANES Description: DEFINITION: Structural intactness and normal physiological function of skin and mucousmembranes. 1=Severely compromised, 2=Substantially compromised, 3=Moderately compromised, 4=Mildly compromised, 5=Not compromised. Flowsheets (Taken 11/15/2020 0105) Initial Score: 2 Target Score: 4 Plan of care reviewed with: Patient Patient specific goal for the day: Pt will turn and reposition q 2 hours throughout shift. Patient specific goal for the stay: Pt will return to baseline Achieve goal for stay: By discharge Patient Progress: Turns and repositioning q 2hrs maintained this shift, patient agreeable. Pressure injury prevention education reinforced. Heel lift boots remain in place. GY DERIVATIVES TRADER Clinical Team - Josiah Hickey RN - 11/14/2020 8:08 PM CSTTwo-nurse skin assessment completed with Neetu Horan RN. -Blanchable redness to bilateral heels, bilateral elbows, bilateral ears, and coccyx. -Scattered scabs to bilateral buttocks. -Ostomy to L abdomen. -Suprapubic catheter in place. -Surgical incision to L groin. -Scattered bruising to bilateral upper extremities. No other areas of concern noted at this time. Prevlon boots remain in place, maintaining turns and repositioning q 2 hours, mepilex in place to coccyx. are Planning - Josiah Hickey RN - 11/14/2020 3:39 PM ENERGY DERIVATIVES TRADER Problem: RISK FOR IMPAIRED SKIN INTEGRITY Goal: TISSUE INTEGRITY: SKIN & MUCOUS MEMBRANES Description: DEFINITION: Structural intactness and normal physiological function of skin and mucousmembranes. 1=Severely compromised, 2=Substantially compromised, 3=Moderately compromised, 4=Mildly compromised, 5=Not compromised. Outcome: NOC Rating 3 Flowsheets (Taken 11/14/2020 7159) Plan of care reviewed with: Patient Patient specific goal for the day: Pt will turn and reposition q 2 hours throughout shift. Patient specific goal for the stay: Pt will return to baseline Achieve goal for stay: By discharge Patient Progress: Turns and repositioning q 2hrs maintained this shift, patient agreeable. Pressure injury prevention education reinforced. Heel lift boots remain in place. hysical Therapy - Rhonda Gonzáles, PT - 11/14/2020 12:51 PM CST Physical Therapy Acute Inpatient Treatment Note ASSESSMENT/RECOMMENDATIONS Pt presents with weakness and deconditioning. Declined transfers to chair this session. 6-Clicks Basic Mobility Score: 8 Activity Prescription with Nursing: Transfer to chair 2 times per day using patricio. Anticipated D/C Service needs: Low intensity setting SUBJECTIVE Pt agreeable to sit EOB, declines transfers to chair. OBJECTIVE Bed Mobility: Mod assist x 1 supine to EOB. Mod assist x 2 EOB to supine. EOB x ~12' Therapeutic Exercises: AROM knee and ankle sitting at EOB Balance Training: Steady at EOB, SBA Other: Spouse present, return to supine Education: Pt was educated on POC for today's session, pt agreeable. PLAN Continue plan of care. Today's Treatment: Gait Trainin minutes Therapeutic Exercise: 0 minutes Therapeutic Activity: 24 minutes TOTAL TIMED CODES: 24 minutes TREATMENT TOTAL TIME: 24 minutes 3716 ase Mgmt - Stacy Tillman RN - 11/14/2020 11:31 AM CSTCASE MANAGEMENT / SOCIAL SERVICE TRANSITION PLAN - PROGRESS NOTE PLAN: Awaiting Medical Doctor Recommendations for Transition Will Continue to Follow for Support and Progression Towards Final Transition Plan BARRIERS TO TRANSITION: Medical barriers:/ Leukocytosis work up DOES ACCEPTING FACILITY REQUIRE COVID TESTING BEFORE DISCHARGE: Other: to be determined If going to [place] will need a covid If going to [facility] will not need covid COMMENTS / PATIENT AND FAMILY RESPONSE TO PLAN: Spoke with Rhona at [facility], Rhona states that they would not be able to accept patient until next week. [facility] rehab was sent profile to expedite discharge. [facility] was willing to accept patient, provide therapy and work on transferring patient to [facility] next week, patient, son and agreeable to plan. Discharge for today placed on hold due to elevated white count. Yadi at [facility] notified and Rhona at [place] updated, and stated we would touch base on Tuesday. Yadi [facility] [phone] Rhona [place] [phone] IS PATIENT'S ADMISSION ASSOCIATED WITH TIA, ISCHEMIC, OR HEMORRHAGIC STROKE?: No PATIENT / SUBSTITUTE DECISION MAKER GOAL UPON TRANSITION: [facility] ANTICIPATED NEEDS UPON TRANSITION: Swing Bed RESOURCE(S) PROVIDED: nothing needed at this time ANTICIPATED MODE OF TRANSPORT UPON TRANSITION: [employer] Wheelchair (P:[phone]) [employer] Wheels Wheelchair (P: [phone]) Other: to be determined ANTICIPATED MODE OF TRANSPORT TO AND FROM FOLLOW UP APPOINTMENTS: Family Car Other: as arranged by accepting facility VERIFIED CORRECT PHARMACY IS ENTERED FOR DISCHARGE: No TRANSITION ROUNDING COMPLETED WITH THE FOLLOWING: Family : Afsaneh Beveler Discussed via telephone SIGNED: Stacy Tillman RN [facility] Elyssa RUELAS RNfull fashioned garment knitter Pager [phone] Routing #[id number] are Planning - Daria Monteiro RN - 11/14/2020 12:31 AM ENERGY DERIVATIVES TRADER Problem: RISK FOR IMPAIRED SKIN INTEGRITY Goal: TISSUE INTEGRITY: SKIN & MUCOUS MEMBRANES Description: DEFINITION: Structural intactness and normal physiological function of skin and mucousmembranes. 1=Severely compromised, 2=Substantially compromised, 3=Moderately compromised, 4=Mildly compromised, 5=Not compromised. Flowsheets (Taken 11/14/2020 0030) Plan of care reviewed with: Patient Patient specific goal for the day: Pt will be compliant with repo q2h Patient specific goal for the stay: Pt will return to baseline Achieve goal for stay: By discharge Patient Progress: Repositoned patient q2hr, patient compliant with turns. are Planning - Dominique Roberts RD - 11/13/2020 4:01 PM ENERGY DERIVATIVES TRADER Problem: IMBALANCED NUTRITION: LESS THAN BODY REQUIREMENTS Goal: NUTRITIONAL STATUS: NUTRIENT INTAKE Description: DEFINITION: Nutrient intake to meet metabolic needs. 1=Not adequate, 2=Slightly adequate, 3=Moderately adequate, 4=Substantially adequate, 5=Totally adequate. Flowsheets (Taken 11/13/2020 4754) Initial Score: 2 Target Score: 4 Plan of care reviewed with: Patient Spouse/Significant Other Patient specific goal for the day: Tolerate full liquid diet. Order 3 meals per day and consume >50%. Patient specific goal for the stay: Consume >75% of estimated needs. Achieve goal for stay: By discharge Patient Progress: Pt advanced to full liquid diet this AM and ate 100% of breakfast. Providing pt with supplement in afternoons. GY DERIVATIVES TRADER Occupational Therapy - Jane Mclean COTA/L - 11/13/2020 2:42 PM ENERGY DERIVATIVES TRADER Occupational Therapy Acute Care Progress Note Impression/Recommendations Recommend low intensity upon medical stability and discharge from acute care. Patient presents from home w/ spouse, previously independent with ADL's and functional mobility/transfers. Patient is alert, oriented x person, place, and situation, but not time. Patient would benefit from continued cognitive assessment. Acute OT will continue to see pt to increase independence with ADL's, IADL's, functional transfers to maximize quality of life while pt is in hospital. Objective Cognition: Pt alert and oriented. Cues for U/E exercises U/E: U/E exercise performed to increase strength and endurance to further independence with ADLs/IADLs. Pt completed B UE: AROM/AAROM 10-12 x 1 for all available motions/planes. OT provided education on correct technique, speed and end range. Pt will require reinforcement of this education/training. Frequent rest breaks required d/t weakness, fatigue and decreased activity tolerance. Patient required assist to track the number of repetitions and maintain proper form throughout each exercise ADLs: Feeding: Max assist Grooming: Mas assist Transfers:Pt declined transfers as lunch arrived. Pain: 0/10 Location: Denied any pain Education Education/Training provided: Role of OT, plan of care Learners: Patient and family Readiness: Acceptance Method of Training: Verbal education, demonstration Response: Verbalized/demonstrated understanding, will benefit from continued reinfocement Adaptive Equipment Recommendations Adaptive Equipment Recommended: To further assess pending discharge disposition Adaptive Equipment Available: shower chair and front-wheeled walker Plan to obtain adaptive equipment: To further assess. Goals Patient/Family Stated Goal for Session: pt and spouse agreeable to OT Short Term/Correction Goals: Patient will: Complete 3 grooming tasks with SBA and AD as needed for safety Complete UB dressing with SBA Complete LB dressing with Min A and AE as needed for safety Complete toileting with Min A and AE as needed for safety Complete functional transfers (bed, chair, toilet, shower, car) with Min A and AE as needed for safety Participate in further cognitive assessment to increase safety with functional tasks Answer safety/judgement questions with 100% accuracy for safe discharge planning and ADL recommendations Complete 15-25 minutes of continuous UE activity to increase physical conditioning for ADL/IADL taskcompletion Patient continues to progress towards goals. Charges Treatment/Minutes: Today's Evaluation/Treatment Therapeutic exercise: 10 minutes Total Treatment Time: 10 minutes Treatment Session 09/23 Weekly Assessment/Plan (Day 5): Continue POC for OT Therapist Alpha Pager Number [phone] GY DERIVATIVES TRADER Physical Therapy - Anupam Wade PT - 11/13/2020 10:49 AM CSTPT treatment attempted. Pt not agreeable to PT when attempted. PT will f/u as appropriate. utrition Team - Dominique Roberts, RD - 11/13/2020 10:16 AM CST Nutrition Therapy Follow Up Hospital Day: 3 days Active Problems: Small bowel obstruction, secondary to incarcerated left inguinal hernia Bowel resection and loop colostomy on 11/10 Sepsis PMH: BPH with obstruction/lower urinary tract symptoms, CAD, Hearing loss, HLD, HTN, Myocardial infarction, Neuromuscular disorder, Renal failure syndrome (05/05/2020), Stroke, Urinary retention, and Vision abnormalities. Recommendations: Encourage adequate oral intake throughout the day with 3 meals and snacks (as needed) to meet estimated needs. Advance diet as medically appropriate Offer oral nutritional supplements if pt refuses or skips meals. Malnutrition Summary Malnutrition Assessment Date: 11/11/20 Moderate (non-severe) protein calorie malnutrition Malnutrition Characteristics in the Context of Chronic Illness (greater than 3 months): Severe Weight Loss: Greater than 10% in 6 months Subcutaneous Fat Loss: Moderate Muscle Loss: Moderate Interventions: Monitor oral intake/advance diet as tolerated;Supplement diet with ONS (oral nutrition supplements)/nutrient dense foods NUTRITION ASSESSMENT Spoke with pt's regarding his intake prior to admit. She said he was eating very well and even better than normal before 11/07. Pt diet advanced to full liquid this AM and pt ate 100% of breakfast.Pt previously NPO since 11/10. Encouraged pt and to order small frequent meals throughout the day to increase intake. Pt agreed to receive snacks and supplements in the afternoon. Provided andpt with colostomy nutrition education with handout "Colostomy Nutrition Therapy." Answered questionsregarding colostomy nutrition. Anthropometrics: Height: 167.6 cm (5' 6") Admission Weight: Weight: 69.3 kg (152 lb 12.5 oz) as of 11/10/2020 per bed scale Most Recent Weight: Weight: 71.4 kg (157 lb 6.5 oz) (11/12/20 0500) per bed scale Lowest Weight Since Admission: 69.3 kg Weight Change: +5 lbs since admission; +5.8 L fluid BMI: Body mass index is 25.41 kg/m. IBW: 65 kg %IBW: 106% (based on admit weight) Usual Body Weight: 170-180 lbs per EMR review Unintentional Weight Loss: >10% in 6 months. Pt is down 30 lbs in 6 months (16%), which is considered clinically significant. Estimated Needs: 9419-2367 kcal/day (28-30 kcal/kg Using: Admission Weight) 112-126 gm protein (1.6-1.8 gm/kg Using:Admissio weight) Fluids per MD NPO till 11/12 PM and had 100% of clears. Diet advanced to full liquid today. 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 She provided diet history. Breakfast: Apple juice, cheerios or chex cereal, oatmeal with raisins Lunch: Ice cream and sandwich Dinner: Biggest meal; potatoes, meat, vegetables Current Intake: NPO till 11/12 PM and had 100% of clears. Diet advanced to full liquid today. Pt ordered breakfast and ate 100%. Current Diet: Nutrition (From admission, onward) Start Ordered 11/13/20 1250 SNACKS Once info Comments: PM: CIB strawberry shake large 11/13/20 1247 11/13/20 0750 Diet - Full Liquid Now Question: Standard Diets Answer: Full Liquid 11/13/20 0748 11/10/20 0900 Supplement [facility]; Nepro BID BID Comments: Give supplement cold with medications twice a day. The supplement is an intervention for identified nutrition risk factors. * Do not give if patient is NPO (unless the orders specify NPO with supplement) or if medication should not be given with food. 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 Generalized Edema 2 ? LUE Edema 1 ? RUE Edema 1 ? LLE Edema 2 ? RLE Edema 2 GI Assessment: ? Abdominal exam: Flat, Soft and tube/line with Present, Hypoactive bowel sounds, per college basketball coach at 0815 today. ? Stool Frequency: No documented ostomy output Wounds/Pressure Points: (per college basketball coach at 0815 today) ? Coccyx Blanchable Redness ? Heel Left, Right, Blanchable Redness Functional Status: PT Following OT Following Nutrition Focused Physical Exam: Completed by NOLVIA on 11/11/20 Below the Eye (fat): Slightly dark circles, somewhat hollow look (mild-moderate)(Moderate) Faith (muscle): Hollow, scooping, depression (severe) Buccal (fat): Flat cheeks (moderate)(Moderate-Severe) Clavicle (muscle): Some protrusion of bone (mild-moderate)(Moderate) Shoulder (muscle)/Deltoid muscle: Acromion process slightly protrudes (mild-moderate)(Moderate) Triceps/Biceps (fat): Some depth to pinch, but not ample (mild-moderate) Hand/Interosseous (muscle): Slightly depressed (mild-moderate) Nutritionally-Relevant Medications, Vitamins and Minerals: Warfarin, atorvastatin, antibiotics, lovenox, lasix, ferrous gluconate, lactated ringers IV, omeprazole, miralax Nutritionally-Relevant Biochemical Data: (11/13/2020) Creatinine 0.72 Allergies/Food Intolerance: Ama is allergic to vioxx. Culturally [employer]ism Needs: NA INTERVENTIONS Encouraged adequate calories and optimal protein in small, frequent meals and snacks Will send snacks and supplements in afternoon Provided nutrition education on colostomy nutrition therapy Obtained diet history EMR reviewed MONITORING/EVALUATION Monitor diet advancement Monitor ability to consume and tolerate adequate intake to approximate estimated needs with accomodation of preferences and tolerances until intake is sustained within desirable limits Monitor I&O, weight trends, nutrition-related labs and medications, clinical status, and planof care r/t need for nutrition intervention and provide as warranted Nutrition Therapy will reassess every 1-[address] Alpha Pager: [phone] ase Tiffany - Stacy Tillman RN - 11/13/2020 9:43 AM CSTCASE MANAGEMENT / SOCIAL SERVICE TRANSITION PLAN - PROGRESS NOTE PLAN: Awaiting Medical Doctor Recommendations for Transition Will Continue to Follow for Support and Progression Towards Final Transition Plan BARRIERS TO TRANSITION: Medical barriers:/ Plan: - CXR - Duonebs TID - IS with RT - Pain: Scheduled oral and IV PRN - Diet: FLD - IVF: SLIV - Restarted home lasix - Warfarin pharmacy to dose - DVT: SCDs DOES ACCEPTING FACILITY REQUIRE COVID TESTING BEFORE DISCHARGE: Other: to be determined COMMENTS / PATIENT AND FAMILY RESPONSE TO PLAN: Met with patient at bedside. I asked patient how he was doing and he replied with "not worth a shit." Patient's breakfast was in front of him and he was not able to feed himself. I sat at bedside tofeed patient, order placed for nursing to assist with meals. I phoned patients , she will be coming up later today, I informed her I would just speak to her at that time. IS PATIENT'S ADMISSION ASSOCIATED WITH TIA, ISCHEMIC, OR HEMORRHAGIC STROKE?: No PATIENT / SUBSTITUTE DECISION MAKER GOAL UPON TRANSITION: First Choice:Home Health:Nurse, Occupational Therapy and Physical Therapy Home:Family/Friend Support and 24-Hour Supervision Second Choice:Swing Bedin [place] ANTICIPATED NEEDS UPON TRANSITION: Swing Bed RESOURCE(S) PROVIDED: nothing needed at this time ANTICIPATED MODE OF TRANSPORT UPON TRANSITION: [employer]-A-Van Wheelchair (P:[phone]) Ready Wheels Wheelchair (P: [phone]) Other: to be determined ANTICIPATED MODE OF TRANSPORT TO AND FROM FOLLOW UP APPOINTMENTS: Family Car Other: as arranged by accepting facility VERIFIED CORRECT PHARMACY IS ENTERED FOR DISCHARGE: No TRANSITION ROUNDING COMPLETED WITH THE FOLLOWING: Family : Afsaneh Beveler Discussed via telephone SIGNED: Stacy Tillman RN [facility] JORGE L full fashioned garment knitter Pager [phone] Routing #[phone] GY DERIVATIVES TRADER Respiratory Therapy - Greta Navarro RRT - 11/13/2020 9:25 AM CSTPt seen resting in bed on RA. SpO2 96%. BS clear. Pt denies SOB. Pt continues to receive Duoneb QID and aerobika QID. RT to follow. espiratory Therapy - Solange Burton RRT - 11/13/2020 6:14 AM CSTIncentive Spirometry Acknowledged order for Incentive Spirometry. Patient was instructed on use and goals of IS. Patient's inspiratory capacity is 1250 mL on IS. The IS goal is 652 mL. Patient is able to meet goal and RT will discontinue following. are Planning - Anastacia Kennedy RN - 11/13/2020 3:09 AM ENERGY DERIVATIVES TRADER Problem: RISK FOR IMPAIRED SKIN INTEGRITY Goal: TISSUE INTEGRITY: SKIN & MUCOUS MEMBRANES Description: DEFINITION: Structural intactness and normal physiological function of skin and mucousmembranes. 1=Severely compromised, 2=Substantially compromised, 3=Moderately compromised, 4=Mildly compromised, 5=Not compromised. Flowsheets (Taken 11/13/2020 0309) Initial Score: 2 Target Score: 4 Plan of care reviewed with: Patient Patient specific goal for the day: Pt will be compliant with repo q2h Patient specific goal for the stay: Pt will return to baseline Achieve goal for stay: By discharge Patient Progress: Pt. has been compliant with repo q2h. Will continue to monitor. are Planning - Bonny Cuevas RN - 11/12/2020 5:54 PM ENERGY DERIVATIVES TRADER Problem: IMBALANCED NUTRITION: LESS THAN BODY REQUIREMENTS Goal: NUTRITIONAL STATUS: NUTRIENT INTAKE Description: DEFINITION: Nutrient intake to meet metabolic needs. 1=Not adequate, 2=Slightly adequate, 3=Moderately adequate, 4=Substantially adequate, 5=Totally adequate. Flowsheets (Taken 11/12/2020 9756) Initial Score: 3 Target Score: 5 Plan of care reviewed with: Patient Patient specific goal for the day: Tolerate clear liquid diet Patient specific goal for the stay: Return to baseline dietary needs. Achieve goal for stay: Within 48 hours Patient Progress: Patient's diet advanced to clears today and tolerating well with no c/o abdominal pain. No stool output thus this far from ostomy. Bowel sounds hypoactive at thsi time, no c/o abdominal pain. Will continue to assess. linical Team - Bonny Cuevas RN - 11/12/2020 1:20 PM CST2 nurse skin assessment done by script writer and Dennys Sanchez RN upon arrival to unit. Surgical incision to L groin, CDI, ostomy and suprapubic cath in place. Scattered bruising, blanchable redness to coccyx, sacral mepilex in place. No other skin concerns noted. ase [facility] - Vickie Beach RN - 11/12/2020 11:38 AM CSTCASE MANAGEMENT / SOCIAL SERVICE TRANSITION PLAN - PROGRESS NOTE PLAN: Awaiting Medical Doctor Recommendations for Transition Will Continue to Follow for Support and Progression Towards Final Transition Plan BARRIERS TO TRANSITION: Discharge Needs to be Determined NPO NG tube to LIS IV Pepcid IV antibiotics DOES ACCEPTING FACILITY REQUIRE COVID TESTING BEFORE DISCHARGE: Other: to be determined COMMENTS / PATIENT AND FAMILY RESPONSE TO PLAN: Referral sent on [facility] to the swingbed/SNF at 30 miles radius from [place]. Patient`s would prefer patient to discharge to home with home health services and if needing placement, would prefer the swing bed in [place]. Patient has transferred out form the ICU to the floor. No family present at bedside. This script writer left a message for Rhona [phone] at [facility] swing Bed in [place]. [facility] Swing [facility] can consider Ama for their swing bed program by the end of the week. This script writer uploaded updated therapy notes and latest progress notes on [facility]. This script writer spoke to patient`s Afsaneh [phone] to provide updates and discussed possible transition plan. Patient`s stated that she wants the patient to go home with home health services but if patient will really need to go to a facility for therapies before going home, she would only agree if the patient will go to the swing bed in [place]. IS PATIENT'S ADMISSION ASSOCIATED WITH TIA, ISCHEMIC, OR HEMORRHAGIC STROKE?: No PATIENT / SUBSTITUTE DECISION MAKER GOAL UPON TRANSITION: First Choice:Home Health:Nurse, Occupational Therapy and Physical Therapy Home:Family/Friend Support and 24-Hour Supervision Second Choice:Swing Bedin [place] ANTICIPATED NEEDS UPON TRANSITION: Swing Bed RESOURCE(S) PROVIDED: nothing needed at this time ANTICIPATED MODE OF TRANSPORT UPON TRANSITION: Care-[employer]-Van Wheelchair (P:[phone]) Ready Wheels Wheelchair (P: [phone]) Other: to be determined ANTICIPATED MODE OF TRANSPORT TO AND FROM FOLLOW UP APPOINTMENTS: Family Car Other: as arranged by accepting facility VERIFIED CORRECT PHARMACY IS ENTERED FOR DISCHARGE: No TRANSITION ROUNDING COMPLETED WITH THE FOLLOWING: Family : Afsaneh Beveler Discussed via telephone SIGNED: TROY Darden, RN, [facility] Case Management ICU [facility]CD [place] Phone #[phone] Pager: [phone] espiratory Therapy - Marimar Pride RRT - 11/12/2020 9:42 AM CSTFollowing patient to aid in secretion removal with IS and Aerobika QID. Patient achieves 750 on IS and performs Aerobika well. Cough productive of small white/clear secretions. Weaned to Room Air withO2 sats 97%. Will follow. ccupational Therapy - Areli Madden OTR/Chrystal - 11/12/2020 9:28 AM ENERGY DERIVATIVES TRADER Occupational Therapy Acute Care Evaluation Impression/Recommendations Recommend low intensity upon medical stability and discharge from acute care. Patient presents from home w/ spouse, previously independent with ADL's and functional mobility/transfers. Patient is currently requiring Ax2 for observed functional transfers and Ax1-2 for ADL's. Patient is alert, oriented x person, place, and situation, but not time. Patient would benefit from continued cognitive assessment. Acute OT will continue to see pt to increase independence with ADL's, IADL's, functional transfers to maximize quality of life while pt is in hospital. Admitting Diagnosis: ICD-10-CM 1. Bowel trouble K63.9 TISSUE EXAM History of Present Illness: Refer to H&P for details Past Medical History: Past Medical History: Diagnosis Date Age-related nuclear cataract of both eyes 08/29/2019 Allergy, unspecified not elsewhere classified BPH with obstruction/lower urinary tract symptoms CAD (coronary artery disease) Glaucoma suspect of both eyes Hearing loss Hyperlipidemia Hypertension Myocardial infarction (HCC) had after back surgery while in hospital Neuromuscular disorder (HCC) Renal failure syndrome 05/05/2020 Stroke (HCC) Urinary retention Vision abnormalities Activity Level: Progressive mobility bundle Precautions: PU risk, negligible medication, colostomy Infection Control: Standard protocol Patient History Social/Home Environment: Patient lives: lives with their spouse House: house with 3 stairs to enter Home Environment: Bed/Bath on main: Yes Bath Setup: Walk-In Shower Employment: retired Prior Level of Function Independent with: feeding, grooming/hygiene, dressing, toileting, bathing Assistance needed with: medication management, cooking, cleaning, laundry, driving, groceries and money management Comments: Patient reporting his spouse assisted with bathing "When I needed help", but overall he was typically able to complete this independently. He reports his completes IADL's Adaptive Equipment Available: shower chair and front-wheeled walker Present for Eval: Patient, PT, RN Objective Activities of Daily Living: Feeding: RN assisting with drinking out of a cup secondary to patient completing bedside dysphagiascreen Grooming: setup to wash face while sitting in a chair Upper Extremity Dressing: not observed Lower Extremity Dressing: total A to don kishor socks Bathing: Not observed Toileting: Lincoln cath in place Transfers: Bed: supine-sit w/ Mod A x2, patient able to slowly initiate advancement of kishor LE's, but requires assist for full movement. Sits at EOB w/ SBA, reports no dizziness, vitals stable. Sit-stand from EOBw/ Max A x2, verbal cues, FWW. Chair: Min-mod A x2 and FWW, verbal cues Toilet: Not observed Tub/Shower: Not observed Comments: Gait belt, gripper socks, and FWW used for all out of bed activity, ambulation/ transfertasks for safety. Pt moving fair, requiring verbal cues for posture and safe ambulation with walker.Upon session completion, pt resting comfortably in chair with call light/ phone and tray table within reach. No questions/ concerns. [place] chair alarm on and in place prior to OT leaving patient's room. Pain: Pain at rest: 0/10 Pain during activity: 0/10 Location: patient declines pain throughout session. Upper Extremity Function: Range of Motion: Right:limited to shoulder. Patient reporting a fall approximately 3 years ago resulting in shoulder injury that has not healed. Not receptive to passive assist to full range secondary to inflicting pain to shoulder joint Left: within functional limits Strength: Right: grossly 4/5 Left: grossly 4+/5 Endurance: limited Oxygen Level: Rest >90% Activity >90% Patient on room air, all vitals stable throughout OT session Coordination: intact Sensation: intact Edema: none observed to kishor UE's Dominant Hand: right Orientation: Cognition: alert Attention: intact Following Directions: intact Safety Awareness: intact Impulsivity: mild Comments: Patient oriented x name, , place, city. Patient unsure of month, year, day, or date. Patient estimating the year as 2019. When asked for month, patient softly stating the months of "September" then "March". Patient asked what season it is, patient able to identify "Winter". Patient estimating the current day as "Tuesday or ". Patient re-oriented to current time, is receptive to this. Patient later asking "How much snow did we get last night?", it did snow last night, demonstrating awareness to surroundings. Visual/Perception: Glasses: no Comments: Patient declines any visual/perception concerns or changes Education Education/Training provided: Role of OT, plan of care, discharge recommendations, ADL completion, transfers Learners: Patient Readiness: Acceptance Method of Training: Verbal education, demonstration Response: Verbalized/demonstrated understanding, will benefit from continued reinforcement Adaptive Equipment Recommendations Adaptive Equipment Recommended: To further assess pending discharge disposition Adaptive Equipment Available: shower chair and front-wheeled walker Plan to obtain adaptive equipment: To further assess. Assessment/Plan Assessment: Patient demonstrates decreased UE strength, decreased physical conditioning, decreased independence with ADL/IADL tasks, decreased independence with functional mobility and decreased functional cognition Patient showing a decrease in ADL/transfer performance and will benefit from continued OT. Plan: Patient to be seen 3-5 times a week to work toward above goals Treatment plan will consist of Tuesday thru Tuesday sessions Goals Patient/Family Stated Goal for Session: none stated, agreeable to OT. RN consents. By Discharge: Patient will: Complete 3 grooming tasks with SBA and AD as needed for safety Complete UB dressing with SBA Complete LB dressing with Min A and AE as needed for safety Complete toileting with Min A and AE as needed for safety Complete functional transfers (bed, chair, toilet, shower, car) with Min A and AE as needed for safety Participate in further cognitive assessment to increase safety with functional tasks Answer safety/judgement questions with 100% accuracy for safe discharge planning and ADL recommendations Complete 15-25 minutes of continuous UE activity to increase physical conditioning for ADL/IADL taskcompletion Treatment Provided Following completion of evaluation, addressed ADL performance. See above in note for further detailsof patient performance. Charges Treatment/Minutes: Today's Evaluation/Treatment Evaluation Therapeutic activity: 24 minutes Total for time-based codes: 24 minutes Total treatment time: 39 minutes Evaluation Complexity PMH/Comorbidities that affect Occupational Performance: Refer to above section for details of PMH. Occupational Profile/Medical and Therapy History: LOW - Brief history relating to presenting problem Patient Assessment: LOW - 1-3 performance deficits relating to physical, cognitive, psychosocial limitations/restrictions Clinical Decision Making: LOW - Low complexity, limited amount of treatment options, no assessment modification, no comorbidities Evaluation Complexity: Low Therapist [facility] Pager Number: [phone] GY DERIVATIVES TRADER Physical Therapy - Gisell Palomares DPT - 11/12/2020 9:28 AM CST Physical Therapy Acute Inpatient Initial Evaluation RECOMMENDATIONS Assessment: Patient presents with decreased functional strength, transfers with Ax2 to chair; fair sitting balance but decreased standing balance and posture requiring assist to correct. 6-Clicks Basic Mobility Score: 8 Activity Prescription with Nursing: Assist patient to chair 3 times per day for 30 to 60 minutes or for all meals. Use Ax2 with FWW Encourage patients to do personal cares when sitting up. Use bathroom or commode rather than bedpan. Anticipated D/C Service needs: Patient would benefit from post acute PT of low intensity upon transition from hospital. Diagnosis: ICD-10-CM 1. Bowel trouble K63.9 TISSUE EXAM Prescription: Eval and Treat Admit Date: 11/10/2020 Pertinent Medical / Surgical History: Patient has a past medical history of Age-related nuclear cataract of both eyes (08/29/2019), Allergy, unspecified not elsewhere classified, BPH with obstruction/lower urinary tract symptoms, CAD (coronary artery disease), Glaucoma suspect of both eyes, Hearing loss, Hyperlipidemia, Hypertension, Myoc ardial infarction (HCC), Neuromuscular disorder (HCC), Renal failure syndrome (05/05/2020), Stroke (HCC), Urinary retention, and Vision abnormalities. Patient has a past surgical history that includes angiogram; total hip; Carpal Tunnel Release; BackSurgery; teeth extraction (2012); turp laser assisted (N/A, 03/27/2015); cystotomy (N/A, 03/27/2015); cataract w phaco (Left, 02/06/2020); cataract w phaco (Right, 02/13/2020); ir suprapubic catheter placement (07/14/2020); Joint Replacement; colonoscopy; and laparotomy (N/A, 11/10/2020). Current medical status: Patient is 2 days s/p L open inguinal hernia repair, bowel resection, and colostomy. Activity Orders: Progressive Mobility Bundle Precautions: Oxygen > 90%, Pressure ulcer risk Isolation: Standard SUBJECTIVE Social History: Patient lives: With Home environment: House Home entry steps: 3 Rails: 0 Bedroom and bathroom are available on main level. 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 Patient/Family Goals: Return home if able; agreeable to placement if needed. OBJECTIVE Observation: in bed, in no acute distress Patient seen at bedside. Patient presents with IV, tele, pulse ox, art line, SP catheter, ostomy Gait belt applied prior to out of bed activity. Vitals: Prior to activity: HR: 76, O2 Sats: 96% on RA, BP: 125/48 (73) Cognition: Alert and orientated x3 except date Pain: At rest: Patient reports no pain. With activity: Patient reports no pain. Posture: Forward head and rounded shoulders; forward trunk lean but able to partially correct withcues Range of Motion: Bilateral lower extremities WFL except ankle DF limited to ~5 degrees from neutral Refer to Occupational Therapy report for upper extremity range of motion. Strength: Bilateral lower extremities at least antigravity by observation but unable to formally assess due to recent surgery. Refer to Occupational Therapy report for upper extremity strength testing. Sensation: Grossly intact bilaterally to light touch Tone: Normal Coordination: WNL bilaterally to IVET's at ankles Transfers: Bed mobility: minimal assistance to roll Supine to Sit: moderate assistance at trunk and minimal assistance for LE's to edge of bed Sit to Supine: not assessed Sit to/from Stand: moderate assistance of 2 with FWW Stand Pivot: minimal assistance of 2 with FWW Comments: Head of bed 30 degrees without bed rail. Balance: Sitting Balance: Fair+ with bilateral UE support; sat edge of bed ~4 minutes prior to standing Standing Balance: Fair with FWW once well positioned Gait: ~2 feet, minimal assistance x2 using FWW Gait Quality Shuffled steps. Response to Activity: Vitals: HR 81, O2 sats97, BP 142/55 At end of session patient up in chair, all lines, drains, airways and incisions intact,, care transitioned over to nurse in room Education: Patient was educated on role of acute PT, goals of PT session, daily activity recommendations, and transfers today through explanation. They accepted teaching and verbalized understanding. Interdisciplinary Communication: Discussed daily activity recommendations with patient's RN and update on current mobility status. ASSESSMENT SUMMARY/RECOMMENDATIONS Factors affecting function: Physical Impairments: trunk strength, right lower extremity strength, left lower extremity strength, range of motion limitations, arousal/attention/cognition, body mechanics/ergonomics, gait/locomotion/balance, integumentary integrity, joint integrity and mobility, posture, ROM, ventilation/respiration and pain Functional Limitations: bed mobility, transfers, sitting balance, standing balance, ambulation, functional endurance, stair climbing, at fall risk and positioning Goals: Patient will be aware of equipment recommendations as indicated in note to allow for safe mobility. Patient will transfer sit to/from supine with standby assistance. Patient will transfer from sit to/from stand with standby assistance and equipment as needed to progress to safe household mobility. Patient will be able to ambulate 50 feet using FWW with standby assistance to progress to safe functional mobility in the home. Patient will be able to negotiate 3 stairs without rail in safest pattern with standby assistance toprogress to safe functional mobility in the home. PLAN PT Frequency of therapy recommended: 5x/wk Physical Therapy Services: balance training bed mobility training transfer training gait training balance/coordination/agility training strength/power/endurance training for head/neck/limb/pelvic floor/trunk/ventilatory muscles device and equipment use and training fitting/application of adaptive/assistive/orthotic/prosthetic/protective/or supportive devices body mechanics/postural stabilization caregiver training positioning injury prevention/reduction training airway management through breathing strategies Evaluation, goals, and plan discussed with patient and interdisciplinary/interprofessional team Today's Treatment Evaluation: Completed Therapeutic Activity: 15 minutes TOTAL TIMED CODES: 15 minutes TREATMENT TOTAL TIME: 35 Minutes Carmen culp PT, DPT [facility] Pager: [phone] linical Team - Dennys Grady RN - 11/12/2020 7:29 AM [id number]: SBAR from Augustina Deng RN and Tae Bright RN. Assuming cares at this time. 0730: Dr. Ball at bedside assessing Pt - Per MD Pt will likely transfer to Med Surg today.. 0930: TRACS rounds. Per Dr. Laureano will remove NGT and perform RN Dysphagia screen. 1000: Pt up to chair per RN and OT. Passed RN Dysphagia Screening. Clear Liquid Diet initiated per MD direction. 1140: Arterial Line removed per order. Understood Pt has a room on 8th floor. 1249: Pt transported to [facility] at this time by this script writer and an PAIN MANAGEMENT NURSE. 1305: SBAR & RN 4-Moxq-Yo-Skin to OLGA LIDIA Draper at bedside. Cares handed off at this time. Otto Grady RN, CCRN linical Team - Augustina Deng RN - 11/12/2020 6:52 AM CSTShift Summary Summary Assessment Neurological: follows commands, speech hoarse/whisper. PERRLA Respiratory: 2-3L NC, lungs sounds clear Cardiac: NSR, normotensive GI/ NG tube in place to LIS, no ouput. NPO except meds. Colostomy in place, no output. suprabupic catheter in place. Pain: no pain this shift. IV's/Lines: 2 PIV and art line GY DERIVATIVES TRADER Clinical Team - Dolly Crooks RN - 11/11/2020 5:20 PM CSTShift Summary Assessment Neurological: Follows commands, speech hoarse/whisper. PERRL Respiratory: Extubated around 0900, on 4L per NC. Lung sounds clear. Cardiac: NSR, normotensive GI/: NG tube in place to LIS. NPO except meds. Colostomy in place, no ouput. Suprapubic catheter in place, adequate UO. IV's/Lines: PIV x2, ART GY DERIVATIVES TRADER Palliative Care Team - Chayo Love RN - 11/11/2020 2:30 PM CSTI was consulted in order to offer support and assist with clarifying the wishes for the plan of care. Ama was extubated this morning and was sleeping when I stopped by. His was present. She appeared well updated on his medical situation and even went into great length about the events of his past hospitalizations. 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 He is up and about in their home, but she assists with his bathing and care. Her wish for care is that he is able to come back home. But she understands he might need to go toa swing bed or somewhere for more therapy prior to coming home. She is also open to learning to care fro his ostomy. I have updated the care team on her wishes. Chayo Love RN, [facility] Palliative consult nurse Alpha pager [phone] are Planning - Elisa Orbien STUDENT - 11/11/2020 2:05 PM ENERGY DERIVATIVES TRADER Problem: IMBALANCED NUTRITION: LESS THAN BODY REQUIREMENTS Goal: NUTRITIONAL STATUS: NUTRIENT INTAKE Description: DEFINITION: Nutrient intake to meet metabolic needs. 1=Not adequate, 2=Slightly adequate, 3=Moderately adequate, 4=Substantially adequate, 5=Totally adequate. Flowsheets (Taken 11/11/2020 1403) Initial Score: 1 Target Score: 4 Plan of care reviewed with: Patient Patient specific goal for the day: Advance diet when medically appropriate Patient specific goal for the stay: Meet >75% of estimated needs Achieve goal for stay: By discharge Patient Progress: Pt was previously coded for chronic moderate (non-severe) protein calorie malnutrition on 05/06/20. Pt continues to meet criteria for moderate malnutrition. Per H&P, pt with poor intake 2-3 days prior to admission and likely inadequate intake over the past 6 months based on signifi cant weight loss. Pt has a lower threshold for needing TPN d/t malnutrition and poor intake. Provided TPN recommendations. are Planning - Dolly Crooks RN - 11/11/2020 11:20 AM ENERGY DERIVATIVES TRADER Problem: RISK FOR IMPAIRED SKIN INTEGRITY Goal: TISSUE INTEGRITY: SKIN & MUCOUS MEMBRANES Description: DEFINITION: Structural intactness and normal physiological function of skin and mucousmembranes. 1=Severely compromised, 2=Substantially compromised, 3=Moderately compromised, 4=Mildly compromised, 5=Not compromised. Flowsheets (Taken 11/11/2020 1119) Plan of care reviewed with: Patient Patient specific goal for the day: Pt will be free from further tissue injury Patient specific goal for the stay: Pt will return to baseline Achieve goal for stay: By discharge Patient Progress: Pt has nonblanchable redness to coccyx, blanchable redness to heels, scattered bruising, Lt colostomy and incision to Lt anterior groin. Turn and reposition/check and change Q2h. ase Mgmt - Vickie Beach RN - 11/11/2020 10:42 AM CSTCASE MANAGEMENT / SOCIAL SERVICE TRANSITION PLAN - PROGRESS NOTE PLAN: Awaiting Medical Doctor Recommendations for Transition Will Continue to Follow for Support and Progression Towards Final Transition Plan BARRIERS TO TRANSITION: Awaiting Therapy Recommendations Discharge Needs to be Determined Medical barriers:extubate today NPO NG tube to LIS IV Pepcid IV antibiotics DOES ACCEPTING FACILITY REQUIRE COVID TESTING BEFORE DISCHARGE: Other: to be determined COMMENTS / PATIENT AND FAMILY RESPONSE TO PLAN: Patient was admitted for Incarcerated and obstructed left inguinal hernia, Encephalopathy poss r/t ischemic bowel . Patient is S/P inguinal hernia repair, bowel resection, and ostomy placement. Patient remains NPO, NGT to LIS. Referral sent on [facility] to the swingbed/SNF at 30 miles radius from [place]. Patient`s would prefer patient to discharge ot home with home health services and if needing placement, would prefer the swing bed in [place]. Patient has order for PT/OT, awaiting recommendations. IS PATIENT'S ADMISSION ASSOCIATED WITH TIA, ISCHEMIC, OR HEMORRHAGIC STROKE?: No PATIENT / SUBSTITUTE DECISION MAKER GOAL UPON TRANSITION: First Choice: Home Health: Nurse, Occupational Therapy and Physical Therapy Home: Family/Friend Support and 24-Hour Supervision Second Choice: Swing Bed in [place] ANTICIPATED NEEDS UPON TRANSITION: Home Health: Nurse, Occupational Therapy and Physical Therapy Home: Family/Friend Support [facility] Swing Bed Transitional Care Other: to be determined RESOURCE(S) PROVIDED: nothing needed at this time ANTICIPATED MODE OF TRANSPORT UPON TRANSITION: Other: to be determined ANTICIPATED MODE OF TRANSPORT TO AND FROM FOLLOW UP APPOINTMENTS: Family Car Other: as arranged by accepting facility VERIFIED CORRECT PHARMACY IS ENTERED FOR DISCHARGE: No TRANSITION ROUNDING COMPLETED WITH THE FOLLOWING: N/A SIGNED: TROY Darden, RN, [facility] Case Management ICU [facility] Phone #[phone] Pager: [phone] utrition Team - Elisa Obrien, STUDENT - 11/11/2020 10:10 AM CST Nutrition Therapy Initial Assessment Hospital Day: 1 days Active Problems: ? Small bowel obstruction, secondary to incarcerated left inguinal hernia ? Bowel resection and loop colostomy on 11/10 ? Sepsis PMH: BPH with obstruction/lower urinary tract symptoms, CAD, Hearing loss, HLD, HTN, Myocardial infarction, Neuromuscular disorder, Renal failure syndrome (05/05/2020), Stroke, Urinary retention, and Vision abnormalities. Recommendations: Advance diet as medically able If unable to advance diet in the next 1-2 days, recommend to start TPN Goal TPN to meet needs 2100 total kcal, 115 gm protein, 460 lipid kcal, 1180 CHO kcal/day Malnutrition Summary Malnutrition Assessment Date: 11/11/20 Moderate (non-severe) protein calorie malnutrition Malnutrition Characteristics in the Context of Chronic Illness (greater than 3 months): Severe Weight Loss: Greater than 10% in 6 months Subcutaneous Fat Loss: Moderate Muscle Loss: Moderate Interventions: Monitor oral intake/advance diet as tolerated NUTRITION ASSESSMENT Pt was unable to answer any questions during visit, other than agreeing to NFPE. Pt was previously coded for chronic moderate (non-severe) protein calorie malnutrition on 05/06/20. Pt continues to meet criteria for moderate malnutrition. Per H&P, pt with poor intake 2-3 days prior to admission and l ikely inadequate intake over the past 6 months based on significant weight loss. Pt has a lower threshold for needing TPN d/t malnutrition and poor intake. Provided TPN recommendations above. Noted pt with a new colostomy, will provide education once diet advances to solid PO. Anthropometrics: Height: 167.6 cm (5' 6") Admission Weight: 69.3 kg (152 lb 12.5 oz) as of 11/10/2020 per bed scale Most Recent Weight: 70.6 kg (155 lb 10.3 oz) (11/11/20 0000) per bed scale BMI: Body mass index is 25.12 kg/m. IBW: 65 kg %IBW: 106% (based on admit weight) Usual Body Weight: 170-180 lbs per EMR review Unintentional Weight Loss: >10% in 6 months. Pt is down 30 lbs in 6 months (16%), which is considered clinically significant. Estimated Needs: [id number] kcal/day (28-30 kcal/kg Using: Admission Weight) 112-126 gm protein (1.6-1.8 gm/kg Using:Admissio weight) Fluids per MD Intake Records: Intake Prior to Admit: Likely Sub optimal due to significant weight loss in past 6 months. Unable to obtain diet history as pt was unable to answer questions and no family present during timeof visit. Pt "was having poor oral intake for last 2-3 days began to complain of lower abdominal pain with nausea and vomiting. Has also been more lethargic over the last few days" per H&P Current Intake: Pt is NPO Current Diet: Nutrition (From admission, onward) Start Ordered 11/10/20 0900 Supplement [facility]; Nepro BID BID Comments: Give supplement cold with medications twice a day. The supplement is an intervention for identified nutrition risk factors. * Do not give if patient is NPO (unless the orders specify NPO with supplement) or if medication should not be given with food. 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 LLE Edema 1 ? RLE Edema 1 GI Assessment: ? Abdominal exam: Distended and Tender with Absent bowel sounds, per college basketball coach at 0800 today. ? NG to LIS with 200 mL output yesterday ? Stool Frequency: Pt has not had a documented BM since admission Wounds/Pressure Points: (per college basketball coach at 0800 today) ? Coccyx Non-Blanchable Redness ? Heel Left, Right, Blanchable Redness Nutrition Focused Physical Exam: Completed by RD on 11/11/20 Below the Eye (fat): Slightly dark circles, somewhat hollow look (mild-moderate)(Moderate) Faith (muscle): Hollow, scooping, depression (severe) Buccal (fat): Flat cheeks (moderate)(Moderate-Severe) Clavicle (muscle): Some protrusion of bone (mild-moderate)(Moderate) Shoulder (muscle)/Deltoid muscle: Acromion process slightly protrudes (mild-moderate)(Moderate) Triceps/Biceps (fat): Some depth to pinch, but not ample (mild-moderate) Hand/Interosseous (muscle): Slightly depressed (mild-moderate) Nutritionally-Relevant Medications, Vitamins and Minerals: Pepcid, Antibiotic, Potassium chloride IV Nutritionally-Relevant Biochemical Data: (11/11/2020) Glucose 125 H BUN 41 H GFR 59 L Allergies/Food Intolerance: Ama is allergic to vioxx. Culturally [employer]ism Needs: NA INTERVENTIONS Conducted NFPE EMR reviewed MONITORING/EVALUATION Monitor diet advancement Monitor I&O, weight trends, nutrition-related labs and medications, clinical status, and planof care r/t need for nutrition intervention and provide as warranted Monitor NPO duration Nutrition Therapy will reassess every 1-4 days Luciano Cruz Dinkey Dispatcher espiratory Therapy - Marimar Pride RRT - 11/11/2020 9:15 AM CSTExtubate Patient tolerated VLP for 58 minutes. Extubation order received. Patient extubated at 0904 by Respiratory Therapy without incident and placed on Oxygen at 4 L/minute Breath sounds Crackles - Fine and Diminished. No stridor heard at this time. Patient able to vocalize. Pulse: 92 Resp: 14 SpO2: 97 % Patient instructed to use IS every hour while awake. Patient achieved 500 mL. Also instructed patient on Aerobika for airway clearance. Sough productive of moderate koch secretions. Respiratory Therapy to follow. linical Team - Yadi Teresa RN - 11/11/2020 5:45 AM CSTShift Summary: Neuro: Initially sedated with propofol and fentanyl, sedation weaned off as tolerated. Does not openeyes to any stimulation, and only withdraws to painful stimuli in all extremities. A few hours afterpropofol stopped, able to open eyes spontaneously, and follow commands very weakly in all extremities. PRN fentanyl bolus given for tachycardia/discomfort. PERRL. Cardiac: NSR w/PACs and PVCs. Blood pressure on the lower end, 500 ml bolus of LR given. Goal SBP>90. Resp: Intubated on PEEP 8, FiO2 30%. Respiratory culture collected by RT. GI: NG tube in place to low intermittent suction. NPO. Colostomy in place, no output. : Suprapubic cath in place, adequate output. Urine culture collected. upplemental Progress Note - Louis Anglin MD - 11/11/2020 5:31 AM CSTPatient was hypotensive overnight. I ordered a 500 cc bolus. Repeat blood pressures were in 110s systolic. No other pages overnight. upplemental Progress Note - Louis Anglin MD - 11/10/2020 7:33 PM CSTPatient seen on evening rounds. He is intubated and sedated. He is not on any pressors at this time. His vitals are stable. Abdomen is soft and nondistended. His ostomy is pink and viable, withoutany contents in the ostomy bag. His incision is clean and dry. We will continue to monitor overnight. linical Team - Dolly Crooks RN - 11/10/2020 6:03 PM CSTShift Summary Assessment Neurological: Sedated- prop 20, fent 25. Pt withdraws in BUEs and BLEs. Does not follow commands. PERRLA. Afebrile Respiratory: Crackles noted bilaterally. ETT in place. PEEP 8, FiO2 50%. Cardiac: NSR 60-70's, normotensive GI/: NG tube to LIS, minimal output. Colostomy placed today, no BM. Suprabubic catheter in place, minimal output. IV's/Lines: PIV x2, Rt radial ART GY DERIVATIVES TRADER Clinical Team - Dolly Crooks RN - 11/10/2020 5:50 PM CSTPt returned to room post surgery. Bedside report received from RN and ORDER ENTRY ADMINISTRATOR. Skin assessment with OLGA LIDIA Maxwell. Nonblanchable redness to coccyx, blanchable heels, scattered bruising, colostomy to Lt umbilical area, and incision to Lt anterior groin. OCN / Skin Team - Petra Beyer RN - 11/10/2020 4:49 PM CSTWound Care Nurse Consult: Indication for consult: Consult received for low Robe Scale score of 10. Assessment: No areas of pressure related skin breakdown observed Recommendations/Plan: Initiate pressure relief interventions based on risk: Turn and reposition every 2 hours-use TAPS Monitor under and around all medical devices Prevalon boots while in bed Limit layers under patient to flat sheet and incontinence product only Interdry AG to skin folds for moisture management, change prn Check for incontinence every 2 hours Protective ointment to mary-area daily and after each incontinent episode Head of bed 30 degrees or less as tolerated Apply Barrier Cream to open denuded skin daily and after each incontinence episode, sacral mepilex is not indicated at this time as it traps moisture. technology services manager to sign off. Please re-consult prn. espiratory Therapy - Jeanette Hirsch RRT - 11/10/2020 4:03 PM CSTAcknowledged order for initial assessment. Per patient's chart review, patient is a former smoker, quit in 1979 but has no respiratory history or home routine. Due to the smoking hx, will order Albuterol PRN. RT to follow espiratory Therapy - Jeanette Hirsch RRT - 11/10/2020 4:00 PM CSTPatient received from OR and placed initially SIMV mode per anesthesia verbal order: apv SIMV RR 8 Vt 450 PEEP 8 PS 5 FiO2 50%. Patient has an 8.0 microcuff ETT secured at 24 at the lip ( changed securement device). 1525 Per MD, acknowledged verbal order to switch patient to CMV mode. Patient now on apv CMV RR 12 Vt 450 PEEP 8 FiO2 50% Breath sounds rhonchi, suctioning small to moderate thick white with small specs of tinge tinged. RT will continue to follow ostOp Progress Note - Lucian Overton MD - 11/10/2020 2:59 PM CST Immediate Post-Operative / Post Procedure Progress Note Att. Phys: Lucian Overton MD Pt. Type: Inpatient Operative Date: 11/10/2020 Surgeon: Surgeon(s) and Role: * Lucian Overton MD - Primary Senior Test Analyst: Engine Service Repairer : Greta Jiang RN; Lalito Morgan, OLGA LIDIA; Rosita Barba, OLGA LIDIA Relief Engine Service Repairer : Joyce Marroquin, OLGA LIDIA Relief Scrub : Arely Alonzo CST Scrub Person : Dominique Fajardo, ENERGY DERIVATIVES TRADER; Sol Montesinos, AJ; Yumiko Luong CST Stage Electrician: Shay Roland MD Pre-Operative Diagnosis: Pre-Op Diagnosis Codes: * Bowel trouble [K63.9] Incarcerated obstructed Left inguinal hernia Post-Operative Diagnosis: Same. Anesthesia Type: general Operative Procedure: Procedure(s): LEFT OPEN INGUINAL HERNIA WITH MESH, BOWEL RESECTION, COLOSTOMY - Wound Class: Clean Contaminated ID Type Source Tests Collected by Time A : Carcerated sigmoid colon Tissue Colon TISSUE EXAM Lucian Overton MD 11/10/2020 1357 B : Left inguinal hernia sac Tissue Hernia Sac TISSUE EXAM Lucian Overton MD 11/10/2020 1410 no implants used for procedure Fluids Given: See Anesthesia Record Urine Output: See Anesthesia Record Estimated Blood Loss: <25 mL Drains: none Findings: 2 feet of sigmoid colon obstructed and incarcerated in left inguinal hernia Complications: none Postoperative Condition: stable [id number] perative Note - Lucian Overton MD - 11/10/2020 2:59 PM CSTPREOPERATIVE DIAGNOSES: 1. Left inguinal hernia with incarcerated and obstructed bowel. 2. Encephalopathy, possibly related to ischemic bowel. POSTOPERATIVE DIAGNOSES: 1. Left inguinal hernia with incarcerated and obstructed sigmoid colon. 2. Encephalopathy, possibly related to ischemic bowel. OPERATIVE PROCEDURES: 1. Open left inguinal hernia repair with Phasix mesh. 2. Resection of the sigmoid colon with end-descending colostomy. SURGEON: Lucian Overton MD. WEB CONTENT EXECUTIVE: Shay Roland. ANESTHESIA: General endotracheal anesthesia. ESTIMATED BLOOD LOSS: Minimal. DRAINS: None. COMPLICATIONS: None. FINDINGS: Patient had a very difficult chronic left inguinal hernia with approximately 2 feet of sigmoid colon within it. The colon was twisted on itself. It was ischemic, and there was a point of high-grade obstruction present with stool impaction. POSTOPERATIVE CONDITION: Stable. INDICATIONS FOR PROCEDURE: This is a chronically-ill, 80-year-old male who presented with an incarcerated and obstructed left inguinal hernia accompanied by encephalopathy, most likely related to sickbowel. His wished to proceed with aggressive cares in spite of a number of other issues going on, and after risks, benefits and alternatives to the procedure were reviewed, she wished to proceed and the site was marked. DESCRIPTION OF PROCEDURE: Patient was brought to the operating room and placed in the supine position. After administration of general anesthetic, he was intubated. A suprapubic catheter was alreadyin place, and this was prepped into the field. The area was overall prepped and draped in the usualsterile fashion and a timeout was performed. We made an incision along the left inguinal crease with a 10 blade scalpel and carefully dissected through the underlying subcutaneous tissues and Griffin fascia with electrocautery. We then identifiedthe external oblique fascia and incised this sharply with a scissors in the direction of its fibers. Once we were into the inguinal canal, we began a very difficult dissection of the spermatic cord and incarcerated bowel. We got circumferential dissection around the cord and bowel at the external ring, which was largely nonexistent due to the complete attenuation of these tissues. It appears the patient has a very large direct defect to account for his hernia. The bowel was very much stuck in the scrotum and we could not reduce it. We then divided the cremaster fibers and worked our way through these layers down to the hernia sac. We did our best to bluntly dissect the hernia sac in the scrotum, but we still could not gain release. Ultimately, we elected to open the hernia sac carefully and gain access into the peritoneal space. We immediately identified the sigmoid colon in the hernia defect. We then began bluntly dissecting and retracting the colon to free it. Initially, we made some progress, but there was a large amount of colon present in the scrotum with a large amount of impacted stool that made this quite difficult. We ended up making a relaxing incision along the iliopubictract at the orifice of the scrotum to try and open the canal enough to allow us to get the colon out. It took quite some time to accomplish it, but ultimately we were able to mobilize the colon out of the hernia sac. When it was completely out, we had approximately 2 feet of sigmoid colon within the scrotum. There was evidence of high-grade obstruction and the bowel was dusky, and at this point there were some serosal tears to the ischemic-appearing colon also. It was clear we would have to resect this portion of the colon. We then identified the distal portion of the colon as it entered intothe pelvis to confirm the anatomy distally. We then identified the sigmoid colon proximally. We then brought a linear TIFFANIE stapler onto the field and divided the colon distally and allowed the rectal stump to retract back into the abdomen. We used the LigaSure to divide the mesocolon up to the pointwhere we wished to make our proximal resection. At this location, a TIFFANIE stapler was used to divide the proximal sigmoid colon. Our specimen was then passed off the table. He was very thin and we felt that we could accomplish an end-colostomy more proximally in the left abdominal wall through this incision. At this point, we excised a circular piece of skin in the left upper abdomen, above the umbilicus. We dissected down to the anterior abdominal wall and then resected a small portion of the anterior rectus sheath, split the rectus muscles and then sharply incised the peritoneum. With our ostomy site fashioned correctly, we then passed a long [place] through the ostomy site downto our left groin surgical site. I clamped this onto the staple line of the colon and very easily brought this up and out through our ostomy site. We then returned to the left groin operative site and began figuring out the anatomy of the inguinal floor. We identified the peritoneum and the bordersof the direct defect and then brought a 2-0 Vicryl onto the field, and in a running fashion, we closed the floor of the inguinal canal with the peritoneum and the tissues associated with it. When thiswas complete, we excised the very large hernia sac that was present from the spermatic cord and confirmed the cord structures were intact. The hernia sac was passed off the table to go to pathology. We then brought a piece of Phasix mesh onto the field. It was 4 inches x 6 inches. This was cut victor hugo appropriate size with tails laterally. Then, this mesh was tacked medially to the fascial insertions along the pubis. Inferiorly, the mesh was tacked to the iliopubic tract. We used 2-0 Vicryl sutures to accomplish this. Superiorly, 2-0 Vicryl sutures approximated the mesh to the internal oblique muscles. The tails were placed around the spermatic cord at the internal ring, cut to an appropriate size and tied together with 2-0 Vicryl suture. The wound was then copiously irrigated with Irrisept for greater than 2 minutes. Overall, it was very clean and we had nice reconstruction and support of the floor of the inguinal canal. The external oblique fascia was then closed with a running 2-0Vicryl suture. Griffin fascia was closed with a running 3-0 Vicryl suture. The skin was approximated with 4-0 Monocryl in a running subcuticular fashion. Dermabond was then applied to the wound. Thewound was then covered and we approached our colostomy. The staple line was resected and the colon was circumferentially approximated to the skin with 3-0 Vicryl sutures. An ostomy appliance was fashioned and applied. The procedure overall went well, but was very difficult. The counts were confirmed correct. He was then awakened. Anesthesia then began working on extubating him. At this point, it is unclear if he will or not be extubated due to his encephalopathy. He was then taken to the recovery room in very stable condition. He tolerated the procedure very well. Receipt: [id number] Trans ID: [id number] ENERGY DERIVATIVES TRADER ENERGY DERIVATIVES TRADER are Planning - Dolly Crooks RN - 11/10/2020 2:44 PM ENERGY DERIVATIVES TRADER Problem: RISK FOR IMPAIRED SKIN INTEGRITY Goal: TISSUE INTEGRITY: SKIN & MUCOUS MEMBRANES Description: DEFINITION: Structural intactness and normal physiological function of skin and mucousmembranes. 1=Severely compromised, 2=Substantially compromised, 3=Moderately compromised, 4=Mildly compromised, 5=Not compromised. Flowsheets (Taken 11/10/2020 1445) Plan of care reviewed with: Patient Patient specific goal for the day: Pt will be free from further tissue injury Patient specific goal for the stay: Pt will return to baseline Achieve goal for stay: By discharge Patient Progress: Pt has nonblanchable redness to coccyx, blanchable redness to heels, scattered bruising, and inguinal hernia. Down to OR this afternoon, Lt colostomy and incision to Lt anterior groin. ase Mgmt - Vickie Beach RN - 11/10/2020 9:54 AM CSTCASE MANAGEMENT / SOCIAL SERVICE TRANSITION PLAN - INITIAL ASSESSMENT TRANSITION PLAN: Awaiting Medical Doctor Recommendations for Transition Will Continue to Follow for Support and Progression Towards Final Transition Plan BARRIERS TO TRANSITION: Discharge Needs to be Determined Medical barriers:OR today Intubated/sedated IV antibiotics IV Pepcid Drips: Fentanyl, Propofol COMMENTS / PATIENT AND FAMILY RESPONSE TO PLAN: Patient was admitted for Incarcerated and obstructed left inguinal hernia, Encephalopathy poss r/t ischemic bowel . Patient went to OR for inguinal hernia repair, bowel resection, and ostomy placement. Patient remains intubated/sedated, no family present. This script writer called the patient`s [phone]. Per Afsaneh, the patient lives wit her at home and was receiving home health services from [facility] for skilled nurse/PT/OT. Patient uses a walker for ambulation. Per Afsaneh, her goal is for patient to return home and resume home health services but if patient will need placement, she would prefer the swing bed in [place]. ADMISSION DX: sepsis; bowel obstruction PATIENT STATUS: Inpatient RELEASE OF INFORMATION: Other: implied for this hospitalization SOURCES OF INFORMATION (See demographics for contact information): Family: Spouse Medical Record CURRENT LIVING SITUATION / LEVEL OF ASSISTANCE: Lives with at home Uses a walker for ambulation COMMUNITY SERVICES: Home Health HEALTHCARE DIRECTIVE: Yes-On File and reviewed POWER OF HOUSEHOLD APPLIANCE INSTALLER: Healthcare Power of Director Of Therapy Services FINANCIAL CONCERNS: Medicare Option 1 Medicare Replacement [employer] PRIMARY CARE PHYSICIAN: Yes Shay Diamond MD : No IS PATIENT'S ADMISSION ASSOCIATED WITH TIA, ISCHEMIC, OR HEMORRHAGIC STROKE?: No LANGUAGE / COMMUNICATION BARRIERS: Does the patient have a barrier to communication other than language: Yes Intubated / sedated PATIENT / SUBSTITUTE DECISION MAKER GOAL UPON TRANSITION: First Choice: Home Health: Nurse, Occupational Therapy and Physical Therapy Home: Family/Friend Support and 24-Hour Supervision Second Choice: Swing Bed in [place] ANTICIPATED NEEDS, TRANSITION CHOICES OFFERED: Home Health: Nurse, Occupational Therapy and Physical Therapy Home: Family/Friend Support [facility] Swing Bed Transitional Care Other: to be determined RESOURCE(S) PROVIDED: nothing needed at this time DOES PATIENT HAVE CLOTHING TO WEAR AT DISCHARGE? Yes ANTICIPATED MODE OF TRANSPORT UPON DISCHARGE: Other: to be determined VERIFIED CORRECT PHARMACY IS ENTERED FOR DISCHARGE: No CURRENT READMISSION RISK SCORE Predictive Risk Score Risk of Unplanned Readmission: 18.5 Please refer to readmission risk assessment flowsheet for further details. SIGNED: TROY Darden, RN, [facility] Case Management ICU [facility] Phone #[phone] Pager: [phone] linical Team - Lacy Bird RN - 11/10/2020 6:25 AM CSTShift Summary: Patient arrived from OSH around 0215, no belongings present with patient. Neuro: Does not follow commands. Withdraws to pain and will moan. Non-verbal. PERRLA. Cardiac: No acute cardiac changes, no pressors required at this time. Pulmonary: Kishor Crackles to lungs, post abg patient placed on O2 via oxymask. GI/: Suprapubic cath in place, minimal output, MD aware. Hypoactive to no bowel sounds heard. NPO. Fluids/Electrolytes: Labs as ordered, no replacement indicated. IV fluids running. Skin: Duel skin assessment completed with OLGA LIDIA Back. Non-blanching redness to coccyx, open excoriated areas to kishor. Buttocks. Kishor. Blanching heels. Scattered bruises, and hernia. updated on phone, all questions answered and updated as able. Will update next shift. GY DERIVATIVES TRADER Respiratory Therapy - Luz Elena Govea, NOEL - 11/10/2020 4:50 AM CSTPatient seen for initial assessment. Patient is currently on 8L Oxymask, RR 24, BS coarse crackles, SpO2 100%. Patient is a former smoker. Patient currently does not take any home respiratory medications. RT to follow documented in this encounter Plan of Treatment Date Type Specialty Care Team Description 12/03/2020 Office Visit General Surgery Name Type Priority Associated Diagnoses Date/Ti me TISSUE EXAM PATH Routine Bowel trouble 11/10/2020 1: 57 PM ENERGY DERIVATIVES TRADER CULTURE, BLOOD MICROBIOLOGY REPORT [facility] 2020 1:18 PM ENERGY DERIVATIVES TRADER CULTURE, BLOOD MICROBIOLOGY REPORT [facility] 2020 1:00 PM ENERGY DERIVATIVES TRADER Name Type Priority Associated Diagnoses Order S chedule TISSUE EXAM PATH Routine Bowel trouble Release Upon O rdering for 1 Occurrences sta rting 11/10/2020, 1 completed PROTIME/INR Lab Routine Early AM draw f or labs for 5 Days starting 2020 until 11/18/2020, 4 completed Name Type Priority Associated Diagnoses Order S chedule CLINIC REFERRAL TRACS Referral Routine Non-recurrent Order ed: 11/17/2020 ONE CHART unilateral inguinal hernia without obstruction or gangrene HOSPITAL DISCHARGE Referral Routine Once for 1 Occurrences WARFARIN ANTICOAG starting 0 11/17/2020 ORDER until documented as of this encounter Implants Implanted Type Area Oval Or Circular Glass Cutter Device Shelf Model / Identifier Expiration Serial / Lot Date Mesh Phasix 10.2x15.2cm N [id number] Ca1 - [id number] General Impla nt Left: BARD DAVOL 05/16/2021 [id number] / Implanted: Qty: 1 on 11/10/2020 by Lucian Dyson MD at [facility] GROIN / [id number] Iol Pre-Load Tecnis 21.5d N [id number] Ea1 - [id number] Ophthalmo logy Left: MAGDALENA 10/22/2022 [id number] / Implanted: 02/06/2020 by Cesar Seals MD at [facility] (Quantity not on file) EYE 22 [id number] 2022-10-22 Iol Pre-Load Tecnis 21.0d N [id number] Ea1 - [id number] Ophthalmo logy Right: MAGDALENA 09/28/2022 [id number] / Implanted: 02/13/2020 by Cesar Seals MD at [facility] (Quantity not on file) EYE 26 [id number] 2022-09-28 documented as of this encounter Procedures Procedure Name Priority Date/Time Associated Comments Diagnosis SARS-COV-2, INFLUENZA STAT 11/17/2020 10:00 Re sults for this A+B, AND/OR RSV AM ENERGY DERIVATIVES TRADER procedure ar e in NUCLEIC ACID TESTING the res ults PANEL section. LAB ONLY-COMPLETE Routine 11/17/2020 7:03 Result s for this BLOOD COUNT WITH AM ENERGY DERIVATIVES TRADER procedure a re in DIFFERENTIAL the results section. PROTIME/INR Routine 11/17/2020 7:03 Results for this AM ENERGY DERIVATIVES TRADER procedure are i n the results section. COMPREHENSIVE Routine 11/17/2020 7:03 Results fo r this METABOLIC PANEL AM ENERGY DERIVATIVES TRADER procedure ar e in the results section. LAB ONLY-COMPLETE Routine 11/17/2020 7:03 Result s for this BLOOD COUNT WITH AM ENERGY DERIVATIVES TRADER procedure a re in DIFFERENTIAL the results section. CT ABDOMEN PELVIS Routine 11/16/2020 4:34 Result s for this WITHOUT AND WITH PM ENERGY DERIVATIVES TRADER procedure a re in CONTRAST UROGRAM the results section. IR SUPRAPUBIC Routine 11/16/2020 12:30 Results fo r this CATHETER EXCHANGE PM ENERGY DERIVATIVES TRADER procedure are in the results section. LAB ONLY-COMPLETE Routine 11/16/2020 7:52 Result s for this BLOOD COUNT WITH AM ENERGY DERIVATIVES TRADER procedure a re in DIFFERENTIAL the results section. PROTIME/INR Routine 11/16/2020 7:52 Results for this AM ENERGY DERIVATIVES TRADER procedure are i n the results section. COMPREHENSIVE Routine 11/16/2020 7:52 Results fo r this METABOLIC PANEL AM ENERGY DERIVATIVES TRADER procedure ar e in the results section. LAB ONLY-COMPLETE Routine 11/16/2020 7:52 Result s for this BLOOD COUNT WITH AM ENERGY DERIVATIVES TRADER procedure a re in DIFFERENTIAL the results section. TROPONIN I Timed Routine 11/16/2020 12:09 Results fo r this AM ENERGY DERIVATIVES TRADER procedure are i n the results section. TROPONIN I Timed Routine 11/15/2020 4:55 Results fo r this PM ENERGY DERIVATIVES TRADER procedure are i n the results section. HEPATIC FUNCTION STAT 11/15/2020 4:55 Results for this PANEL PM ENERGY DERIVATIVES TRADER procedure are i n the results section. CT ABDOMEN PELVIS KEVIN 11/15/2020 2:51 Result s for this WITH CONTRAST PM ENERGY DERIVATIVES TRADER procedure are in the results section. TROPONIN I Timed Routine 11/15/2020 11:56 Results fo r this AM ENERGY DERIVATIVES TRADER procedure are i n the results section. MRSA NASAL SCREEN, Routine 11/15/2020 9:44 Resul ts for this BUSTER AM ENERGY DERIVATIVES TRADER procedure are i n the results section. EKG STAT 11/15/2020 8:00 Results for this AM ENERGY DERIVATIVES TRADER procedure are i n the results section. LAB ONLY-COMPLETE Routine 11/15/2020 7:57 Result s for this BLOOD COUNT WITH AM ENERGY DERIVATIVES TRADER procedure a re in DIFFERENTIAL the results section. LAB ONLY-COMPLETE Routine 11/15/2020 7:57 Result s for this BLOOD COUNT WITH AM ENERGY DERIVATIVES TRADER procedure a re in DIFFERENTIAL the results section. PROTIME/INR Routine 11/15/2020 4:52 Results for this AM ENERGY DERIVATIVES TRADER procedure are i n the results section. TROPONIN I Timed Routine 11/15/2020 4:52 Results fo r this AM ENERGY DERIVATIVES TRADER procedure are i n the results section. COMPREHENSIVE Routine 11/15/2020 4:52 Results fo r this METABOLIC PANEL AM ENERGY DERIVATIVES TRADER procedure ar e in the results section. TROPONIN I Timed Routine 11/15/2020 12:04 Results fo r this AM ENERGY DERIVATIVES TRADER procedure are i n the results section. TROPONIN I Timed Routine 11/14/2020 6:13 Results fo r this PM ENERGY DERIVATIVES TRADER procedure are i n the results section. CULTURE, BLOOD KEVIN 11/14/2020 1:18 PM ENERGY DERIVATIVES TRADER CULTURE, BLOOD KEVIN 11/14/2020 1:00 PM ENERGY DERIVATIVES TRADER TROPONIN I Routine 11/14/2020 1:00 Results for this PM ENERGY DERIVATIVES TRADER procedure are i n the results section. XRAY CHEST PORTABLE Routine 11/14/2020 12:31 Resu lts for this PM ENERGY DERIVATIVES TRADER procedure are i n the results section. EKG Routine 11/14/2020 12:28 Results for this PM ENERGY DERIVATIVES TRADER procedure are i n the results section. TROPONIN I Timed Routine 11/14/2020 12:15 Results fo r this PM ENERGY DERIVATIVES TRADER procedure are i n the results section. ECHO ADULT COMPLETE Routine 11/14/2020 11:36 Resu lts for this AM ENERGY DERIVATIVES TRADER procedure are i n the results section. LAB ONLY-COMPLETE Routine 11/14/2020 7:20 Result s for this BLOOD COUNT WITH AM ENERGY DERIVATIVES TRADER procedure a re in DIFFERENTIAL the results section. PROTIME/INR Routine 11/14/2020 7:20 Results for this AM ENERGY DERIVATIVES TRADER procedure are i n the results section. TROPONIN I Routine 11/14/2020 7:20 Results for this AM ENERGY DERIVATIVES TRADER procedure are i n the results section. PHOSPHORUS Routine 11/14/2020 7:20 Results for this AM ENERGY DERIVATIVES TRADER procedure are i n the results section. MAGNESIUM Routine 11/14/2020 7:20 Results for this AM ENERGY DERIVATIVES TRADER procedure are i n the results section. COMPREHENSIVE Routine 11/14/2020 7:20 Results fo r this METABOLIC PANEL AM ENERGY DERIVATIVES TRADER procedure ar e in the results section. LAB ONLY-COMPLETE Routine 11/14/2020 7:20 Result s for this BLOOD COUNT WITH AM ENERGY DERIVATIVES TRADER procedure a re in DIFFERENTIAL the results section. BRAIN NATRIURETIC Routine 11/14/2020 7:20 Result s for this PEPTIDE AM ENERGY DERIVATIVES TRADER procedure are i n the results section. XRAY CHEST PORTABLE Routine 11/13/2020 8:21 Resu lts for this AM ENERGY DERIVATIVES TRADER procedure are i n the results section. PROTIME/INR Timed Routine 11/13/2020 7:24 Results fo r this AM ENERGY DERIVATIVES TRADER procedure are i n the results section. COMPLETE BLOOD COUNT Routine 11/13/2020 7:24 Res ults for this WITHOUT DIFFERENTIAL AM ENERGY DERIVATIVES TRADER procedu re are in the results section. BASIC METABOLIC PANEL Routine 11/13/2020 7:24 Re sults for this AM ENERGY DERIVATIVES TRADER procedure are i n the results section. COLLECT AND HOLD Routine 11/12/2020 4:24 Results for this GREEN TOP TUBE PM ENERGY DERIVATIVES TRADER procedure are in the results section. PROTIME/INR KEVIN 11/12/2020 4:24 Results for this PM ENERGY DERIVATIVES TRADER procedure are i n the results section. COMPLETE BLOOD COUNT Routine 11/12/2020 4:38 Res ults for this WITHOUT DIFFERENTIAL AM ENERGY DERIVATIVES TRADER procedu re are in the results section. BASIC METABOLIC PANEL Routine 11/12/2020 4:38 Re sults for this AM ENERGY DERIVATIVES TRADER procedure are i n the results section. XRAY CHEST PORTABLE Routine 11/11/2020 5:22 Resu lts for this PM ENERGY DERIVATIVES TRADER procedure are i n the results section. PROTIME/INR Routine 11/11/2020 7:00 Results for this AM ENERGY DERIVATIVES TRADER procedure are i n the results section. XRAY CHEST PORTABLE Routine 11/11/2020 5:41 Resu lts for this AM ENERGY DERIVATIVES TRADER procedure are i n the results section. BLOOD GASES ARTERIAL Routine 11/11/2020 4:07 Res ults for this AM ENERGY DERIVATIVES TRADER procedure are i n the results section. COMPLETE BLOOD COUNT Routine 11/11/2020 4:07 Res ults for this WITHOUT DIFFERENTIAL AM ENERGY DERIVATIVES TRADER procedu re are in the results section. BASIC METABOLIC PANEL Routine 11/11/2020 4:07 Re sults for this AM ENERGY DERIVATIVES TRADER procedure are i n the results section. CULTURE BACTERIAL, Routine 11/11/2020 3:56 Resul ts for this RESPIRATORY WITH GRAM AM ENERGY DERIVATIVES TRADER proced ure are in STAIN the results section. CULTURE BACTERIAL, Routine 11/10/2020 9:01 Resul ts for this URINE PM ENERGY DERIVATIVES TRADER procedure are i n the results section. TROPONIN I Timed Routine 11/10/2020 3:54 Results fo r this PM ENERGY DERIVATIVES TRADER procedure are i n the results section. COMPLETE BLOOD COUNT Routine 11/10/2020 2:45 Res ults for this WITHOUT DIFFERENTIAL PM ENERGY DERIVATIVES TRADER procedu re are in the results section. MAGNESIUM Routine 11/10/2020 2:45 Results for this PM ENERGY DERIVATIVES TRADER procedure are i n the results section. BASIC METABOLIC PANEL Routine 11/10/2020 2:45 Re sults for this PM ENERGY DERIVATIVES TRADER procedure are i n the results section. OR PANEL 1 POCT Routine 11/10/2020 2:36 Results for this PM ENERGY DERIVATIVES TRADER procedure are i n the results section. OR PANEL 1 POCT Routine 11/10/2020 1:08 Results for this PM ENERGY DERIVATIVES TRADER procedure are i n the results section. EMERGENT EXPLORATORY 11/10/2020 11:45 Bowel trouble LAPAROTOMY AM ENERGY DERIVATIVES TRADER PROTIME/INR Routine 11/10/2020 9:12 Results for this AM ENERGY DERIVATIVES TRADER procedure are i n the results section. TROPONIN I Timed Routine 11/10/2020 9:12 Results fo r this AM ENERGY DERIVATIVES TRADER procedure are i n the results section. TRANSFUSE FRESH Routine 11/10/2020 6:52 FROZEN PLASMA IN MLS AM ENERGY DERIVATIVES TRADER XRAY CHEST PORTABLE STAT 11/10/2020 5:29 Resu lts for this AM ENERGY DERIVATIVES TRADER procedure are i n the results section. LACTIC ACID STAT 11/10/2020 5:18 Results for this AM ENERGY DERIVATIVES TRADER procedure are i n the results section. LAB ONLY-COMPLETE KEVIN 11/10/2020 3:51 Result s for this BLOOD COUNT WITH AM ENERGY DERIVATIVES TRADER procedure a re in DIFFERENTIAL the results section. TYPE AND SCREEN Routine 11/10/2020 3:51 Results for this AM ENERGY DERIVATIVES TRADER procedure are i n the results section. LAB ONLY-COMPLETE KEVIN 11/10/2020 3:51 Result s for this BLOOD COUNT WITH AM ENERGY DERIVATIVES TRADER procedure a re in DIFFERENTIAL the results section. BLOOD GASES ARTERIAL KEVIN 11/10/2020 3:42 Res ults for this AM ENERGY DERIVATIVES TRADER procedure are i n the results section. CULTURE, BLOOD Routine 11/10/2020 3:35 Results f or this AM ENERGY DERIVATIVES TRADER procedure are i n the results section. TROPONIN I KEVIN 11/10/2020 3:35 Results for this AM ENERGY DERIVATIVES TRADER procedure are i n the results section. LIPASE KEVIN 11/10/2020 3:35 Results for this AM ENERGY DERIVATIVES TRADER procedure are i n the results section. LACTIC ACID KEVIN 11/10/2020 3:35 Results for this AM ENERGY DERIVATIVES TRADER procedure are i n the results section. CK KEVIN 11/10/2020 3:35 Results for this AM ENERGY DERIVATIVES TRADER procedure are i n the results section. AMYLASE KEVIN 11/10/2020 3:35 Results for this AM ENERGY DERIVATIVES TRADER procedure are i n the results section. COMPREHENSIVE KEVIN 11/10/2020 3:35 Results fo r this METABOLIC PANEL AM ENERGY DERIVATIVES TRADER procedure ar e in the results section. EKG KEVIN 11/10/2020 3:23 Results for this AM ENERGY DERIVATIVES TRADER procedure are i n the results section. PREPARE AND HOLD Timed Routine 11/10/2020 3:17 Result s for this FRESH FROZEN PLASMA AM ENERGY DERIVATIVES TRADER procedur e are in IN MLS- BLOOD BANK the resul ts section. PREPARE AND HOLD Routine 11/10/2020 3:10 Results for this FRESH FROZEN PLASMA AM ENERGY DERIVATIVES TRADER procedur e are in IN MLS- BLOOD BANK the resul ts section. documented in this encounter Results SARS-COV-2, INFLUENZA A+B, AND/OR RSV NUCLEIC ACID TESTING PANEL (11/17/2020 10:00 AM ENERGY DERIVATIVES TRADER) Pathologist Sig nature SARS-CoV-2 Not Detected Not Detected [address] Specimen Respiratory - Entire nasopharynx (body s tructure) Narrative Performed At Please read entire report. Results for Influenza A and B or RSV [address] may also be available depending on which viruses your provider selected for testing. Your Covid-19 test is negative: 1)Avoiding close contact is s till recommended. 2)Cover your coughs and snee zes. 3)Wash your hands often with soap and wate r for at least 20 seconds or use an alcohol-based material handler 2nd shift con taining over 60% alcohol. Avoid touching your fa ce. 4)Avoid sharing personal household items, including dishes, cups, utensils, towels, clothing, or bedding. These items should be cleaned thoroughly with soap and water after use. Clean all "high touch" surfaces in your home d aily. 5) Monitor your symptoms. Contact your provider if you are feeling worse. If you have shortness of breath or diff iculty breathing, call [phone]. This assay is for in vitro diagnostic use under FDA Em ergency Use Authorization only. Optimal performance of this test requires appropriate specimen collection, storage, and transport to [facility] test site. Detection of SARS-CoV-2 RNA may be affected by sample collection methods, patient factors (eg, presence of symptoms), a nd/or stage of infection. False-negative results may arise from degradation of v iral RNA during shipping/storage. Results should be interpreted by a trained professiona l in conjunction with the patient s history and clinical signs and symptoms, and epidemi ological risk factors. Negative (Not Detected) results do not preclude infect ion with the SARS-CoV-2 virus and should not be the sole basis of patient treatment/management or public health decision. Follow up testing should be performed according to the current CDC recom mendations. This test was performed by polymerase chain reaction ( PCR) on the GeneXpert instrument. Performing Organization Address City/State/Zipcode Phone Number [address] [address] LAB ONLY-COMPLETE BLOOD COUNT WITH DIFFERENTIAL (11/17/2020 7:03 AM ENERGY DERIVATIVES TRADER) Pathologist Sig nature WBC 13.3 (H) 4.0 - 11.0 K/uL [address] RBC 2.90 (L) 4.40 - 5.[address] M/uL Hemoglobin 7.9 (L) 13.5 - 17.[address] g/dL Hematocrit 24.4 (L) 40.0 - 50.0 % [address] MCV 84.1 80.0 - 98.[address] MCH 27.2 25.5 - 34.[address] MCHC 32.4 31.5 - 36.[address] g/dL RDW-CV 17.2 (H) 11.5 - 15.5 % [address] RDW-SD 50.8 (H) 35.5 - 50.[address] Platelet Count 248 140 - 400 K/uL [address] MPV 9.5 8.5 - 12.[address] Seg Neut Absolute 9.8 (H) 1.8 - 8.0 K/uL [address] Lymphocytes Absolute 1.8 0.8 - 4.1 K/uL [place] [id number] [facility] Monocytes Absolute 0.9 0.0 - 1.0 K/uL [address] Eosinophils Absolute 0.6 0.0 - 0.7 K/uL [place] [address] [facility] Basophil Absolute 0.1 0.0 - 0.2 K/uL [address] Immature Granulocyte 0.23 (H) 0.00 - 0.06 [place] [address] [facility] Absolute K/uL Neutrophils Abs. 9,800 /uL [address] (Segs and Bands) Neutrophils Percent 73.3 % [address] Lymphocytes Percent 13.2 % [address] Monocytes Percent 7.1 % [address] Immature Granulocyte 1.7 % [address] Percent Eosinophils Percent 4.3 % [address] Basophil Percent 0.4 % [address] Nucleated RBC 0 /[address] Specimen Blood - Blood specimen (specimen) Performing Organization Address City/State/Zipcode Phone Number [address] [place] [id number] COMPREHENSIVE METABOLIC PANEL (11/17/2020 7:03 AM ENERGY DERIVATIVES TRADER) Pathologist Sig nature Glucose 103 (H) 70 - 100 mg/dL [address] BUN 13 6 - 22 mg/dL [address] Creatinine 0.88 0.80 - 1.[address] mg/dL BUN/Creatinine Ratio 14.8 10.0 - 25.[address] Sodium 136 135 - 145 meq/L [address] Potassium 3.4 (L) 3.5 - 5.3 meq/L [address] Chloride 110 99 - 110 meq/L [address] CO2 22 20 - 29 meq/L [address] Anion Gap with K 7 6 - 20 meq/L [address] Calcium 7.9 (L) 8.5 - 10.[address] mg/dL Protein Total 5.3 (L) 6.0 - 8.2 g/dL [address] Albumin 1.9 (L) 3.5 - 5.0 g/dL [address] Alkaline Phosphatase 145 30 - 150 U/L [address] AST - SGOT 26 0 - 35 U/L [address] ALT - SGPT 14 0 - 55 U/L [address] Bilirubin Total 0.6 0.2 - 1.2 mg/dL [address] Corrected Calcium 9.6 8.5 - 10.[address] mg/dL Age [address] eGFR Non- 83 >=[address] Malagasy mL/min/1.73m2 eGFR >90 >=[address] mL/min/1.73m2 Specimen Blood - Blood specimen (specimen) Performing Organization Address [facility] Phone Number [address] [address] PROTIME/INR (11/17/2020 7:03 AM ENERGY DERIVATIVES TRADER) [facility] nature Protime 29.8 (H) 12.0 - 14.[address] INR 3.0 2.0 - 3.[address] Specimen Blood - Blood specimen (specimen) Narrative Performed At Normal INR reference range (patients not on oral antic oagulants) [address] 0.9-1.1. INR Standard Intensity = (2.0 - 3.0) INR Higher Intensity = (2.5 - 3.5) Performing Organization Address [facility] Phone Number [address] [place] [id number] UROGRAM (11/16/2020 4:34 PM ENERGY DERIVATIVES TRADER) Specimen Narrative Performed At [facility] Patient Name: AMA ROJAS Date of : 1940 Procedure: CT ABDOMEN PELVIS WITHOUT AN D WITH CONTRAST UROGRAM Date of Service: 11/16/2020 EXAM: CT ABDOMEN PELVIS WITHOUT AND WITH CONTRAST UROGRAM INDICATION: Male, 80 years patient, Hydronephrosis , right hydronephrosis COMPARISON(S): CT abdomen pelvis, 021 TECHNIQUE: Helical CT obtained from the lung bases thr ough the kidneys without contrast. Helical CT obtained from the lung ba ses through the kidneys in corticomedullary phase and through the pubi c symphysis in delayed phase, which was repeated at 13 minutes to ach ieve adequate filling in the right collecting system. Helical CT obt ained from the lung bases through the ischial tuberosities in nephrog raphic phrase. 75 mL contrast administered via IV without complication. Sagittal and coronal reformations provided. RENAL FINDINGS: Unenhanced kidneys: Residual contrast within the colle cting systems from previous imaging yesterday. 0.24 cm calculus, left int erpolar kidney. Unable to collect a to evaluate the debris versus enha ncement in the left collecting system, given the significant residual contrast from previous day's imaging. Enhanced kidneys:Patchy enhancement throughout the rig ht kidney, particularly apparent on coronal images 53 - 60. Kadie l enhancement of the left kidney. Hyperdense lesion left anterior inter polar kidney without significant postcontrast enhancement. Minimall y complex posterior left renal cyst septal enhance ment.. Enhanced ureters: Delayed filling in the right ureter. No definite filling defects in either ureter. Bladder:Decompressed with suprapubic catheter, tip is now visible in the midline posterior bladder after repositi oning. OTHER FINDINGS: LOWER CHEST: Bilateral pleural effusions, bibasilar subsegmental co nsolidations similar to previous. No acute findings. No mass. No pe ricardial effusion. ABDOMEN/PELVIS: Liver: Low-attenuation, but does not meet CT criteria for hepatic steatosis. Gallbladder/Biliary: There are multiple gallstones, ga llbladder hydrops. No intrahepatic or extrahepatic biliar y ductal dilatation. Pancreas: Normal pancreas. Adrenal glands: Normal bilateral adrenal glands. Spleen: Normal spleen. Gastrointestinal/Pelvic Viscera/ Mesentery/Peritoneal cavity: Significant ingested debris in the stomach.. Small b owel ileus. Moderate constipation persists. Intact anastomosis in the distal colon. No diverticulitis or colitis. No bowel wall pneumatosi s. Left anterior wall colostomy. There is non-visualization of the appe ndix. No intraperitoneal free air. No ascites. No organized flu id collection. Normal. No suspicious pelvic mass. Vascular:Unremarkable. No aortic aneurys m. Lymph Nodes: Unremarkable. No retroperitoneal, mesente mike, pelvic or inguinal lymphadenopathy. Bones/vertebra/soft tissues/Abdominal/pelvic wall: N ormal osseous structures. 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 Subcutaneous edema in the wall of the ab domen and pelvis. IMPRESSION: 1 Patchy enhancement throughout the right kidney, ca nnot exclude underlying pyelonephritis. 2. Moderate right hydroureteronephrosis, without dis crete source appreciated, with no contrast filling the collecting s ystem from the current examination, despite 2 delayed s eries. 3. Unable to assess debris versus enhancement of the l eft collecting system given significant residual contrast remaining f rom previous day's examination. No definite soft tissue mas s appreciated. 4. Minimally complex left anterior interpolar renal cyst without septal enhancement. Simple left renal cy st. 3. Incidental note is made of significant ingested humberto ris in the stomach. Cholelithiasis and hydrops. Constipation. Kishor ateral pleural effusions and bibasilar subsegmental con solidations. Finalized by: Kita Joseph MD on 2020 8:12 PM ENERGY DERIVATIVES TRADER Patient/Procedure Information: [facility] MRN/JEZ: [id number] Order Number: [id number] Accession Number: [id number] Ordering Provider: SHAY LAUREANO Authorizing Provider: LATOYA GONSALEZ Procedure Note Felicia, Heidy - 11/16/2020 8:14 PM ENERGY DERIVATIVES TRADER Patient Name: AMA ROJAS Date of : 1940 Procedure: CT ABDOMEN PELVIS WITHOUT AN D WITH CONTRAST UROGRAM Date of Service: 11/16/2020 EXAM: CT ABDOMEN PELVIS WITHOUT AND WITH CONTRAST UROGRAM INDICATION: Male, 80 years patient, Hy dronephrosis, right hydronephrosis COMPARISON(S): CT abdomen pelvis, 021 TECHNIQUE: Helical CT obtained from the lung bases through the kidneys without contrast. Helical CT obtained from the lung bases through the kidneys in corticomedullary phase and through the pubic symphysis in delayed phase, which was repeated at 13 minutes to achieve adequate filling in the right collecting system. Helical CT obtained from the lung bases through the ischial tuberosities in nephrographic phrase. 75 mL contrast administered via IV without com plication. Sagittal and coronal reformations provided. RENAL FINDINGS: Unenhanced kidneys: Residual contrast wi thin the collecting systems from previous imaging yesterday. 0.24 cm calculus, left interpolar kidney. Unable to collect a to evaluate the debris versus enhancement in the left collecting system, given the significant residual contrast from previous day's imaging. Enhanced kidneys:Patchy enhancement thro ughout the right kidney, particularly apparent on coronal images 53 - 60. Normal enhancement of the left kidney. Hyperdense lesion left anterior interpolar kidney without significant postcontrast enhancement. Mi nimally complex posterior left renal cyst septal enhancement.. Enhanced ureters: Delayed filling in the right ureter. No definite filling defects in either ureter. Bladder:Decompressed with suprapubic cat heter, tip is now visible in the midline posterior bladder after repositioning. OTHER FINDINGS: LOWER CHEST: Bilateral pleural effusions, bibasilar s ubsegmental consolidations similar to previous. No acute findings. No mass. No pericardial effusion. ABDOMEN/PELVIS: Liver: Low-attenuation, but does not royal t CT criteria for hepatic steatosis. Gallbladder/Biliary: There are multiple gallstones, gallbladder hydrops. No intrahepatic or extrahepatic biliary ductal dilatation. Pancreas: Normal pancreas. Adrenal glands: Normal bilateral adrenal glands. Spleen: Normal spleen. Gastrointestinal/Pelvic Viscera/ Mesente ry/Peritoneal cavity: Significant ingested debris in the stomach.. Small bowel ileus. Moderate constipation persists. Intact anastomosis in the distal colon. No diverticulitis or colitis. No bowel wall pneumatosis. Left anterior wall colostomy. There is non- visualization of the appendix. No intraperitoneal free air. No ascites. No organized fluid collection. Normal. No suspicious pelvic mass. Vascular:Unremarkable. No aortic aneurys m. Lymph Nodes: Unremarkable. No retroperit [place], mesenteric, pelvic or inguinal lymphadenopathy. Bones/vertebra/soft tissues/Abdominal/pe lvic wall: Normal osseous structures. Regarding artifact from bilateral total hip arthroplasties.. Subcutaneous edema in the wall of the abdomen and pelvis. IMPRESSION: 1 Patchy enhancement throughout the rig ht kidney, cannot exclude underlying pyelonephritis. 2. Moderate right hydroureteronephrosis, without discrete source appreciated, with no contrast filling the collecting system from the current examination, despite 2 delayed series. 3. Unable to assess debris versus enhanc ement of the left collecting system given significant residual contrast remaining from previous day's examination. No definite soft tissue mass appreciated. 4. Minimally complex left anterior inte rpolar renal cyst without septal enhancement. Simple left renal cyst. 3. Incidental note is made of significan t ingested debris in the stomach. Cholelithiasis and hydrops. Constipation. Bilateral pleural effusions and bibasilar subsegmental consolidations. Finalized by: Kita Joseph MD on 2020 8:12 PM ENERGY DERIVATIVES TRADER Patient/Procedure Information: [facility] MRN/JEZ: [id number] Order Number: [id number] Accession Number: [id number] Ordering Provider: SHAY LAUREANO Authorizing Provider: LATOYA GONSALEZ Performing Organization Address City/State/Zipcode Phone Number [id number] IR SUPRAPUBIC CATHETER EXCHANGE (11/16/2020 12:30 PM ENERGY DERIVATIVES TRADER) Specimen Narrative Performed At [facility] Patient Name: AMA ROJAS Date of : 1940 Procedure: IR SUPRAPUBIC CATHETER EXCHA NGE Date of Service: 11/16/2020 EXAM: CYSTOGRAM AND FLUOROSCOPICALLY MAHSA DED SUPRAPUBIC CATHETER EXCHANGE INDICATION:Question position of the indwelling suprapu bic catheter. Request for exchange. Question vesicoure teral reflux. TECHNIQUE: Informed consent was obtained. Patient pl aced supine position on the fluoroscopy table. Indwelling suprapub ic catheter and surrounding skin prepped and draped in usual sterile f ashion. Harvest Crew Supervisor fluoroscopic image obtained. Contrast was then allowed to instill into the urinary bladder through the suprapubic catheter vi a gravity. A total of 400 mL was instilled into the bladder with adequate distention. Multiple fluoroscopic images obtained in multiple angl es during filling of the bladder. The balloon of the indwelling suprapub ic catheter was then deflated and the tube removed. A new 18 Armenian co uncil tipped suprapubic catheter was placed through the tract into the bladder. Balloon inflated with 10 mL of saline. The bladder was then allowed to drain by gravity. Fluoroscopic image obt ained post drainage. FINDINGS: Initial fluoroscopic image demonstrates no o pacification of the kidneys or ureters. Indwelling suprapubic catheter noted. Initial fluoroscopic images during contrast injection into the urinary bladder demonstrates no filling defects within the urinary chirag dder. The tip of the suprapubic catheter is appropriately positioned an d not engaged within the UVJ as suspected on CT. After adequate dist ention of the urinary bladder, no irregularities seen within the chirag dder. No vesicoureteral reflux was seen on either side. IMPRESSION: 1. Appropriate positioning of indwelli ng suprapubic catheter. 2. Adequate distention of the urinary bladder during cystogram. No filling defects or irregularity seen wit hin the urinary bladder. 3. No vesicoureteral reflux seen on ei ther side. 4. Fluoroscopically guided exchange of suprapubic catheter. Finalized by: Enoch Spain MD on 021 1:04 PM ENERGY DERIVATIVES TRADER Patient/Procedure Information: [facility] MRN/JEZ: [id number] Order Number: [id number] Accession Number: [id number] Ordering Provider: LATOYA GONSALEZ Authorizing Provider: LATOYA GONSALEZ Procedure Note Interface, Radiantres - 11/16/2020 1:06 PM ENERGY DERIVATIVES TRADER Patient Name: AMA ROJAS Date of : 1940 Procedure: IR SUPRAPUBIC CATHETER EXCHA NGE Date of Service: 11/16/2020 EXAM: CYSTOGRAM AND FLUOROSCOPICALLY MAHSA DED SUPRAPUBIC CATHETER EXCHANGE INDICATION:Question position of the indw elling suprapubic catheter. Request for exchange. Question vesicoureteral reflux. TECHNIQUE: Informed consent was obtaine d. Patient placed supine position on the fluoroscopy table. Indwelling suprapubic catheter and surrounding skin prepped and draped in usual sterile fashion. Harvest Crew Supervisor fluoroscopic image obtained. Contrast was then allowed to i nstill into the urinary bladder through the suprapubic catheter via gravity. A total of 400 mL was instilled into the bladder with adequate distention. Multiple fluoroscopic images obtained in multiple angles durin g filling of the bladder. The balloon of the indwelling suprapubic catheter was then deflated and the tube removed. A new 18 Armenian augustine tipped suprapubic catheter was placed through the tract into the bladde r. Balloon inflated with 10 mL of saline. The bladder was then allowed to drain by gravity. Fluoroscopic image obtained post drainage. FINDINGS: Initial fluoroscopic image dem onstrates no opacification of the kidneys or ureters. Indwelling suprapubic catheter noted. Initial fluoroscopic images during contrast injection into the urinary bladder demonstrates no filling defects within t he urinary bladder. The tip of the suprapubic catheter is appropriately positioned and not engaged within the UVJ as suspected on CT. After adequate distention of the urinary bladder, no irregularities seen within the bladde r. No vesicoureteral reflux was seen on either side. IMPRESSION: 1. Appropriate positioning of indwellin g suprapubic catheter. 2. Adequate distention of the urinary b ladder during cystogram. No filling defects or irregularity seen within the urinary bladder. 3. No vesicoureteral reflux seen on eit her side. 4. Fluoroscopically guided exchange of suprapubic catheter. Finalized by: Enoch Spain MD on 021 1:04 PM ENERGY DERIVATIVES TRADER Patient/Procedure Information: [facility] MRN/JEZ: [id number] Order Number: [id number] Accession Number: [id number] Ordering Provider: LATOYA GONSALEZ Authorizing Provider: LATOYA GONSALEZ Performing Organization Address City/State/Zipcode Phone Number [id number] LAB ONLY-COMPLETE BLOOD COUNT WITH DIFFERENTIAL (11/16/2020 7:52 AM ENERGY DERIVATIVES TRADER) [facility] nature WBC 16.5 (H) 4.0 - 11.0 K/uL [address] RBC 3.05 (L) 4.40 - 5.[address] M/uL Hemoglobin 8.3 (L) 13.5 - 17.[address] g/dL Hematocrit 26.0 (L) 40.0 - 50.0 % [address] MCV 85.2 80.0 - 98.[address] MCH 27.2 25.5 - 34.[address] MCHC 31.9 31.5 - 36.[address] g/dL RDW-CV 16.7 (H) 11.5 - 15.5 % [address] RDW-SD 51.2 (H) 35.5 - 50.[address] Platelet Count 232 140 - 400 K/uL [address] MPV 9.7 8.5 - 12.[address] Seg Neut Absolute 12.9 (H) 1.8 - 8.0 K/uL [address] Lymphocytes Absolute 1.5 0.8 - 4.1 K/uL [place] [address] [facility] Monocytes Absolute 1.0 0.0 - 1.0 K/uL [address] Eosinophils Absolute 0.7 0.0 - 0.7 K/uL [place] [address] [facility] Basophil Absolute 0.1 0.0 - 0.2 K/uL [place] [address] [facility] Immature Granulocyte 0.34 (H) 0.00 - 0.[address] Absolute K/uL Neutrophils Abs. 12,900 /uL [address] (Segs and Bands) Neutrophils Percent 78.2 % [address] Lymphocytes Percent 9.2 % [address] Monocytes Percent 5.8 % [address] Immature Granulocyte 2.1 % [address] Percent Eosinophils Percent 4.4 % [address] Basophil Percent 0.3 % [address] Nucleated RBC 0 /[address] Specimen Blood - Blood specimen (specimen) Performing Organization Address City/State/Zipcode Phone Number [address] [address] COMPREHENSIVE METABOLIC PANEL (11/16/2020 7:52 AM ENERGY DERIVATIVES TRADER) Pathologist [facility] Glucose 80 70 - 100 mg/dL [address] BUN 10 6 - 22 mg/dL [address] Creatinine 0.81 0.80 - 1.[address] mg/dL BUN/Creatinine Ratio 12.3 10.0 - 25.[address] Sodium 135 135 - 145 meq/L [address] Potassium 3.7 3.5 - 5.3 meq/L [address] Chloride 106 99 - 110 meq/L [address] CO2 23 20 - 29 meq/L [address] Anion Gap with K 10 6 - 20 meq/L [address] Calcium 8.1 (L) 8.5 - 10.[address] mg/dL Protein Total 5.3 (L) 6.0 - 8.2 g/dL [address] Albumin 2.0 (L) 3.5 - 5.0 g/dL [address] Alkaline Phosphatase 118 30 - 150 U/L [address] AST - SGOT 26 0 - 35 U/L [address] ALT - SGPT 13 0 - 55 U/L [address] Bilirubin Total 0.8 0.2 - 1.2 mg/dL [address] Corrected Calcium 9.7 8.5 - 10.5 [facility] mg/dL Age [address] eGFR Non- >90 >=[address] Malagasy mL/min/1.73m2 eGFR >90 >=[address] mL/min/1.73m2 Specimen Blood - Blood specimen (specimen) Performing Organization Address [facility] Phone Number [address] [place] [id number] PROTIME/INR (11/16/2020 7:52 AM ENERGY DERIVATIVES TRADER) Pathologist Sig [facility] Protime 32.8 (H) 12.0 - 14.[address] INR 3.3 2.0 - 3.[address] Specimen Blood - Blood specimen (specimen) Narrative Performed At Normal INR reference range (patients not on oral antic oagulants) [address] 0.9-1.1. INR Standard Intensity = (2.0 - 3.0) INR Higher Intensity = (2.5 - 3.5) Performing Organization Address [facility] Phone Number [address] [place] [address] TROPONIN I (11/16/2020 12:09 AM ENERGY DERIVATIVES TRADER) Pathologist [facility] Troponin I 0.213 (H) 0.000 - 0.028 ng/mL [address] Specimen Blood - Blood specimen (specimen) Performing Organization Address [facility] Phone Number [address] [address] HEPATIC FUNCTION PANEL (11/15/2020 4:55 PM ENERGY DERIVATIVES TRADER) Pathologist [facility] Alkaline Phosphatase 104 30 - 150 U/L [address] AST - SGOT 28 0 - 35 U/L [address] ALT - SGPT 14 0 - 55 U/L [address] Bilirubin Total 0.7 0.2 - 1.2 mg/dL [address] Bilirubin Indirect 0.4 0.0 - 0.8 mg/dL [address] Bilirubin Direct 0.3 0.0 - 0.4 mg/dL [address] Albumin 2.2 (L) 3.5 - 5.0 g/dL [address] Protein Total 5.9 (L) 6.0 - 8.2 g/dL [address] Specimen Blood - Blood specimen (specimen) Performing Organization Address [facility]/Zipcode Phone Number [address] [place] [address] TROPONIN I (11/15/2020 4:55 PM ENERGY DERIVATIVES TRADER) Pathologist Sig nature Troponin I 0.241 (H) 0.000 - 0.028 ng/mL [address] Specimen Blood - Blood specimen (specimen) Performing Organization Address [facility] Phone Number [address] [place] [address] CT ABDOMEN PELVIS WITH CONTRAST (11/15/2020 2:51 PM ENERGY DERIVATIVES TRADER) Specimen Narrative Performed At [facility] Patient Name: AMA ROJAS Date of : 1940 Procedure: CT ABDOMEN PELVIS WITH CONTR AST Date of Service: 11/15/2020 EXAM: CT ABDOMEN PELVIS WITH CONTRAST TECHNIQUE: Axial CT imaging was performed through the abdomen and pelvis following 75 mL IV contrast. Sagittal and coronal refo rmats were performed. INDICATION: Male, 80 years patient, post operative c hanges. Patient with small bowel obstruction from left indirect hernia with incarcerated bowel, status post colectomy and loop colostomy 021. Abdominal pain. ADDITIONAL INDICATION: None. COMPARISON(S): CT abdomen pelvis, 11/09/2020 FINDINGS: LOWER CHEST: Right pleural effusion maximal depth 1.7 cm, left lowe r effusion maximal depth 3.0 cm. Bibasilar subsegmental consolidations wi thout air bronchograms. No mass. No pericardial ef fusion. ABDOMEN/PELVIS: Liver: A normal size, attenuation and contour is noted on all sequences. Gallbladder/Biliary: Hydropic gallbladder containing m ultiple calculi. Multiple small calculi are visible in the region of th e common bile duct, (I - 48/105, images 40 - 44/132). No intrahepati c or extrahepatic biliary ductal dilatation. Pancreas: Normal pancreas. Adrenal glands: Normal bilateral adrenal glands. Spleen: Normal size spleen, vague line ar calcifications.. Kidneys/Ureters/Bladder: 1. Moderate to severe right hydroureteronephrosis, wit h mild enhancement of the renal pelvis and proximal ureter.. Suprapubic c atheter tip previously appeared to terminate in the distal right u reter, questionable position at the right ureterovesicular ju nction versus distal ureter (I - 59/138). Bladder is p artially decompressed. 2. Diminished enhancement in the periphery of the righ t interpolar kidney (I - 49/132). 3. Mild left pelviectasis with 0.23 cm calculus in the left interpolar kidney, and soft tissue attenuation or debris noted in the left renal pelvis and proximal ureter. 4. 3.8 cm cystic lesion arising from the posterior int erpolar left kidney, with questionable anterior septation (I - 43/1 32, I - 78/105), minimally complex 1.5 cm lesion arising from the anter ior left interpolar kidney with attenuation great er than a simple cyst at 45 HU. Gastrointestinal/Pelvic Viscera/ Mesentery/Peritoneal cavity: Normal visualized stomach. Small bowel ileus. Ostomy, left anterior abdominal wall. Significant retained stool in the rect al vault, with diameter approximately 7.5 cm anterior to posterior (I - 69/138). Retained stool throughout the remaining diverted colon . No diverticulitis or colitis. No bowel wall pneumatosis. There is non-visualization of the appendix. No intraperitonea l free air. Minimal free fluid in the abdomen. No organized fluid collection. Normal. No suspicious pelvic mass. Vascular:Unremarkable. No aortic aneurys m. Lymph Nodes: Unremarkable. No retroperitoneal, mesente mike, pelvic or inguinal lymphadenopathy. Bones/vertebra/soft tissues/Abdominal/pelvic wall: The re is diffuse endplate spondylosis and degenerative disc disease. 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 Edema in the subcutaneous tissues, par ticularly the left lateral mid and lower abdominal wall. Fluid and air in the left inguinal canal and hemiscrotum, likely related to recent incarc erated indirect hernia, with bowel previous visible in t he left hemiscrotum. IMPRESSION: 1. Interval resolution of small bowel obstruction with interval loop colostomy. Significant retained stool throughout the d iverted and excluded colon, with small bowel ileus. 2. Right hydroureteronephrosis, possible right pyelone phritis, and questionable positioning of the tip of the bladder cat heter in the distal right ureter versus right ureterovesicular junc tion. In addition, appearance of soft tissue attenuation in the left saad l pelvis, considerations include mass or possible debris. In add ition, left renal cysts with minimal complexity. Further evaluation with renal ultrasound could be considered. Potentially, consultation with Ur ology may be of benefit. 3. Incidental cholelithiasis, hydropic gallbladder, an d appearance concerning for choledocholithiasis. 4. Incidental bilateral pleural effusions and bibasila r atelectasis, nonobstructive left nephrolithiasis. Finalized by: Kita Joseph MD on 2020 3:25 PM ENERGY DERIVATIVES TRADER Patient/Procedure Information: [facility] MRN/JEZ: [id number] Order Number: [id number] Accession Number: [id number] Ordering Provider: SHAY LAUREANO Authorizing Provider: LATOYA GONSALEZ Procedure Note Interface, Radiantres - 11/15/2020 3:27 PM ENER[employer] DERIVATIVES TRADER Patient Name: AMA ROJAS Date of : 1940 Procedure: CT ABDOMEN PELVIS WITH CONTR AST Date of Service: 11/15/2020 EXAM: CT ABDOMEN PELVIS WITH CONTRAST TECHNIQUE: Axial CT imaging was performe d through the abdomen and pelvis following 75 mL IV contrast. Sagittal and coronal reformats were performed. INDICATION: Male, 80 years patient, pos t operative changes. Patient with small bowel obstruction from left indirect hernia with incarcerated bowel, status post colectomy and loop colostomy 11/10/2020. Abdominal pain. ADDITIONAL INDICATION: None. COMPARISON(S): CT abdomen pelvis, 11/09/2020 FINDINGS: LOWER CHEST: Right pleural effusion maximal depth 1.7 cm, left lower effusion maximal depth 3.0 cm. Bibasilar subsegmental consolidations without air bronchograms. No mass. No pericardial effusion. ABDOMEN/PELVIS: Liver: A normal size, attenuation and co ntour is noted on all sequences. Gallbladder/Biliary: Hydropic gallbladde r containing multiple calculi. Multiple small calculi are visible in the region of the common bile duct, (I - 48/105, images 40 - 44/132). No intrahepatic or extrahepatic biliary ductal dilatation. Pancreas: Normal pancreas. Adrenal glands: Normal bilateral adrenal glands. Spleen: Normal size spleen, vague linea r calcifications.. Kidneys/Ureters/Bladder: 1. Moderate to severe right hydrouretero nephrosis, with mild enhancement of the renal pelvis and proximal ureter.. Suprapubic catheter tip previously appeared to terminate in the distal right ureter, questionable position at the right ureterovesicular j unction versus distal ureter (I - 59/138). Bladder is partially decompressed. 2. Diminished enhancement in the periphe ry of the right interpolar kidney (I - 49/132). 3. Mild left pelviectasis with 0.23 cm c alculus in the left interpolar kidney, and soft tissue attenuation or debris noted in the left renal pelvis and proximal ureter. 4. 3.8 cm cystic lesion arising from the posterior interpolar left kidney, with questionable anterior septation (I - 43/132, I - 78/105), minimally complex 1.5 cm lesion arising from the anterior left interpolar kidney with attenuation greater than a simple c yst at 45 HU. Gastrointestinal/Pelvic Viscera/ Mesente ry/Peritoneal cavity: Normal visualized stomach. Small bowel ileus. Ostomy, left anterior abdominal wall. Significant retained stool in the rectal vault, with diameter approximately 7.5 cm anterior to posteri or (I - 69/138). Retained stool throughout the remaining diverted colon. No diverticulitis or colitis. No bowel wall pneumatosis. There is non-visualization of the appendix. No intraperitoneal free air. Minimal free f luid in the abdomen. No organized fluid collection. Normal. No suspicious pelvic mass. Vascular:Unremarkable. No aortic aneurys m. Lymph Nodes: Unremarkable. No retroperit [place], mesenteric, pelvic or inguinal lymphadenopathy. Bones/vertebra/soft tissues/Abdominal/pe lvic wall: There is diffuse endplate spondylosis and degenerative disc disease. 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 Edema in the subcutaneous tissues, parti cularly the left lateral mid and lower abdominal wall. Fluid and air in the left inguinal canal and hemiscrotum, likely related to recent incarcerated indirect hernia, with bowel previous visible in the left hemis crotum. IMPRESSION: 1. Interval resolution of small bowel ob struction with interval loop colostomy. Significant retained stool throughout the diverted and excluded colon, with small bowel ileus. 2. Right hydroureteronephrosis, possible right pyelonephritis, and questionable positioning of the tip of the bladder catheter in the distal right ureter versus right ureterovesicular junction. In addition, appearance of soft tissue attenuation in the left renal pelvis, considerations include mass or possible debris. In addition, left renal cysts with minimal complexity. Further evaluation with renal ultrasound could be considered. Potentially, consul tation with Urology may be of benefit. 3. Incidental cholelithiasis, hydropic g allbladder, and appearance concerning for choledocholithiasis. 4. Incidental bilateral pleural effusion s and bibasilar atelectasis, nonobstructive left nephrolithiasis. Finalized by: Kita Joseph MD on 2020 3:25 PM ENERGY DERIVATIVES TRADER Patient/Procedure Information: [facility] MRN/JEZ: [id number] Order Number: [id number] Accession Number: [id number] Ordering Provider: SHAY LAUREANO Authorizing Provider: LATOYA GONSALEZ Performing Organization Address [facility]/Zipcode Phone Number [id number] TROPONIN I (11/15/2020 11:56 AM ENERGY DERIVATIVES TRADER) Pathologist [facility] Troponin I 0.282 (H) 0.000 - 0.028 ng/mL [place] [address] [facility] Specimen Blood - Blood specimen (specimen) Performing Organization Address [facility] Phone Number [place] [address] [facility] [address] [place] [address] MRSA NASAL SCREEN, BUSTER (11/15/2020 9:44 AM ENERGY DERIVATIVES TRADER) MRSA by NAD, Nasal Not Detected Not Detected [facility] Specimen Swab - Specimen from nasal sinus (specim en) Narrative Performed At MRSA DNA not detected. [facility] This test was performed by polymerase chain reaction (PCR) on the GeneXpert instrument. Performing Organization Address [facility] [place] Phone Number [facility] [address] [place] [address] LABORATORY [address] EKG (11/15/2020 8:00 AM ENERGY DERIVATIVES TRADER)Only the most recent of3 resultswithin the time period is included. Pathologist Sig nature EKG [employer] Sinus rhythm with marked sinus arrythmia Lateral infarct (cited on or before 12-MAY-2020) Abnormal ECG When compared with ECG of 26-FEB-2021 12:28, Premature atrial complexes are no longer Present Ventricular Rate: 84 BPM Atrial Rate: 84 BPM P-R Interval: 150 ms QRS Duration: 98 ms Q-T Interval: 386 ms QTc Calculation(Bazett): 456 ms Calculated P [place]: 35 degrees Calculated R [place]: -2 degrees Calculated T [place]: 81 degrees Specimen Narrative Performed At This result has an attachment that is no t available. Performing Organization Address City/State/Zipcode Phone Number [facility] LAB ONLY-COMPLETE BLOOD COUNT WITH DIFFERENTIAL (11/15/2020 7:57 AM ENERGY DERIVATIVES TRADER) Pathologist Sig nature WBC 22.5 (H) 4.0 - 11.0 K/uL [address] RBC 2.98 (L) 4.40 - 5.[address] M/uL Hemoglobin 8.1 (L) 13.5 - 17.[address] g/dL Hematocrit 25.6 (L) 40.0 - 50.0 % [address] MCV 85.9 80.0 - 98.[address] MCH 27.2 25.5 - 34.[address] MCHC 31.6 31.5 - 36.[address] g/dL RDW-CV 16.5 (H) 11.5 - 15.5 % [address] RDW-SD 51.1 (H) 35.5 - 50.[address] Platelet Count 215 140 - 400 K/uL [address] MPV 10.0 8.5 - 12.[address] Seg Neut Absolute 17.6 (H) 1.8 - 8.0 K/uL [address] Lymphocytes Absolute 2.1 0.8 - 4.1 K/uL [place] [address] [facility] Monocytes Absolute 1.4 (H) 0.0 - 1.0 K/uL [place] [address] [facility] Eosinophils Absolute 0.8 (H) 0.0 - 0.7 K/uL [place] [address] [facility] Basophil Absolute 0.1 0.0 - 0.2 K/uL [address] Immature Granulocyte 0.54 (H) 0.00 - 0.06 [place] [address] [facility] Absolute K/uL Neutrophils Abs. 17,600 /uL [address] (Segs and Bands) Neutrophils Percent 78.3 % [address] Lymphocytes Percent 9.5 % [address] Monocytes Percent 6.2 % [address] Immature Granulocyte 2.4 % [address] Percent Eosinophils Percent 3.4 % [address] Basophil Percent 0.2 % [address] Nucleated RBC 0 /[address] Specimen Blood - Blood specimen (specimen) Performing Organization Address City/State/Zipcode Phone Number [address] [place] [address] COMPREHENSIVE METABOLIC PANEL (11/15/2020 4:52 AM ENERGY DERIVATIVES TRADER) Pathologist [facility] Glucose 107 (H) 70 - 100 mg/dL [address] BUN 12 6 - 22 mg/dL [address] Creatinine 0.97 0.80 - 1.[address] mg/dL BUN/Creatinine Ratio 12.4 10.0 - 25.[address] Sodium 137 135 - 145 meq/L [address] Potassium 3.3 (L) 3.5 - 5.3 meq/L [address] Chloride 108 99 - 110 meq/L [address] CO2 21 20 - 29 meq/L [address] Anion Gap with K 11 6 - 20 meq/L [address] Calcium 8.0 (L) 8.5 - 10.[address] mg/dL Protein Total 5.3 (L) 6.0 - 8.2 g/dL [address] Albumin 2.1 (L) 3.5 - 5.0 g/dL [address] Alkaline Phosphatase 79 30 - 150 U/L [address] AST - SGOT 20 0 - 35 U/L [address] ALT - SGPT 12 0 - 55 U/L [address] Bilirubin Total 0.5 0.2 - 1.2 mg/dL [address] Corrected Calcium 9.5 8.5 - 10.5 [place] [address] [facility] mg/dL Age [address] eGFR Non- 74 >=[address] Malagasy mL/min/1.73m2 eGFR 90 >=[address] mL/min/1.73m2 Specimen Blood - Blood specimen (specimen) Performing Organization Address [facility] [place] Phone Number [address] [place] [address], [place] [address] TROPONIN I (11/15/2020 4:52 AM ENERGY DERIVATIVES TRADER) Pathologist Sig nature Troponin I 0.366 (H) 0.000 - 0.028 ng/mL [address] Specimen Blood - Blood specimen (specimen) Performing Organization Address [facility] Phone Number [address] [place] [address], [place] [address] PROTIME/INR (11/15/2020 4:52 AM ENERGY DERIVATIVES TRADER) Pathologist Sig nature Protime 34.3 (H) 12.0 - 14.[address] INR 3.5 2.0 - 3.[address] Specimen Blood - Blood specimen (specimen) Narrative Performed At Normal INR reference range (patients not on oral antic oagulants) [address] 0.9-1.1. INR Standard Intensity = (2.0 - 3.0) INR Higher Intensity = (2.5 - 3.5) Performing Organization Address [facility] Phone Number [address] [place] [address] TROPONIN I (11/15/2020 12:04 AM ENERGY DERIVATIVES TRADER) Pathologist Sig nature Troponin I 0.146 (H) 0.000 - 0.028 ng/mL [address] Specimen Blood - Blood specimen (specimen) Performing Organization Address [facility] Phone Number [address] [place] [address], [place] [address] TROPONIN I (11/14/2020 6:13 PM ENERGY DERIVATIVES TRADER) Pathologist Sig nature Troponin I 0.103 (H) 0.000 - 0.028 ng/mL [address] Specimen Blood - Blood specimen (specimen) Performing Organization Address [facility] Phone Number [address] [place] [address] TROPONIN I (11/14/2020 1:00 PM ENERGY DERIVATIVES TRADER) Pathologist Sig nature Troponin I 0.120 (H) 0.000 - 0.028 ng/mL [address] Specimen Blood - Blood specimen (specimen) Performing Organization Address City/State/Zipcode Phone Number [address] [place] [address] XRAY CHEST PORTABLE - (11/14/2020 12:31 PM ENERGY DERIVATIVES TRADER)Only the most recent of5 results within the time period is included. Specimen Narrative Performed At [facility] Patient Name: AMA ROJAS Date of : 1940 Procedure: XRAY CHEST PORTABLE Date of Service: 11/14/2020 EXAM: XRAY CHEST PORTABLE INDICATION:infection source rule out COMPARISON(S): 11/13/2020. FINDINGS/IMPRESSION: The cardiac silhouette is normal in size. Somewhat jaiden ear opacities within the lower lungs bilaterally likely reflect atel ectasis. The lungs are otherwise clear. No pneumothorax or pleural effusi on. There is gaseous distention of loops of bowel within the visual ized upper abdomen. Finalized by: Sammy Aquino MD on 11/14 1:28 PM ENERGY DERIVATIVES TRADER Patient/Procedure Information: [facility] MRN/JEZ: [id number] Order Number: [id number] Accession Number: [id number] Ordering Provider: SHAY LAUREANO Authorizing Provider: LATOYA GONSALEZ Procedure Note Interface, Radiantres - 11/14/2020 1:31 PM ENERGY DERIVATIVES TRADER Patient Name: AMA ROJAS Date of : 1940 Procedure: XRAY CHEST PORTABLE Date of Service: 11/14/2020 EXAM: XRAY CHEST PORTABLE INDICATION:infection source rule out COMPARISON(S): 11/13/2020. FINDINGS/IMPRESSION: The cardiac silhouette is normal in size . Somewhat linear opacities within the lower lungs bilaterally likely reflect atelectasis. The lungs are otherwise clear. No pneumothorax or pleural effusion. There is gaseous distention of loops of bowel within the visualized upper abdomen. Finalized by: Sammy Aquino MD on 11/14 1:28 PM ENERGY DERIVATIVES TRADER Patient/Procedure Information: [facility] MRN/JEZ: [id number] Order Number: [id number] Accession Number: [id number] Ordering Provider: SHAY LAUREANO Authorizing Provider: LATOYA GONSALEZ Performing Organization Address City/[facility] [place]/Zipcode Phone Number [id number] TROPONIN I (11/14/2020 12:15 PM ENERGY DERIVATIVES TRADER) Pathologist Sig nature Troponin I 0.106 (H) 0.000 - 0.028 ng/mL [address] Specimen Blood - Blood specimen (specimen) Performing Organization Address [facility] [place] Phone Number [address] [place] [address] ECHO ADULT COMPLETE (11/14/2020 11:36 AM ENERGY DERIVATIVES TRADER) Specimen Narrative Performed At This result has an attachment that is no t available. [facility] Patient: AMA ROJAS MR#: [id number] Exam Date: 11/14/2020 Transthoracic Echocardiogram [address] [facility], [place] [id number] BP: 120/68 mmHg HR: 97 bpm : 1940 Exam Location: Bedside Height: 66.00 "(167.6 cm) Age: 80 year(s) Patient Room: 852 01 Weight: 147 lbs.(66.68 kg) Gender: Male Patient Status: Inpatient BSA: 1.75 m2 Slurry Blender: MARCELA LAI RDCS Reading Physician: Mary BAY Ordering Physician: Mary WEBB Procedure Indication(s): Elevated t roponin Examination: TTE Limited 2D, Limited Spectral Doppler, Color Doppler, with Contrast,Optison Image Quality: Technicall y Difficult Exam Comments Patient topete d runs of SVT Conclusions Left Ventricle: Normal left ventricular size. Normal lef t ventricular systolic function. The ejection fraction is visually estimated to be 60 %. Pericardium: Trivial pericardial effusion (Anterior). Comparison Study Comparison Date: 08/19/2020 Comparison Study: Transthoracic Echocardiogram LV overall function has increased from 50-60 Findings Left Ventricle: Normal left ventricular size. Normal lef t ventricular systolic function. The ejection fraction is visually estimated to be 60 %. This study is inadequate for the evaluation o f left ventricular regional wall motion abnormalities. Left Atrium: Dilated left atrium by visual assessment. Aortic Valve: The aortic valve is probably tricuspid. No significant aortic regurgitation. Unable to accurately assess aortic stenosis. Aorta: Unable to visualize ascending aorta. Mitral Valve: Mild mitral leaflet thickening. There is mild mitral annular calcification. No significant mitral regurgitation. No mitral stenosis. IAS: Atrial septum is not well visualized. Right Ventricle: The right ventricle is not well visualiz ed. Unable to assess right ventricular function due to poor image quality. Pulmonary Artery: The tricuspid jet envelope definition is inadequate for estimation of RV systolic pressure. Right Atrium: The right atrium was not well visualized. Tricuspid Valve: Normal tricuspid valve structure. Trivial tricuspid re gurgitation. Pulmonic Valve: Pulmonary valve not well visualized. IVC: Unable to visualize the IVC. Pericardium: Trivial pericardial effusion (Anterior). Exam Details Image Quality: Technically D ifficult Measurements Left Atrium Aortic Valve Label Value Normal Value Label Value Normal Value LADs Long. 63 mm AV Vmax 154 cm/s Heart Rate AV Vmean 111 cm/s Label Value Normal Value AV VTI 25.6 cm Heart Rate 97 bpm AV PGmax 9 mmHg AV PGmean 5 mmHg AV Vmax, Caliper 154 cm/s Mitral Valve Label Value Norm al Value MV VTI 16.6 cm MV PGmax 3 mmHg MV PGmean 2 mmHg Contrast Details Contrast: 6.0 ml Optison is requested. The patient denies contraindications and gives verbal consent. Optison contrast (3 ml of activated Opti son diluted with 3 ml of saline) was used to evaluate left ventricular function to enhance endocardial borde r delineation Lot #: [id number] Electronically signed by JORGE BUSCH MD on 021 at 02:00 PM Procedure Note Interface, Inc Results No Pull Forward - 11/14/2020 2:02 PM ENERGY DERIVATIVES TRADER Patient: AMA ROJAS MR#: [id number] Exam Date: 11/14/[address] [place] [address] BP: 120/68 mmHg HR: 97 bpm : 1940 Exa m Location: Bedside Height: 66.00 "(167.6 cm) Age: 80 year(s) Pat ient Room: 852 Weight: 147 lbs.(66.68 kg) Gender: Male Pat ient Status: Inpatient BSA: 1.75 m2 Slurry Blender: MARCELA COTO, [facility] Reading Physician: JORGE CARTER MD Ordering Physician: SAY CHILDERS MD Procedure Indication(s): Elevat ed troponin Examination: TTE Li mited 2D, Limited Spectral Doppler, Color Doppler, with Contrast,Optison Image Quality: Techni vicenta Difficult Exam Comments Patien t had runs of SVT Conclusions Left Ventricle: Normal left ventricular size. Normal lef t ventricular systolic function. The ejection fraction is visually estimated to be 60 %. Pericardium: Trivial pericardial effusion (Anterior). Comparison Study Comparison Date: 08/19/2020 Comparison Study: Transthoracic Echocard iogram LV overall function has increased from 5 0-60 Findings Left Ventricle: Normal left ventricular size. Normal lef t ventricular systolic function. The ejection fraction is visually estimated to be 60 %. This study is inadequate for the evaluation o f left ventricular regional wall motion abnormalities. Left Atrium: Dilated left atrium by visual assessment . Aortic Valve: The aortic valve is probably tricuspid. No significant aortic regurgitation. Unable to accurately assess aortic stenosis. Aorta: Unable to visualize ascending aorta. Mitral Valve: Mild mitral leaflet thickening. There is mild mitral annular calcification. No significant mitral regurgitation. No mitral stenosis. IAS: Atrial septum is not well visualized. Right Ventricle: The right ventricle is not well visualiz ed. Unable to assess right ventricular function due to poor image quality. Pulmonary Artery: The tricuspid jet envelope definition is inadequate for estimation of RV systolic pressure. Right Atrium: The right atrium was not well visualized . Tricuspid Valve: Normal tricuspid valve structure. Trivia l tricuspid regurgitation. Pulmonic Valve: Pulmonary valve not well visualized. IVC: Unable to visualize the IVC. Pericardium: Trivial pericardial effusion (Anterior). Exam Details Image Quality: Technica lly Difficult Measurements Left Atrium Aortic Valve Label Value Nor mal Value Label Value Normal Value LADs Long. 63 mm AV Vmax 154 cm/s Heart Rate AV Vmean 111 cm/s Label Value Nor mal Value AV VTI 25.6 cm Heart Rate 97 bpm AV PGmax 9 mmHg AV PGmean 5 mmHg AV Vmax, Caliper 154 cm/s Mitral Valve Label Value Nor mal Value MV VTI 16.6 cm MV PGmax 3 mmHg MV PGmean 2 mmHg Contrast Details Contrast: 6.0 ml O ptison is requested. The patient denies contraindications and gives verbal consent. Optison contrast (3 ml of activated Opti son diluted with 3 ml of saline) was used to evaluate left ventricular function to enhance end ocardial border delineation Lot #: [id number] Performing Organization Address City/State/Zipcode Phone Number [facility] [place] LAB ONLY-COMPLETE BLOOD COUNT WITH DIFFERENTIAL (11/14/2020 7:20 AM ENERGY DERIVATIVES TRADER) [facility] nature WBC 27.3 (H) 4.0 - 11.0 K/uL [address] RBC 3.47 (L) 4.40 - 5.[address] M/uL Hemoglobin 9.4 (L) 13.5 - 17.[address] g/dL Hematocrit 29.2 (L) 40.0 - 50.0 % [address] MCV 84.1 80.0 - 98.[address] MCH 27.1 25.5 - 34.[address] MCHC 32.2 31.5 - 36.[address] g/dL RDW-CV 15.9 (H) 11.5 - 15.5 % [address] RDW-SD 48.7 35.5 - 50.[address] Platelet Count 234 140 - 400 K/uL [address] MPV 9.7 8.5 - 12.[address] Seg Neut Absolute 24.2 (H) 1.8 - 8.0 K/uL [address] Lymphocytes Absolute 1.3 0.8 - 4.1 K/uL [place] [address] [facility] Monocytes Absolute 1.1 (H) 0.0 - 1.0 K/uL [address] Eosinophils Absolute 0.1 0.0 - 0.7 K/uL [place] [address] [facility] Basophil Absolute 0.1 0.0 - 0.2 K/uL [address] Immature Granulocyte 0.59 (H) 0.00 - 0.[address] Absolute K/uL Neutrophils Abs. 24,200 /uL [address] (Segs and Bands) Neutrophils Percent 88.5 % [address] Lymphocytes Percent 4.6 % [address] Monocytes Percent 4.0 % [address] Immature Granulocyte 2.2 % [address] Percent Eosinophils Percent 0.3 % [address] Basophil Percent 0.4 % [address] Nucleated RBC 0 /[address] Specimen Blood - Venous blood specimen (specimen) Performing Organization Address [facility] Phone Number [address] [address] PROTIME/INR (11/14/2020 7:20 AM ENERGY DERIVATIVES TRADER) Pathologist Sig nature Protime 27.0 (H) 12.0 - 14.[address] INR 2.6 2.0 - 3.[address] Specimen Blood - Blood specimen (specimen) Narrative Performed At Normal INR reference range (patients not on oral antic oagulants) [address] 0.9-1.1. INR Standard Intensity = (2.0 - 3.0) INR Higher Intensity = (2.5 - 3.5) Performing Organization Address [facility] Number [address] [address] BRAIN NATRIURETIC PEPTIDE (11/14/2020 7:20 AM ENERGY DERIVATIVES TRADER) Pathologist Sig nature BNP 411 (H) 0 - 100 pg/mL [address] Specimen Blood - Venous blood specimen (specimen) Performing Organization Address [facility] Phone Number [address] [address] TROPONIN I (11/14/2020 7:20 AM ENERGY DERIVATIVES TRADER) Pathologist Sig nature Troponin I 0.110 (H) 0.000 - 0.028 ng/mL [address] Specimen Blood - Venous blood specimen (specimen) Performing Organization Address [facility] Phone Number [address] [address] COMPREHENSIVE METABOLIC PANEL (11/14/2020 7:20 AM ENERGY DERIVATIVES TRADER) Pathologist Sig nature Glucose 119 (H) 70 - 100 mg/dL [address] BUN 10 6 - 22 mg/dL [address] Creatinine 0.83 0.80 - 1.[address] mg/dL BUN/Creatinine Ratio 12.0 10.0 - 25.[address] Sodium 136 135 - 145 meq/L [address] Potassium 3.6 3.5 - 5.3 meq/L [address] Chloride 108 99 - 110 meq/L [address] CO2 23 20 - 29 meq/L [address] Anion Gap with K 9 6 - 20 meq/L [address] Calcium 8.3 (L) 8.5 - 10.[address] mg/dL Protein Total 6.1 6.0 - 8.2 g/dL [address] Albumin 2.4 (L) 3.5 - 5.0 g/dL [address] Alkaline Phosphatase 67 30 - 150 U/L [address] AST - SGOT 18 0 - 35 U/L [address] ALT - SGPT 13 0 - 55 U/L [address] Bilirubin Total 0.6 0.2 - 1.2 mg/dL [address] Corrected Calcium 9.6 8.5 - 10.[address] mg/dL Age [address] eGFR Non- 89 >=[address] Malagasy mL/min/1.73m2 eGFR >90 >=[address] mL/min/1.73m2 Specimen Blood - Venous blood specimen (specimen) Performing Organization Address [facility] [place] Phone Number [address] [address] PHOSPHORUS (11/14/2020 7:20 AM ENERGY DERIVATIVES TRADER) Pathologist Sig nature Phosphorus 2.0 (L) 2.5 - 4.5 mg/dL [place] [address] [facility] Specimen Blood - Venous blood specimen (specimen) Performing Organization Address [facility] [place] Phone Number [address] [place] [address], [place] [address] MAGNESIUM (11/14/2020 7:20 AM ENERGY DERIVATIVES TRADER) Pathologist Sig nature Magnesium 1.7 (L) 1.8 - 2.4 mg/dL [address] Specimen Blood - Venous blood specimen (specimen) Performing Organization Address [facility] Phone Number [address] [place] [address], [place] [address] PROTIME/INR (11/13/2020 7:24 AM ENERGY DERIVATIVES TRADER) Pathologist Sig nature Protime 22.1 (H) 12.0 - 14.[address] INR 2.0 2.0 - 3.[address] Specimen Blood - Blood specimen (specimen) Narrative Performed At Normal INR reference range (patients not on oral antic oagulants) [address] 0.9-1.1. INR Standard Intensity = (2.0 - 3.0) INR Higher Intensity = (2.5 - 3.5) Performing Organization Address [facility] Phone Number [address] [place] [address] COMPLETE BLOOD COUNT WITHOUT DIFFERENTIAL (11/13/2020 7:24 AM ENERGY DERIVATIVES TRADER) Pathologist [facility] WBC 8.2 4.0 - 11.0 K/uL [address] RBC 3.17 (L) 4.40 - 5.80 M/uL [address] Hemoglobin 8.6 (L) 13.5 - 17.5 g/dL [address] Hematocrit 28.4 (L) 40.0 - 50.0 % [address] MCV 89.6 80.0 - 98.[address] MCH 27.1 25.5 - 34.[address] MCHC 30.3 (L) 31.5 - 36.5 g/dL [address] RDW-CV 16.2 (H) 11.5 - 15.5 % [address] RDW-SD 53.4 (H) 35.5 - 50.[address] Platelet Count 197 140 - 400 K/uL [address] MPV 9.8 8.5 - 12.[address] Specimen Blood - Blood specimen (specimen) Performing Organization Address [facility] Phone Number [address] [place] [address] BASIC METABOLIC PANEL (11/13/2020 7:24 AM ENERGY DERIVATIVES TRADER) Pathologist Sig nature Glucose 95 70 - 100 mg/dL [address] BUN 14 6 - 22 mg/dL [address] Creatinine 0.72 (L) 0.80 - 1.[address] mg/dL BUN/Creatinine Ratio 19.4 10.0 - 25.[address] Sodium 141 135 - 145 meq/L [address] Potassium 4.0 3.5 - 5.3 meq/L [address] Chloride 117 (H) 99 - 110 meq/L [address] CO2 22 20 - 29 meq/L [address] Anion Gap with K 6 6 - 20 meq/L [address] Calcium 8.3 (L) 8.5 - 10.[address] mg/dL Age [address] eGFR Non- >90 >=[address] Malagasy mL/min/1.73m2 eGFR >90 >=[address] mL/min/1.73m2 Specimen Blood - Blood specimen (specimen) Performing Organization Address [facility] [place] Phone Number [address] [address] COLLECT AND HOLD GREEN TOP TUBE (11/12/2020 4:24 PM ENERGY DERIVATIVES TRADER) Collect and Hold Comment: RECEIVED [place] [phone] Specimen Status CLINIC Specimen Blood - Blood specimen (specimen) Performing Organization Address [facility] [place] Phone Number [address] [place] [address], [place] [address] PROTIME/INR (11/12/2020 4:24 PM ENERGY DERIVATIVES TRADER) Pathologist Sig nature Protime 18.4 (H) 12.0 - 14.[address] INR 1.6 (L) 2.0 - 3.[address] Specimen Blood - Blood specimen (specimen) Narrative Performed At Normal INR reference range (patients not on oral antic oagulants) [address] 0.9-1.1. INR Standard Intensity = (2.0 - 3.0) INR Higher Intensity = (2.5 - 3.5) Performing Organization Address [facility] Phone Number [address] [place] [address] COMPLETE BLOOD COUNT WITHOUT DIFFERENTIAL (11/12/2020 4:38 AM ENERGY DERIVATIVES TRADER) Pathologist Sig [facility] WBC 5.9 4.0 - 11.0 K/uL [address] RBC 2.70 (L) 4.40 - 5.80 M/uL [address] Hemoglobin 7.2 (L) 13.5 - 17.5 g/dL [address] Hematocrit 23.4 (L) 40.0 - 50.0 % [address] MCV 86.7 80.0 - 98.[address] MCH 26.7 25.5 - 34.[address] MCHC 30.8 (L) 31.5 - 36.5 g/dL [address] RDW-CV 16.4 (H) 11.5 - 15.5 % [address] RDW-SD 51.6 (H) 35.5 - 50.[address] Platelet Count 171 140 - 400 K/uL [address] MPV 9.6 8.5 - 12.[address] Specimen Blood - Blood specimen (specimen) Performing Organization Address [facility] Phone Number [address] [place] [address] BASIC METABOLIC PANEL (11/12/2020 4:38 AM ENERGY DERIVATIVES TRADER) Pathologist Sig nature Glucose 133 (H) 70 - 100 mg/dL [address] BUN 23 (H) 6 - 22 mg/dL [address] Creatinine 0.87 0.80 - 1.[address] mg/dL BUN/Creatinine Ratio 26.4 (H) 10.0 - 25.[address] Sodium 145 135 - 145 meq/L [address] Potassium 3.8 3.5 - 5.3 meq/L [address] Chloride 118 (H) 99 - 110 meq/L [address] CO2 23 20 - 29 meq/L [address] Anion Gap with K 8 6 - 20 meq/L [address] Calcium 8.3 (L) 8.5 - 10.[address] mg/dL Age [address] eGFR Non- 84 >=[address] Malagasy mL/min/1.73m2 eGFR >90 >=[address] mL/min/1.73m2 Specimen Blood - Blood specimen (specimen) Performing Organization Address [facility] [place] Phone Number [address] [place] [address], [place] [address] PROTIME/INR (11/11/2020 7:00 AM ENERGY DERIVATIVES TRADER) Pathologist Sig nature Protime 17.9 (H) 12.0 - 14.[address] INR 1.5 (L) 2.0 - 3.[address] Specimen Blood - Blood specimen (specimen) Narrative Performed At Normal INR reference range (patients not on oral antic oagulants) [address] 0.9-1.1. INR Standard Intensity = (2.0 - 3.0) INR Higher Intensity = (2.5 - 3.5) Performing Organization Address [facility] Phone Number [address] [address] COMPLETE BLOOD COUNT WITHOUT DIFFERENTIAL (11/11/2020 4:07 AM ENERGY DERIVATIVES TRADER) Pathologist Sig nature WBC 6.7 4.0 - 11.0 K/uL [address] RBC 2.86 (L) 4.40 - 5.80 M/uL [address] Hemoglobin 7.8 (L) 13.5 - 17.5 g/dL [address] Hematocrit 24.5 (L) 40.0 - 50.0 % [address] MCV 85.7 80.0 - 98.[address] MCH 27.3 25.5 - 34.[address] MCHC 31.8 31.5 - 36.5 g/dL [address] RDW-CV 16.1 (H) 11.5 - 15.5 % [address] RDW-SD 49.9 35.5 - 50.[address] Platelet Count 245 140 - 400 K/uL [address] MPV 9.0 8.5 - 12.[address] Specimen Blood - Blood specimen (specimen) Performing Organization Address [facility] Phone Number [address] [place] [phone] BASIC METABOLIC PANEL (11/11/2020 4:07 AM ENERGY DERIVATIVES TRADER) Pathologist Sig nature Glucose 125 (H) 70 - 100 mg/dL [address] BUN 41 (H) 6 - 22 mg/dL [address] Creatinine 1.19 0.80 - 1.[address] mg/dL BUN/Creatinine Ratio 34.5 (H) 10.0 - 25.[address] Sodium 145 135 - 145 meq/L [address] Potassium 3.5 3.5 - 5.3 meq/L [address] Chloride 114 (H) 99 - 110 meq/L [address] CO2 23 20 - 29 meq/L [address] Anion Gap with K 12 6 - 20 meq/L [address] Calcium 8.4 (L) 8.5 - 10.[address] mg/dL Age [address] eGFR Non- 59 (L) >=[address] Malagasy mL/min/1.73m2 eGFR 71 >=[address] mL/min/1.73m2 Specimen Blood - Blood specimen (specimen) Performing Organization Address [facility] Phone Number [address] [place] [address] BLOOD GASES ARTERIAL (11/11/2020 4:07 AM ENERGY DERIVATIVES TRADER) pH Arterial 7.48 (H) 7.35 - 7.45 [facility] - RESPIRATORY THERAPY pCO2 Arterial 32 (L) 35 - 45 mmHg [facility] - RESPIRATORY THERAPY pO2 Arterial 131 (H) 80 - 100 [facility] - RESPIRATORY THERAPY Base Excess Arterial 0 -2 - 2 meq/L [facility] HCO3 (Bicarb) 24 20 - 29 [facility] mmol/L [facility] O2 Sat % Arterial 96 95 - 98 % [facility] Carbon Monoxide 0.6 0.0 - 3.0 % [facility] Methemoglobin 1.7 0.0 - 3.0 % [facility] p50 23.97 (L) 25.00 - [facility] 29.00 mmHg [facility] Allens Test Not Done-Drawn [facility] From Line [facility] Collection Site Arterial Line [facility] Arterial [facility] O2 Source Ventilator [facility] Specimen Blood - Arterial blood specimen (specime n) Narrative Performed At CMV: Rate 12, Vt 450, PEEP 8, FiO2 40% [facility] Performing Organization Address City/[facility] Phone Number [facility] - [address] [facility] [place] [address] RESPIRATORY THERAPY CULTURE BACTERIAL, RESPIRATORY WITH GRAM STAIN (11/11/2020 3:56 AM ENERGY DERIVATIVES TRADER) Culture Result Rare Raoultella [facility] ornithinolytica (!) CLINIC Gram Stain Moderate (10 to 25/LPF) [facility] WBC's [facility] Gram Stain No epithelial cells seen [facility] Gram Stain No organisms seen [facility] Specimen Respiratory - Sputum specimen (specimen) Narrative Performed At No normal nate [facility] No MRSA or Pseudomonas aeruginosa isolat ed Organism Antibiotic Method Susceptibility Raoultella ornithinolytica Amoxicillin/clavulanate BRADY <=2 ug/mL: Sensitive Ra[facility]tella ornithinolytica Cefazolin BRADY <=4 u g/mL: Sensitive [facility] ornithinolytica Gentamicin BRADY <=1 u g/mL: Sensitive [facility] ornithinolytica Tobramycin BRADY <=1 u g/mL: Sensitive Performing Organization Address City/[facility]/Zipcode Phone Number [address] [place] [address] CULTURE BACTERIAL, URINE (11/10/2020 9:01 PM ENERGY DERIVATIVES TRADER) Culture Result 10,000 CFU/mL [facility] Pseudomonas CLINIC aeruginosa (!) Specimen Urine - Suprapubic urine specimen (speci men) Organism Antibiotic Method Susceptibility Pseudomonas aeruginosa Cefepime BRADY 2 ug/mL: Sensitive Pseudomonas aeruginosa Ciprofloxacin BRADY <=0.25 ug /mL: Sensitive Pseudomonas aeruginosa Gentamicin BRADY <=1 ug/mL : Sensitive Pseudomonas aeruginosa Piperacillin/Tazobactam BRADY < =4 ug/mL: Sensitive Pseudomonas aeruginosa Tobramycin BRADY <=1 ug/mL : Sensitive Performing Organization Address [facility] Phone Number [facility] [address] [place] [address] TROPONIN I (11/10/2020 3:54 PM ENERGY DERIVATIVES TRADER) Pathologist Sig nature Troponin I 0.086 (H) 0.000 - 0.028 ng/mL [address] Specimen Blood - Blood specimen (specimen) Performing Organization Address [facility] Phone Number [address] [place] [phone] MAGNESIUM (11/10/2020 2:45 PM ENERGY DERIVATIVES TRADER) Pathologist Sig nature Magnesium 2.9 (H) 1.8 - 2.4 mg/dL [address] Specimen Blood - Blood specimen (specimen) Performing Organization Address [facility] Phone Number [address] [place] [address] BASIC METABOLIC PANEL WITH GFR (11/10/2020 2:45 PM ENERGY DERIVATIVES TRADER) Pathologist Sig nature Glucose 148 (H) 70 - 100 mg/dL [address] BUN 59 (H) 6 - 22 mg/dL [place] [address] [facility]IN[facility] Creatinine 1.46 (H) 0.80 - 1.30 [place] [address] [facility]IN[facility] mg/dL BUN/Creatinine Ratio 40.4 (H) 10.0 - 25.[address] Sodium 143 135 - 145 meq/L [place] [address] [facility] Potassium 3.4 (L) 3.5 - 5.3 meq/L [place] [address] [facility] Chloride 113 (H) 99 - 110 meq/L [place] [address] [facility] CO2 21 20 - 29 meq/L [place] [address] [facility] Anion Gap with K 12 6 - 20 meq/L [place] [address] [facility]INIC Calcium 8.0 (L) 8.5 - 10.[address] mg/dL Age [address] eGFR Non- 46 (L) >=[address] Malagasy mL/min/1.73m2 eGFR 56 (L) >=[address] mL/min/1.73m2 Specimen Blood - Blood specimen (specimen) Performing Organization Address [facility] Phone Number [address] [place] [address] COMPLETE BLOOD COUNT WITHOUT DIFFERENTIAL (11/10/2020 2:45 PM ENERGY DERIVATIVES TRADER) Pathologist Sig nature WBC 5.9 4.0 - 11.0 K/uL [address] RBC 2.86 (L) 4.40 - 5.80 M/uL [address] Hemoglobin 7.9 (L) 13.5 - 17.5 g/dL [address] Hematocrit 24.4 (L) 40.0 - 50.0 % [address] MCV 85.3 80.0 - 98.[address] MCH 27.6 25.5 - 34.[address] MCHC 32.4 31.5 - 36.5 g/dL [address] RDW-CV 15.9 (H) 11.5 - 15.5 % [address] RDW-SD 49.5 35.5 - 50.[address] Platelet Count 289 140 - 400 K/uL [address] MPV 9.6 8.5 - 12.[address] Specimen Blood - Blood specimen (specimen) Performing Organization Address [facility] Phone Number [address] [place] [phone] OR PANEL 1 POCT (11/10/2020 2:36 PM ENERGY DERIVATIVES TRADER) Pathologist Sig nature pH Arterial POCT 7.38 7.35 - 7.45 [facility] POINT OF CARE TESTING pCO2 Arterial POCT 39 35 - 45 mmHg [facility] POINT OF CARE TESTING pO2 Arterial POCT 224 (H) 80 - 100 mmHg [facility] POINT OF CARE TESTING HCO3 (Bicarb) 23 20 - 29 mmol/L [facility] Arterial POCT [facility] POINT OF CARE TESTING Base Excess Arterial -2 -2 - 2 meq/L [facility] POINT OF CARE TESTING O2 Sat % Arterial 100 (H) 95 - 98 % [facility] POINT OF [facility] TESTING Ionized Calcium 1.25 1.12 - 1.32 [facility] mmol/L [facility] TESTING Sodium 144 135 - 145 meq/L [facility] OF [facility] TESTING Potassium 3.2 (L) 3.5 - 5.3 meq/L [facility] TESTING Glucose 142 (H) 70 - 99 mg/dL [facility] TESTING Hematocrit 23.0 (L) 40.0 - 50.0 % [facility] TESTING Hemoglobin 7.8 (L) 13.5 - 17.5 [facility] g/dL [facility] TESTING Specimen Source Arterial [facility] POINT OF [facility] TESTING Specimen Blood - Blood specimen (specimen) Narrative Performed At DEVICE: [id number] [facility] RE Whole blood sample. Unable to evaluate for TESTING hemolysis. Performing Organization Address City/State/Zipcode Phone Number [facility] OF [address] [place] [address] CARE TESTING OR PANEL 1 POCT (11/10/2020 1:08 PM ENERGY DERIVATIVES TRADER) Pathologist Sig nature pH Arterial POCT 7.37 7.35 - 7.[address] [facility] OF CARE TESTING pCO2 Arterial POCT 41 35 - 45 mmHg [facility] POINT OF CARE TESTING pO2 Arterial POCT 303 (H) 80 - 100 mmHg [facility] POINT OF CARE TESTING HCO3 (Bicarb) 24 20 - 29 mmol/L [facility] Arterial POCT [facility] TESTING Base Excess Arterial -1 -2 - 2 meq/L [facility] PO[facility] OF [facility] TESTING O2 Sat % Arterial 100 (H) 95 - 98 % [facility] POINT OF CARE TESTING Ionized Calcium 1.29 1.12 - 1.32 [facility] mmol/L [facility] TESTING Sodium 146 (H) 135 - 145 meq/L [facility] POINT OF CARE TESTING Potassium 2.9 (L) 3.5 - 5.3 meq/L [facility] POINT OF CARE TESTING Glucose 110 (H) 70 - 99 mg/dL [facility] POINT OF [facility] TESTING Hematocrit 26.0 (L) 40.0 - 50.0 % [facility] POINT OF [facility] TESTING Hemoglobin 8.8 (L) 13.5 - 17.5 [facility] g/dL [facility] POINT OF [facility] TESTING Specimen Source Arterial [facility] POINT OF CARE TESTING Specimen Blood - Blood specimen (specimen) Narrative Performed At DEVICE: [id number] [facility] POINT OF [place] RE Whole blood sample. Unable to evaluate for TESTING hemolysis. Performing Organization Address City/[facility] Phone Number [facility] OF [address] [place] [phone] CARE TESTING PROTIME/INR (11/10/2020 9:12 AM ENERGY DERIVATIVES TRADER) Pathologist Sig nature Protime 20.3 (H) 12.0 - 14.[address] INR 1.8 (L) 2.0 - 3.[address] Specimen Blood - Blood specimen (specimen) Narrative Performed At Normal INR reference range (patients not on oral antic oagulants) [address] 0.9-1.1. INR Standard Intensity = (2.0 - 3.0) INR Higher Intensity = (2.5 - 3.5) Performing Organization Address [facility] Phone Number [address] [address] TROPONIN I (11/10/2020 9:12 AM ENERGY DERIVATIVES TRADER) Pathologist Sig nature Troponin I 0.094 (H) 0.000 - 0.028 ng/mL [address] Specimen Blood - Blood specimen (specimen) Performing Organization Address [facility] Phone Number [address] [address] LACTIC ACID (11/10/2020 5:18 AM ENERGY DERIVATIVES TRADER) Pathologist Sig nature Lactic Acid 1.8 0.5 - 2.2 mmol/L [address] Specimen Blood - Blood specimen (specimen) Performing Organization Address City/State/Zipcode Phone Number [address] [place] [address] LAB ONLY-COMPLETE BLOOD COUNT WITH DIFFERENTIAL (11/10/2020 3:51 AM ENERGY DERIVATIVES TRADER) Pathologist Sig nature WBC 11.5 (H) 4.0 - 11.0 K/uL [address] RBC 3.47 (L) 4.40 - 5.[address] M/uL Hemoglobin 9.5 (L) 13.5 - 17.[address] g/dL Hematocrit 29.9 (L) 40.0 - 50.0 % [address] MCV 86.2 80.0 - 98.[address] MCH 27.4 25.5 - 34.[address] MCHC 31.8 31.5 - 36.[address] g/dL RDW-CV 16.0 (H) 11.5 - 15.5 % [address] RDW-SD 50.3 (H) 35.5 - 50.[address] Platelet Count 365 140 - 400 K/uL [address] MPV 9.7 8.5 - 12.[address] Seg Neut Absolute 9.5 (H) 1.8 - 8.0 K/uL [address] Lymphocytes Absolute 0.9 0.8 - 4.1 K/uL [place] [address] [facility] C Monocytes Absolute 1.1 (H) 0.0 - 1.0 K/uL [address] Eosinophils Absolute 0.0 0.0 - 0.7 K/uL [place] [address] [facility]I C Basophil Absolute 0.0 0.0 - 0.2 K/uL [address] Immature Granulocyte 0.03 0.00 - 0.06 [place] [address] [facility]IN[facility] Absolute K/uL Neutrophils Abs. 9,500 /uL [address] (Segs and Bands) Neutrophils Percent 82.6 % [address] Lymphocytes Percent 7.5 % [address] Monocytes Percent 9.4 % [address] Immature Granulocyte 0.3 % [address] Percent Eosinophils Percent 0.0 % [address] Basophil Percent 0.2 % [address] Nucleated RBC 0 /[address] Specimen Blood - Blood specimen (specimen) Performing Organization Address [facility] Phone Number [address] [place] [phone] TYPE AND SCREEN (11/10/2020 3:51 AM ENERGY DERIVATIVES TRADER) Pathologist Sig nature ABO Type A [address] BLOOD BANK Rh Type Positive [address] BLOOD BANK Antibody Screen Negative [address] Comment: BLOOD BANK Allogenic Red Cells Available 5C11-10-20 Expiration Date 11/13/2020 23:[address] BLOOD BANK Specimen Blood - Blood specimen (specimen) Performing Organization Address [facility] Phone Number [address] BLOOD BANK [address] [place] [address], [place] [address] BLOOD GASES ARTERIAL (11/10/2020 3:42 AM ENERGY DERIVATIVES TRADER) pH Arterial 7.44 7.35 - 7.45 [facility] - RESPIRATORY THERAPY pCO2 Arterial 30 (L) 35 - [address] [facility] RESPIRATORY [facility] pO2 Arterial 59 (L) 80 - [address] [facility] RESPIRATORY THERAPY Base Excess Arterial -3 (L) -2 - 2 meq/L [facility] RESPIRATORY [facility] HCO3 (Bicarb) 20 20 - 29 mmol/L [facility] RESPIRATORY [facility] O2 Sat % Arterial 87 (L) 95 - 98 % [facility] RESPIRATORY THERAPY Carbon Monoxide 0.7 0.0 - 3.0 % [facility] RESPIRATORY [facility] Methemoglobin 1.4 0.0 - 3.0 % [facility] RESPIRATORY THERAPY p50 28.57 25.00 - 29.[address] [facility] RESPIRATORY [facility] Allens Test Positive [facility] RESPIRATORY THERAPY Collection Site Lt radial [facility] RESPIRATORY THERAPY O2 Source Room Air [facility] RESPIRATORY [facility] Specimen Blood - Arterial blood specimen (specime n) Performing Organization Address City/[facility] Phone Number [facility] - [address] [place] [address] RESPIRATORY THERAPY TROPONIN I (11/10/2020 3:35 AM ENERGY DERIVATIVES TRADER) Pathologist Sig [facility] Troponin I 0.106 (H) 0.000 - 0.028 ng/mL [address] Specimen Blood - Blood specimen (specimen) Performing Organization Address [facility] Phone Number [address] [address] LIPASE (11/10/2020 3:35 AM ENERGY DERIVATIVES TRADER) Pathologist Sig [facility] Lipase 28 5 - 80 U/L [address] Specimen Blood - Blood specimen (specimen) Performing Organization Address [facility] Phone Number [address] [address] LACTIC ACID (11/10/2020 3:35 AM ENERGY DERIVATIVES TRADER) Pathologist Sig [facility] Lactic Acid 3.9 (HH) 0.5 - 2.2 mmol/L [address] Specimen Blood - Blood specimen (specimen) Performing Organization Address [facility] Phone Number [address] [address] COMPREHENSIVE METABOLIC PANEL (11/10/2020 3:35 AM ENERGY DERIVATIVES TRADER) Pathologist Sig [facility] Glucose 126 (H) 70 - 100 mg/dL [address] BUN 70 (H) 6 - 22 mg/dL [address] Creatinine 2.16 (H) 0.80 - 1.[address] mg/dL BUN/Creatinine Ratio 32.4 (H) 10.0 - 25.[address] Sodium 143 135 - 145 meq/L [address] Potassium 3.4 (L) 3.5 - 5.3 meq/L [address] Chloride 107 99 - 110 meq/L [place] [address] [facility] CO2 19 (L) 20 - 29 meq/L [address] Anion Gap with K 20 6 - 20 meq/L [address] Calcium 9.1 8.5 - 10.[address] mg/dL Protein Total 7.0 6.0 - 8.2 g/dL [address] Albumin 2.9 (L) 3.5 - 5.0 g/dL [address] Alkaline Phosphatase 76 30 - 150 U/L [address] AST - SGOT 22 0 - 35 U/L [address] ALT - SGPT 15 0 - 55 U/L [address] Bilirubin Total 0.6 0.2 - 1.2 mg/dL [address] Corrected Calcium 10.0 8.5 - 10.[address] mg/dL Age [address] eGFR Non- 29 (L) >=[address] Malagasy mL/min/1.73m2 eGFR 36 (L) >=[address] mL/min/1.73m2 Specimen Blood - Blood specimen (specimen) Performing Organization Address [facility] Phone Number [address] [address] CK (11/10/2020 3:35 AM ENERGY DERIVATIVES TRADER) Pathologist Sig nature CK 119 30 - 200 U/L [address] Specimen Blood - Blood specimen (specimen) Performing Organization Address [facility] Phone Number [address] [place] [address] AMYLASE (11/10/2020 3:35 AM ENERGY DERIVATIVES TRADER) Pathologist Sig nature Amylase 62 30 - 120 U/L [address] Specimen Blood - Blood specimen (specimen) Performing Organization Address [facility] Phone Number [address] [address] CULTURE, BLOOD - Peripheral (11/10/2020 3:35 AM ENERGY DERIVATIVES TRADER) Pathologist Sig nature Culture Result No growth at 5 [facility] Specimen Blood - Venous blood specimen (specimen) Narrative Performed At [facility] . Performing Organization Address [facility] Phone Number [address] [address] [phone] PREPARE AND HOLD FRESH FROZEN PLASMA IN MLS- BLOOD BANK (11/10/2020 3:17 AM ENERGY DERIVATIVES TRADER) Pathologist [facility] Product Code [id number] LAB BPAM Unit Number [id number] LAB Unit ABO Type AB LAB Unit Rh Type NEG LAB BP[facility] Dispense Status RE LAB BPAM Blood [id number] LAB Expiration Date BPAM Coding System 2800 LAB Product Code Plasma, LAB thawed/Apheresis Unit ID [id number] LAB Product Status Released from LAB Crossmatched Specimen Performing Organization Address City/State/Zipcode Phone Number LAB [employer] FRESH FROZEN PLASMA IN MLS- BLOOD BANK, 800 mL (11/10/2020 3:10 AM ENERGY DERIVATIVES TRADER) BPAM Product Code [id number] LAB BPAM Unit Number [id number] LAB Unit ABO Type AB LAB Unit Rh Type POS LAB BPAM Dispense Status TR LAB BP[facility] Blood [id number] LAB Expiration Date [facility] Coding System 8400 LAB Product Code Plasma, LAB thawed/Apheresis Unit ID [id number] LAB Product Status Transfused LAB Specimen Product - Specimen from blood product (s pecimen) Performing Organization Address City/State/Zipcode Phone Number LAB documented in this encounter Visit Diagnoses Diagnosis Pseudomonas urinary tract infection - Pr imary Urinary tract infection, site not specif ied Bowel trouble Unspecified disorder of intestine Post-op pain Other acute postoperative pain Essential hypertension Unspecified essential hypertension Non-recurrent unilateral inguinal hernia without obstruction or gangrene [facility]PC current use of anticoagulant t herapy Sepsis (HCC) Hypercholesteremia Pure hypercholesterolemia Cerebral artery occlusion with cerebral infarction (HCC) Unspecified cerebral artery occlusion wi th cerebral infarction Perforation of tympanic membrane Perforation of tympanic membrane, unspec ified Elevated prostate specific antigen (PSA) BPH (benign prostatic hyperplasia) Unspecified hyperplasia of prostate with out urinary obstruction and other lower urinary tract symptoms (LUTS) Guaiac positive stools Nonspecific abnormal finding in stool co ntents Enlarged prostate with urinary obstructi on Hypertrophy of prostate with urinary obs truction and other lower urinary tract symptoms (LUTS) Coronary artery disease without angina p ectoris 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, unspecified Hyperopia of both eyes Regular astigmatism of both eyes Regular astigmatism Presbyopia Renal failure syndrome Renal failure, unspecified Acute urinary retention Other specified retention of urine Atonic bladder Atony of bladder Other hydronephrosis TIA (transient ischemic attack) Unspecified transient cerebral ischemia 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 documented in this encounter Discharge Diagnoses Not on filedocumented in this encounter Administered Medications Medication Order MAR Action Action Date Dose Rate Site .Anticoagulation (WARFARIN) therapy nurs ing reminder Anti-coag reminder, First dose on Tue11/13/20 at 1000, Until Discontinued acetaminophen (TYLENOL) tablet 1,000 mg Given 11/17/2020 5:55 AM ENERGY DERIVATIVES TRADER 1,000 mg 1,000 mg, Oral, Every eight hours, First dose (after last modification) on Tue11/12/20 at 1400, Until Discontinued, Adult patients: Total dose of acetaminophen from all acetaminophen containing products should not exceed 4 grams (4000 mg) per day. Pediatric Patients 0 - 3 months: Maximum of 60 mg/kg/24 hours of acetaminophen. Pediatric Patients older than 3 months: Maximum of 75 mg/kg/24 hours of acetaminophen (Never exceeding 4 grams/day). , Given 11/16/2020 10:56 PM [employer] 1,000 mg Given 11/16/2020 6:18 AM [employer] 1,000 mg albuterol-ipratropium (DUO-NEB) 2.5-0.5 mg/3 Given 12:27 PM [employer] 3 mL mL inhalation solution 3 mL 3 mL, Nebulization, Four times a day, First dose on Tue11/13/20 at 0800, Until Discontinued, 3 mL Given 11/17/2020 8:50 AM [employer]ER[employer]IV[employer]ADER 3 mL Given 11/16/2020 9:04 PM [employer]ER 3 mL atorvaSTATin (LIPITOR) tablet 40 mg Given 11/16/2020 10:56 PM [employer]ER 40 mg 40 mg, Oral, Bedtime, First dose on Tue11/12/20 at 2100, Until Discontinued Given 11/15/2020 8:37 PM [employer]ER 40 mg Given 11/14/2020 9:21 PM [employer]ER 40 mg fentaNYL 100 mcg/2 mL preservative free Given 11/14/2020 11:21 A M [employer]ER 50 mcg injection solution 50 mcg 50 mcg, IV, Every one hour prn, Starting Tue11/12/20 at 0732, Until Discontinued, other (Specify), For breakthrough pain not controlled by oral pain meds, 1 mL Given 11/13/2020 7:20 PM [employer]ER 50 mcg metoprolol tartrate (LOPRESSOR) tablet 2 5 mg Given 11/17/2020 8:46 AM [employer]ER 25 mg 25 mg, Oral, Two times a day, First dose on Tue11/13/20 at 2100, Until Discontinued, Hold for SBP less than 120 Hold for HR less than 60, Given 11/16/2020 10:56 PM [employer] 25 mg Given 11/14/2020 9:21 PM [employer]ER 25 mg omeprazole (priLOSEC) capsule 20 mg Given 11/17/2020 5:55 AM [employer]ER 20 mg 20 mg, Oral, Every morning, First dose on Tue11/12/20 at 1005, Until Discontinued, Swallow cap whole. Do not crush, chew or open., Given 11/16/2020 6:18 AM [employer]ER 20 mg Given 11/15/2020 6:31 AM [employer]ER 20 mg ondansetron (ZOFRAN) injection solution 4 mg 4 mg, IV, Every four hours prn, Starting Tue11/10/20 at 0301, Until Discontinued, nausea, vomiting, 2 mL, Use FIRST. If in effective after 15 minutes use haloperidol if ordered for nausea/vomiting If preference is to fur ther dilute for IV administration: First draw up patient-sp ecific dose, then dilute to 10 mL with 0.9% sodium chloride., piperacillin-tazobactam (ZOSYN) IV premix Given 2020 4:45 AM [employer]ER 4,500 mg in D-2% 4,500 mg 4,500 mg (4.5 g), IV, Every eight hours, First dose on Tue11/13/20 at 1200, Until Discontinued, 100 mL, Infuse first dose over 30 minutes., Given 11/16/2020 8:05 PM [employer]ER 4,500 mg Given 11/16/2020 12:47 PM [employer]ER 4,500 mg polyethylene glycol (MIRALAX) packet 1 Given 11/17/2020 8:46 AM [employer]ER 1 packet packet 1 packet, Oral, Daily, First dose on Tue11/13/20 at 0900, Until Discontinued, Dissolve in 8 ounces of water, juice, soda, coffee, tea., Given 11/16/2020 8:15 AM [employer]ER 1 packet Given 11/15/2020 8:45 AM [employer] TR[employer]ER 1 packet potassium chloride (K-TAB) CR tablet 20 mEq Given 11/17/2020 10:22 AM [employer]ER 20 mEq 20 mEq, Oral, Two times a day, 2 doses, First dose on Tue11/17/20 at 0930, Last dose on Tue11/17/20 at 2100, Tablet should not be crushed or chewed., sodium chloride 0.9% IV solution New Bag 11/16/2020 10:59 PM [employer] 50 mL/hr IV, at 50 mL/hr, Continuous, Starting 11/15/20 at 1025, Until Discontinued, 1,000 mL New Bag 11/15/2020 9:50 AM [employer]ER 50 mL/hr warfarin (COUMADIN) - NO dose today Oral, Warfarin no dose, 1 dose, Tue at 1600, If unable to administer dose intact, wear universal precautions (one pair of gloves )., Medication Order MAR Action Action Date Dose Rate Site acetaminophen (TYLENOL) tablet Given 11/12/2020 4:46 AM [employer] 1,0 00 mg 1,000 mg 1,000 mg, Feeding tube, Every eight hours, First dose on Tue11/11/20 at 1400, Until Discontinued, Adult patients: Total dose of acetaminophen from all acetaminophen containing products should not exceed 4 grams (4000 mg) per day. Pediatric Patients 0 - 3 months: Maximum of 60 mg/kg/24 hours of acetaminophen. Pediatric Patients older than 3 months: Maximum of 75 mg/kg/24 hours of acetaminophen (Never exceeding 4 grams/day). , Given 11/11/2020 9:05 PM [employer]ER 1,000 mg Given 11/11/2020 3:48 PM [employer]ER 1,000 mg cefTRIAXone (ROCEPHIN) 2000 mg/20 mL IV Given 11/11/2020 3:58 A M [employer]ER 2,000 mg syringe in sterile water 2,000 mg, IV, Every twenty four hours, First dose on Tue11/10/20 at 0400, Until Discontinued, 20 mL, Infuse this antibiotic first. Administer over 5 minutes., Given 11/10/2020 3:55 AM [employer]ER 2,000 mg cefTRIAXone (ROCEPHIN) 2000 mg/20 mL IV Given 11/13/2020 4:54 A M [employer] 2,000 mg syringe in sterile water 2,000 mg, IV, Every twenty four hours, 3 doses, First dose (after last modification) on Tue11/12/20 at 0400, Last dose on Tue11/14/20 at 0400, 20 mL, Infuse this antibiotic first. Administer over 5 minutes., Given 11/12/2020 4:28 AM [employer]ER 2,000 mg chlorhexidine (PERIDEX) 0.12 % solution 15 mL Given 11/10/2020 11:44 PM [employer]ER 15 mL 15 mL, Mouth/Throat, Two times a day, First dose on Tue11/11/20 at 0005, Until Discontinued, 473 mL, Use when mechanically ventilated; swab and suction; discontinue when extubated., enoxaparin (LOVENOX) subcutaneous injection Given 11/13/2020 8:06 AM [employer]ER 40 mg solution 40 mg 40 mg, Subcutaneous, Daily, First dose on Tue11/11/20 at 0915, Until Discontinued, To avoid the loss of drug when using the 30 mg and 40 mg prefilled syringes, do not expel the air bubble from the syringe before the injection. For ADULT patients: Administration should be alternated between the left and right anterolateral and left and right posterolateral abdominal wall. The whole length of the needle should be introduced into a skin fold held between the thumb and forefinger; the skin fold should be held throughout the injection. To minimize bruising, do not rub the injection site after completion of the injection. For PEDIATRIC patients: Administration should be alternated between appropriate sites for patient age/weight (infants/small children = upper thigh; older children/adolescents = left and right anterolateral and left and right posterolateral abdominal wall). During administration to infants/smaller children sometimes the whole length of the needle is not "introduced" during the injection. Administer injection into a skin fold held between the thumb and forefinger; the skin fold should be held throughout the injection. To minimize bruising, do not rub the injection site after completion of the injection., Given 11/12/2020 10:00 AM [employer]ER 40 mg Given 11/11/2020 10:11 AM [employer]ER 40 mg famotidine (PEPCID) IV solution 20 mg Given 11/11/2020 9:05 PM [employer]ER 20 mg 20 mg, IV, Bedtime, First dose (after last reorder) on Tue11/10/20 at 0350, Until Discontinued, 2 mL, Medication stored in refrigerator. First draw up patient specific dose, then dilute to 10 mL with 0.9% sodium chloride and administer over 2 minutes., Given 11/10/2020 8:22 PM [employer]ER 20 mg Given 11/10/2020 3:55 AM [employer]ER 20 mg fentaNYL 20mcg/ml (2000mcg/100 Rate Change 11/10/2020 5:02 PM 25 mcg/hr 1.3 mL/hr ml) 0.9% sodium chloride IV [employer]ER solution 0-200 mcg/hr (0-10 mL/hr), IV, at 0-10 mL/hr, Titrate, Starting Tue11/10/20 at 1705, Until Tue11/11/20 at 0912, 100 mL, If more than one infusion is ordered to target RASS, use both infusions at the same time to achieve RASS goal of 0 to -1. Initiate infusion at 50 mcg/hr. Increase infusion rate by 25 mcg/hr every 15 minutes until patient is comfortable and has achieved desired RASS score. If the RASS score is less than or AT GOAL on current infusion rate and pain is controlled, decrease/wean infusion by 25 mcg/hr every 15 minutes (recommended for acute use). Document titrations in One Chart (MAR or I&O Flowsheet medication group). Patient must be intubated while on this infusion or in the process of weaning post-extubation. Call prescriber to attain weaning/discontinuation orders if the patient is not intubated., New Bag 11/10/2020 4:15 PM [employer]ER 50 mcg/hr 2.5 mL/hr fentanyl IV BOLUS taken from INFUSION Given 11/11/2020 3:58 AM [employer]ER 50 mcg *ADULT* 50 mcg, IV, Every fifteen minutes prn, Starting Tue11/10/20 at 1600, Until Tue11/11/20 at 0912, other (Specify), see admin instructions, If not to sedation goal, use this fentanyl bolus first (dose per this order). If after 5 minutes goal not achieved, then titrate fentanyl infusion per the infusion order., ferrous gluconate tablet 324 mg Given 11/13/2020 12:51 PM [employer]ER 324 mg 324 mg, Oral, Three times a day with meals, First dose on Bessie 11/13/20 at 0730, Until Discontinued Given 11/13/2020 8:06 AM [employer]ER 324 mg furosemide (LASIX) tablet 40 mg Given 11/13/2020 8:06 AM [employer]ER 40 mg 40 mg, Oral, DAILY, First dose on Bessie 11/13/20 at 0900, Until Discontinued furosemide (LASIX) tablet 40 mg Given 11/14/2020 3:24 PM [employer]ER 40 mg 40 mg, Oral, Two times a day diuretic, First dose (after last modification) on Bessie 11/13/20 at 1600, Until Discontinued Given 11/14/2020 9:09 AM [employer]ER 40 mg Given 11/13/2020 3:57 PM [employer]ER 40 mg iohexol (OMNIPAQUE) 350 mg/mL solution 1 00 mL Given 11/15/2020 2:51 PM [employer]IV[employer] TR[employer]ER 75 mL 100 mL, IV, Now imaging, 1 dose, Starting 11/15/20 at 1451, Until 11/15/20 at 1451, 100 mL iohexol (OMNIPAQUE) 350 mg/mL solution 1 00 mL Given 11/16/2020 4:35 PM [employer]IV[employer] TR[employer]ER 75 mL 100 mL, IV, Now imaging, 1 dose, Starting Glen 11/16/20 at 1635, Until Glen 11/16/20 at 1635, 100 mL iohexol (OMNIPAQUE) 9 MG/ML oral solution Given 11/15/2020 2:20 PM [employer]IV[employer] TRADER 100 mL 100 mL 100 mL, Oral, One time, 1 dose, [facility] 11/15/20 at 1430, 500 mL, Dose #3 = 100 mL 10 minutes prior to scan, iohexol (OMNIPAQUE) 9 MG/ML oral solution Given 11/15/2020 1:53 PM [employer] TR[employer]ER 200 mL 200 mL 200 mL, Oral, Every thirty minutes, 2 doses, First dose on 11/15/20 at 1330, Last dose on [facility] 11/15/20 at 1400, 500 mL, Dose #1 = 200 mL 70 minutes prior to scan Dose #2 = 200 mL 40 minutes prior to scan, Given 11/15/2020 1:32 PM [employer]IV[employer] TR[employer]ER 200 mL iothalamate meglumine 17.2% (CYSTO-CONRAY) Given 11/16/2020 1:17 PM [employer]IV[employer] TRADER 400 mL solution 400 mL 400 mL, Intravesical, One time, 1 dose, [place] 11/16/20 at 1420, 500 mL iron sucrose (VENOFER) 400 mg in Given 11/13/2020 5:01 PM [employer]ATIVES TRADER 4 00 mg 90 mL/hr sodium chloride 0.9% 250 mL 400 mg, IV, at 90 mL/hr, One time, 1 dose, [facility] 11/13/20 at 1700, 270 mL, . Observe patient for 30 minutes after administration for hypotension or hypersensitivity., lactated ringers IV solution (bolus) Given 11/11/2020 1:03 AM EN[employer]ATIV[employer] TRADER 500 mL 999 mL/hr SOLN 500 mL 500 mL, IV, at 999 mL/hr, Bolus, 1 dose, Tue11/11/20 at 0155, 500 mL lactated ringers IV solution (bolus) Given 11/15/2020 7:51 AM ENER[employer] D[employer]IVATIVES TRADER 500 mL 999 mL/hr SOLN 500 mL 500 mL, IV, at 999 mL/hr, Bolus, 1 dose, [facility] 11/15/20 at 0845, 500 mL lactated ringers IV solution New Bag 11/11/2020 7:53 AM [employer]IVES TRADER 125 mL/hr IV, at 125 mL/hr, Continuous, Starting Tue11/10/20 at 0310, Until Tue11/11/20 at 0908, 1,000 mL New Bag 11/10/2020 8:05 PM [employer]IV[employer] TR[employer]ER 125 mL/hr New Bag 11/10/2020 3:46 AM [employer]IVES TRADER 125 mL/hr lactated ringers IV solution New Bag 11/13/2020 10:32 AM [employer]IVES TRADER 50 mL/hr IV, at 50 mL/hr, Continuous, Starting Tue11/13/20 at 1120, Until Tue11/13/20 at 1542, 1,000 mL metroNIDAZOLE (FLAGYL) IV piggyback in Given 11/11/2020 3:58 AM [employer]IV[employer] TR[employer]ER 500 mg sodium chloride 0.79% (premix) 500 mg 500 mg, IV, Every eight hours, First dose on Tue11/10/20 at 0400, Until Discontinued, 100 mL Given 11/10/2020 8:05 PM [employer]IV[employer] TRADER 500 mg Given 11/10/2020 12:22 PM [employer]IV[employer] TRADER 500 mg metroNIDAZOLE (FLAGYL) IV piggyback in Given 11/13/2020 4:54 AM EN[employer]IVES TRADER 500 mg sodium chloride 0.79% (premix) 500 mg 500 mg, IV, Every eight hours, 11 doses, First dose (after last modification) on Tue11/11/20 at 1200, Last dose on Tue11/14/20 at 2000, 100 mL Given 11/12/2020 8:45 PM [employer]IV[employer] TR[employer]ER 500 mg Given 11/12/2020 11:45 AM [employer]IVES TRADER 500 mg potassium chloride 20mEq in dextrose New Bag 11/12/2020 8:[address] 75 mL/hr 5%-sodium chloride 0.45% 1000 mL IV solution IV, at 75 mL/hr, Continuous, Starting Tue11/11/20 at 1010, Until Bessie 11/13/20 at 0521, 1,000 mL Rate Change 11/12/2020 10:39 AM EN[employer]IVES TRADER 75 mL/hr New Bag 11/12/2020 7:28 AM EN[employer]ATIVES TRADER 100 mL/hr potassium chloride 40 mEq in dextrose 5% 500 Given 5:35 AM [employer]ATIVES TRADER 40 mEq mL 40 mEq, IV, Now, 1 dose, Tue11/11/20 at 0500, 500 mL, (peripheral line), propofol (DIPRIVAN) 1000 mg/100 mL IV Given 11/10/2020 3:30 PM [employer]IV[employer] TR[employer]ER 10 mg emulsion 1 dose, Starting Tue11/10/20 at 1523, Until Tue11/10/20 at 1530, Yelena: cabinet override, propofol (DIPRIVAN) 1000 Rate Change 11/10/2020 11:43 PM 5 mcg/kg/min 2.1 mL/hr mg/100 mL IV emulsion [employer]ER 0-50 mcg/kg/min 69.3 kg (0-20.79 mL/hr, rounded to 0-20.8 mL/hr), IV, at 0-20.8 mL/hr, Titrate, Starting Tue11/10/20 at 1705, Until Tue11/11/20 at 0911, 100 mL, If more than one infusion is ordered to target RASS, use both infusions at the same time to achieve RASS goal. Initiate the infusion at 20 mcg/kg/min Titrate the infusion by 5-10 mcg/kg/min every 3 minutes as needed If RASS score is less than or AT GOAL on current infusion rate, decrease/wean infusion by 5-10 mcg/kg/min at least every 4 hours to lowest effective dose. After spontaneous breathing trial, restart sedation at half the rate previously required Propofol titration goal: RASS 0 to - 1 : Suggested level of sedation to facilitate mechanical ventilation Infusion, tubing and cap (needleless connector) should be changed every 12 hours Chart both the rate of infusion and the dose mcg/kg/min, Rate Change 11/10/2020 8:00 PM [employer]IV[employer] TR[employer]ER 15 mcg/kg/min 6.2 mL/hr Rate Change 11/10/2020 5:04 PM [employer]IVES TRADER 20 mcg/kg/min 8.3 mL/hr sodium chloride 0.9% IV solution flush b ag New Bag 11/10/2020 5:38 AM EN[employer]IV[employer] TRADER 500 mL IV, Continuous, Starting 11/10/20 at 0410, Until Tu11/11/20 at 0409, 1,000 mL, IV line carrier for line flush with blood product infusion., vancomycin in dextrose 200 mL IV piggyback Given 11/15 11:39 AM ENER[employer]IVES TRADER 1,000 mg (premix) 1,000 mg 1,000 mg, IV, Every twelve hours, First dose on 11/15/20 at 1030, Until Discontinued, 200 mL warfarin (COUMADIN) - NO dose Verified No Dose Today 11/15/2020 2:04 PM EN[employer]IVES TRADER today Oral, Warfarin no dose, 1 dose, 11/15/20 at 1600, If unable to administer dose intact, wear universal precautions (one pair of gloves)., warfarin (COUMADIN) - NO dose Verified No Dose Today 11/16/2020 3:39 PM EN[employer]IV[employer] TRADER today Oral, Warfarin no dose, 1 dose, 11/16/20 at 1600, If unable to administer dose intact, wear universal precautions (one pair of gloves)., warfarin (COUMADIN) tablet 1.25 mg Given 11/14/2020 3:24 PM EN[employer]IVES TRADER 1.25 mg 1.25 mg, Oral, Warfarin one time dose, 1 dose, 11/14/20 at 1600, If patient is receiving tube feeding, hold tube feeding 1 hour before and 1 hour after warfarin administration. If unable to administer dose intact, wear universal precautions (one pair of gloves)., warfarin (COUMADIN) tablet 2.5 mg Given 11/12/2020 5:23 PM ENER[employer] D[employer]IVATIVES TRADER 2.5 mg 2.5 mg, Oral, Warfarin one time dose, 1 dose, 11/12/20 at 1730, If patient is receiving tube feeding, hold tube feeding 1 hour before and 1 hour after warfarin administration. If unable to administer dose intact, wear universal precautions (one pair of gloves)., warfarin (COUMADIN) tablet 2.5 mg Given 11/13/2020 3:56 PM EN[employer]IV[employer]IVES TRADER 2.5 mg 2.5 mg, Oral, Warfarin one time dose, 1 dose, Bessie 11/13/20 at 1600, If patient is receiving tube feeding, hold tube feeding 1 hour before and 1 hour after warfarin administration. If unable to administer dose intact, wear universal precautions (one pair of gloves)., documented in this encounter
[2020-11-18] MEDS: Metoprolol Tartrate 25 MG Tab PO SCH ×3 (10:08→21:45)
--- NOTE | 2020-11-18 11:01 | PN ---
DATE SEEN: 11/18/2020 SUBJECTIVE: Jose Rafael Rojas is a delightful 80-year-old male, admitted yesterday to swing bed. He had an incarcerated inguinal hernia, left side, resultant small bowel resection, and resultant ostomy. Doing well. Had a pretty good night. Describes no pain or desire for pain medications. Reviewed his medications, timely and appropriate. OBJECTIVE: VITAL SIGNS: 36.4, pulse is 75, blood pressure 98/53, mean blood pressure 68, respirations 18, O2 saturation 95%. GENERAL: Appears comfortable, moved from the bed to the chair. NECK: Benign. Thyroid small. CHEST: Better air exchange today. HEART: Distant heart sounds, soft murmur. ABDOMEN: Benign. Ostomy doing well. ASSESSMENT: Rehab, post ostomy. PLAN: PT/OT, intervention, care, treatment as planned. /[id number] CLYDE/LESLIE
--- NOTE | 2020-11-18 12:24 | HP ---
ADMISSION DATE: 11/17/2020 CHIEF COMPLAINT: Postoperative care, colostomy, and general rehab. HISTORY OF PRESENT ILLNESS: Jose Rafael Rojas is an 80-year-old male, transferred from [facility]. He was hospitalized from 11/08/2020 to 11/17/2020 under the care of Dr. Lucian Overton, Surgery, and [place] . Primary provider is Dr. Sid Diamond. He presented with a 3-day history of complicated lower abdominal pain, nausea, vomiting, was found to be septic, worsening pain. CT revealed a small bowel obstruction secondary to incarcerated left inguinal hernia, and they proceeded with surgery. On 11/10/2020, he received an open left inguinal hernia repair with Phasix mesh and resection of the sigmoid colon with ending in a descending ostomy. Had little perioperative complication with extubation, was found to have a non-STEMI, complicated pneumonia, but made a good clinical improvement and was transferred to [facility] for rehab care. DISCHARGE MEDICATIONS: 1. Aspirin 81 mg 1 p.o. daily, CAD prevention. 2. Atorvastatin 40 mg 1 p.o. daily, CAD. 3. Diphenoxylate/atropine 2.5/0.025 tablets two tabs q.i.d. p.r.n. diarrhea. 4. Ferrous gluconate 324 mg one p.o. t.i.d., anemia. 5. Flonase 1 puff each nostril b.i.d., nasal congestion. 6. Furosemide 40 mg p.o. q.a.m., edema. 7. P.r.n. nitroglycerin. 8. Prilosec 20 mg 1 p.o. daily, GERD. 9. MiraLAX 17 g one daily. 10.Stool softener. 11.Warfarin per protocol. ALLERGIES: Noted. PAST MEDICAL HISTORY: Significant for bowel related hospitalization and surgery. Has a history of suprapubic catheter placement on 07/08/2020, bilateral cataracts in January of 2020, TURP in 2014 for benign disease, previous angiography, previous lumbar back surgery, previous right carpal tunnel, and left and right total hip arthroplasties. Ongoing medical problems include COPD and hypertension. SOCIAL HISTORY: [place] [address] [place] . Retired. Former smoker, quit in 1980, h-vcre-thw-day for 20 years. No chewing, no vaping. No alcohol. No illicit drug use. FAMILY HISTORY: Negative for early heart disease, diabetes mellitus, or inheritable cancer. REVIEW OF SYSTEMS: CONSTITUTIONAL: Feeling little poorly and weak. EYES: Sees well. EARS: Some difficulty in crowds. OROPHARYNX: Intact dentition. CV: Denies chest pain. RESPIRATORY: No chronic cough. GI: Ostomy output improving. : Suprapubic catheter in place. SKIN: No lesions, eruptions, or moles. ENDOCRINE: No excessive thirst or urination. ORTHOPEDIC: Generalized joint complaints. PSYCHIATRIC: Mood stable. PHYSICAL EXAMINATION: VITAL SIGNS: 1.65 m, 74 kg. 36.4, 74, 98/53, 18, and 95. GENERAL: Elderly gentleman, cooperative, conversant, lying in bed. HEENT: Funduscopic benign. Conjunctivae clear. Bright tympanic membranes. Clear nasal discharge. Mouth and oropharynx; poor dentition. NECK: Benign. Thyroid small. CHEST: Decreased breath sounds, but clear all lung lizarraga. HEART: Distant heart sounds. Occasional ectopy. Soft murmur. ABDOMEN: Benign. Ostomy in the right lower quadrant intact. Hernia raphe scar well healed. EXTREMITIES: Good peripheral pulses. SKIN: No open sores or lesions. LABORATORY STUDIES: White count 12,200, hemoglobin 7.8, hematocrit 25. ESR greater than 140. INR 1.96, therapeutic. Electrolytes, satisfactory. GFR greater than 60. ASSESSMENT: Status post incarcerated hernia, bowel resection, resolved ostomy. PLAN: Rehab care. PT/OT. Intervention and care. Proceed accordingly. /[id number] /LESLIE
[2020-11-18] MEDS: Fluticasone Propionate Nasal Spray 16 GM Bottle NASBOTH PRN (13:27)
[2020-11-18] MEDS ORDERED: Warfarin 2.5 MG Tab PO ONE (16:00)
[2020-11-18] MEDS: atorvaSTATin 40 MG Tab PO SCH (20:52)
[2020-11-19] MEDS: Acetaminophen 500 MG Tab PO SCH ×3 (01:04→15:47)
[2020-11-19] MEDS: Pantoprazole 40 MG Tab.CR PO SCH (06:02)
[2020-11-19] MEDS: Ferrous Sulfate 325 MG Tab PO SCH ×3 (08:10→17:48)
[2020-11-19] MEDS: Metoprolol Tartrate 25 MG Tab PO SCH ×2 (08:11→20:43)
[2020-11-19] MEDS: Furosemide 40 MG Tab PO SCH (08:11)
[2020-11-19] MEDS: Ciprofloxacin 500 MG Tab PO SCH ×2 (08:11→20:43)
[2020-11-19] MEDS: Aspirin 81 MG Tab.EC PO SCH (08:11)
--- NOTE | 2020-11-19 12:06 | PN ---
DATE SEEN: 11/19/2020 SUBJECTIVE: oJse Rafael Rojas is a delightful 80-year-old male admitted to swing bed. He presents with postoperative incarcerated left inguinal hernia, bowel resection, and resultant left-sided colostomy. Doing well. Pain not problematic. Output has been satisfactory. Had an apparent pneumonia and has a definable course of ciprofloxacin planned. LABORATORY STUDIES: On admission, 11/17/2020, noted hemoglobin 7.8, white count 12,200, ESR greater than 140 expected. INR 1.96 on 11/17/2020; 11/19/2020, 1.35. Being cared for by pharmacy. OBJECTIVE: VITAL SIGNS: 36.6, 83 is the pulse, 111/60, respirations 18, O2 saturation 95% on room air. GENERAL: Comfortable, appropriate, sitting in his chair. NECK: Benign. Thyroid small. CHEST: On auscultation, clear in all lung lizarraga. HEART: Occasional ectopy, soft murmur. ABDOMEN: Benign. Herniorrhaphy scar healing well, well apposed, moderate edema, colostomy site draining well. . ASSESSMENT: Postoperative herniorrhaphy, bowel resection, and colostomy. PLAN: Medications on board, treatment in place. Therapy, PT/OT. Continue present management and care. /[id number] CLYDE/LESLIE
[2020-11-19] MEDS: Fluticasone Propionate Nasal Spray 16 GM Bottle NASBOTH PRN (14:00)
[2020-11-19] MEDS ORDERED: Warfarin 2.5 MG Tab PO ONE (16:00)
[2020-11-19] MEDS: atorvaSTATin 40 MG Tab PO SCH (20:44)
[2020-11-20] MEDS: Acetaminophen 500 MG Tab PO SCH ×3 (00:57→17:04)
[2020-11-20] MEDS: Pantoprazole 40 MG Tab.CR PO SCH (05:27)
[2020-11-20] MEDS: Ferrous Sulfate 325 MG Tab PO SCH ×3 (08:03→17:04)
[2020-11-20] MEDS: Aspirin 81 MG Tab.EC PO SCH (08:04)
[2020-11-20] MEDS: Ciprofloxacin 500 MG Tab PO SCH ×2 (08:04→21:20)
[2020-11-20] MEDS: Furosemide 40 MG Tab PO SCH (08:05)
[2020-11-20] MEDS: Metoprolol Tartrate 25 MG Tab PO SCH ×2 (08:05→21:21)
--- NOTE | 2020-11-20 10:14 | PN ---
DATE SEEN: 11/20/2020 HISTORY OF PRESENT ILLNESS: Jose Rafael Rojas is an 80-year-old male swing bed patient and was transferred from [place]. Presented with an incarcerated left femoral hernia, which was resulted in bowel resection and placement of a left-sided colostomy. Also an accompanying pneumonia which is on an antibiotic therapy. Doing remarkably well. Up, ambulating. Therapy and PT/OT have been helpful. Ostomy is functioning well. Pain is reasonable only with activity. LABORATORY STUDIES: INR of note. MEDICATIONS: Reviewed and appropriate. OBJECTIVE: VITAL SIGNS: 36.6, 83, 123/69, 18, and 95%. GENERAL: In good spirits, sitting up in his chair. NECK: Benign. Thyroid small, no adenopathy. CHEST: Decreased breath sounds in both lung bases, but relatively clear. HEART: Regular rate and rhythm. Occasional ectopy. No murmur consequence. ABDOMEN: Ostomy. Doing well. ASSESSMENT: Postoperative care, bowel resection, ostomy, and pneumonia. PLAN: We will obtain a chest x-ray today for evaluation and follow up pneumonia. We will also recheck hemoglobin, had been 7.8. Intervention and care treatment as appropriate. /[id number] CLYDE/LESLIE
--- NOTE | 2020-11-20 10:14 | CR ---
INDICATION: Followup pneumonia. CHEST, TWO VIEWS: PA and lateral views of the chest were obtained 11/20/20 and compared with 08/18/20 and 10/10/18. The heart remains normal in size and shape. The aorta is tortuous. There is minimal calcification in the arch. There are some mild degenerative changes and possibly some disc disease in the mid thoracic spine. 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 The posterior sulci appear to be blunted slightly compatible with small pleural effusions. This may be related to pleuritis from previous pneumonia and pleuritis. However, no consolidating pneumonia or significant sized effusion was identified. IMPRESSION: 1. Question minimal residual pleural effusions with no definite acute process otherwise suggested. 2. ASD aorta. MTDD
[2020-11-20] MEDS ORDERED: Ferrous Sulfate 325 MG Tab PO SCH (12:00)
[2020-11-20] MEDS: Fluticasone Propionate Nasal Spray 16 GM Bottle NASBOTH PRN (12:24)
[2020-11-20] MEDS ORDERED: Warfarin 5 MG Tab PO ONE (16:00)
[2020-11-20] MEDS: atorvaSTATin 40 MG Tab PO SCH (21:20)
[2020-11-21] MEDS: Acetaminophen 500 MG Tab PO SCH ×3 (00:29→16:30)
[2020-11-21] MEDS: Pantoprazole 40 MG Tab.CR PO SCH (06:31)
[2020-11-21] MEDS: Ferrous Sulfate 325 MG Tab PO SCH ×3 (08:33→17:50)
[2020-11-21] MEDS: Ciprofloxacin 500 MG Tab PO SCH ×2 (08:33→20:00)
[2020-11-21] MEDS: Aspirin 81 MG Tab.EC PO SCH (08:34)
[2020-11-21] MEDS: Metoprolol Tartrate 25 MG Tab PO SCH ×2 (08:35→20:00)
[2020-11-21] MEDS: Furosemide 40 MG Tab PO SCH (08:35)
[2020-11-21] MEDS: Fluticasone Propionate Nasal Spray 16 GM Bottle NASBOTH PRN (14:14)
[2020-11-21] MEDS: Warfarin 5 MG Tab PO SCH (16:30)
[2020-11-21] MEDS: atorvaSTATin 40 MG Tab PO SCH (20:00)
[2020-11-22] MEDS: Acetaminophen 500 MG Tab PO SCH ×3 (00:47→17:32)
[2020-11-22] MEDS: Pantoprazole 40 MG Tab.CR PO SCH (06:51)
[2020-11-22] MEDS: Ciprofloxacin 500 MG Tab PO SCH ×2 (09:04→20:26)
[2020-11-22] MEDS: Metoprolol Tartrate 25 MG Tab PO SCH ×2 (09:04→20:26)
[2020-11-22] MEDS: Furosemide 40 MG Tab PO SCH (09:05)
[2020-11-22] MEDS: Ferrous Sulfate 325 MG Tab PO SCH ×3 (09:05→17:32)
[2020-11-22] MEDS: Aspirin 81 MG Tab.EC PO SCH (09:05)
[2020-11-22] MEDS: Warfarin 5 MG Tab PO SCH (17:32)
[2020-11-22] MEDS: Fluticasone Propionate Nasal Spray 16 GM Bottle NASBOTH PRN (18:17)
[2020-11-22] MEDS: atorvaSTATin 40 MG Tab PO SCH (20:26)
[2020-11-23] MEDS: Acetaminophen 500 MG Tab PO SCH ×2 (00:38→08:31)
[2020-11-23] MEDS: Pantoprazole 40 MG Tab.CR PO SCH (06:18)
[2020-11-23] MEDS: Ferrous Sulfate 325 MG Tab PO SCH ×2 (08:30→12:26)
[2020-11-23] MEDS: Ciprofloxacin 500 MG Tab PO SCH (08:31)
[2020-11-23] MEDS: Aspirin 81 MG Tab.EC PO SCH (08:33)
[2020-11-23] MEDS: Furosemide 40 MG Tab PO SCH (08:34)
[2020-11-23] MEDS: Metoprolol Tartrate 25 MG Tab PO SCH (08:35)
[2020-11-23 08:36] VITALS: BP 101/73
[2020-11-23] MEDS: Fluticasone Propionate Nasal Spray 16 GM Bottle NASBOTH PRN (08:36)
--- NOTE | 2020-11-23 11:01 | PCM.DCSUM1 ---
Discharge Summary - Hospital Course Free Text/Narrative:: 80-year-old gentleman was admitted to a swing bed to continue with physical rehabilitation and education on colostomy care. He underwent surgery in [place] for an incarcerated right inguinal hernia and did well postoperatively. He was also found to have NSTEMI. After acute postoperative recovery in [place] he was transferred here for continuing rehabilitation. The patient was treated with occupational and physical therapy. He was instructed on appropriate care for his colostomy. He has had satisfactory improvement and has emphatically stated his desire to go home. Note that his hemoglobin this morning was 7.3. Records show that on 11/09/2020 his hemoglobin was 10.7, this was prior to bowel resection. His hemoglobin was 7.8 on 11/17/2020, 7.2 on 11/20/2020. Patient is on Coumadin with an INR goal of 2.0-2.5 secondary to history of CVAs. Patient will continue to follow with Coumadin clinic and should continue to have his hemoglobin trended. He is currently being treated for a suspected pneumonia and should continue to take ciprofloxacin upon discharge. Diagnosis: Stroke: No - Discharge Data Discharge Date: 11/23/20 Discharge Disposition: Home, Self-Care 01 Condition: Good - Referral to Home Health Date of Face to Face Encounter: 11/23/20 Primary Care Physician: Sid Diamond MD - Discharge Diagnosis/Problem(s) (1) Unspecified rehabilitation procedure SNOMED Code(s): 930650830, 764703053 ICD Code: Z51.89 - ENCOUNTER FOR OTHER SPECIFIED AFTERCARE Status: Acute Current Visit: Yes (2) Encounter for postoperative care Status: Acute Current Visit: Yes (3) Obstructive uropathy SNOMED Code(s): 7718349 ICD Code: N13.9 - OBSTRUCTIVE AND REFLUX UROPATHY, UNSPECIFIED Status: Chronic Current Visit: No (4) Incarcerated inguinal hernia SNOMED Code(s): 927925601, 846930100 ICD Code: K40.30 - UNIL INGUINAL HERNIA, W OBST, W/O GANGR, NOT SPCF RECUR Status: Resolved Current Visit: No (5) Small bowel obstruction SNOMED Code(s): 924734862 ICD Code: K56.609 - UNSP INTESTNL OBST, UNSP TO PARTIAL VERSUS COMPLETE OBST Status: Resolved Current Visit: No (6) Anemia SNOMED Code(s): 674023591 ICD Code: D64.9 - ANEMIA, UNSPECIFIED Status: Acute Current Visit: No (7) Anticoagulation goal of INR 2.0 to 2.5 SNOMED Code(s): 36963995 ICD Code: Z51.81 - ENCOUNTER FOR THERAPEUTIC DRUG LEVEL MONITORING; Z79.01 - STAFFING ASSISTANT (CURRENT) USE OF ANTICOAGULANTS Status: Chronic Current Visit: No (8) Lincoln catheter in place SNOMED Code(s): 858432683 ICD Code: Z97.8 - PRESENCE OF OTHER SPECIFIED DEVICES Status: Chronic Current Visit: No (9) CVA (cerebrovascular accident) SNOMED Code(s): 672703881 ICD Code: I63.9 - CEREBRAL INFARCTION, UNSPECIFIED Status: Chronic Current Visit: No Qualifiers: CVA mechanism: embolism Precerebral and cerebral artery: middle cerebral artery Laterality of affected vessel: right Qualified Code(s): I63.411 - Cerebral infarction due to embolism of right middle cerebral artery (10) Elevated troponin SNOMED Code(s): 935351208, 820121820, 068722738 ICD Code: R77.8 - OTHER SPECIFIED ABNORMALITIES OF PLASMA PROTEINS Status: Resolved Current Visit: No - Patient Summary/Data Consults: Consultations 11/17/20 18:46 OT Evaluation and Treatment [CONS] Routine Please Evaluate and Treat. OT Reason for Consult: Strengthening This query below is only for informational purposes and is not editable. Admission Diagnosis/Problem: Colostomy PT Evaluation and Treatment [CONS] Routine Please Evaluate and Treat. PT Reason for Consult: Strengthening This query below is only for informational purposes and is not editable. Admission Diagnosis/Problem: Colostomy - Patient Instructions Diet: Usual Diet as Tolerated Activity: As Tolerated - Discharge Plan *PRESCRIPTION DRUG MONITORING PROGRAM REVIEWED*: Not Applicable *COPY OF PRESCRIPTION DRUG MONITORING REPORT IN PATIENT BYRON: Not Applicable Prescriptions/Med Rec: Ciprofloxacin HCl [Cipro] 500 mg PO BID #9 Home Medications: Home Meds Fluticasone Propionate [Flonase] 1 spray NASBOTH BID PRN 05/14/20 [History] Furosemide [Lasix] 40 mg PO DAILY 08/12/20 [History] Aspirin [Adult Low Dose Aspirin EC] 81 mg PO DAILY 10/07/20 [History] Omeprazole 20 mg PO ACBREAKFAST 10/07/20 [History] atorvaSTATin Calcium [Lipitor] 40 mg PO BEDTIME 10/07/20 [History] Ferrous Gluconate 324 mg PO TIDMEALS 11/09/20 [History] Nitroglycerin [Nitrostat] 0.4 mg SL Q5M PRN 11/09/20 [History] Acetaminophen [Acetaminophen Extra Strength] 1,000 mg PO Q8H 11/17/20 [History] Atropine/Diphenoxylate [Diphenoxylate-Atropine] 2 tab PO QID PRN 11/17/20 [History] Metoprolol Tartrate 25 mg PO BID 11/17/20 [History] polyethylene glycoL 3350 [MiraLAX] 17 gm PO DAILY PRN 11/17/20 [History] Warfarin [Coumadin] 2.5 mg PO MOWEFR 11/21/20 [History] Warfarin [Coumadin] 5 mg PO SUTUTHSA 11/21/20 [History] Ciprofloxacin HCl [Cipro] 500 mg PO BID #9 11/23/20 [Rx] Patient Handouts: Colostomy Home Guide, Adult, Fall Prevention in Hospitals, Adult - Discharge Summary/Plan Comment DC Time >30 min.: Yes Discharge Summary/Plan Comment: Patient has had satisfactory progression with physical and Occupational Therapy. Patient stated that he would go home today whether we gave him permission to or not. Will be discharged to home with home health care and physical therapy. Patient should follow up with his primary care physician as soon as possible, follow-up with Coumadin clinic, and continue to trend hemoglobin. - General Info Date of Service: 11/23/20 Admission Dx/Problem (Free Text: 80-year-old gentleman admitted postoperatively after colon resection with colostomy for postoperative care and rehabilitation Functional Status: Reports: Pain Controlled, Tolerating Diet, Ambulating, Urinating - Review of Systems General: Reports: Weakness HEENT: Reports: No Symptoms Pulmonary: Reports: No Symptoms Cardiovascular: Reports: No Symptoms Gastrointestinal: Reports: No Symptoms Genitourinary: Reports: No Symptoms Musculoskeletal: Reports: No Symptoms Skin: Reports: No Symptoms Neurological: Reports: Weakness Psychiatric: Reports: No Symptoms - Patient Data Vitals - Most Recent: Last Vital Signs Temp 36.3 C 11/22/20 08:00 Pulse 104 H 11/23/20 08:35 Resp 16 11/22/20 08:00 BP 101/73 11/23/20 08:35 Pulse Ox 95 11/22/20 08:00 Weight - Most Recent: 73.652 kg I&O - Last 24 hours: Intake & Output 11/22/20 11/23/20 11/23/20 22:59 06:59 14:59 Intake Total 450 Output Total 1300 1700 Balance -1300 -1250 Lab Results - Last 24 hrs: Laboratory Results - last 24 hr 11/23/20 11/23/20 Range/Units 06:25 06:25 WBC 6.8 (3.2-10.1) x10-3/uL RBC 2.66 L (3.90-5.90) x10(6)uL Hgb 7.3 L (12.9-17.7) g/dL Hct 22.8 L (38.3-50.1) % MCV 85.5 (80.8-98.7) fL MCH 27.5 (27.0-33.3) pg MCHC 32.1 (28.7-35.3) g/dL RDW 17.8 H (12.4-15.0) % Plt Count 392 (117-477) x10(3)uL MPV 8.6 (6.7-11.0) fL Neut % (Auto) 56.1 (40.3-71.8) % Lymph % (Auto) 28.9 (15.8-45.3) % [place] % (Auto) 8.9 (5.5-15.2) % Eos % (Auto) 3.8 (0.1-6.8) % Baso % (Auto) 2.3 (0.3-3.8) % Neut # (Auto) 3.8 (1.7-6.9) x10-3/uL Lymph # (Auto) 2.0 (0.5-4.5) x10-3/uL [place] # (Auto) 0.6 (0.0-1.2) x10-3/uL Eos # (Auto) 0.3 (0.0-0.6) x10-3/uL Baso # (Auto) 0.2 (0.0-0.3) x10-3/uL PT 13.3 H (9.0-11.1) sec INR 1.25 H (1.00-1.24) Med Orders - Current: Current Medications Acetaminophen (Tylenol Extra Strength) 1,000 mg PO Q8H [facility] Last Admin: 11/23/20 08:31 Dose: 1,000 mg Documented by: Aspirin (Halfprin) 81 mg PO DAILY [facility] Last Admin: 11/23/20 08:33 Dose: 81 mg Documented by: Atorvastatin Calcium (Lipitor) 40 mg PO BEDTIME [facility] Last Admin: 11/22/20 20:26 Dose: 40 mg Documented by: Ciprofloxacin (Ciprofloxacin Hcl) 500 mg PO BID [facility] Stop: 11/27/20 09:01 Last Admin: 11/23/20 08:31 Dose: 500 mg Documented by: Diphenoxylate HCl/Atropine (Lomotil 0.025-2.5 Mg) 2 tab PO QID PRN PRN Reason: Diarrhea Ferrous Sulfate (Ferrous Sulfate) 325 mg PO TIDMEALS [facility] Last Admin: 11/23/20 08:30 Dose: 325 mg Documented by: Fluticasone Propionate (Flonase) 0 gm NASBOTH BID PRN PRN Reason: ALLERGIC RHINITIS Last Admin: 11/23/20 08:36 Dose: 1 spray Documented by: Furosemide (Lasix) 40 mg PO DAILY [facility] Last Admin: 11/23/20 08:34 Dose: 40 mg Documented by: Metoprolol Tartrate (Lopressor) 12.5 mg PO BID [facility] Last Admin: 11/23/20 08:35 Dose: 12.5 mg Documented by: Nitroglycerin (Nitrostat) 0.4 mg SL Q5M PRN PRN Reason: Chest Pain Pantoprazole Sodium (Protonix) 40 mg PO ACBREAKFAST@0600 [facility] Last Admin: 11/23/20 06:18 Dose: 40 mg Documented by: Polyethylene Glycol (Miralax) 17 gm PO DAILY PRN PRN Reason: Constipation Sodium Chloride (Saline Flush) 10 ml FLUSH ASDIRECTED PRN PRN Reason: Keep Vein Open Warfarin Sodium (Coumadin Sliding Scale) each PO ASDIRECTED [facility] Warfarin Sodium (Coumadin) 5 mg PO DAILY@1600 [facility] Warfarin Sodium (Coumadin) 7.5 mg PO 1600 [facility] Stop: 11/23/20 16:01 Discontinued Medications Fluticasone Propionate (Flonase) 0 gm NASBOTH BID PRN PRN Reason: ALLERGIC RHINITIS Metoprolol Tartrate (Lopressor) 25 mg PO BID [facility] Last Admin: 11/18/20 10:08 Dose: Not Given Documented by: Warfarin Sodium (Coumadin) 1.25 mg PO ONETIME ONE Stop: 11/18/20 16:01 Last Admin: 11/18/20 16:12 Dose: 1.25 mg Documented by: Warfarin Sodium (Coumadin) 2.5 mg PO ONETIME ONE Stop: 11/19/20 16:01 Last Admin: 11/19/20 15:47 Dose: 2.5 mg Documented by: Warfarin Sodium (Coumadin) 5 mg PO ONETIME ONE Stop: 11/20/20 16:01 Last Admin: 11/20/20 17:04 Dose: 5 mg Documented by: Warfarin Sodium (Coumadin) 5 mg PO DAILY@1600 [facility] Last Admin: 11/22/20 17:32 Dose: 5 mg Documented by: - Exam Quality Assessment: Reports: Urine Catheter General: Reports: Alert, Oriented, Cooperative, No Acute Distress HEENT: Reports: Mucous Membr. Moist/[place] Lungs: Reports: Clear to Auscultation Cardiovascular: Reports: Regular Rate, Regular Rhythm GI/Abdominal Exam: Normal Bowel Sounds, Soft, Non-Tender, Other (Colostomy site is free of erythema, edema) Extremities: Non-Tender, Pedal Edema Skin: Reports: Warm, Dry Neurological: Reports: Normal Speech. Denies: Strength Equal Bilateral Psy/Mental Status: Reports: Alert, Normal Affect, Normal Mood
[2020-11-23] MEDS ORDERED: Ciprofloxacin 500 MG Tab ONE (13:48)
[2020-11-23 14:32] VITALS: PULSE 90
[2020-11-23] MEDS ORDERED: Warfarin 2.5 MG Tab PO SCH (16:00)
[2020-11-24] MEDS ORDERED: Warfarin 5 MG Tab PO SCH (16:00)
== END 2020-11-23 13:50 | disposition home or self-care (01) | DRG 949 ==
LOC: FB.MS 14:02 → UNDOADMIN 14:02 → FB.MS 15:41
PROVIDERS: ATTEND Student in an Organized Health Care Education/Training Program
DX: Z51.89 Encounter for other specified aftercare (principal); J18.9 Pneumonia, unspecified organism; I21.4 Non-ST elevation (NSTEMI) myocardial infarction; K40.30 Unilateral inguinal hernia, with obstruction, without gangrene, not specified as recurrent; N13.8 Other obstructive and reflux uropathy; D64.9 Anemia, unspecified; Z51.81 Encounter for therapeutic drug level monitoring; Z79.01 Long term (current) use of anticoagulants; Z97.8 Presence of other specified devices; R77.8 Other specified abnormalities of plasma proteins; Z93.3 Colostomy status; Z79.82 Long term (current) use of aspirin; Z79.899 Other long term (current) drug therapy; Z87.891 Personal history of nicotine dependence; Z96.643 Presence of artificial hip joint, bilateral; J44.9 Chronic obstructive pulmonary disease, unspecified; E78.00 Pure hypercholesterolemia, unspecified; N40.0 Benign prostatic hyperplasia without lower urinary tract symptoms; I25.10 Atherosclerotic heart disease of native coronary artery without angina pectoris; R33.8 Other retention of urine; N40.1 Benign prostatic hyperplasia with lower urinary tract symptoms; E78.5 Hyperlipidemia, unspecified; H91.90 Unspecified hearing loss, unspecified ear; Z98.41 Cataract extraction status, right eye; Z86.73 Personal history of transient ischemic attack (TIA), and cerebral infarction without residual deficits
CPT/HCPCS: 36415; 71046; 80048; 85025; 85027; 85610; 85651; 97110-GO; 97116-GP; 97162-GP; 97165-GO; 97530-GO; 97530-GP; 97535-GO; A9270-GY

== ENCOUNTER 2021-01-14 10:35 | Emergency (ER) | payer MEDICARE, OTHER ==
[2021-01-14] MEDS ORDERED: Morphine 2 MG/ML SYRINGE IVPUSH STA ×2 (11:05→12:54)
[2021-01-14] MEDS ORDERED: Sodium Chloride 0.9% 10 ML Syringe FLUSH PRN (11:05)
[2021-01-14] MEDS ORDERED: tiZANidine 4 MG Tab PO STA (11:05)
--- NOTE | 2021-01-14 11:51 | EDM.PDOC ---
ED HPI GENERAL MEDICAL PROBLEM - General Stated Complaint: FALL Time Seen by Provider: 01/14/21 11:20 Source of Information: Reports: Patient, Family History Limitations: Reports: No Limitations - History of Present Illness INITIAL COMMENTS - FREE TEXT/NARRATIVE: Patient presented to the ED because of a fall last night. He was trying to get up from his chair without his walker, tripped and fell, landed on rt hip and buttock. He c/o rt hip and low back pain. There is no LOC after the fall. He is worried because of bilateral hip surgery with intramedullary wander placement. - Related Data Allergies Allergy/AdvReac Type Severity Reaction Status Date / Time rofecoxib [From Vioxx] Allergy Headache Verified 01/14/21 10:46 Home Meds: Home Meds Fluticasone Propionate [Flonase] 1 spray NASBOTH BID PRN 05/14/20 [History] Furosemide [Lasix] 40 mg PO DAILY 08/12/20 [History] Aspirin [Adult Low Dose Aspirin EC] 81 mg PO DAILY 10/07/20 [History] Omeprazole 20 mg PO ACBREAKFAST 10/07/20 [History] atorvaSTATin Calcium [Lipitor] 40 mg PO BEDTIME 10/07/20 [History] Ferrous Gluconate 324 mg PO TIDMEALS 11/09/20 [History] Nitroglycerin [Nitrostat] 0.4 mg SL Q5M PRN 11/09/20 [History] Acetaminophen [Acetaminophen Extra Strength] 1,000 mg PO Q8H 11/17/20 [History] Atropine/Diphenoxylate [Diphenoxylate-Atropine] 2 tab PO QID PRN 11/17/20 [History] Metoprolol Tartrate 25 mg PO BID 11/17/20 [History] polyethylene glycoL 3350 [MiraLAX] 17 gm PO DAILY PRN 11/17/20 [History] Warfarin [Coumadin] 2.5 mg PO MOWEFR 11/21/20 [History] Warfarin [Coumadin] 5 mg PO SUTUTHSA 11/21/20 [History] Ciprofloxacin HCl [Cipro] 500 mg PO BID #9 11/23/20 [Rx] Ciprofloxacin HCl [Cipro] 500 mg PO BID #14 tablet 01/14/21 [Rx] tiZANidine 2 mg PO Q8H PRN #30 cap 01/14/21 [Rx] traMADol [Ultram] 50 mg PO Q8H PRN #30 tab 01/14/21 [Rx] Past Medical History HEENT History: Reports: Cataract, Hard of Hearing, Other (See Below) Other HEENT History: Recurrent ear infection. Performation of tympanic membrane. Presbyopia. Pseudophakia--both. Regular astigmatis OU. Glaucoma suspect OU. Hyperopia OU. Cardiovascular History: Reports: CAD, High Cholesterol, Hypertension, [place], Other (See Below) Other Cardiovascular History: Coronary artery occlusion with cerebral infarction. 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 Angiogram. Respiratory History: Reports: Other (See Below) Other Respiratory History: Former smoker. Gastrointestinal History: Reports: Other (See Below) Other Gastrointestinal History: C-diff infection. History of rectal bleed. Genitourinary History: Reports: Prostate Disorder, Other (See Below) Other Genitourinary History: BPH obstruction. Renal failure syndrome. Acute urinary retention. Atonic bladder. Suprapubic catheter. Hematuria. Testicular hernia. Musculoskeletal History: Reports: Other (See Below) Other Musculoskeletal History: Broken leg. Falls. 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 Psychiatric History: Reports: Dementia Hematologic History: Reports: None Oncologic (Cancer) History: Reports: None - Infectious Disease History Infectious Disease History: Reports: Chicken Pox, Measles, Shingles - Past Surgical History HEENT Surgical History: Reports: Cataract Surgery Cardiovascular Surgical History: Reports: Percutaneous Transluminal Angioplasty Other Cardiovascular Surgeries/Procedures: Back surgery. Male Surgical History: Reports: TURP-Transurethral Resection of Prostate, Other (See Below) Other Male Surgeries/Procedures: Cystotomy. Musculoskeletal Surgical History: Reports: Hip Replacement Other Musculoskeletal Surgeries/Procedures:: Hip surgery to Left and Right. Back surgery. Carpal tunnel repair left and right. Social & Family History - Family History Family Medical History: No Pertinent Family History Cardiac: Reports: RI Endocrine/Metabolic: Reports: Diabetes, type II - Caffeine Use Caffeine Use: Reports: Soda - Living Situation & Occupation Living situation: Reports: , with Spouse Occupation: Retired Review of Systems - Review of Systems Review Of Systems: See Below Constitutional: Reports: No Symptoms Eyes: Reports: No Symptoms Ears: Reports: No Symptoms Nose: Reports: No Symptoms Mouth/Throat: Reports: No Symptoms Respiratory: Reports: No Symptoms Cardiovascular: Reports: No Symptoms GI/Abdominal: Reports: No Symptoms Genitourinary: Reports: No Symptoms Musculoskeletal: Reports: Back Pain, Muscle Stiffness Skin: Reports: No Symptoms Neurological: Reports: No Symptoms Psychiatric: Reports: No Symptoms ED EXAM, GENERAL - Physical Exam Exam: See Below Exam Limited By: No Limitations General Appearance: Alert, No Apparent Distress Eye Exam: Bilateral Eye: PERRL Ears: Normal External Exam, Normal Canal Throat/Mouth: Normal Inspection Head: Atraumatic, Normocephalic Neck: Normal Inspection, Supple, Non-Tender, Full Range of Motion Respiratory/Chest: No Respiratory Distress, Lungs Clear, Normal Breath Sounds, No Accessory Muscle Use, Chest Non-Tender Cardiovascular: Normal Peripheral Pulses, Regular Rate, Rhythm, No Edema, No JVD, No Murmur, No Rub GI/Abdominal: Normal Bowel Sounds, Soft, Non-Tender Back Exam: Muscle Spasm, Paraspinal Tenderness, Vertebral Tenderness, Other (tenderness-rt hip and lumbar spine) Neurological: Alert, Oriented, CN II-XII Intact, Normal Cognition, Normal Gait, Normal Reflexes, No Motor/Sensory Deficits Psychiatric: Normal Affect, Normal Mood Skin Exam: Warm, Dry, Intact Course - Vital Signs Text/Narrative:: Lab and CT result was reviewed and discussed with patient and his Morphine 2 MG IV X Tizanidine 2 mg PO x1 Patient refused to be admitted. He and his said he has home care and PT that goes at his house. - Orders/Labs/Meds Orders: Active Orders 24 hr Category Date Time Status Lumbar Spine wo Cont [CT] Stat Exams 01/14/21 11:05 Taken Pelvis wo Cont [CT] Stat Exams 01/14/21 11:06 Taken CULTURE URINE [RM] Stat Lab 01/14/21 13:10 Ordered Sodium Chloride 0.9% [Saline Flush] Med 01/14/21 11:05 Active 10 ml FLUSH ASDIRECTED PRN Saline Lock Insert [OM.PC] Routine Oth 01/14/21 11:05 Ordered Medication Orders Sodium Chloride (Sodium Chloride 0.9% 10 Ml Syringe) 10 ml FLUSH ASDIRECTED PRN PRN Reason: Keep Vein Open Labs: Laboratory Tests 01/14/21 01/14/21 01/14/21 Range/Units 11:40 11:40 11:40 WBC 7.4 (3.2-10.1) x10-3/uL RBC 3.93 (3.90-5.90) x10(6)uL Hgb 11.7 L D (12.9-17.7) g/dL Hct 35.6 L D (38.3-50.1) % MCV 90.6 (80.8-98.7) fL MCH 29.8 (27.0-33.3) pg MCHC 32.9 (28.7-35.3) g/dL RDW 19.1 H (12.4-15.0) % Plt Count 226 (117-477) x10(3)uL MPV 8.4 (6.7-11.0) fL Neut % (Auto) 75.6 H (40.3-71.8) % Lymph % (Auto) 15.6 L (15.8-45.3) % [place] % (Auto) 7.0 (5.5-15.2) % Eos % (Auto) 0.7 (0.1-6.8) % Baso % (Auto) 1.1 (0.3-3.8) % Neut # (Auto) 5.6 (1.7-6.9) x10-3/uL Lymph # (Auto) 1.2 (0.5-4.5) x10-3/uL [place] # (Auto) 0.5 (0.0-1.2) x10-3/uL Eos # (Auto) 0.1 (0.0-0.6) x10-3/uL Baso # (Auto) 0.1 (0.0-0.3) x10-3/uL PT 17.8 H (9.0-11.1) sec INR 1.71 H (1.00-1.24) Sodium 141 (135-145) mmol/L Potassium 3.8 (3.5-5.3) mmol/L Chloride 103 (100-110) mmol/L Carbon Dioxide 26 (21-32) mmol/L BUN 18 (7-18) mg/dL Creatinine 1.1 (0.70-1.30) mg/dL Est Cr Clr Drug Dosing TNP Estimated GFR (MDRD) > 60 (>60) BUN/Creatinine Ratio 16.4 (9-20) Glucose 108 (80-116) mg/dL Calcium 9.6 (8.6-10.2) mg/dL Total Bilirubin 0.8 (0.1-1.3) mg/dL AST 34 H D (5-25) IU/L ALT 29 D (12-36) U/L Alkaline Phosphatase 146 H (56-112) IU/L Total Protein 7.5 (6.0-8.0) g/dL Albumin 3.1 L (3.2-4.6) g/dL Globulin 4.4 g/dL Albumin/Globulin Ratio 0.7 Urine Color (YELLOW) Urine Appearance (CLEAR) Urine pH (5.0-6.5) Ur Specific [place] (1.010-1.025) Urine Protein (NEGATIVE) mg/dL Urine Glucose (UA) (NORMAL) mg/dL Urine Ketones (NEGATIVE) mg/dL Urine Occult Blood (NEGATIVE) Urine Nitrite (NEGATIVE) Urine Bilirubin (NEGATIVE) Urine Urobilinogen (NEGATIVE) mg/dL Ur Leukocyte Esterase (NEGATIVE) Urine RBC (0-5) Urine WBC (0-5) Ur Squamous Epith Cells (NS,R,O) Urine Bacteria (NS) 01/14/21 Range/Units 12:30 WBC (3.2-10.1) x10-3/uL RBC (3.90-5.90) x10(6)uL Hgb (12.9-17.7) g/dL Hct (38.3-50.1) % MCV (80.8-98.7) fL MCH (27.0-33.3) pg MCHC (28.7-35.3) g/dL RDW (12.4-15.0) % Plt Count (117-477) x10(3)uL MPV (6.7-11.0) fL Neut % (Auto) (40.3-71.8) % Lymph % (Auto) (15.8-45.3) % [place] % (Auto) (5.5-15.2) % Eos % (Auto) (0.1-6.8) % Baso % (Auto) (0.3-3.8) % Neut # (Auto) (1.7-6.9) x10-3/uL Lymph # (Auto) (0.5-4.5) x10-3/uL [place] # (Auto) (0.0-1.2) x10-3/uL Eos # (Auto) (0.0-0.6) x10-3/uL Baso # (Auto) (0.0-0.3) x10-3/uL PT (9.0-11.1) sec INR (1.00-1.24) Sodium (135-145) mmol/L Potassium (3.5-5.3) mmol/L Chloride (100-110) mmol/L Carbon Dioxide (21-32) mmol/L BUN (7-18) mg/dL Creatinine (0.70-1.30) mg/dL Est Cr Clr Drug Dosing Estimated GFR (MDRD) (>60) BUN/Creatinine Ratio (9-20) Glucose (80-116) mg/dL Calcium (8.6-10.2) mg/dL Total Bilirubin (0.1-1.3) mg/dL AST (5-25) IU/L ALT (12-36) U/L Alkaline Phosphatase (56-112) IU/L Total Protein (6.0-8.0) g/dL Albumin (3.2-4.6) g/dL Globulin g/dL Albumin/Globulin Ratio Urine Color Yellow (YELLOW) Urine Appearance Cloudy (CLEAR) Urine pH 7.0 H (5.0-6.5) Ur Specific [place] 1.015 (1.010-1.025) Urine Protein Negative (NEGATIVE) mg/dL Urine Glucose (UA) Normal (NORMAL) mg/dL Urine Ketones Negative (NEGATIVE) mg/dL Urine Occult Blood Large H (NEGATIVE) Urine Nitrite Negative (NEGATIVE) Urine Bilirubin Negative (NEGATIVE) Urine Urobilinogen Normal (NEGATIVE) mg/dL Ur Leukocyte Esterase Large H (NEGATIVE) Urine RBC 50-75 H (0-5) Urine WBC >100 H (0-5) Ur Squamous Epith Cells Occasional (NS,R,O) Urine Bacteria Many H (NS) Meds: Medications Generic Name Dose Route Start Last Admin Trade Name Freq PRN Reason Stop Dose Admin Sodium Chloride 10 ml 01/14/21 11:05 Sodium Chloride 0.9% 10 Ml Syringe FLUSH ASDIRECTED PRN Keep Vein Open Discontinued Medications Generic Name Dose Route Start Last Admin Trade Name Freq PRN Reason Stop Dose Admin Morphine Sulfate 2 mg 01/14/21 11:05 01/14/21 11:15 Morphine 2 Mg/Ml Syringe IVPUSH 01/14/21 11:06 2 mg NOW STA Administration Morphine Sulfate 2 mg 01/14/21 12:54 01/14/21 12:57 Morphine 2 Mg/Ml Syringe IVPUSH 01/14/21 12:55 2 mg NOW STA Administration Tizanidine HCl 2 mg 01/14/21 11:05 01/14/21 11:35 Tizanidine 4 Mg Tab PO 01/14/21 11:06 2 mg NOW STA Administration Departure - Departure Time of Disposition: 14:00 Disposition: Home, Self-Care 01 Condition: Good Clinical Impression: Fall, Contusion, Sprain UTI (urinary tract infection) Qualifiers: Urinary tract infection type: catheter-associated UTI Indwelling urinary catheter type: cystostomy catheter Encounter type: initial encounter Qualified Code(s): T83.510A - Infection and inflammatory reaction due to cystostomy catheter, initial encounter - Discharge Information Prescriptions: Ciprofloxacin HCl [Cipro] 500 mg PO BID #14 tablet tiZANidine 2 mg PO Q8H PRN #30 cap PRN Reason: spasm/pain traMADol [Ultram] 50 mg PO Q8H PRN #30 tab PRN Reason: Pain Referrals: Sid Diamond MD [Primary Care Provider] - Additional Instructions: Please read discharge instructions on UTI,Fall,Strain,Contusion Increase oral fluids Cipro 500 mg twice daily for 7 days(for your UTI) Take the following medicines all at the same time for better pain relief Tramadol 50 mg, tylenol 1000, tizanidine 2 mg every 8 hours as needed for pain and spasm Continue your physical therapy - My Orders Last 24 Hours: My Active Orders 01/14/21 11:05 Lumbar Spine wo Cont [CT] Stat Sodium Chloride 0.9% [Saline Flush] 10 ml FLUSH ASDIRECTED PRN Saline Lock Insert [OM.PC] Routine 01/14/21 11:06 Pelvis wo Cont [CT] Stat 01/14/21 13:10 CULTURE URINE [RM] Stat - Assessment/Plan Last 24 Hours: My Active Orders 01/14/21 11:05 Lumbar Spine wo Cont [CT] Stat Sodium Chloride 0.9% [Saline Flush] 10 ml FLUSH ASDIRECTED PRN Saline Lock Insert [OM.PC] Routine 01/14/21 11:06 Pelvis wo Cont [CT] Stat 01/14/21 13:10 CULTURE URINE [RM] Stat
--- NOTE | 2021-01-14 14:49 | CT ---
INDICATION: Pain after a fall. CT LUMBOSACRAL SPINE WITHOUT CONTRAST: Spiral 2.5 mm axial sections were obtained through the lumbosacral spine with sagittal and coronal reconstructions and axial reconstructions angled through the L2-3, L3-4, L4-5 and L5-S1 disk spaces. Examination was obtained 01/14/21 and is compared with 11/09/[address] including the pelvic area. Total exam DLP was 739.91 mGy-cm. 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 There does appear to be some narrowing of neural foramina, mostly on the right at the lower levels. Vertebral body heights were well maintained except for slight decrease of anterior vertebral body volume at T12, likely not acute in nature. A definite acute fracture or dislocation was not identified. Hypertrophic degenerative changes are noted at posterior elements, relatively mild in the upper levels and becoming moderate to moderately severe in the lower levels. Little overall change in appearance is noted compared with the previous examination. Sacroiliac joints appear to be intact. No significant-appearing spinal stenosis was noted. No definite herniated nucleus pulposus was seen. IMPRESSION: 1. Fairly stable hypertrophic degenerative changes and disk disease as well as scoliosis of the lumbosacral spine. 2. Incidental note is made of hydronephrosis on the right, not determined as to etiology. Renal calcinosis is noted incidentally at the left kidney. Somewhat thickened wall of the urinary bladder may represent trabeculation. 3. Aortic calcifications and other major artery calcifications are noted. Report was called to Dr. Raphael immediately after the examination was available. [facility]
--- NOTE | 2021-01-14 14:55 | CT ---
INDICATION: Fall yesterday with right hip pain. CT PELVIS WITHOUT CONTRAST: Spiral 1.25 mm axial sections were obtained through the pelvis with sagittal and coronal reconstructions 01/14/[address] of the abdomen dated 11/09/20 and also 08/05/20. 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 A definite acute fracture, dislocation or other complicating process was not identified, but may be difficult to visualize due to the hard beam artifact. This should be correlated clinically therefore. Plain x-rays of the pelvis and hips may be helpful in that regard. Suprapubic catheter is noted in place. There are multiple calcific rim densities in the peritoneal cavity which appear to be changing in position over time on the previous examinations and likely represent peritoneal liths. Arterial calcifications are again noted. IMPRESSION: 1. Bilateral THAs without definite complicating process including fracture or dislocation - detail is somewhat limited however due to hard beam artifact and plain x-rays may be helpful for further evaluation. 2. 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 3. ASD. 4. Suprapubic catheter Report was called to Dr. Raphael immediately after the examination was available. [facility]
[2021-01-14 15:58] VITALS: BP 89/55; PULSE 71
== END 2021-01-14 14:45 | disposition home or self-care (01) ==
LOC: FB.ED 10:35
DX: T83.510A Infection and inflammatory reaction due to cystostomy catheter, initial encounter (principal); S73.101A Unspecified sprain of right hip, initial encounter; S33.5XXA Sprain of ligaments of lumbar spine, initial encounter; I10 Essential (primary) hypertension; I25.10 Atherosclerotic heart disease of native coronary artery without angina pectoris; E78.00 Pure hypercholesterolemia, unspecified; I25.2 Old myocardial infarction; Z86.73 Personal history of transient ischemic attack (TIA), and cerebral infarction without residual deficits; Z79.82 Long term (current) use of aspirin; Z79.899 Other long term (current) drug therapy; Z88.1 Allergy status to other antibiotic agents; Z87.891 Personal history of nicotine dependence; W01.0XXA Fall on same level from slipping, tripping and stumbling without subsequent striking against object, initial encounter
CPT/HCPCS: 36415; 72131; 72192; 80053; 81001; 85025; 85610; 87086; 87088; 87186; 96374; 96376; 99284-25; A9270-GY; J2270

== ENCOUNTER 2021-01-20 15:42 | Inpatient (IN) | payer MEDICARE, OTHER ==
[2021-01-20] MEDS ORDERED: Sodium Chloride 0.9% 10 ML Syringe FLUSH PRN (15:45)
[2021-01-20] MEDS ORDERED: Sodium Chloride 0.9% 1,000 ML IV SCH (16:15)
[2021-01-20] MEDS ORDERED: Acetaminophen/HYDROcodone 325-5 MG Tab PO ONE (17:39)
--- NOTE | 2021-01-20 17:59 | CT ---
INDICATION: Previous fall - bilateral hip pain - follow-up. CT PELVIS WITHOUT CONTRAST: Spiral 1.25 mm axial sections were obtained through the pelvis with sagittal and coronal reconstructions 01/20/21 and compared with previous examination 01/14/21. Total exam DLP was 1085.98 mGy-cm. Again noted are bilateral THAs which produce hard beam artifact which limits detail. A new acute fracture or dislocation was not identified - displaced fracture sites were not identified. Plain x-rays of the pelvis and hips may be helpful for further evaluation as well as nuclear bone imaging. The THAs and the sacroiliac joints appear to be intact. IMPRESSION: 1. No displaced fracture sites. 2. However, study is limited by hard beam artifact due to bilateral total hip arthroplasties and additional examination, depending upon clinical necessity, may be helpful such as x-rays of the pelvis and hips, and possibly nuclear bone imaging, depending upon clinical correlation. Report was called to Dr. Raphael at 1732 hours, 01/20/21. [facility]Maur[facility]
--- NOTE | 2021-01-20 18:01 | CR ---
INDICATION: Weakness. Cough. CHEST X-RAY, ONE VIEW: AP portable upright view of the chest 01/20/21 was compared with 11/20/20 and revealed the heart to remain normal in size. The aorta is tortuous with calcification in the arch. No consolidating pneumonia or effusion was seen. Study is somewhat limited by the AP technique and poor inspiration. When clinically possible, full inspiration PA and lateral views of the chest may be helpful for further evaluation as the poor inspiration emphasizes markings somewhat. IMPRESSION: No definite acute process. Report was called to Dr. Raphael at 1732 hours, 01/20/21. [facility]
--- NOTE | 2021-01-20 20:03 | EDM.PDOC ---
ED HPI GENERAL MEDICAL PROBLEM - General Chief Complaint: Lower Extremity Injury/Pain Stated Complaint: Hip pain Time Seen by Provider: 01/20/21 15:55 Source of Information: Reports: Patient, Family History Limitations: Reports: No Limitations - History of Present Illness INITIAL COMMENTS - FREE TEXT/NARRATIVE: Patient is an 80 YO WM who presented to the ED with his because of rt hip pain and weakness. He fell when he was trying to get up from his chair a wek ago. Lumbar,pelvis and hip CT were all negative and patient was discharged to home with tramadol, zanaflex, and cipro for his UTI. He was advised to be admitted to the hospital last week but he and his refused. Right Hip Pain Score (Numeric/FACES): 10 - Related Data Allergies Allergy/AdvReac Type Severity Reaction Status Date / Time rofecoxib [From Vioxx] Allergy Headache Verified 01/14/21 10:46 Home Meds: Home Meds Fluticasone Propionate [Flonase] 1 spray NASBOTH BID PRN 05/14/20 [History] Furosemide [Lasix] 40 mg PO DAILY 08/12/20 [History] Aspirin [Adult Low Dose Aspirin EC] 81 mg PO DAILY 10/07/20 [History] Omeprazole 20 mg PO ACBREAKFAST 10/07/20 [History] atorvaSTATin Calcium [Lipitor] 40 mg PO BEDTIME 10/07/20 [History] Ferrous Gluconate 324 mg PO TIDMEALS 11/09/20 [History] Nitroglycerin [Nitrostat] 0.4 mg SL Q5M PRN 11/09/20 [History] Acetaminophen [Acetaminophen Extra Strength] 1,000 mg PO Q8H 11/17/20 [History] Atropine/Diphenoxylate [Diphenoxylate-Atropine] 2 tab PO QID PRN 11/17/20 [History] Metoprolol Tartrate 25 mg PO BID 11/17/20 [History] polyethylene glycoL 3350 [MiraLAX] 17 gm PO DAILY PRN 11/17/20 [History] Warfarin [Coumadin] 5 mg PO DAILY 11/21/20 [History] tiZANidine 2 mg PO Q8H PRN #30 cap 01/14/21 [Rx] traMADol [Ultram] 50 mg PO Q8H PRN #30 tab 01/14/21 [Rx] Past Medical History HEENT History: Reports: Cataract, Hard of Hearing, Other (See Below) Other HEENT History: Recurrent ear infection. Performation of tympanic membrane. Presbyopia. Pseudophakia--both. Regular astigmatis OU. Glaucoma suspect OU. Hyperopia OU. Cardiovascular History: Reports: CAD, High Cholesterol, Hypertension, NE, Other (See Below) Other Cardiovascular History: Coronary artery occlusion with cerebral infarction. shelter use of anticoagulant therapy. Angiogram. Respiratory History: Reports: Other (See Below) Other Respiratory History: Former smoker. Gastrointestinal History: Reports: Other (See Below) Other Gastrointestinal History: C-diff infection. History of rectal bleed. Genitourinary History: Reports: Prostate Disorder, Other (See Below) Other Genitourinary History: BPH obstruction. Renal failure syndrome. Acute urinary retention. Atonic bladder. Suprapubic catheter. Hematuria. Testicular hernia. Musculoskeletal History: Reports: Other (See Below) Other Musculoskeletal History: Broken leg. Falls. 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 Psychiatric History: Reports: Dementia Endocrine/Metabolic History: Reports: None Hematologic History: Reports: None Oncologic (Cancer) History: Reports: None Dermatologic History: Reports: None - Infectious Disease History Infectious Disease History: Reports: Chicken Pox, Measles, Shingles - Past Surgical History HEENT Surgical History: Reports: Cataract Surgery Cardiovascular Surgical History: Reports: Percutaneous Transluminal Angioplasty Other Cardiovascular Surgeries/Procedures: Back surgery. GI Surgical History: Reports: Hernia, Inguinal, Other (See Below) Other GI Surgeries/Procedures: colostomy Male Surgical History: Reports: TURP-Transurethral Resection of Prostate, Other (See Below) Other Male Surgeries/Procedures: Cystotomy. Endocrine Surgical History: Reports: None Musculoskeletal Surgical History: Reports: Hip Replacement Other Musculoskeletal Surgeries/Procedures:: Hip surgery to Left and Right. Back surgery. Carpal tunnel repair left and right. Dermatological Surgical History: Reports: None Social & Family History - Family History Family Medical History: No Pertinent Family History Cardiac: Reports: NE Endocrine/Metabolic: Reports: Diabetes, type II - Tobacco Use Tobacco Use Status *Q: Former Tobacco User Used Tobacco, but Quit: Yes Month/Year Tobacco Last Used: 1 Second Hand Smoke Exposure: No - Caffeine Use Caffeine Use: Reports: None - Recreational Drug Use Recreational Drug Use: No - Living Situation & Occupation Living situation: Reports: , with Spouse Occupation: Retired Review of Systems - Review of Systems Review Of Systems: See Below Constitutional: Reports: No Symptoms Ears: Reports: No Symptoms Nose: Reports: No Symptoms, Previous Injury Respiratory: Reports: No Symptoms Cardiovascular: Reports: No Symptoms GI/Abdominal: Reports: No Symptoms Genitourinary: Reports: No Symptoms Musculoskeletal: Reports: Back Pain, Muscle Pain, Other (hip pain-R) Skin: Reports: No Symptoms Neurological: Reports: No Symptoms Psychiatric: Reports: No Symptoms ED EXAM, GENERAL - Physical Exam Exam: See Below Exam Limited By: No Limitations General Appearance: Alert, No Apparent Distress Ears: Normal External Exam, Normal Canal Nose: Normal Inspection, Normal Mucosa, No Blood Throat/Mouth: Normal Inspection, Normal Lips, Normal Teeth Head: Atraumatic, Normocephalic Neck: Normal Inspection, Supple, Non-Tender, Full Range of Motion Respiratory/Chest: No Respiratory Distress, Lungs Clear, Normal Breath Sounds Cardiovascular: Normal Peripheral Pulses, Regular Rate, Rhythm, No Edema, No Gallop GI/Abdominal: Normal Bowel Sounds, Soft, Non-Tender, No Organomegaly, No Distention, No Abnormal Bruit Back Exam: Normal Inspection, Full Range of Motion Extremities: Normal Inspection, Limited Range of Motion, Other (tenderness right hip) Neurological: Alert, Oriented, CN II-XII Intact Skin Exam: Warm Course - Vital Signs Text/Narrative:: Lab/EKG/[id number],xray pelvis/hip result was reviewed and discussed with patient and his [place] 5/325, 2PO x1 Xray pelvis/hip-negative CT hip/pelvis-negative Last Recorded V/S: Last Vital Signs Temp 36.7 C 01/20/21 15:52 Pulse 70 01/20/21 18:30 Resp 18 01/20/21 18:30 BP 116/62 01/20/21 18:30 Pulse Ox 98 01/20/21 18:30 - Orders/Labs/Meds Orders: Active Orders 24 hr Category Date Time Status EKG Documentation Completion [RC] ASDIRECTED Care 01/20/21 15:46 Active Hip Min 2V w Pelvis Bi [CR] Stat Exams 01/20/21 17:35 Taken Sodium Chloride 0.9% [Normal Saline] 1,000 ml Med 01/20/21 16:15 Active IV ASDIRECTED Sodium Chloride 0.9% [Saline Flush] Med 01/20/21 15:45 Active 10 ml FLUSH ASDIRECTED PRN Saline Lock Insert [OM.PC] Routine Oth 01/20/21 15:45 Ordered EKG 12 Lead [EK] Routine Ther 01/20/21 15:45 Ordered Medication Orders Sodium Chloride (Normal Saline) 1,000 mls @ 999 mls/hr IV ASDIRECTED BURT Last Admin: 01/20/21 16:54 Dose: 999 mls/hr Documented by: DIFFCAL Sodium Chloride (Sodium Chloride 0.9% 10 Ml Syringe) 10 ml FLUSH ASDIRECTED PRN PRN Reason: Keep Vein Open Labs: Laboratory Tests 01/20/21 01/20/21 01/20/21 Range/Units 15:45 15:45 15:45 WBC 7.1 (3.2-10.1) x10-3/uL RBC 3.90 (3.90-5.90) x10(6)uL Hgb 11.8 L (12.9-17.7) g/dL Hct 35.7 L (38.3-50.1) % MCV 91.7 (80.8-98.7) fL MCH 30.3 (27.0-33.3) pg MCHC 33.0 (28.7-35.3) g/dL RDW 18.4 H (12.4-15.0) % Plt Count 286 (117-477) x10(3)uL MPV 7.9 (6.7-11.0) fL Neut % (Auto) 65.8 (40.3-71.8) % Lymph % (Auto) 22.1 (15.8-45.3) % [place] % (Auto) 7.2 (5.5-15.2) % Eos % (Auto) 3.8 (0.1-6.8) % Baso % (Auto) 1.1 (0.3-3.8) % Neut # (Auto) 4.7 (1.7-6.9) x10-3/uL Lymph # (Auto) 1.6 (0.5-4.5) x10-3/uL [place] # (Auto) 0.5 (0.0-1.2) x10-3/uL Eos # (Auto) 0.3 (0.0-0.6) x10-3/uL Baso # (Auto) 0.1 (0.0-0.3) x10-3/uL PT (9.0-11.1) sec INR (1.00-1.24) Sodium 137 (135-145) mmol/L Potassium 4.2 (3.5-5.3) mmol/L Chloride 101 (100-110) mmol/L Carbon Dioxide 25 (21-32) mmol/L BUN 18 (7-18) mg/dL Creatinine 1.3 (0.70-1.30) mg/dL Est Cr Clr Drug Dosing TNP Estimated GFR (MDRD) 53 L (>60) BUN/Creatinine Ratio 13.8 (9-20) Glucose 98 (80-116) mg/dL Calcium 9.2 (8.6-10.2) mg/dL Total Bilirubin 0.6 (0.1-1.3) mg/dL AST 53 H D (5-25) IU/L ALT 45 H D (12-36) U/L Alkaline Phosphatase 167 H (56-112) IU/L Troponin I 24.0 (4.0-60.3) pg/mL Total Protein 7.3 (6.0-8.0) g/dL Albumin 2.9 L (3.2-4.6) g/dL Globulin 4.4 g/dL Albumin/Globulin Ratio 0.7 SARS-CoV-2 RNA (NURY) (NEGATIVE) 01/20/21 01/20/21 Range/Units 15:45 18:50 WBC (3.2-10.1) x10-3/uL RBC (3.90-5.90) x10(6)uL Hgb (12.9-17.7) g/dL Hct (38.3-50.1) % MCV (80.8-98.7) fL MCH (27.0-33.3) pg MCHC (28.7-35.3) g/dL RDW (12.4-15.0) % Plt Count (117-477) x10(3)uL MPV (6.7-11.0) fL Neut % (Auto) (40.3-71.8) % Lymph % (Auto) (15.8-45.3) % [place]val % (Auto) (5.5-15.2) % Eos % (Auto) (0.1-6.8) % Baso % (Auto) (0.3-3.8) % Neut # (Auto) (1.7-6.9) x10-3/uL Lymph # (Auto) (0.5-4.5) x10-3/uL [place] # (Auto) (0.0-1.2) x10-3/uL Eos # (Auto) (0.0-0.6) x10-3/uL Baso # (Auto) (0.0-0.3) x10-3/uL PT 20.4 H (9.0-11.1) sec INR 1.98 H (1.00-1.24) Sodium (135-145) mmol/L Potassium (3.5-5.3) mmol/L Chloride (100-110) mmol/L Carbon Dioxide (21-32) mmol/L BUN (7-18) mg/dL Creatinine (0.70-1.30) mg/dL Est Cr Clr Drug Dosing Estimated GFR (MDRD) (>60) BUN/Creatinine Ratio (9-20) Glucose (80-116) mg/dL Calcium (8.6-10.2) mg/dL Total Bilirubin (0.1-1.3) mg/dL AST (5-25) IU/L ALT (12-36) U/L Alkaline Phosphatase (56-112) IU/L Troponin I (4.0-60.3) pg/mL Total Protein (6.0-8.0) g/dL Albumin (3.2-4.6) g/dL Globulin g/dL Albumin/Globulin Ratio SARS-CoV-2 RNA (NURY) Negative (NEGATIVE) Meds: Medications Generic Name Dose Route Start Last Admin Trade Name Freq PRN Reason Stop Dose Admin Sodium Chloride 1,000 mls @ 999 mls/hr 01/20/21 16:15 01/20/21 16:54 Normal Saline IV 999 mls/hr ASDIRECTED BURT Administration Sodium Chloride 10 ml 01/20/21 15:45 Sodium Chloride 0.9% 10 Ml Syringe FLUSH ASDIRECTED PRN Keep Vein Open Discontinued Medications Generic Name Dose Route Start Last Admin Trade Name Freq PRN Reason Stop Dose Admin Hydrocodone Bitart/Acetaminophen 2 tab 01/20/21 17:39 01/20/21 17:53 Acetaminophen/Hydrocodone 325-5 Mg Tab PO 01/20/21 17:40 2 tab ONETIME ONE Administration Departure - Departure Time of Disposition: 17:00 Disposition: Admitted As Inpatient 65 Condition: Good Clinical Impression: Contusion, Muscle strain, Sprain Chronic low back pain Qualifiers: Back pain laterality: bilateral Sciatica presence: without sciatica Qualified Code(s): M54.5 - Low back pain UTI (urinary tract infection) Qualifiers: Urinary tract infection type: catheter-associated UTI Indwelling urinary catheter type: cystostomy catheter Encounter type: initial encounter Qualified Code(s): T83.510A - Infection and inflammatory reaction due to cystostomy catheter, initial encounter - Discharge Information Referrals: Sid Diamond MD [Primary Care Provider] - Sepsis Event Note (ED) - Evaluation Sepsis Screening Result: No Definite Risk - Focused Exam Vital Signs: Vital Signs Temp Pulse Resp BP Pulse Ox 01/20/21 18:30 70 18 116/62 98 01/20/21 15:52 36.7 C 71 18 125/64 97 - My Orders Last 24 Hours: My Active Orders 01/20/21 15:45 Sodium Chloride 0.9% [Saline Flush] 10 ml FLUSH ASDIRECTED PRN Saline Lock Insert [OM.PC] Routine EKG 12 Lead [EK] Routine 01/20/21 15:46 EKG Documentation Completion [RC] ASDIRECTED 01/20/21 16:15 Sodium Chloride 0.9% [Normal Saline] 1,000 ml IV ASDIRECTED 01/20/21 17:35 Hip Min 2V w Pelvis Bi [CR] Stat - Assessment/Plan Last 24 Hours: My Active Orders 01/20/21 15:45 Sodium Chloride 0.9% [Saline Flush] 10 ml FLUSH ASDIRECTED PRN Saline Lock Insert [OM.PC] Routine EKG 12 Lead [EK] Routine 01/20/21 15:46 EKG Documentation Completion [RC] ASDIRECTED 01/20/21 16:15 Sodium Chloride 0.9% [Normal Saline] 1,000 ml IV ASDIRECTED 01/20/21 17:35 Hip Min 2V w Pelvis Bi [CR] Stat
[2021-01-20] MEDS ORDERED: Acetaminophen/HYDROcodone 325-5 MG Tab PO PRN (20:11)
[2021-01-20] MEDS ORDERED: Ondansetron 4 MG/2 ML SDV IV PRN (20:11)
[2021-01-20] MEDS ORDERED: Polyethylene Glycol 3350 Powder 17 GM Packet PO PRN (20:15)
[2021-01-20] MEDS ORDERED: Nitroglycerin 0.4 MG Tab.SL SL PRN (20:15)
[2021-01-20] MEDS ORDERED: Atropine/Diphenoxylate 0.025-2.5 MG Tab PO PRN (20:15)
[2021-01-20] MEDS ORDERED: Fluticasone Propionate Nasal Spray 16 GM Bottle NASBOTH PRN (20:15)
[2021-01-20] MEDS: atorvaSTATin 40 MG Tab PO SCH (21:57)
[2021-01-20] MEDS: Acetaminophen 500 MG Tab PO SCH (21:58)
[2021-01-20] MEDS: Furosemide 40 MG Tab PO SCH (21:58)
[2021-01-20] MEDS: Metoprolol Tartrate 25 MG Tab PO SCH (21:58)
--- NOTE | 2021-01-20 22:20 | PCM.EKG ---
#1 Interpretation EKG Date: 01/20/21 Time: 15:48 Rhythm: NSR Rate (Beats/Min): 70 [place]: Normal P-Wave: Present QRS: Other (LVH) ST-T: Normal QT: Normal Comparison: No Change EKG Interpretation Comments: NSR LVH
[2021-01-21] MEDS: Acetaminophen 500 MG Tab PO SCH ×3 (04:52→20:57)
[2021-01-21] MEDS ORDERED: Furosemide 40 MG Tab PO SCH (09:00)
[2021-01-21] MEDS: Pantoprazole 40 MG Tab.CR PO SCH (09:05)
[2021-01-21] MEDS: Ferrous Sulfate 325 MG Tab PO SCH ×3 (09:06→17:32)
[2021-01-21] MEDS: Metoprolol Tartrate 25 MG Tab PO SCH ×2 (09:06→20:56)
[2021-01-21] MEDS: Aspirin 81 MG Tab.EC PO SCH (09:06)
[2021-01-21] MEDS ORDERED: Warfarin Sliding Scale PO SCH (10:00)
[2021-01-21] MEDS: tiZANidine 4 MG Tab PO PRN ×2 (10:17→23:44)
--- NOTE | 2021-01-21 14:17 | HP ---
ADMISSION DATE: 01/20/2021 REASON FOR ADMISSION: Recurrent fall, weakness, and general disability. HISTORY OF PRESENT ILLNESS: Jose Rafael Rojas is an 80-year-old male who was seen at [facility] ER, evaluated him in the hospital. Progressive decline over the last several days. Has had recurrent falls from his chair a week ago. Had been seen in the ER, radiographs were performed. Recommended hospitalization. Discharged home. Tramadol, Zanaflex, and ciprofloxacin for UTI. Because of increasing pain and discomfort, was re- evaluated and admitted. When seen in the emergency room, chest x-ray was performed which revealed no acute process. Hip x-ray revealed evidence of total hip arthroplasties in place without loosening. CT of his pelvis revealed no displaced fracture, total hip arthroplasty is in good condition. Weakness decline and lack of well-being were noted. He was admitted to hospital for treatment, intervention, and care. MEDICATIONS: Daily medications prior to admission had included: 1. ASA 80 mg 1 p.o. daily, CAD prevention. 2. Atorvastatin 40 mg 1 p.o. daily, hyperlipidemia. 3. Ferrous gluconate 325 one p.o. t.i.d., anemia. 4. Flonase p.r.n. nasal congestion. 5. Furosemide 40 mg p.o. daily. 6. Metoprolol 25 mg 1 p.o. b.i.d., heart. 7. Omeprazole 20 mg 1 p.o. daily, GERD. 8. MiraLAX 17 g 1 daily, constipation. 9. Tizanidine 2 mg p.o. at bedtime, muscle relaxant. 10.Warfarin 5 mg 1 p.o. daily, DVT and stroke prevention. ALLERGIES: Vioxx by report, headache. PAST MEDICAL HISTORY: Significant for multiple surgical procedures that include cystotomy, lumbar back surgery, cataract removal x2, left herniorrhaphy with resultant left-sided colostomy, TURP for benign disease, cardiac stent placement, ongoing long-term catheter use. Treated medical illnesses include coronary artery disease, hypertension, hyperlipidemia. No other operative procedures, hospitalizations, unusual childhood diseases, major injuries, or fractures. SOCIAL HISTORY: Lives with his . Disability is noted. Nonsmoker. No alcohol. No illicit drug use. FAMILY HISTORY: Noncontributory. REVIEW OF SYSTEMS: CONSTITUTIONAL: General malaise and weakness. EYES: Sees well by report. EARS: Some difficulty in crowds. OROPHARYNX: Intact dentition, limited. CV: Denies chest pain, palpitations, syncope. RESPIRATORY: No chronic cough, wheeze, or congestion. GI: Regular predictable stools, colostomy functioning well. : Suprapubic catheter in place. ORTHOPEDIC: Generalized joint complaints. SKIN: No lesions, eruptions, or moles. ENDOCRINE: No excessive thirst or urination. PHYSICAL EXAMINATION: VITAL SIGNS: 36.8, 70, 100/53, 18, and 95%. GENERAL: Elderly gentleman, reluctant to be moved. HEENT: Funduscopic benign. Bright TMs. Clear nasal discharge. Mouth and oropharynx clear. Poor dentition. NECK: Benign. No JVD. CHEST: On auscultation, clear in all lung lizarraga. HEART: Occasional ectopy, soft murmur. ABDOMEN: Benign. Suprapubic catheter, and colostomy left lower quadrant well- functioning. No palpable masses. : Normal male genitalia. Testes normal size, shape, and contour. EXTREMITIES: Well perfused. Mild edema. LABORATORY STUDIES: White count 7100, hemoglobin 11.8, hematocrit 35.7, platelets 22,000. INR 1.98, 2.07. Electrolytes satisfactory. Mild elevation in AST, ALT minimal. Alkaline phosphatase 175, 167. COVID negative. ASSESSMENT: Complicated weakness. Low back pain. PLAN: Medications, care, and treatment appropriate. Analgesics on board. PT/OT consultation. Proceed accordingly. ADDENDUM: Also has decubitus ulcer present on the left and right just superior to the ischial tuberosities. Treatment plan in place. /[id number] /LESLIE
[2021-01-21] MEDS: Warfarin 5 MG Tab PO SCH (16:50)
[2021-01-21] MEDS: traMADol 50 MG Tab PO PRN ×2 (17:32→23:30)
[2021-01-21] MEDS: Furosemide 40 MG Tab PO SCH (20:55)
[2021-01-21] MEDS: atorvaSTATin 40 MG Tab PO SCH (20:56)
[2021-01-22] MEDS: Acetaminophen 500 MG Tab PO SCH ×3 (04:48→20:13)
[2021-01-22] MEDS: Pantoprazole 40 MG Tab.CR PO SCH (06:29)
[2021-01-22] MEDS: Ferrous Sulfate 325 MG Tab PO SCH ×3 (08:25→18:01)
[2021-01-22] MEDS: Aspirin 81 MG Tab.EC PO SCH (08:25)
[2021-01-22] MEDS: tiZANidine 4 MG Tab PO PRN ×2 (08:25→20:13)
[2021-01-22] MEDS: Metoprolol Tartrate 25 MG Tab PO SCH ×2 (08:26→20:11)
[2021-01-22] MEDS: traMADol 50 MG Tab PO PRN ×2 (08:32→20:13)
--- NOTE | 2021-01-22 10:41 | PN ---
DATE SEEN: 01/22/2021 SUBJECTIVE: Jose Rafael Rojas is an 80-year-old male admitted with weakness, complicated back pain, and a recent fall. Radiographs of the low back and hip including CAT scan revealed no obvious fracture. Has a long-term suprapubic catheter plan, and a colostomy. The pain had not been controlled with tramadol, was switched to [place]. Did have a previous UTI prior to this admission, Proteus and Staph. Sensitive, completion of antibiotics was felt to be appropriate and timely. He is otherwise doing well. PHYSICAL EXAMINATION: VITAL SIGNS: Stable. NECK: Benign. Thyroid small. CHEST: Clear. HEART: Regular. ABDOMEN: Benign. Colostomy and suprapubic catheter draining well. ASSESSMENT: Complicated low back pain, recent fall. No bony injury, general disabilities. PLAN: Continue with therapy and treatment, swing bed likely an opportunity 01/23/2021. /[id number] CLYDE/LESLIE
[2021-01-22] MEDS: Warfarin 5 MG Tab PO SCH (16:04)
[2021-01-22] MEDS: Furosemide 40 MG Tab PO SCH (20:10)
[2021-01-22] MEDS: atorvaSTATin 40 MG Tab PO SCH (20:11)
[2021-01-23] MEDS: Acetaminophen 500 MG Tab PO SCH (04:52)
[2021-01-23] MEDS: Pantoprazole 40 MG Tab.CR PO SCH (06:29)
[2021-01-23] MEDS: Metoprolol Tartrate 25 MG Tab PO SCH (08:29)
[2021-01-23] MEDS: Ferrous Sulfate 325 MG Tab PO SCH (08:29)
[2021-01-23 08:33] VITALS: BP 106/57; PULSE 71
[2021-01-23] MEDS: Aspirin 81 MG Tab.EC PO SCH (08:33)
--- NOTE | 2021-01-23 09:09 | PCM.PN ---
- General Info Date of Service: 01/23/21 Subjective Update: Weakness.++.Needs help with ambulation. Functional Status: Reports: Pain Controlled, Tolerating Diet. Denies: Ambulating - Review of Systems General: Reports: No Symptoms HEENT: Reports: No Symptoms Pulmonary: Reports: No Symptoms Cardiovascular: Reports: No Symptoms Gastrointestinal: Reports: No Symptoms Genitourinary: Reports: No Symptoms - Patient Data Vitals - Most Recent: Last Vital Signs Temp 98 F 01/23/21 04:30 Pulse 71 01/23/21 08:29 Resp 20 01/23/21 04:30 BP 106/57 L 01/23/21 08:29 Pulse Ox 97 01/23/21 04:30 Weight - Most Recent: 75.892 kg I&O - Last 24 Hours: Intake & Output 01/22/21 01/23/21 01/23/21 22:59 06:59 14:59 Output Total 950 1200 Balance -950 -1200 Lab Results Last 24 Hours: Laboratory Results - last 24 hr 01/22/21 01/23/21 Range/Units 11:00 06:40 PT 19.3 H (9.0-11.1) sec INR 1.86 H (1.00-1.24) Urine Color Yellow (YELLOW) Urine Appearance Slightly cloudy (CLEAR) Urine pH 6.0 (5.0-6.5) Ur Specific [place] 1.010 (1.010-1.025) Urine Protein Negative (NEGATIVE) mg/dL Urine Glucose (UA) Normal (NORMAL) mg/dL Urine Ketones Negative (NEGATIVE) mg/dL Urine Occult Blood Trace (NEGATIVE) Urine Nitrite Negative (NEGATIVE) Urine Bilirubin Negative (NEGATIVE) Urine Urobilinogen Normal (NEGATIVE) mg/dL Ur Leukocyte Esterase Large H (NEGATIVE) Urine RBC 0-5 (0-5) Urine WBC 20-30 H (0-5) Ur Squamous Epith Cells Rare (NS,R,O) Urine Bacteria Moderate H (NS) Med Orders - Current: Current Medications Acetaminophen (Acetaminophen 500 Mg Tab) 1,000 mg PO Q8H [facility] Last Admin: 01/23/21 04:52 Dose: 1,000 mg Documented by: Aspirin (Aspirin 81 Mg Tab.Ec) 81 mg PO DAILY [facility] Last Admin: 01/23/21 08:33 Dose: 81 mg Documented by: Atorvastatin Calcium (Atorvastatin 40 Mg Tab) 40 mg PO BEDTIME [facility] Last Admin: 01/22/21 20:11 Dose: 40 mg Documented by: Diphenoxylate HCl/Atropine (Atropine/Diphenoxylate 0.025-2.5 Mg Tab) 2 tab PO QID PRN PRN Reason: Diarrhea Ferrous Sulfate (Ferrous Sulfate 325 Mg Tab) 325 mg PO TIDMEALS [facility] Last Admin: 01/23/21 08:29 Dose: 325 mg Documented by: Fluticasone Propionate (Fluticasone Propionate Nasal [place] 16 Gm Bottle) 0 gm NASBOTH BID PRN PRN Reason: ALLERGIC RHINITIS Furosemide (Furosemide 40 Mg Tab) 40 mg PO BEDTIME [facility] Last Admin: 01/22/21 20:10 Dose: 40 mg Documented by: Metoprolol Tartrate (Metoprolol Tartrate 25 Mg Tab) 25 mg PO BID [facility] Last Admin: 01/23/21 08:29 Dose: 25 mg Documented by: Nitroglycerin (Nitroglycerin 0.4 Mg Tab.Sl) 0.4 mg SL Q5M PRN PRN Reason: Chest Pain Ondansetron HCl (Ondansetron 4 Mg/2 Ml Sdv) 4 mg IV Q4H PRN PRN Reason: Nausea/Vomiting Pantoprazole Sodium (Pantoprazole 40 Mg Tab.Cr) 40 mg PO ACBREAKFAST [facility] Last Admin: 01/23/21 06:29 Dose: 40 mg Documented by: Polyethylene Glycol (Polyethylene Glycol 3350 Powder 17 Gm Packet) 17 gm PO DAILY PRN PRN Reason: Constipation Senna/Docusate Sodium (Docusate Sodium/Sennosides 50-8.6 Mg Tab) 1 tab PO BID PRN PRN Reason: Constipation Sodium Chloride (Sodium Chloride 0.9% 10 Ml Syringe) 10 ml FLUSH ASDIRECTED PRN PRN Reason: Keep Vein Open Tizanidine HCl (Tizanidine 4 Mg Tab) 2 mg PO Q8H PRN PRN Reason: spasm/pain Last Admin: 01/22/21 20:13 Dose: 2 mg Documented by: Tramadol HCl (Tramadol 50 Mg Tab) 50 mg PO Q6H PRN PRN Reason: back pain Last Admin: 01/22/21 20:13 Dose: 50 mg Documented by: Warfarin Sodium (Warfarin Sliding Scale) 1 each PO ASDIRECTED [facility] Warfarin Sodium 5 mg/ Warfarin (Sodium 2.5 mg) 7.5 mg PO ONETIME ONE Stop: 01/23/21 16:01 Warfarin Sodium (Warfarin 5 Mg Tab) 5 mg PO 1600 [facility] Stop: 01/25/21 16:01 Discontinued Medications Hydrocodone Bitart/Acetaminophen (Acetaminophen/Hydrocodone 325-5 Mg Tab) 2 tab PO ONETIME ONE Stop: 01/20/21 17:40 Last Admin: 01/20/21 17:53 Dose: 2 tab Documented by: Hydrocodone Bitart/Acetaminophen (Acetaminophen/Hydrocodone 325-5 Mg Tab) 1 tab PO Q4H PRN PRN Reason: Pain (moderate 4-6) Last Admin: 01/21/21 10:16 Dose: 1 tab Documented by: Furosemide (Furosemide 40 Mg Tab) 40 mg PO DAILY [facility] Sodium Chloride (Normal Saline) 1,000 mls @ 999 mls/hr IV ASDIRECTED [facility] Last Admin: 01/20/21 16:54 Dose: 999 mls/hr Documented by: Warfarin Sodium (Warfarin 5 Mg Tab) 5 mg PO DAILY@1600 [facility] Last Admin: 01/22/21 16:04 Dose: 5 mg Documented by: - Exam General: Alert, Oriented HEENT: Pupils Equal Neck: Supple Lungs: Clear to Auscultation Cardiovascular: Regular Rate GI/Abdominal Exam: Normal Bowel Sounds (Male) Exam: No Hernia Back Exam: Normal Inspection - Patient Data Lab Results Last 24 hrs: Laboratory Results - last 24 hr 01/22/21 01/23/21 Range/Units 11:00 06:40 PT 19.3 H (9.0-11.1) sec INR 1.86 H (1.00-1.24) Urine Color Yellow (YELLOW) Urine Appearance Slightly cloudy (CLEAR) Urine pH 6.0 (5.0-6.5) Ur Specific [place] 1.010 (1.010-1.025) Urine Protein Negative (NEGATIVE) mg/dL Urine Glucose (UA) Normal (NORMAL) mg/dL Urine Ketones Negative (NEGATIVE) mg/dL Urine Occult Blood Trace (NEGATIVE) Urine Nitrite Negative (NEGATIVE) Urine Bilirubin Negative (NEGATIVE) Urine Urobilinogen Normal (NEGATIVE) mg/dL Ur Leukocyte Esterase Large H (NEGATIVE) Urine RBC 0-5 (0-5) Urine WBC 20-30 H (0-5) Ur Squamous Epith Cells Rare (NS,R,O) Urine Bacteria Moderate H (NS) Result Diagrams: 01/20/21 15:45 01/21/21 06:10 Sepsis Event Note - Evaluation Sepsis Screening Result: No Definite Risk - Focused Exam Vital Signs: Vital Signs Temp Pulse Pulse Resp BP BP Pulse Ox 01/23/21 08:29 71 106/57 L 01/23/21 04:30 98 F 74 20 110/58 L 97 01/22/21 23:58 18 - Problem List & Annotations (1) Frequent falls SNOMED Code(s): 924757431 Code(s): R29.6 - REPEATED FALLS Status: Acute Current Visit: Yes (2) Ambulatory dysfunction SNOMED Code(s): 210440730 Code(s): R26.2 - DIFFICULTY IN WALKING, NOT ELSEWHERE CLASSIFIED Status: Acute Current Visit: Yes (3) Bacteriuria SNOMED Code(s): 26123022 Code(s): R82.71 - BACTERIURIA Status: Acute Current Visit: Yes (4) Chronic low back pain SNOMED Code(s): 387427656 Code(s): M54.5 - LOW BACK PAIN; G89.29 - OTHER CHRONIC PAIN Status: Acute Current Visit: Yes Qualifiers: Back pain laterality: bilateral Sciatica presence: without sciatica Qualified Code(s): M54.5 - Low back pain; G89.29 - Other chronic pain - Problem List Review Problem List Initiated/Reviewed/Updated: Yes - Plan Plan:: Consider SB for rehab
[2021-01-23] MEDS ORDERED: Warfarin 5 MG, Warfarin 2.5 MG PO ONE ×2 (16:00)
--- NOTE | 2021-01-24 11:51 | DISCH ---
DISCHARGE DATE: 01/23/2021 REASON FOR ADMISSION: 1. Recurrent falls. 2. General debility and weakness. 3. Low back pain. 4. Bacteriuria. BRIEF HISTORY AND HOSPITAL COURSE: This is a pleasant 80-year-old male brought in by the family because of frequent falls at home, had back pain, was in the ER where radiographs were performed. No fracture acutely was noted. He was found to have bacteriuria and because of his weakness, was admitted for IV fluids, strengthening, and antibiotics. The family, Physical Therapy, and coroner/medical examiner have had multiple discussions with family and he is being discharged today to swing bed to complete strengthening and rehab. DISCHARGE MEDICATIONS: He will go home on: 1. Furosemide. 2. Atorvastatin. 3. Aspirin. 4. Tizanidine. 5. Omeprazole. 6. Metoprolol. I spent more than 35 minutes in the discharge of the patient. /[id number] CHUYITA/LESLIE
[2021-01-24] MEDS ORDERED: Warfarin 5 MG Tab PO SCH (16:00)
== END 2021-01-23 11:30 | disposition swing bed (61) | DRG 948 ==
LOC: FB.ED 15:42 → FB.MS 20:08
PROVIDERS: ADMIT Emergency Medicine; ATTEND Family Medicine
DX: R53.81 Other malaise (principal); N13.8 Other obstructive and reflux uropathy; R82.71 Bacteriuria; N39.0 Urinary tract infection, site not specified; R26.2 Difficulty in walking, not elsewhere classified; G89.29 Other chronic pain; M54.5 Low back pain; S73.101A Unspecified sprain of right hip, initial encounter; E78.5 Hyperlipidemia, unspecified; L89.229 Pressure ulcer of left hip, unspecified stage; L89.219 Pressure ulcer of right hip, unspecified stage; H91.90 Unspecified hearing loss, unspecified ear; H52.4 Presbyopia; S70.01XA Contusion of right hip, initial encounter; W19.XXXA Unspecified fall, initial encounter; I25.10 Atherosclerotic heart disease of native coronary artery without angina pectoris; R33.8 Other retention of urine; I10 Essential (primary) hypertension; Z96.649 Presence of unspecified artificial hip joint; E78.00 Pure hypercholesterolemia, unspecified; I25.2 Old myocardial infarction; Z87.891 Personal history of nicotine dependence; Z98.49 Cataract extraction status, unspecified eye; Z95.5 Presence of coronary angioplasty implant and graft; N40.1 Benign prostatic hyperplasia with lower urinary tract symptoms; R33.9 Retention of urine, unspecified; Z93.6 Other artificial openings of urinary tract status; Z86.73 Personal history of transient ischemic attack (TIA), and cerebral infarction without residual deficits; F03.90 Unspecified dementia, unspecified severity, without behavioral disturbance, psychotic disturbance, mood disturbance, and anxiety; Z96.643 Presence of artificial hip joint, bilateral; Z88.8 Allergy status to other drugs, medicaments and biological substances; Z79.01 Long term (current) use of anticoagulants; Z79.82 Long term (current) use of aspirin; Z79.899 Other long term (current) drug therapy; Z20.822 Contact with and (suspected) exposure to COVID-19
CPT/HCPCS: 36415; 71045; 72192; 73521; 73700-50; 80048; 80053; 81001; 84484; 85025; 85610; 87086; 87088; 87186; 93005; 97161-GP; 97165-GO; 97530-GO; 97530-GP; 99285-25; A9270-GY; J7030; U0002

== ENCOUNTER 2021-01-23 10:04 | Inpatient (IN) | payer MEDICARE, OTHER ==
[2021-01-23] MEDS ORDERED: Warfarin Sliding Scale PO SCH (11:45)
[2021-01-23] MEDS ORDERED: traMADol 50 MG Tab PO PRN (12:37)
[2021-01-23] MEDS ORDERED: Polyethylene Glycol 3350 Powder 17 GM Packet PO PRN (12:37)
[2021-01-23] MEDS ORDERED: Fluticasone Propionate Nasal Spray 16 GM Bottle NASBOTH PRN (12:37)
--- NOTE | 2021-01-23 12:40 | PCM.HP.2 ---
H&P History of Present Illness - General Date of Service: 01/23/21 Admit Problem/Dx: Admission Diagnosis/Problem Admission Diagnosis/Problem Weakness Source of Information: Patient History Limitations: Reports: No Limitations - History of Present Illness Initial Comments - Free Text/Narative: Jose Rafael was admitted to [facility] floor due on 01/20 due to recurrent falls,weakness. He is now being admitted to for rehab,and strengthening.He is weak,unsteady on his feet and generally dysfunctional with ADLs.His PMH is inclusive of HTN,HLD,CAD R hip Pain Score (Numeric/FACES): 4 - Related Data Allergies/Adverse Reactions: Allergies Allergy/AdvReac Type Severity Reaction Status Date / Time rofecoxib [From Vioxx] Allergy Headache Verified 01/23/21 11:50 Home Medications: Home Meds Fluticasone Propionate [Flonase] 1 spray NASBOTH BID PRN 05/14/20 [History] Furosemide [Lasix] 40 mg PO BEDTIME 08/12/20 [History] Aspirin [Adult Low Dose Aspirin EC] 81 mg PO DAILY 10/07/20 [History] Omeprazole 20 mg PO ACBREAKFAST 10/07/20 [History] atorvaSTATin Calcium [Lipitor] 40 mg PO BEDTIME 10/07/20 [History] Ferrous Gluconate 324 mg PO TIDMEALS 11/09/20 [History] Acetaminophen [Acetaminophen Extra Strength] 1,000 mg PO Q8H 11/17/20 [History] Metoprolol Tartrate 25 mg PO BID 11/17/20 [History] polyethylene glycoL 3350 [MiraLAX] 17 gm PO DAILY PRN 11/17/20 [History] Warfarin [Coumadin] 5 mg PO DAILY 11/21/20 [History] tiZANidine 2 mg PO Q8H PRN #30 cap 01/14/21 [Rx] traMADol [Ultram] 50 mg PO Q8H PRN #30 tab 01/14/21 [Rx] Past Medical History HEENT History: Reports: Cataract, Hard of Hearing, Other (See Below) Other HEENT History: Recurrent ear infection. Performation of tympanic membrane. Presbyopia. Pseudophakia--both. Regular astigmatis OU. Glaucoma suspect OU. Hyperopia OU. 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 group home use of anticoagulant therapy. Angiogram. Respiratory History: Reports: Other (See Below) Other Respiratory History: Former smoker. Gastrointestinal History: Reports: Other (See Below) Other Gastrointestinal History: C-diff infection. History of rectal bleed. Genitourinary History: Reports: Prostate Disorder, Other (See Below) Other Genitourinary History: BPH obstruction. Renal failure syndrome. Acute urinary retention. Atonic bladder. Suprapubic catheter. Hematuria. Testicular hernia. Musculoskeletal History: Reports: Other (See Below) Other Musculoskeletal History: Broken leg. Falls. 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 Psychiatric History: Reports: Dementia Endocrine/Metabolic History: Reports: None Hematologic History: Reports: None Oncologic (Cancer) History: Reports: None Dermatologic History: Reports: Other (See Below) Other Dermatologic History: Open wounds to buttock area. - Infectious Disease History Infectious Disease History: Reports: Chicken Pox, Measles, Shingles - Past Surgical History HEENT Surgical History: Reports: Cataract Surgery Cardiovascular Surgical History: Reports: Percutaneous Transluminal Angioplasty Other Cardiovascular Surgeries/Procedures: Back surgery. GI Surgical History: Reports: Hernia, Inguinal, Other (See Below) Other GI Surgeries/Procedures: Colostomy. Male Surgical History: Reports: TURP-Transurethral Resection of Prostate, Other (See Below) Other Male Surgeries/Procedures: Cystotomy. Endocrine Surgical History: Reports: None Musculoskeletal Surgical History: Reports: Hip Replacement Other Musculoskeletal Surgeries/Procedures:: Hip surgery to Left and Right. Back surgery. Carpal tunnel repair left and right. Social & Family History - Family History Family Medical History: No Pertinent Family History Cardiac: Reports: [place] Endocrine/Metabolic: Reports: Diabetes, type II - Caffeine Use Caffeine Use: Reports: None - Living Situation & Occupation Living situation: Reports: , with Spouse Occupation: Retired H&P Review of Systems - Review of Systems: Review Of Systems: Comprehensive ROS is negative, except as noted in HPI. General: Reports: Malaise, Weakness HEENT: Reports: No Symptoms Pulmonary: Reports: No Symptoms Cardiovascular: Reports: No Symptoms Gastrointestinal: Reports: No Symptoms Genitourinary: Reports: No Symptoms Musculoskeletal: Reports: Back Pain Skin: Reports: No Symptoms Psychiatric: Reports: No Symptoms Neurological: Reports: No Symptoms Hematologic/Lymphatic: Reports: No Symptoms Immunologic: Reports: No Symptoms Exam - Exam Exam: See Below - Exam General: Alert, Oriented, Cooperative HEENT: PERRLA Neck: Supple Lungs: Clear to Auscultation Cardiovascular: Regular Rate GI/Abdominal Exam: Soft Rectal (Males) Exam: Deferred Extremities: Normal Inspection Neurological: Cranial Nerves Intact Neuro Extensive - Mental Status: Alert, Oriented x3 Neuro Extensive - Motor, Sensory, Reflexes: CN II-XII Intact - Problem List (1) Frequent falls SNOMED Code(s): 578612267 ICD Code: R29.6 - REPEATED FALLS Status: Acute Current Visit: No (2) Ambulatory dysfunction SNOMED Code(s): 178235023 ICD Code: R26.2 - DIFFICULTY IN WALKING, NOT ELSEWHERE CLASSIFIED Status: Acute Current Visit: No (3) HTN (hypertension) SNOMED Code(s): 80137947 ICD Code: I10 - ESSENTIAL (PRIMARY) HYPERTENSION Status: Acute Current Visit: Yes Qualifiers: Hypertension type: essential hypertension Qualified Code(s): I10 - Essential (primary) hypertension (4) H/O: stroke SNOMED Code(s): 427904164 ICD Code: Z86.73 - PRSNL HX OF TIA (TIA), AND CEREB INFRC W/O RESID DEFICITS Status: Acute Current Visit: Yes (5) CAD (coronary artery disease) SNOMED Code(s): 66392354 ICD Code: I25.10 - ATHSCL HEART DISEASE OF [place] CORONARY ARTERY W/O ANG PCTRS Status: Acute Current Visit: Yes Qualifiers: Coronary Disease-Associated Artery/Lesion type: unspecified vessel or lesion type (6) Anemia SNOMED Code(s): 691287069 ICD Code: D64.9 - ANEMIA, UNSPECIFIED Status: Acute Current Visit: No Problem List Initiated/Reviewed/Updated: Yes Orders Last 24hrs: Active Orders 24 hr Category Date Time Status Admission Status [Patient Status] [ADT] Routine ADT 01/23/21 11:30 Active Height and Weight [RC] WEEKLY Care 01/23/21 12:36 Ordered Oxygen Therapy [RC] PRN Care 01/23/21 12:36 Ordered VTE/DVT Education [RC] Per Unit Routine Care 01/23/21 12:36 Ordered Vital Signs [RC] PER UNIT ROUTINE Care 01/23/21 12:36 Ordered OT Evaluation and Treatment [CONS] Routine Cons 01/23/21 12:35 Ordered PT Evaluation and Treatment [CONS] Routine Cons 01/23/21 12:35 Ordered Regular Diet [DIET] Diet 01/23/21 Breakfast Ordered INR,PT,PROTHROMBIN TIME [COAG] Routine Lab 01/23/21 12:37 Ordered Acetaminophen [Tylenol Extra Strength] Med 01/23/21 12:45 Ordered 1,000 mg PO Q8H Aspirin [Halfprin] Med 01/24/21 09:00 Ordered 81 mg PO DAILY Ferrous Gluconate [Ferrous Gluconate] Med 01/23/21 18:00 Ordered 324 mg PO TIDMEALS Fluticasone Propionate [Flonase] Med 01/23/21 12:37 Ordered 1 spray NASBOTH BID PRN Furosemide [Lasix] Med 01/23/21 21:00 Ordered 40 mg PO BEDTIME Metoprolol Tartrate [Lopressor] Med 01/23/21 21:00 Ordered 25 mg PO BID Omeprazole [Omeprazole] Med 01/24/21 07:30 Ordered 20 mg PO ACBREAKFAST Warfarin Sliding Scale [Coumadin Sliding Scale] Med 01/23/21 11:45 Pending 1 each PO ASDIRECTED Warfarin [Coumadin] Med 01/24/21 16:00 Active 5 mg PO 1600 Warfarin [Coumadin] Med 01/24/21 09:00 Ordered 5 mg PO DAILY Warfarin [Coumadin] Med 01/23/21 16:00 Active 7.5 mg PO ONETIME ONE atorvaSTATin [Lipitor] Med 01/23/21 21:00 Ordered 40 mg PO BEDTIME polyethylene glycoL 3350 [MiraLAX] Med 01/23/21 12:37 Ordered 17 gm PO DAILY PRN tiZANidine [tiZANidine] Med 01/23/21 12:37 Ordered 2 mg PO Q8H PRN traMADol [Ultram] Med 01/23/21 12:37 Ordered 50 mg PO Q8H PRN Resuscitation Status Routine Resus Stat 01/23/21 12:35 Ordered Medication Orders Acetaminophen (Acetaminophen 500 Mg Tab) 1,000 mg PO Q8H [facility] Aspirin (Aspirin 81 Mg Tab.Ec) 81 mg PO DAILY [facility] Atorvastatin Calcium (Atorvastatin 40 Mg Tab) 40 mg PO BEDTIME [facility] Fluticasone Propionate (Fluticasone Propionate Nasal [place] 16 Gm Bottle) gm NASBOTH BID PRN PRN Reason: ALLERGIC RHINITIS Furosemide (Furosemide 40 Mg Tab) 40 mg PO BEDTIME [facility] Metoprolol Tartrate (Metoprolol Tartrate 25 Mg Tab) 25 mg PO BID [facility] Non-Formulary Medication (Ferrous Gluconate [Ferrous Gluconate]) 324 mg PO TIDMEALS [facility] Non-Formulary Medication (Omeprazole [Omeprazole]) 20 mg PO ACBREAKFAST [facility] Non-Formulary Medication (Tizanidine [Tizanidine]) 2 mg PO Q8H PRN PRN Reason: spasm/pain Polyethylene Glycol (Polyethylene Glycol 3350 Powder 17 Gm Packet) 17 gm PO DAILY PRN PRN Reason: Constipation Tramadol HCl (Tramadol 50 Mg Tab) 50 mg PO Q8H PRN PRN Reason: Pain Warfarin Sodium (Warfarin Sliding Scale) 1 each PO ASDIRECTED [facility] Warfarin Sodium 5 mg/ Warfarin (Sodium 2.5 mg) 7.5 mg PO ONETIME ONE Stop: 01/23/21 16:01 Warfarin Sodium (Warfarin 5 Mg Tab) 5 mg PO 1600 [facility] Stop: 01/25/21 16:01 Warfarin Sodium (Warfarin 5 Mg Tab) 5 mg PO DAILY [facility] Assessment/Plan Comment:: Admit to Swing Bed with routine orders. Start PT/OT.
[2021-01-23] MEDS: Acetaminophen 500 MG Tab PO SCH ×2 (14:07→21:29)
[2021-01-23] MEDS: Ferrous Sulfate 325 MG Tab PO SCH ×2 (14:08→18:12)
[2021-01-23] MEDS ORDERED: Warfarin 5 MG, Warfarin 2.5 MG PO ONE ×2 (16:00)
[2021-01-23] MEDS: Furosemide 40 MG Tab PO SCH (21:29)
[2021-01-23] MEDS: Metoprolol Tartrate 25 MG Tab PO SCH (21:29)
[2021-01-23] MEDS: atorvaSTATin 40 MG Tab PO SCH (21:29)
[2021-01-24] MEDS: Acetaminophen 500 MG Tab PO SCH ×3 (05:31→20:53)
[2021-01-24] MEDS: Pantoprazole 40 MG Tab.CR PO SCH (05:31)
[2021-01-24] MEDS: tiZANidine 4 MG Tab PO PRN (05:32)
[2021-01-24] MEDS ORDERED: Warfarin 5 MG Tab PO SCH (09:00)
[2021-01-24] MEDS: Aspirin 81 MG Tab.EC PO SCH (09:16)
[2021-01-24] MEDS: Ferrous Sulfate 325 MG Tab PO SCH ×3 (09:16→17:41)
[2021-01-24] MEDS: Metoprolol Tartrate 25 MG Tab PO SCH ×2 (09:19→20:53)
[2021-01-24] MEDS: Warfarin 5 MG Tab PO SCH (15:15)
[2021-01-24] MEDS: atorvaSTATin 40 MG Tab PO SCH (20:53)
[2021-01-24] MEDS: Furosemide 40 MG Tab PO SCH (20:53)
[2021-01-25] MEDS: Acetaminophen 500 MG Tab PO SCH ×3 (06:07→20:21)
[2021-01-25] MEDS: Pantoprazole 40 MG Tab.CR PO SCH (06:08)
[2021-01-25] MEDS: Ferrous Sulfate 325 MG Tab PO SCH ×3 (07:51→17:52)
[2021-01-25] MEDS: Aspirin 81 MG Tab.EC PO SCH (08:25)
[2021-01-25] MEDS: Metoprolol Tartrate 25 MG Tab PO SCH ×2 (08:25→20:20)
[2021-01-25] MEDS: Warfarin 5 MG Tab PO SCH (15:14)
[2021-01-25] MEDS: tiZANidine 4 MG Tab PO PRN (15:18)
[2021-01-25] MEDS: Furosemide 40 MG Tab PO SCH (20:21)
[2021-01-25] MEDS: atorvaSTATin 40 MG Tab PO SCH (20:21)
[2021-01-26] MEDS: Pantoprazole 40 MG Tab.CR PO SCH (05:21)
[2021-01-26] MEDS: Acetaminophen 500 MG Tab PO SCH ×3 (05:21→20:00)
[2021-01-26] MEDS: Ferrous Sulfate 325 MG Tab PO SCH ×3 (08:05→17:38)
[2021-01-26] MEDS: Metoprolol Tartrate 25 MG Tab PO SCH ×2 (08:05→20:01)
[2021-01-26] MEDS: Aspirin 81 MG Tab.EC PO SCH (08:05)
[2021-01-26] MEDS: Warfarin 5 MG, Warfarin 2.5 MG PO SCH ×2 (17:37)
[2021-01-26] MEDS: Furosemide 40 MG Tab PO SCH (20:00)
[2021-01-26] MEDS: atorvaSTATin 40 MG Tab PO SCH (20:00)
[2021-01-27] MEDS: Acetaminophen 500 MG Tab PO SCH ×3 (05:12→20:47)
[2021-01-27] MEDS: Pantoprazole 40 MG Tab.CR PO SCH (05:12)
[2021-01-27] MEDS: Ferrous Sulfate 325 MG Tab PO SCH ×3 (08:25→17:08)
[2021-01-27] MEDS: Metoprolol Tartrate 25 MG Tab PO SCH ×2 (08:25→20:52)
[2021-01-27] MEDS: Aspirin 81 MG Tab.EC PO SCH (08:25)
[2021-01-27] MEDS ORDERED: Warfarin 5 MG Tab PO SCH (16:00)
[2021-01-27] MEDS: Furosemide 40 MG Tab PO SCH (20:47)
[2021-01-27] MEDS: atorvaSTATin 40 MG Tab PO SCH (20:47)
[2021-01-28] MEDS: Pantoprazole 40 MG Tab.CR PO SCH (05:14)
[2021-01-28] MEDS: Acetaminophen 500 MG Tab PO SCH ×3 (05:14→20:04)
--- NOTE | 2021-01-28 07:18 | PCM.PN ---
- General Info Date of Service: 01/28/21 Admission Dx/Problem (Free Text): Admission Diagnosis/Problem Admission Diagnosis/Problem Weakness Subjective Update: Patient states that he still has a little bit of right hip pain from his fall and notes that he has 2 prosthetic hips but he thinks that occupational physical therapy are working and he is getting stronger. He has no other complaints. He wants to go home as soon as he is ready Functional Status: Reports: Pain Controlled, Tolerating Diet, Ambulating, Urinating - Review of Systems General: Reports: Weakness, Fatigue HEENT: Reports: No Symptoms Pulmonary: Reports: No Symptoms Cardiovascular: Reports: No Symptoms Gastrointestinal: Reports: No Symptoms Genitourinary: Reports: No Symptoms Musculoskeletal: Reports: Leg Pain Skin: Reports: No Symptoms Neurological: Reports: No Symptoms Psychiatric: Reports: No Symptoms - Patient Data Vitals - Most Recent: Last Vital Signs Temp 36.3 C 01/27/21 22:56 Pulse 79 01/27/21 22:56 Resp 18 01/27/21 22:56 BP 116/70 01/27/21 22:56 Pulse Ox 97 01/27/21 22:56 Weight - Most Recent: 81.647 kg I&O - Last 24 Hours: Intake & Output 01/27/21 01/28/21 01/28/21 22:59 06:59 14:59 Intake Total 450 900 Output Total 285 350 Balance -239* -2584 Med Orders - Current: Current Medications Acetaminophen (Acetaminophen 500 Mg Tab) 1,000 mg PO Q8H [facility] Last Admin: 01/28/21 05:14 Dose: 1,000 mg Documented by: Aspirin (Aspirin 81 Mg Tab.Ec) 81 mg PO DAILY [facility] Last Admin: 01/27/21 08:25 Dose: 81 mg Documented by: Atorvastatin Calcium (Atorvastatin 40 Mg Tab) 40 mg PO BEDTIME [facility] Last Admin: 01/27/21 20:47 Dose: 40 mg Documented by: Ferrous Sulfate (Ferrous Sulfate 325 Mg Tab) 325 mg PO TIDMEALS [facility] Last Admin: 01/27/21 17:08 Dose: 325 mg Documented by: Fluticasone Propionate (Fluticasone Propionate Nasal [place] 16 Gm Bottle) 0 gm NASBOTH BID PRN PRN Reason: ALLERGIC RHINITIS Furosemide (Furosemide 40 Mg Tab) 40 mg PO BEDTIME [facility] Last Admin: 01/27/21 20:47 Dose: 40 mg Documented by: Metoprolol Tartrate (Metoprolol Tartrate 25 Mg Tab) 25 mg PO BID [facility] Last Admin: 01/27/21 20:52 Dose: 25 mg Documented by: Pantoprazole Sodium (Pantoprazole 40 Mg Tab.Cr) 40 mg PO DAILY@0600 [facility] Last Admin: 01/28/21 05:14 Dose: 40 mg Documented by: Polyethylene Glycol (Polyethylene Glycol 3350 Powder 17 Gm Packet) 17 gm PO DAILY PRN PRN Reason: Constipation Tizanidine HCl (Tizanidine 4 Mg Tab) 2 mg PO Q8H PRN PRN Reason: spasm/pain Last Admin: 01/25/21 15:18 Dose: 2 mg Documented by: Tramadol HCl (Tramadol 50 Mg Tab) 50 mg PO Q8H PRN PRN Reason: Pain Last Admin: 01/24/21 02:56 Dose: 50 mg Documented by: Warfarin Sodium (Warfarin Sliding Scale) 1 each PO ASDIRECTED [facility] Warfarin Sodium 5 mg/ Warfarin (Sodium 2.5 mg) 7.5 mg PO MoWeFr@1600 [facility] Last Admin: 01/26/21 17:37 Dose: 7.5 mg Documented by: Warfarin Sodium (Warfarin 5 Mg Tab) 5 mg PO SuTuThSa@1600 [facility] Last Admin: 01/27/21 17:08 Dose: 5 mg Documented by: Discontinued Medications Warfarin Sodium 5 mg/ Warfarin (Sodium 2.5 mg) 7.5 mg PO ONETIME ONE Stop: 01/23/21 16:01 Last Admin: 01/23/21 15:39 Dose: 7.5 mg Documented by: Warfarin Sodium (Warfarin 5 Mg Tab) 5 mg PO 1600 [facility] Stop: 01/25/21 16:01 Last Admin: 01/25/21 15:14 Dose: 5 mg Documented by: Comments:: Patient was lying in bed awake, interactive, pleasant - Exam Quality Assessment: Supplemental Oxygen, DVT Prophylaxis, Skin Breakdown General: Alert, Oriented, Cooperative, No Acute Distress HEENT: EOMI Lungs: Clear to Auscultation Cardiovascular: Regular Rate, Regular Rhythm GI/Abdominal Exam: Normal Bowel Sounds, Soft, Non-Tender Extremities: Normal Inspection Peripheral Pulses: 2+: Radial (L), Radial (R), Dorsalis Pedis (L), Dorsalis Pedis (R) Skin: Warm, Dry, Intact Neurological: No New Focal Deficit Psy/Mental Status: Alert, Normal Affect, Normal Mood Sepsis Event Note - Evaluation Sepsis Screening Result: No Definite Risk - Focused Exam Vital Signs: Vital Signs Temp Pulse Pulse Resp BP BP Pulse Ox 01/27/21 22:56 36.3 C 79 18 116/70 97 01/27/21 20:52 80 116/70 - Problem List & Annotations (1) CAD (coronary artery disease) SNOMED Code(s): 19879357 Code(s): I25.10 - ATHSCL HEART DISEASE OF [place] CORONARY ARTERY W/O ANG PCTRS Status: Chronic Current Visit: Yes Qualifiers: Coronary Disease-Associated Artery/Lesion type: unspecified vessel or lesion type (2) H/O: stroke SNOMED Code(s): 341124197 Code(s): Z86.73 - PRSNL HX OF TIA (TIA), AND CEREB INFRC W/O RESID DEFICITS Status: Chronic Current Visit: Yes (3) HTN (hypertension) SNOMED Code(s): 96510788 Code(s): I10 - ESSENTIAL (PRIMARY) HYPERTENSION Status: Chronic Current Visit: Yes Qualifiers: Hypertension type: essential hypertension Qualified Code(s): I10 - Essential (primary) hypertension (4) Ambulatory dysfunction SNOMED Code(s): 158353582 Code(s): R26.2 - DIFFICULTY IN WALKING, NOT ELSEWHERE CLASSIFIED Status: Acute Current Visit: No (5) Anemia SNOMED Code(s): 209078211 Code(s): D64.9 - ANEMIA, UNSPECIFIED Status: Chronic Current Visit: No (6) Frequent falls SNOMED Code(s): 758230090 Code(s): R29.6 - REPEATED FALLS Status: Acute Current Visit: No (7) Anticoagulation goal of INR 2.0 to 2.5 SNOMED Code(s): 53875745 Code(s): Z51.81 - ENCOUNTER FOR THERAPEUTIC DRUG LEVEL MONITORING; Z79.01 - CORRECTION (CURRENT) USE OF ANTICOAGULANTS Status: Chronic Current Visit: No (8) [place] catheter in place SNOMED Code(s): 534067725 Code(s): Z97.8 - PRESENCE OF OTHER SPECIFIED DEVICES Status: Chronic Cu rrent Visit: No - Problem List Review Problem List Initiated/Reviewed/Updated: Yes - My Orders Last 24 Hours: My Active Orders 01/27/21 06:49 Suprapubic Catheter Management [OM.PC] Routine 01/27/21 16:05 Urinary Catheter Assessment [RC] QSHIFT 01/29/21 07:40 INR,PT,PROTHROMBIN TIME [COAG] MOTH 02/02/21 07:40 INR,PT,PROTHROMBIN TIME [COAG] MOTH 02/05/21 07:40 INR,PT,PROTHROMBIN TIME [COAG] MOTH 02/09/21 07:40 INR,PT,PROTHROMBIN TIME [COAG] MOTH 02/12/21 07:40 INR,PT,PROTHROMBIN TIME [COAG] MOTH 02/16/21 07:40 INR,PT,PROTHROMBIN TIME [COAG] MOTH 02/19/21 07:40 INR,PT,PROTHROMBIN TIME [COAG] MOTH 02/23/21 07:40 INR,PT,PROTHROMBIN TIME [COAG] MOTH - Plan Plan:: Urine culture collected on 01/22/2021 resulted on 01/27/2021 showed Staph epidermidis greater than 100,000 colony-forming units with multiple resistance pattern. Patient has had indwelling catheter for more than a year and likely colonized. Patient does not report any symptoms. 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 Continue occupational and physical therapy DVT prophylaxis, continue Coumadin therapy Disposition: Patient would like to go home as soon as he is strong enough, he feels that he is getting stronger every day
[2021-01-28] MEDS: Metoprolol Tartrate 25 MG Tab PO SCH ×2 (08:37→20:04)
[2021-01-28] MEDS: Ferrous Sulfate 325 MG Tab PO SCH ×3 (08:37→17:15)
[2021-01-28] MEDS: Aspirin 81 MG Tab.EC PO SCH (08:37)
[2021-01-28] MEDS: Warfarin 5 MG, Warfarin 2.5 MG PO SCH ×2 (17:15)
[2021-01-28] MEDS: Furosemide 40 MG Tab PO SCH (20:03)
[2021-01-28] MEDS: atorvaSTATin 40 MG Tab PO SCH (20:04)
[2021-01-29] MEDS: Acetaminophen 500 MG Tab PO SCH (05:16)
[2021-01-29] MEDS: Pantoprazole 40 MG Tab.CR PO SCH (05:16)
[2021-01-29] MEDS: Aspirin 81 MG Tab.EC PO SCH (08:36)
[2021-01-29] MEDS: Ferrous Sulfate 325 MG Tab PO SCH (08:36)
[2021-01-29] MEDS: Metoprolol Tartrate 25 MG Tab PO SCH (08:37)
[2021-01-29 08:38] VITALS: BP 108/65; PULSE 94
--- NOTE | 2021-01-29 12:33 | PCM.DCSUM1 ---
Discharge Summary - Hospital Course Free Text/Narrative:: Patient was admitted from inpatient status to swing bed to continue physical and Occupational Therapy. Patient has made steady progress. 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 Patient has had indwelling catheter since July 2020 and has had multiple urinary tract infections, including infection he was treated for as an inpatient prior to being switched to swing bed status. Infectious disease was consulted via [facility] 1 call. The patient is and was asymptomatic at the time that the culture resulted. Patient has had multiple treatments with multiple different antibiotics and is likely colonized at this time. Patient will be discharged home continued occupational and physical therapy. He is still weak and requires help with transfers but the patient and his insisted on discharge today. Advised the patient and his to be alert to the fact that he could develop symptoms of urinary tract infection at any time including delirium, altered mental status, abdominal pain, lethargy, anorexia. I advised that if he develops the symptoms they should go to the emergency department or their primary care physician immediately. HPI Initial Comments: Jose Rafael was admitted to [facility] due on 01/20 due to recurrent falls,weakness. He is now being admitted to for rehab,and strengthening.He is weak,unsteady on his feet and generally dysfunctional with ADLs.His PMH is inclusive of HTN,HLD,CAD Diagnosis: Stroke: No - Discharge Data Discharge Date: 01/29/21 Discharge Disposition: Home, W Home Health Agency 06 Condition: Fair - Referral to Home Health Date of Face to Face Encounter: 01/29/21 Reason for Homebound Status: Weakness, difficulty ambulating, needs assistance with ADLs Primary Care Physician: Sid Diamond MD Skilled Need: OT/PT - Discharge Diagnosis/Problem(s) (1) CAD (coronary artery disease) SNOMED Code(s): 77561582 ICD Code: I25.10 - ATHSCL HEART DISEASE OF [place] CORONARY ARTERY W/O ANG PCTRS Status: Chronic Qualifiers: Coronary Disease-Associated Artery/Lesion type: unspecified vessel or lesion type (2) H/O: stroke SNOMED Code(s): 451850211 ICD Code: Z86.73 - PRSNL HX OF TIA (TIA), AND CEREB INFRC W/O RESID DEFICITS Status: Chronic (3) HTN (hypertension) SNOMED Code(s): 50950105 ICD Code: I10 - ESSENTIAL (PRIMARY) HYPERTENSION Status: Chronic Qualifiers: Hypertension type: essential hypertension Qualified Code(s): I10 - Essential (primary) hypertension (4) Ambulatory dysfunction SNOMED Code(s): 292938015 ICD Code: R26.2 - DIFFICULTY IN WALKING, NOT ELSEWHERE CLASSIFIED Status: Acute (5) Anemia SNOMED Code(s): 591248721 ICD Code: D64.9 - ANEMIA, UNSPECIFIED Status: Chronic (6) Frequent falls SNOMED Code(s): 087172204 ICD Code: R29.6 - REPEATED FALLS Status: Acute (7) Anticoagulation goal of INR 2.0 to 2.5 SNOMED Code(s): 13600680 ICD Code: Z51.81 - ENCOUNTER FOR THERAPEUTIC DRUG LEVEL MONITORING; Z79.01 - FERMENTATION MANAGER (CURRENT) USE OF ANTICOAGULANTS Status: Chronic (8) [place] catheter in place SNOMED Code(s): 674994620 ICD Code: Z97.8 - PRESENCE OF OTHER SPECIFIED DEVICES Status: Chronic - Patient Summary/Data Consults: Consultations 01/23/21 12:35 OT Evaluation and Treatment [CONS] Routine Please Evaluate and Treat. OT Reason for Consult: ADL's This query below is only for informational purposes and is not editable. Admission Diagnosis/Problem: Weakness PT Evaluation and Treatment [CONS] Routine Please Evaluate and Treat. PT Reason for Consult: Ambulation This query below is only for informational purposes and is not editable. Admission Diagnosis/Problem: Weakness - Patient Instructions Diet: Usual Diet as Tolerated Activity: As Tolerated Showering/Bathing: May Shower - Discharge Plan *PRESCRIPTION DRUG MONITORING PROGRAM REVIEWED*: Not Applicable *COPY OF PRESCRIPTION DRUG MONITORING REPORT IN PATIENT [place]: Not Applicable Home Medications: Home Meds Fluticasone Propionate [Flonase] 1 spray NASBOTH BID PRN 05/14/20 [History] Furosemide [Lasix] 40 mg PO BEDTIME 08/12/20 [History] Aspirin [Adult Low Dose Aspirin EC] 81 mg PO DAILY 10/07/20 [History] Omeprazole 20 mg PO ACBREAKFAST 10/07/20 [History] atorvaSTATin Calcium [Lipitor] 40 mg PO BEDTIME 10/07/20 [History] Ferrous Gluconate 324 mg PO TIDMEALS 11/09/20 [History] Acetaminophen [Acetaminophen Extra Strength] 1,000 mg PO Q8H 11/17/20 [History] Metoprolol Tartrate 25 mg PO BID 11/17/20 [History] polyethylene glycoL 3350 [MiraLAX] 17 gm PO DAILY PRN 11/17/20 [History] tiZANidine 2 mg PO Q8H PRN #30 cap 01/14/21 [Rx] traMADol [Ultram] 50 mg PO Q8H PRN #30 tab 01/14/21 [Rx] Warfarin [Coumadin] 5 mg PO MOWEFR 01/29/21 [History] Warfarin [Coumadin] 7.5 mg PO SUTUTHSA 01/29/21 [History] Patient Handouts: Acute Back Pain, Adult, Fall Prevention in Hospitals, Adult - Discharge Summary/Plan Comment DC Time >30 min.: No - General Info Date of Service: 01/29/21 Admission Dx/Problem (Free Text: Admission Diagnosis/Problem Admission Diagnosis/Problem Weakness Subjective Update: Patient stated that he is feeling better and is ready to go home even though he is still a little weak. He states that he always does better at home and that there is no place like home Functional Status: Reports: Pain Controlled, Tolerating Diet, Urinating - Review of Systems General: Reports: Weakness, Fatigue HEENT: Reports: No Symptoms Pulmonary: Reports: No Symptoms Cardiovascular: Reports: No Symptoms Gastrointestinal: Reports: No Symptoms Genitourinary: Reports: No Symptoms Musculoskeletal: Reports: No Symptoms Skin: Reports: No Symptoms Neurological: Reports: Weakness, Gait Disturbance Psychiatric: Reports: No Symptoms - Patient Data Vitals - Most Recent: Last Vital Signs Temp 36.7 C 01/29/21 08:00 Pulse 94 01/29/21 08:37 Resp 18 01/29/21 08:00 BP 108/65 01/29/21 08:37 Pulse Ox 91 L 01/29/21 08:00 Weight - Most Recent: 81.647 kg I&O - Last 24 hours: Intake & Output 01/28/21 01/29/21 01/29/21 22:59 06:59 14:59 Intake Total 1000 1600 Output Total 235 270 Balance -4524 -8222 @ Lab Results - Last 24 hrs: Laboratory Results - last 24 hr 01/29/21 Range/Units 06:25 PT 16.9 H (9.0-11.1) sec INR 1.61 H (1.00-1.24) Med Orders - Current: Current Medications Discontinued Medications Acetaminophen (Acetaminophen 500 Mg Tab) 1,000 mg PO Q8H [facility] Last Admin: 01/29/21 05:16 Dose: 1,000 mg Documented by: Aspirin (Aspirin 81 Mg Tab.Ec) 81 mg PO DAILY [facility] Last Admin: 01/29/21 08:36 Dose: 81 mg Documented by: Atorvastatin Calcium (Atorvastatin 40 Mg Tab) 40 mg PO BEDTIME [facility] Last Admin: 01/28/21 20:04 Dose: 40 mg Documented by: Ferrous Sulfate (Ferrous Sulfate 325 Mg Tab) 325 mg PO TIDMEALS [facility] Last Admin: 01/29/21 08:36 Dose: 325 mg Documented by: Fluticasone Propionate (Fluticasone Propionate Nasal [place] 16 Gm Bottle) 0 gm NASBOTH BID PRN PRN Reason: ALLERGIC RHINITIS Furosemide (Furosemide 40 Mg Tab) 40 mg PO BEDTIME [facility] Last Admin: 01/28/21 20:03 Dose: 40 mg Documented by: Metoprolol Tartrate (Metoprolol Tartrate 25 Mg Tab) 25 mg PO BID [facility] Last Admin: 01/29/21 08:37 Dose: 25 mg Documented by: Pantoprazole Sodium (Pantoprazole 40 Mg Tab.Cr) 40 mg PO DAILY@0600 [facility] Last Admin: 01/29/21 05:16 Dose: 40 mg Documented by: Polyethylene Glycol (Polyethylene Glycol 3350 Powder 17 Gm Packet) 17 gm PO DAILY PRN PRN Reason: Constipation Tizanidine HCl (Tizanidine 4 Mg Tab) 2 mg PO Q8H PRN PRN Reason: spasm/pain Last Admin: 01/25/21 15:18 Dose: 2 mg Documented by: Tramadol HCl (Tramadol 50 Mg Tab) 50 mg PO Q8H PRN PRN Reason: Pain Last Admin: 01/24/21 02:56 Dose: 50 mg Documented by: Warfarin Sodium (Warfarin Sliding Scale) 1 each PO ASDIRECTED [facility] Warfarin Sodium 5 mg/ Warfarin (Sodium 2.5 mg) 7.5 mg PO ONETIME ONE Stop: 01/23/21 16:01 Last Admin: 01/23/21 15:39 Dose: 7.5 mg Documented by: Warfarin Sodium (Warfarin 5 Mg Tab) 5 mg PO 1600 [facility] Stop: 01/25/21 16:01 Last Admin: 01/25/21 15:14 Dose: 5 mg Documented by: Warfarin Sodium 5 mg/ Warfarin (Sodium 2.5 mg) 7.5 mg PO MoWeFr@1600 [facility] Last Admin: 01/28/21 17:15 Dose: 7.5 mg Documented by: Warfarin Sodium (Warfarin 5 Mg Tab) 5 mg PO SuTuThSa@1600 [facility] Last Admin: 01/27/21 17:08 Dose: 5 mg Documented by: Warfarin Sodium 5 mg/ Warfarin (Sodium 2.5 mg) 7.5 mg PO DAILY@1600 [facility] - Exam Quality Assessment: Reports: Supplemental Oxygen, DVT Prophylaxis, Skin Breakdown General: Reports: Alert, Oriented, Cooperative Lungs: Reports: Clear to Auscultation Cardiovascular: Reports: Regular Rate, Regular Rhythm GI/Abdominal Exam: Normal Bowel Sounds, Soft, Non-Tender Extremities: Pedal Edema Skin: Reports: Warm, Dry, Intact Neurological: Reports: No New Focal Deficit Psy/Mental Status: Reports: Alert, Normal Affect, Normal Mood
[2021-01-29] MEDS ORDERED: Warfarin 5 MG, Warfarin 2.5 MG PO SCH ×2 (16:00)
== END 2021-01-29 10:20 | disposition home health service (06) | DRG 948 ==
LOC: FB.MS 11:30
PROVIDERS: ADMIT Family Medicine; ATTEND Student in an Organized Health Care Education/Training Program
DX: R53.1 Weakness (principal); N13.8 Other obstructive and reflux uropathy; I25.10 Atherosclerotic heart disease of native coronary artery without angina pectoris; I10 Essential (primary) hypertension; R26.2 Difficulty in walking, not elsewhere classified; D64.9 Anemia, unspecified; R29.6 Repeated falls; E78.5 Hyperlipidemia, unspecified; H91.90 Unspecified hearing loss, unspecified ear; E78.00 Pure hypercholesterolemia, unspecified; H52.4 Presbyopia; H52.03 Hypermetropia, bilateral; N40.1 Benign prostatic hyperplasia with lower urinary tract symptoms; F03.90 Unspecified dementia, unspecified severity, without behavioral disturbance, psychotic disturbance, mood disturbance, and anxiety; Z96.649 Presence of unspecified artificial hip joint; M25.551 Pain in right hip; Z86.73 Personal history of transient ischemic attack (TIA), and cerebral infarction without residual deficits; Z79.01 Long term (current) use of anticoagulants; Z97.8 Presence of other specified devices; Z88.8 Allergy status to other drugs, medicaments and biological substances; Z79.899 Other long term (current) drug therapy; Z79.82 Long term (current) use of aspirin; Z87.891 Personal history of nicotine dependence; Z98.49 Cataract extraction status, unspecified eye
CPT/HCPCS: 36415; 51702; 85610; 97116-GP; 97530-GO; 97530-GP; A9270-GY

== ENCOUNTER 2022-06-22 05:50 | Emergency (ER) | payer MEDICARE, OTHER ==
[2022-06-22] MEDS ORDERED: Dextrose 5%-0.9% NaCl 1,000 ML IV ONE (06:35)
[2022-06-22] MEDS ORDERED: Ondansetron 4 MG/2 ML SDV IVPUSH ONE (08:30)
[2022-06-22] MEDS ORDERED: fentaNYL 100 MCG/2 ML SDV IV ONE ×2 (08:30→10:50)
[2022-06-22] MEDS ORDERED: Iopamidol 755 Mg/ML 100 ML Bottle IV ONE (11:45)
[2022-06-24 02:23] LABS: ESTIMATED GFR 55 mL/min (>60)
== END 2022-06-22 12:20 ==
LOC: FB.ED 05:50
DX: K82.0 Obstruction of gallbladder (principal); Z20.822 Contact with and (suspected) exposure to COVID-19
CPT/HCPCS: 36415; 74177; 80053; 81001; 82271; 83605; 85025; 85610; 86140; 87040; 87086; 96361; 96374; 96375; 96376; 99284; 99285-25; J2405; J3010; Q9967; U0002